=== PATIENT | male | born 1980 | race Caucasian/White ===

== ENCOUNTER 2016-08-02 10:04 | Inpatient (IN) ==
--- NOTE | 2016-08-02 14:39 | Pulmonology History & Physical ---
<Jason Villalta - Last Filed: 08/02/16 15:46> Date of Encounter: 08/02/16 Time of Encounter: 14:37 Assessment and Plan (1) Acetaminophen overdose Current visit: Yes Status: Acute 35-year-old male history of HIV presented to [facility] emergency room extremely somnolent. Patient was found to have opiates, benzodiazepine in urine toxicology and an acetaminophen level of 136. Patient reportedly took significant other's Xanax, and also reported taking Ambien, Benadryl this morning. Patient was started on acetadote. He was sedated and intubated by [facility] secondary to refusal ofacetadote and wanting to leave AMA. LFT within normal limits. Anion gap WNL. -Administering acetadote per protocol: on 2nd bag, third bag ordered. repeat acetaminophen level -sedated intubated: continue VC+, plan extubation tomorrow morning -GI and DVT prophylaxis -Continue restraints -patient overdosed previously on acetaminophen, Ambien, Tylenol in February, at which point he left AMA. Qualifiers: Encounter type: subsequent encounter Injury intent: undetermined intent Qualified Code(s): T39.1X4D - Poisoning by 4-Aminophenol derivatives, undetermined, subsequent encounter (2) Suicide Current visit: Yes Status: Suspected Possible suicide attempt hx of depression and bipolar, PTSD, panic disorder. Previous acetaminophen overdose in February. At that time patient left AMA. Currently admitted for acetaminophen overdose. We will need psychiatric evaluation after extubation. Qualifiers: Encounter type: subsequent encounter Qualified Code(s): X83.8XXD - Intentional self-harm by other specified means, subsequent encounter (3) DVT prophylaxis Current visit: Yes Status: Acute Heparin subcutaneous. (4) HIV disease Current visit: Yes Status: Chronic hx of HIV on Raltegravir and truvada outpatient will need to be continued after extubation. History of Present Illness Chief complaint: Overdose, suicide HPI: Mr. Dyer is a 35 year old male presented to [facility] by EMS for being extremely somnolent. Information obtained through EMR. Patient was thought to have ingested Xanax. At presentation patient was able to answer yes or no to questions but difficult to understand, had slurred speech. Patient stated he took ibuprofen, 10 mg of oxycodone, Ambien and 3 Benadryl this morning. His acetaminophen level was found to be 136. Poison control was contacted and patient was started o acetadote. However patient refuses treatment and wished to leave [facility], therefore Edward [facility]ilton decided to chemically restrained, and intubate patient for his own protection. He was transferred to [facility] thereafter. Past Med Surg Social Fam HX - Past Medical History Medical history: hepatitis, HIV/AIDS, seizures Psychiatric history: anxiety, depression, previous psychiatric hospitalization - Past Surgical History Surgical History: no surgical history - Social History Smoking Status: Current every day smoker Smokeless Tobacco Status: No Alcohol use: none Drug use: none Medications and Allergies Emtricitabine/Tenofovir [Truvada] 1 each PO DAILY 11/18/14 [History] Omeprazole [PriLOSEC] 40 mg PO DAILY #30 cap 05/17/15 [Rx] Raltegravir Potassium [Isentress] 400 mg PO BID 05/17/15 [History] Vit C/Ascorbate Ca/Ascorb Sod [Vitamin C 500 mg/15 ml Liquid] 500 mg PO QWEEK [History] Oxycodone HCl [Oxycodone HCl] 10 mg PO TID PRN 10/01/15 [History] SUMAtriptan [Imitrex] 50 mg PO AD PRN 10/02/15 [History] Zolpidem [Ambien] 10 mg PO HS PRN 10/02/15 [History] Allergies No Known Allergies Allergy (Verified 01/10/15 12:10) ROS unobtainable: due to endotracheal tube All Systems: A 10-system review of systems was performed and is negative for pertinent findings except as documented above in the HPI. Physical Examination Vital Signs: Vital Signs, Last 4 Hours Temp Pulse Resp BP Pulse Ox 08/02/16 13:42 97.7 F 87 19 146/107 100 08/02/16 13:20 22 140/100 100 General appearance: comatose Eyes: nonicteric ENT: oropharynx moist Neck: supple Effort: normal Inspection: normal Auscultation: bilateral: clear Percussion: bilateral: not dull Tactile fremitus: bilateral: normal Cardiovascular: regular rate and rhythm Gastrointestinal: normoactive bowel sounds, non-distended Integumentary: normal Extremities: no cyanosis, no edema, no clubbing Musculoskeletal: no deformities, ROM normal unable to assess due to mental status other (Comatose) Results - Laboratory Findings Abnormal lab findings: Abnormal lab results POC Glucose 170 (58-89) H 08/02/16 13:24 <Bill Batres - Last Filed: 08/02/16 16:28> Date of Encounter: 08/02/16 History of Present Illness HPI: Mr. Dyer is a 35 year old male All Systems: A 10-system review of systems was performed and is negative for pertinent findings except as documented above in the HPI. Physical Examination Vital Signs: Vital Signs, Last 4 Hours Temp Pulse Resp BP Pulse Ox 08/02/16 16:00 87 27 152/102 100 08/02/16 15:00 92 25 150/101 100 08/02/16 14:52 84 21 150/106 100 08/02/16 14:44 21 100 08/02/16 14:00 87 22 139/99 100 08/02/16 13:42 97.7 F 87 19 146/107 100 08/02/16 13:25 92 21 126/106 100 08/02/16 13:20 22 140/100 100 Results - Laboratory Findings ABG ABG pH 7.44 pH Units (7.32-7.45) 08/02/16 15:05 ABG pCO2 40 mmHg (35-45) 08/02/16 15:05 ABG pO2 156 mmHg (85-104) H 08/02/16 15:05 ABG O2 Saturation 99 % (95-98) H 08/02/16 15:05 Abnormal lab findings: Abnormal lab results ABG pO2 156 mmHg (85-104) H 08/02/16 15:05 ABG HCO3 27.2 mEQ/L (21-27) H 08/02/16 15:05 ABG Total CO2 28.4 mEq/L (20-26) H 08/02/16 15:05 ABG O2 Saturation 99 % (95-98) H 08/02/16 15:05 POC Glucose 170 (58-89) H 08/02/16 13:24 Acetaminophen 32.0 mcg/mL (10-30) H 08/02/16 15:38 - Attending Attestation I examined this patient and my medical decision-making was reviewed with the PREPARATION PLANT SUPERVISOR/PA/Advanced Practice Nurse/Resident Physician. I agree with the documented findings, disposition and treatment plan as described except to the extent set forth below. Patient seen and examined. Labs, radiology, chart personally reviewed. Agree with resident's history and physical, assessment, plan with following comments: FULL STACK PHP DEVELOPER: Patient sedated for the vent synchrony. Pulmonary: Acceptable oxygenation and ventilation and ABG was ordered which showed shows evidence of alkalosis with combined metabolic and respiratory could be due to increase of his respiratory rate and need sedation and also change the vent with lowering his minute ventilation. Cardiovascular: stable GI: Nutrition per dietary and GI prophylaxis per routine. Patient is on the treatment as per the protocol for acetaminophen overdose. Heme: DVT prophylaxis per routine ID: Patient with HIV and and he is on the treatment Renal; urine out put and renal funtion reviewed Endorcine: blood glucose is monitored Lines: all lines checked and no evidence of infections Skin: skin care to prevent pressure ulcers per nursing routine care Psych: Patient will need to be evaluated by psychiatrist after extubation I spent 35 min of Critical Care time with this patient. It involved decision making of high complexity to assess, manipulate, and support vital organ system failure and/or to prevent further life threatening deterioration of the patient' s condition. The time involved in the performance of separately reportable procedures was not counted toward critical care time.
[2016-08-02] MEDS ORDERED: Ondansetron 4 MG/2 ML VIAL IVP PRN (15:17)
[2016-08-02] MEDS ORDERED: Naloxone 0.4 MG/ML INJ IVP PRN (15:17)
[2016-08-02] MEDS ORDERED: Lacri-Lube 3.5 GM TUBE BOTH EYES PRN (15:18)
[2016-08-02] MEDS ORDERED: Acetylcysteine 10,000 MG in D5% in Water 1,000 ML IVC ONE (15:21)
[2016-08-02 15:22] LABS: ABG Base Excess 2.8 mEq/L (-2.0 to 3.0); ABG HCO3 27.2 mEQ/L (21-27); ABG Oxygen Saturation 99 % (95-98); ABG PCO2 40 mmHg (35-45); ABG PH 7.44 pH Units (7.32-7.45); ABG PO2 156 mmHg (85-104); ABG TCO2 28.4 mEq/L (20-26); Blood Gas FiO2 40 %
[2016-08-02] MEDS: 0.9 % Sodium Chloride 1,000 ML IVC SCH ×2 (16:55→22:17)
[2016-08-02] MEDS: Famotidine 20 MG/2 ML VIAL IVP SCH (16:55)
[2016-08-02] MEDS: *HR* Heparin 5,000 UNIT/ML VIAL SQ SCH (16:58)
[2016-08-02] MEDS: FentaNYL (PF) 1,000 MCG in 0.9 % Sodium Chloride 80 ML IVC SCH (17:29)
[2016-08-02] MEDS ORDERED: Chlorhexidine Rinse 15 ML MOUTHWASH MM SCH (21:00)
[2016-08-03] MEDS: 0.9 % Sodium Chloride 1,000 ML IVC SCH ×2 (03:22→11:59)
[2016-08-03] MEDS: FentaNYL (PF) 1,000 MCG in 0.9 % Sodium Chloride 80 ML IVC SCH ×2 (03:23→09:39)
[2016-08-03 04:40] LABS: ABG Base Excess 4.3 mEq/L (-2.0 to 3.0); ABG HCO3 30.3 mEQ/L (21-27); ABG Oxygen Saturation 98 % (95-98); ABG PCO2 50 mmHg (35-45); ABG PH 7.39 pH Units (7.32-7.45); ABG PO2 109 mmHg (85-104); ABG TCO2 31.8 mEq/L (20-26)
[2016-08-03 04:41] LABS: Blood Gas FiO2 40 %
[2016-08-03] MEDS: *HR* Heparin 5,000 UNIT/ML VIAL SQ SCH ×2 (05:21→17:27)
[2016-08-03] MEDS: Famotidine 20 MG/2 ML VIAL IVP SCH (05:21)
[2016-08-03] MEDS ORDERED: *HR* Midazolam HCl 5 MG/5 ML VIAL IVP PRN (05:49)
[2016-08-03] MEDS ORDERED: *HR* Midazolam HCl 5 MG/5 ML VIAL IVP ONE (05:53)
[2016-08-03 06:36] LABS: Basophils % 0.1 %; Eosinophils # 0.1 K/mcL (0.0-0.6); Eosinophils % 1.2 %; Hematocrit 40.3 % (37.5-50.1); Hemoglobin 13.4 g/dL (12.9-16.9); Immature Granulocytes % 0.3 % (0-4); Lymphocytes # 1.9 K/mcL (0.6-4.6); Lymphocytes % 24.4 %; Mean Corpuscular HGB Conc 33.3 g/dL (31.6-35.5); Mean Corpuscular Hemoglobin 33.6 pg (28.0-33.3); Mean Platelet Volume 9.9 fL (9.4-12.4); Monocytes # 0.6 K/mcL (0.0-1.3); Monocytes % 7.8 %; Neutrophils # 5.1 K/mcL (1.6-8.9); Platelet Count 116 K/mcL (140-400); Red Blood Count 3.99 M/mcL (4.19-5.50); Red Cell Distribution Width 13.8 % (11.5-14.5); Segmented Neutrophils % 66.2 %
[2016-08-03 06:48] LABS: Alanine Aminotransferase 29 Units/L (0-55); Albumin 3.2 g/dL (3.5-5.0); Alkaline Phosphatase 42 Units/L (38-126); Aspartate Amino Transferase 24 Units/L (5-34); BUN/Creatinine Ratio 8 (6-26); Bilirubin,Total 0.4 mg/dL (0.2-1.2); Blood Urea Nitrogen 6 mg/dL (8-26); Calcium 8.9 mg/dL (8.6-10.8); Carbon Dioxide 28 mEq/L (19-29); Chloride 108 mEq/L (98-109); Globulin 3.1 g/dL (2.4-3.5); Glucose 94 mg/dL (70-99); Osmolality,Calculated 287 (280-300); Potassium 3.6 mEq/L (3.5-4.5); Sodium 140 mEq/L (136-145); Total Protein 6.3 g/dL (6.0-8.3); eGFR For African Americans > 60 (> 60); eGFR For Non-African Americans > 60 (> 60)
[2016-08-03 06:50] LABS: Albumin 3.2 g/dL (3.5-5.0); Albumin/Globulin Ratio 1.1 (1.1-2.2); Bilirubin,Direct 0.2 mg/dL (0.0-0.5); Bilirubin,Indirect 0.2 mg/dL (0.0-1.2); Bilirubin,Total 0.4 mg/dL (0.2-1.2); Total Protein 6.2 g/dL (6.0-8.3)
--- NOTE | 2016-08-03 07:45 | Pulmonology Progress Note ---
<Anitha Dover - Last Filed: 08/03/16 14:26> Date of Encounter: 08/03/16 Time of Encounter: 07:45 Assessment and Plan (1) Acetaminophen overdose Current Visit: Yes Status: Acute Patient was intubated and completed mucomyst. The patient was on CPAP mode when he self extubated around 1300. The patient is awake stating he is going to leave AMA and that he "knows his rights." Patient interviewed about intentions of suicide with his acetaminophen OD and future plans. He denies any intent or plans at suicide, stating that he "loves life" and that he is HIV+ and if he wanted to kill himself he would just stop taking his medications. Patient did not list tylenol in meds ingested, but when questioned specifically about Tylenol ingestion states he was taking tylenol PM as he has trouble sleeping. Psych was called as patient is medically cleared for 1A. Will transfer patient to any bed and await psych eval. Patient will need to be restrained if he attempts to leave AMA as this is the second OD on acetaminophen that he has had in the last 6 months. SPICE BLENDER: Patient remains intubated and sedated during Mucomyst treatment. Patient arrived by EMS to take ER 08/02/2016 somnolent with Slurred speech. Patient took multiple drugs in a suspected attempted overdose. Acetaminophen level was elevated at 136, this morning it is 2. Patient is on a third bag of mucomyst per protocol and poison control. hx of depression and bipolar, PTSD, panic disorder. Previous acetaminophen overdose in February, at that time patient left AMA. Will need psychiatric evaluation after extubation. Pulmonary: He should intubated to protect airway well chemically restrained. Plan to extubate once Mucomyst treatment is completed Cardiovascular: RRR, normotensive, stable GI: Nutrition: NPO GI Prophylaxis Pepcid. Acetaminophen level 2 this morning, LFTs stable. Completing bag 3 of mucomyst per protocol. Renal: UOP 1400, Scr stable ID: Hx HIV on Raltegravir and truvada outpatient, will need to be continued after extubation. Heme/Onc: DVT Prophylaxis Hep SQ Endocrine: Stable Lines: all lines checked and no evidence of infections Skin: skin care to prevent pressure ulcers per nursing routine care. CODE STATUS: FULL CODE Qualifiers: Encounter type: subsequent encounter Injury intent: intentional self-harm Qualified Code(s): T39.1X2D - Poisoning by 4-Aminophenol derivatives, intentional self-harm, subsequent encounter (2) Suicide attempt by acetaminophen overdose Current Visit: Yes Status: Acute Qualifiers: Encounter type: subsequent encounter Qualified Code(s): T39.1X2D - Poisoning by 4-Aminophenol derivatives, intentional self-harm, subsequent encounter (3) HIV disease Current Visit: Yes Status: Chronic (4) DVT prophylaxis Current Visit: Yes Status: Acute Subjective Principal diagnosis: Acetaminophen toxicity Interval history: Seen and examined. He remains intubated and sedated. He became agitated and was attempting to pull out his ET tube and waking up, attempting to talk over the tube and pull at the restraints. He did manage at one point to disconnect the ET tube from the ventilator. Objective PUL Vital signs: Last Vital Signs Temp 98.2 F 08/03/16 07:00 Pulse 94 08/03/16 07:00 Resp 13 08/03/16 07:00 BP 102/65 08/03/16 07:00 Pulse Ox 96 08/03/16 06:05 General appearance: other Eyes: nonicteric (Intubated and sedated) ENT: oropharynx moist Neck: supple, no lymphadenopathy, no JVD Effort: normal Auscultation: bilateral: clear Cardiovascular: regular rate and rhythm Gastrointestinal: normoactive bowel sounds, soft, non-tender, non-distended Integumentary: normal Extremities: no cyanosis, no edema, pink and warm, pulses normal Musculoskeletal: no deformities pupils equal and round, unable to assess due to mental status (Sedated and intubated) Ventilator Settings Ventilator Settings: Ventilator Settings, Last 8 Hours Ventilator Mode A/C Ventilator Mode VC+ Ventilator Mode VC+ Ventilator Mode VC+ Ventilator Mode VC+ Ventilator Mode VC+ Ventilator Mode VC+ Ventilator Mode VC+ Ventilator Mode VC+ Ventilator Mode VC+ Ventilator Mode VC+ Ventilator Mode VC+ Ventilator Mode VC+ Ventilator Tidal Volume 500 Setting Ventilator Tidal Volume 500 Setting Ventilator Tidal Volume 500 Setting Ventilator Tidal Volume 500 Setting Ventilator Tidal Volume 500 Setting Ventilator Tidal Volume 500 Setting Ventilator Tidal Volume 500 Setting Ventilator Tidal Volume 500 Setting Ventilator Tidal Volume 500 Setting Ventilator Tidal Volume 500 Setting Ventilator Tidal Volume 500 Setting Ventilator Tidal Volume 500 Setting Ventilator Tidal Volume 500 Setting Ventilator Respiratory Rate 12 Setting Ventilator Respiratory Rate 12 Setting Ventilator Respiratory Rate 12 Setting Ventilator Respiratory Rate 12 Setting Ventilator Respiratory Rate 12 Setting Ventilator Respiratory Rate 12 Setting Ventilator Respiratory Rate 12 Setting Ventilator Respiratory Rate 12 Setting Ventilator Respiratory Rate 12 Setting Ventilator Respiratory Rate 12 Setting Ventilator Respiratory Rate 12 Setting Ventilator Respiratory Rate 12 Setting Ventilator Respiratory Rate 12 Setting Actual Respiratory Rate 13 Actual Respiratory Rate 12 Actual Respiratory Rate 12 Actual Respiratory Rate 16 Actual Respiratory Rate 12 Actual Respiratory Rate 12 Actual Respiratory Rate 16 Actual Respiratory Rate 14 Actual Respiratory Rate 16 Actual Respiratory Rate 16 Actual Respiratory Rate 16 Actual Respiratory Rate 18 Positive End Expiratory 5 Pressure Positive End Expiratory 5 Pressure Positive End Expiratory 5 Pressure Positive End Expiratory 5 Pressure Positive End Expiratory 5 Pressure Positive End Expiratory 5 Pressure Positive End Expiratory 5 Pressure Positive End Expiratory 5 Pressure Positive End Expiratory 5 Pressure Positive End Expiratory 5 Pressure Positive End Expiratory 5 Pressure Positive End Expiratory 5 Pressure Positive End Expiratory 5 Pressure Peak Inspiratory Airway 19 Pressure Peak Inspiratory Airway 19 Pressure Peak Inspiratory Airway 19 Pressure Peak Inspiratory Airway 19 Pressure Peak Inspiratory Airway 19 Pressure Peak Inspiratory Airway 18 Pressure Peak Inspiratory Airway 17 Pressure Peak Inspiratory Airway 18 Pressure Peak Inspiratory Airway 18 Pressure Results - Laboratory Findings CBC and BMP: 08/03/16 06:27 08/03/16 06:27 ABG ABG pH 7.39 pH Units (7.32-7.45) 08/03/16 04:28 ABG pCO2 50 mmHg (35-45) H 08/03/16 04:28 ABG pO2 109 mmHg (85-104) H 08/03/16 04:28 ABG O2 Saturation 98 % (95-98) 08/03/16 04:28 Abnormal lab findings: Abnormal lab results RBC 3.99 M/mcL (4.19-5.50) L 08/03/16 06:27 MCV 101.0 fL (83.0-100.0) H 08/03/16 06:27 MCH 33.6 pg (28.0-33.3) H 08/03/16 06:27 Plt Count 116 K/mcL (140-400) L 08/03/16 06:27 ABG pCO2 50 mmHg (35-45) H 08/03/16 04:28 ABG pO2 109 mmHg (85-104) H 08/03/16 04:28 ABG HCO3 30.3 mEQ/L (21-27) H 08/03/16 04:28 ABG Total CO2 31.8 mEq/L (20-26) H 08/03/16 04:28 ABG Base Excess 4.3 mEq/L (-2.0 to 3.0) H 08/03/16 04:28 BUN 6 mg/dL (8-26) L 08/03/16 06:27 POC Glucose 97 (58-89) H 08/02/16 23:28 Albumin 3.2 g/dL (3.5-5.0) L 08/03/16 06:27 Acetaminophen 2.0 mcg/mL (10-30) L 08/03/16 06:27 - Clinical Findings Intake & Output: Intake & Output 08/02/16 08/02/16 08/03/16 15:59 23:59 07:59 Intake Total 1237 / 1237 263 / 263 Output Total 1300 / 1300 100 / 100 800 / 800 Balance -1300 / -1300 1137 / 1137 -537 / -537 Weight 100 kg 96.524 kg Consult Discharge Plan - Plan Referrals: Sunil Thomson MD [Primary Care Provider] - <Bill Batres - Last Filed: 08/03/16 17:53> Date of Encounter: 08/03/16 Objective PUL Vital signs: Last Vital Signs Temp 98.7 F 08/03/16 12:33 Pulse 108 08/03/16 14:00 Resp 18 08/03/16 14:00 BP 116/82 08/03/16 14:00 Pulse Ox 98 08/03/16 12:47 Ventilator Settings Ventilator Settings: Ventilator Settings, Last 8 Hours Ventilator Mode A/C Ventilator Mode A/C Ventilator Mode A/C Ventilator Mode A/C Ventilator Tidal Volume 500 Setting Ventilator Tidal Volume 547 Setting Ventilator Tidal Volume 474 Setting Ventilator Tidal Volume 500 Setting Ventilator Respiratory Rate 12 Setting Ventilator Respiratory Rate 12 Setting Ventilator Respiratory Rate 12 Setting Ventilator Respiratory Rate 12 Setting Actual Respiratory Rate 12 Actual Respiratory Rate 13 Actual Respiratory Rate 13 Actual Respiratory Rate 18 Positive End Expiratory 5 Pressure Positive End Expiratory 5 Pressure Positive End Expiratory 5 Pressure Positive End Expiratory 5 Pressure Peak Inspiratory Airway 20 Pressure Peak Inspiratory Airway 17 Pressure Peak Inspiratory Airway 18 Pressure Peak Inspiratory Airway 15 Pressure Results - Laboratory Findings CBC and BMP: 08/03/16 06:27 08/03/16 06:27 ABG ABG pH 7.39 pH Units (7.32-7.45) 08/03/16 04:28 ABG pCO2 50 mmHg (35-45) H 08/03/16 04:28 ABG pO2 109 mmHg (85-104) H 08/03/16 04:28 ABG O2 Saturation 98 % (95-98) 08/03/16 04:28 Abnormal lab findings: Abnormal lab results RBC 3.99 M/mcL (4.19-5.50) L 08/03/16 06:27 MCV 101.0 fL (83.0-100.0) H 08/03/16 06:27 MCH 33.6 pg (28.0-33.3) H 08/03/16 06:27 Plt Count 116 K/mcL (140-400) L 08/03/16 06:27 ABG pCO2 50 mmHg (35-45) H 08/03/16 04:28 ABG pO2 109 mmHg (85-104) H 08/03/16 04:28 ABG HCO3 30.3 mEQ/L (21-27) H 08/03/16 04:28 ABG Total CO2 31.8 mEq/L (20-26) H 08/03/16 04:28 ABG Base Excess 4.3 mEq/L (-2.0 to 3.0) H 08/03/16 04:28 BUN 6 mg/dL (8-26) L 08/03/16 06:27 Albumin 3.2 g/dL (3.5-5.0) L 08/03/16 06:27 Acetaminophen 2.0 mcg/mL (10-30) L 08/03/16 06:27 - Clinical Findings Intake & Output: Intake & Output 08/03/16 08/03/16 08/03/16 07:59 15:59 23:59 Intake Total 263 / 263 2290 / 2290 0 / 0 Output Total 800 / 800 1700 / 1700 0 / 0 Balance -537 / -537 590 / 590 0 / 0 Weight 96.524 kg 96.52 kg - Attending Attestation I examined this patient and my medical decision-making was reviewed with the EDUCATIONAL SPECIALIST/PA/Advanced Practice Nurse/Resident Physician. I agree with the documented findings, disposition and treatment plan as described except to the extent set forth below. Patient seen and examined. Labs, radiology, chart personally reviewed. Agree with resident's history and physical, assessment, plan with following comments: SPICE BLENDER: Patient follows commands, Pulmonary: Acceptable oxygenation and ventilation. He self extubated Cardiovascular: stable I discussed with the psychiatrist and we both agreed since this is his second overdose after he signed AGAINST MEDICAL ADVICE to first time then he needs to stay for treatment. I Have explained to the patient in the presence of the nurse the situation and the recommendation to and he agreed to stay.
[2016-08-03] MEDS ORDERED: *HR* OxyCODONE Immed Rel 5 MG TABLET PO PRN ×2 (14:24→17:01)
--- NOTE | 2016-08-03 15:54 | Consult Note ---
Date of Encounter: 08/03/16 Time of Encounter: 15:00 Assessment & Recommendation (1) Mood disorder Current visit: No Status: Chronic Assessment & Recommendation: Patient had two serious overdoses in 6 months one in February and 1 in July, he required intubation in both episodes. I recommend admission to psychiatric unit for further evaluation of depression or mood disorder. Thank you for consultation (2) Drug overdose Current visit: Yes Status: Acute Qualifiers: Encounter type: subsequent encounter Injury intent: undetermined intent Qualified Code(s): T50.904D - Poisoning by unspecified drugs, medicaments and biological substances, undetermined, subsequent encounter History of Present Illness Patient: known to practice within the last 3 years Requesting Physician: Tawnya Barone MD Reason for consult: Acetaminophen overdose, history of suicide attempts History of present illness: Mr. Dyer is a 35 year old male admitted to intensive care unit for treatment of an overdose on acetaminophen and also other drugs including opiates, benzodiazepine. Patient had to be intubated and later extubated. Psychiatric consultation was requested to evaluate's his overdose with possible suicide attempt. Patient was seen in psychiatric consultation for similar presentation on 03/08/2016. He was discharged AMA at that time. On interview patient was sedated, his speech was slurred and he was irritable insists that he did not overdose and when I ask him about details of medication that he took he became belligerent and angry and at this point I concluded my evaluation and contacted the attending physician and I shared with him my recommendation of hospitalization in psychiatry to further evaluate this repeated life-threatening event. CC: Tawnya Barone MD Past Med Surg Social Fam HX - Past Medical History Medical history: hepatitis, HIV/AIDS, seizures - Past Surgical History Surgical History: no surgical history - Social History Smoking Status: Current every day smoker Smokeless Tobacco Status: No Alcohol use: none Drug use: none Medications & Allergies Emtricitabine/Tenofovir [Truvada] 1 each PO DAILY 11/18/14 [History] Raltegravir Potassium [Isentress] 400 mg PO BID 05/17/15 [History] Oxycodone HCl [Oxycodone HCl] 10 mg PO TID PRN 10/01/15 [History] Zolpidem [Ambien] 10 mg PO HS PRN 10/02/15 [History] Cholecalciferol (Vitamin D3) [Vitamin D3] 10,000 unit PO 2XW 08/02/16 [History] Ergocalciferol (VITAMIN D2) [Vitamin D2] 50,000 unit PO QWEEK 08/02/16 [History] Nicotine Patch [Nicoderm] 7 mg TD DAILY 08/02/16 [History] Omeprazole [PriLOSEC] 20 mg PO DAILY 08/02/16 [History] SUMAtriptan Succinate [Imitrex] 100 mg PO DAILY PRN 08/02/16 [History] clonazePAM [Klonopin] 1 mg PO BID 08/02/16 [History] Allergies No Known Allergies Allergy (Verified 01/10/15 12:10) Mental Status Exam Patient orientation: Yes Person, Yes Place Level of alertness: Sedated Patient appearance: Appropriate, Unkempt, Disheveled Behavior: agitated, hostile, restless, uncooperative, impulsive Psychomotor activity: Increased Eye contact: Fleeting Contact Mood description: Labile, Irritable Affect description: congruent with mood, labile, dysphoric Speech pattern: Normal rate, Normal rhythm, Normal tone, Disorganized, Limited, Slurred, Rambling Speech volume: Normal Thought process: Circumstantial, Thought Blocking, Evasive Thought content: No Suicidal ideation, No Homicidal ideation, No Overt delusions Perceptual disturbances: No Auditory hallucinations, No Visual hallucinations Attention span: Unable to Focus Memory description: Immediate Impaired, Recent Impaired, Remote Impaired Patient reliability: Not Reliable Historian Intelligence estimate: Average Judgment: Limited Insight: Partial Results - Vital Signs Vital signs: Temp Pulse Resp BP Pulse Ox 98.7 F 108 18 116/82 98 08/03/16 12:33 08/03/16 14:00 08/03/16 14:00 08/03/16 14:00 08/03/16 12:47 - Drug Levels and Toxicology Drug Levels and Toxicology: Drug Levels and Toxicity 08/02/16 08/03/16 15:38 06:27 Acetaminophen 32.0 H 2.0 L - Labs Labs: Laboratory Last Values WBC 7.7 K/mcL (4.3-11.1) 08/03/16 06:27 RBC 3.99 M/mcL (4.19-5.50) L 08/03/16 06:27 Hgb 13.4 g/dL (12.9-16.9) D 08/03/16 06:27 Hct 40.3 % (37.5-50.1) 08/03/16 06:27 MCV 101.0 fL (83.0-100.0) H 08/03/16 06:27 MCH 33.6 pg (28.0-33.3) H 08/03/16 06:27 MCHC 33.3 g/dL (31.6-35.5) 08/03/16 06:27 RDW 13.8 % (11.5-14.5) 08/03/16 06:27 Plt Count 116 K/mcL (140-400) L 08/03/16 06:27 MPV 9.9 fL (9.4-12.4) 08/03/16 06:27 Immature Gran % 0.3 % (0-4) 08/03/16 06:27 Seg Neutrophils % 66.2 % 08/03/16 06:27 Lymphocytes % 24.4 % 08/03/16 06:27 Monocytes % 7.8 % 08/03/16 06:27 Eosinophils % 1.2 % 08/03/16 06:27 Basophils % 0.1 % 08/03/16 06:27 Neutrophils # 5.1 K/mcL (1.6-8.9) 08/03/16 06:27 Lymphocytes # 1.9 K/mcL (0.6-4.6) 08/03/16 06:27 Monocytes # 0.6 K/mcL (0.0-1.3) 08/03/16 06:27 Eosinophils # 0.1 K/mcL (0.0-0.6) 08/03/16 06:27 Basophils # 0.0 K/mcL (0.0-0.2) 08/03/16 06:27 ABG pH 7.39 pH Units (7.32-7.45) 08/03/16 04:28 ABG pCO2 50 mmHg (35-45) H 08/03/16 04:28 ABG pO2 109 mmHg (85-104) H 08/03/16 04:28 ABG HCO3 30.3 mEQ/L (21-27) H 08/03/16 04:28 ABG Total CO2 31.8 mEq/L (20-26) H 08/03/16 04:28 ABG O2 Saturation 98 % (95-98) 08/03/16 04:28 ABG Base Excess 4.3 mEq/L (-2.0 to 3.0) H 08/03/16 04:28 Blood Gas Modality VC+ 08/03/16 04:28 Inspired O2 40 % 08/03/16 04:28 Sodium 140 mEq/L (136-145) 08/03/16 06:27 Potassium 3.6 mEq/L (3.5-4.5) 08/03/16 06:27 Chloride 108 mEq/L (98-109) 08/03/16 06:27 Carbon Dioxide 28 mEq/L (19-29) 08/03/16 06:27 BUN 6 mg/dL (8-26) L 08/03/16 06:27 Creatinine 0.72 mg/dL (0.72-1.25) 08/03/16 06:27 Est GFR ( Amer) > 60 (> 60) 08/03/16 06:27 Est GFR (Non-Af Amer) > 60 (> 60) 08/03/16 06:27 BUN/Creatinine Ratio 8 (6-26) 08/03/16 06:27 Glucose 94 mg/dL (70-99) 08/03/16 06:27 POC Glucose 81 (58-89) 08/03/16 11:59 Calculated Osmolality 287 (280-300) 08/03/16 06:27 Calcium 8.9 mg/dL (8.6-10.8) 08/03/16 06:27 Total Bilirubin 0.4 mg/dL (0.2-1.2) 08/03/16 06:27 Direct Bilirubin 0.2 mg/dL (0.0-0.5) 08/03/16 06:27 Indirect Bilirubin 0.2 mg/dL (0.0-1.2) 08/03/16 06:27 AST 25 Units/L (5-34) 08/03/16 06:27 ALT 31 Units/L (0-55) 08/03/16 06:27 Alkaline Phosphatase 44 Units/L (38-126) 08/03/16 06:27 Serum Total Protein 6.2 g/dL (6.0-8.3) 08/03/16 06:27 Albumin 3.2 g/dL (3.5-5.0) L 08/03/16 06:27 Globulin 3.0 g/dL (2.4-3.5) 08/03/16 06:27 Albumin/Globulin Ratio 1.1 (1.1-2.2) 08/03/16 06:27 Acetaminophen 2.0 mcg/mL (10-30) L 08/03/16 06:27 Consult Discharge Plan - Plan Referrals: Sunil Thomson MD [Primary Care Provider] -
[2016-08-03] MEDS ORDERED: Ondansetron 4 MG/2 ML VIAL IVP PRN (17:01)
[2016-08-03] MEDS ORDERED: Naloxone 0.4 MG/ML INJ IVP PRN (17:01)
[2016-08-03] MEDS: Nicotine 7 MG PATCH.TD24 TD SCH (17:27)
[2016-08-03] MEDS: SUMAtriptan succinate 50 MG TABLET PO PRN (18:21)
[2016-08-03] MEDS: *HR* OxyCODONE Immed Rel 5 MG TABLET PO PRN ×2 (18:56→23:20)
[2016-08-03] MEDS: RALTEGRAVIR POTASSIUM 400 MG TABLET PO SCH (23:25)
[2016-08-04] MEDS: *HR* OxyCODONE Immed Rel 5 MG TABLET PO PRN ×3 (04:34→12:46)
[2016-08-04] MEDS: *HR* Heparin 5,000 UNIT/ML VIAL SQ SCH (05:08)
[2016-08-04] MEDS: Nicotine 7 MG PATCH.TD24 TD SCH (08:36)
[2016-08-04] MEDS: RALTEGRAVIR POTASSIUM 400 MG TABLET PO SCH (08:37)
[2016-08-04] MEDS: SUMAtriptan succinate 50 MG TABLET PO PRN (08:37)
[2016-08-04 09:25] VITALS: BP 143/90
--- NOTE | 2016-08-04 09:30 | Discharge Summary ---
Date of Encounter: 08/04/16 Time of Encounter: 09:27 - Discharge Diagnosis (1) Acetaminophen overdose Priority: Primary Status: Acute Qualifiers: Encounter type: subsequent encounter Injury intent: undetermined intent Qualified Code(s): T39.1X4D - Poisoning by 4-Aminophenol derivatives, undetermined, subsequent encounter (2) Drug overdose Priority: Primary Status: Acute Qualifiers: Encounter type: subsequent encounter Injury intent: undetermined intent Qualified Code(s): T50.904D - Poisoning by unspecified drugs, medicaments and biological substances, undetermined, subsequent encounter (3) Acute respiratory failure Priority: Primary Status: Resolved Qualifiers: Respiratory failure complication: hypoxia Qualified Code(s): J96.01 - Acute respiratory failure with hypoxia (4) Bipolar disease, chronic Priority: Secondary Status: Chronic (5) HIV disease Priority: Secondary Status: Chronic (6) Anxiety disorder Priority: Secondary Status: Chronic Qualifiers: Anxiety disorder type: unspecified anxiety disorder Qualified Code(s): F41.9 - Anxiety disorder, unspecified (7) Depression Priority: Secondary Status: Chronic Qualifiers: Depression Type: unspecified Qualified Code(s): F32.9 - Major depressive disorder, single episode, unspecified (8) Mood disorder Priority: Secondary Status: Chronic - Discharge Medications Home Medications: Emtricitabine/Tenofovir [Truvada] 1 each PO DAILY 11/18/14 [History] Raltegravir Potassium [Isentress] 400 mg PO BID 05/17/15 [History] Oxycodone HCl 10 mg PO TID PRN 10/01/15 [History] Zolpidem [Ambien] 10 mg PO HS PRN 10/02/15 [History] Cholecalciferol (Vitamin D3) [Vitamin D3] 10,000 unit PO 2XW 08/02/16 [History] Ergocalciferol (VITAMIN D2) [Vitamin D2] 50,000 unit PO QWEEK 08/02/16 [History] Omeprazole [PriLOSEC] 20 mg PO DAILY 08/02/16 [History] SUMAtriptan Succinate [Imitrex] 100 mg PO DAILY PRN 08/02/16 [History] clonazePAM [Klonopin] 1 mg PO BID 08/02/16 [History] Allergies/Adverse Reactions: Allergies No Known Allergies Allergy (Verified 01/10/15 12:10) Date of admission: 08/02/16 16:15 Primary care physician: Sunil Thomson MD Consults: 08/03/16 10:35 Consult to Psychiatry [CONS] Stat Consulting Provider: Ramon Parmar Reason for Consult: Acetaminophen OD, hx suicide attempt Time Notified: 10:37 Call Completed: Yes Discharging clinician: Ellie Soni Anticipated date of discharge: 08/04/16 - Patient Status Disposition: Transfer Psychiatric Hosp Condition: Fair Functional capacity at discharge: independent ambulation Overall status at discharge: patient is progressing back to baseline - Discharge Instructions Instructions: Mood Disorders (DC) Follow Up With: Sunil Thomson MD [Primary Care Provider] - Additional Instructions: F/up with Psychiatry at [facility] - Diet and Activity Activity: resume usual activities as tolerated Diet: advance to your usual diet Hospital course: Mr. Dyer is a 35 year old male with history of HIV, bipolar disorder, mood disorder was initially admitted with drowsiness. He was noted to have acetaminophen toxicity, which is noted to be a second time in our emergency room. Patient has left AGAINST MEDICAL ADVICE the last time. He was thus intubated and transferred to ICU during this admission. Poison control was contacted and patient received N-Acetylcysteine for Acetaminophen toxicity per protocol. His mental status and labs and Tylenol level gradually improved and he was successfully extubated and transferred to medical floor. Patient was evaluated by psychiatry and recommend inpatient psychiatric hospitalization for counseling and medication management due to 2 attempts at overdoses although patient claims that these have been accidental. Patient is currently medically stable for transfer to psychiatric floor. - Time Spent with Patient Total time spent providing and/or coordinating discharge services: Greater than 30 minutes (45 min) - Constitutional Vitals: Temp Pulse Resp BP Pulse Ox 97.9 F 99 16 143/90 96 08/04/16 09:24 08/04/16 09:24 08/04/16 09:24 08/04/16 09:24 08/04/16 09:24 General appearance: Present: A&O X 3 (very talkative), answers questions appropriately - Respiratory Respiratory exam: Present: CTAB. Absent: accessory muscle use, rales, rhonchi, wheezes - Cardiovascular Cardiovascular exam: Present: RRR, +S1, +S2, tachycardia (while talking excitedly). Absent: diastolic murmur, gallop, rubs, systolic murmur
== END 2016-08-04 14:10 | DRG 812 ==
LOC: ICNU → 2ANU 08-03 16:21
PROVIDERS: ADMIT Internal Medicine Pulmonary Disease; ATTEND Internal Medicine

== ENCOUNTER 2016-08-04 14:06 | Observation (INO) ==
[2016-08-04] MEDS ORDERED: SUMAtriptan succinate 50 MG TABLET PO PRN (14:20)
[2016-08-04] MEDS ORDERED: traZODone 50 MG TABLET PO PRN (14:22)
[2016-08-04] MEDS ORDERED: Mag Hydrox/Al Hydrox/Simeth 30 ML UDC PO PRN (14:22)
[2016-08-04] MEDS ORDERED: Haloperidol Lactate 5 MG/ML VIAL IM PRN (14:22)
[2016-08-04] MEDS ORDERED: Acetaminophen 325 MG TABLET PO PRN (14:22)
[2016-08-04] MEDS ORDERED: *HR* LORazepam 2 MG/ML VIAL IM PRN (14:22)
[2016-08-04] MEDS ORDERED: hydrOXYzine pamoate 25 MG CAPSULE PO PRN (14:22)
[2016-08-04] MEDS ORDERED: MOM Conc 10 ML UD.LIQ PO PRN (14:22)
[2016-08-04] MEDS ORDERED: *HR* LORazepam 1 MG TABLET PO PRN (14:22)
[2016-08-04] MEDS ORDERED: *HR* OxyCODONE Immed Rel 5 MG TABLET PO SCH (16:00)
[2016-08-04] MEDS: *HR* OxyCODONE Immed Rel 5 MG TABLET PO PRN ×2 (16:37→20:43)
[2016-08-04] MEDS ORDERED: clonazePAM 1 MG TABLET PO PRN (19:01)
[2016-08-04] MEDS ORDERED: clonazePAM 1 MG TABLET PO SCH (21:00)
[2016-08-04] MEDS: RALTEGRAVIR POTASSIUM 400 MG TABLET PO SCH (21:56)
[2016-08-05] MEDS: *HR* OxyCODONE Immed Rel 5 MG TABLET PO PRN ×2 (02:15→08:54)
[2016-08-05] MEDS: RALTEGRAVIR POTASSIUM 400 MG TABLET PO SCH (08:45)
[2016-08-05] MEDS ORDERED: Nicotine 21 MG PATCH.TD24 TD SCH (09:00)
[2016-08-05] MEDS ORDERED: Cholecalciferol (D-3) 1,000 UNIT TABLET PO SCH (09:00)
[2016-08-05 09:20] VITALS: BP 114/90
--- NOTE | 2016-08-05 10:03 | Discharge Summary ---
Date of Encounter: 08/05/16 Time of Encounter: 09:00 History of Present Illness Chief complaint: Overdose, suicidal attempt Admitted From: Intrahospital Transfer (2 A) History of Present Illness: Mr. Dyer is a 35 year old male admitted to the hospital for treatment of acetaminophen overdose he was intubated and extubated, he was seen in a psychiatry consultation and then admitted to the psychiatric unit for observation. Patient had long history of depression and anxiety multiple episodes of overdose that resulted in respiratory failure and intubation most recent was in February 2016. Patient denied the dose attempts are intentional and last admission in general he signed himself AGAINST MEDICAL ADVICE. He is followed up in the [facility] as outpatient and also has a history of substance abuse and on probation for that. He is noncompliant with medication and appointments. He is dependent on opiate and benzodiazepine. Past Med Surg Social Fam HX - Past Medical History Medical history: hepatitis, HIV/AIDS, seizures - Past Psychiatric History Psychiatric history: Reports: anxiety, depression, prior suicide attempt, previous psychiatric hospitalization Past psychiatric history details: He was seen in February 2016 for similar episode of overdose and was discharged AMA from the medical floor - Past Surgical History Surgical History: no surgical history - Social History Smoking Status: Current every day smoker Smokeless Tobacco Status: No Alcohol use: none Drug use: none Medications - Discharge Medications Emtricitabine/Tenofovir [Truvada] 1 each PO DAILY 11/18/14 [History] Raltegravir Potassium [Isentress] 400 mg PO BID 05/17/15 [History] Oxycodone HCl 10 mg PO TID PRN 10/01/15 [History] Zolpidem [Ambien] 10 mg PO HS PRN 10/02/15 [History] Cholecalciferol (Vitamin D3) [Vitamin D3] 10,000 unit PO 2XW 08/02/16 [History] Ergocalciferol (VITAMIN D2) [Vitamin D2] 50,000 unit PO QWEEK 08/02/16 [History] Omeprazole [PriLOSEC] 20 mg PO DAILY 08/02/16 [History] SUMAtriptan Succinate [Imitrex] 100 mg PO DAILY PRN 08/02/16 [History] clonazePAM [Klonopin] 1 mg PO BID 08/02/16 [History] Allergies No Known Allergies Allergy (Verified 01/10/15 12:10) Review of Systems Psychiatric: Reports: depression, anxiety, suicidal ideation Mental Status Exam - Mental Status Exam Patient orientation: Yes Person, Yes Time, Yes Place Level of alertness: Alert Patient appearance: Appropriate, Unkempt, Disheveled Behavior: calm, cooperative Psychomotor activity: Normal Eye contact: Minimal Contact Mood description: Euthymic/stable, Anxious Affect description: congruent with mood, constricted Speech pattern: Normal rate, Normal rhythm, Normal tone Speech Volume: Normal Thought process: Linear, Goal Oriented Thought Content: No Suicidal ideation, No Homicidal ideation, No Overt delusions Perceptual Disturbances: No Auditory hallucinations, No Visual hallucinations Judgment: Limited Insight: Partial Results - Vital Signs Vital signs: Temp Pulse Resp BP 98.2 F 94 18 114/90 08/05/16 09:00 08/05/16 09:00 08/05/16 09:00 08/05/16 09:00 Diagnosis - Discharge Diagnosis (1) Mood disorder Status: Chronic Assessment and Plan - Patient/Caregiver Discharge Instructions Activity: resume usual activities as tolerated Diet: regular diet - Follow up Plan [facility] [place] - 08/05/16 3:00 pm (The above appointment is with Cecilia Tuttle for counseling.) Sunil Thomson MD [Partnered Physician] - 08/09/16 4:00 pm (The above appointment is with Dr. Thomson.) Functional capacity at discharge: independent ambulation Overall status at discharge: Stable Disposition: Home, Self-Care Provider Date of admission: 08/04/16 14:06 Primary care physician: PCP NO Discharging clinician: Robert Horn Hospital Course Hospital course: Mr. Dyer is a 35 year old male admitted for treatment of acetaminophen overdose and respiratory failure. For details admission please see history of present illness. On the units patient was restarted on his medication he was advised on the proper use of medication and safety concerns. He was medically stable, denies suicidal ideation or intention. He was cooperative and compliant with medication. His discharge plan included outpatient appointments for mental health and substance abuse, patient was encouraged to attend his appointments. - Time Spent with Patient Total time spent providing and/or coordinating discharge services: Greater than 30 minutes Procedures - Procedures Procedures: Medication Management, Crisis Stabilization, Supportive Therapy, Group Therapy, Psychoeducational Therapy Quality - Multiple Antipsychotics Patient discharged on 2 or more antipsychotic medications: No
== END 2016-08-05 12:10 | disposition home or self-care (01) ==
LOC: 1ANU 14:06 → INTOOBSV 14:06
PROVIDERS: ADMIT Psychiatry & Neurology Psychiatry; ATTEND Psychiatry & Neurology Psychiatry

== ENCOUNTER 2016-10-31 14:55 | Inpatient (IN) ==
[2016-10-31] MEDS ORDERED: Ondansetron 4 MG/2 ML VIAL IVP ONE ×3 (15:27→16:50)
[2016-10-31] MEDS ORDERED: 0.9 % Sodium Chloride 1,000 ML IVC ONE ×2 (15:27→15:32)
[2016-10-31] MEDS ORDERED: *HR* Morphine 2 MG/ML SYRINGE IVP ONE (15:27)
[2016-10-31] MEDS ORDERED: Piperacillin/Tazobactam 4.5 GM in D5% in Water (Mini-Bag+) 100 ML IVPB ONE (15:33)
[2016-10-31] MEDS ORDERED: Vancomycin 1,500 MG in D5% in Water 250 ML IVPB ONE (15:34)
[2016-10-31] MEDS ORDERED: Micafungin 100 MG in 0.9 % Sodium Chloride 100 ML IVPB SCH (15:45)
[2016-10-31 15:55] LABS: Basophils % 0.3 %; Eosinophils % 0.6 %; Hematocrit 41.8 % (37.5-50.1); Hemoglobin 13.9 g/dL (12.9-16.9); Immature Granulocytes % 0.3 % (0-4); Lymphocytes % 31.9 %; Mean Corpuscular HGB Conc 33.3 g/dL (31.6-35.5); Mean Corpuscular Hemoglobin 31.2 pg (28.0-33.3); Mean Corpuscular Volume 93.9 fL (83.0-100.0); Mean Platelet Volume 9.7 fL (9.4-12.4); Monocytes # 0.6 K/mcL (0.0-1.3); Monocytes % 8.9 %; Neutrophils # 3.7 K/mcL (1.6-8.9); Platelet Count 159 K/mcL (140-400); Red Blood Count 4.45 M/mcL (4.19-5.50); Red Cell Distribution Width 13.5 % (11.5-14.5)
[2016-10-31 16:02] LABS: INR 1.5; Prothrombin Time 15.9 Seconds (9.4-12.1)
[2016-10-31 16:04] LABS: Activated Partial Thrombo Time 33.2 Seconds (26.0-36.0)
[2016-10-31 16:12] LABS: Alanine Aminotransferase 17 Units/L (0-55); Albumin 3.9 g/dL (3.5-5.0); Albumin/Globulin Ratio 1.1 (1.1-2.2); Alkaline Phosphatase 53 Units/L (38-126); Aspartate Amino Transferase 18 Units/L (5-34); BUN/Creatinine Ratio 9 (6-26); Bilirubin,Total 0.4 mg/dL (0.2-1.2); Blood Urea Nitrogen 8 mg/dL (8-26); Calcium 9.5 mg/dL (8.6-10.8); Carbon Dioxide 28 mEq/L (19-29); Chloride 103 mEq/L (98-109); Globulin 3.6 g/dL (2.4-3.5); Glucose 85 mg/dL (70-99); Lipase 50 Units/L (8-78); Osmolality,Calculated 286 (280-300); Phosphorous 1.6 mg/dL (2.3-4.7); Potassium 4.1 mEq/L (3.5-4.5); Sodium 139 mEq/L (136-145); Total Protein 7.5 g/dL (6.0-8.3); eGFR For African Americans > 60 (> 60); eGFR For Non-African Americans > 60 (> 60)
[2016-10-31] MEDS ORDERED: Ipratropium/Albuterol Neb 3 ML IH ONE (16:13)
[2016-10-31] MEDS ORDERED: Ipratropium/Albuterol Neb 3 ML ONE (16:21)
[2016-10-31] MEDS ORDERED: *HR* HYDROmorphone (PF) 1 MG/ML SYRINGE IVP ONE ×2 (16:51→18:46)
[2016-10-31] MEDS ORDERED: Sodium Phosphate 30 MMOL in D5% in Water 100 ML IVPB ONE (16:58)
[2016-10-31 17:38] LABS: Bilirubin,Urine Negative (Negative); Blood,Urine Negative (Negative); Clarity,Urine Clear (Clear); Color,Urine Yellow (Yellow); Glucose,Urine (UA) Normal (Normal); Ketones,Urine Negative (Negative); Leukocyte Esterase,Urine Negative (Negative); Nitrite,Urine Negative (Negative); PH,Urine 7.5 pH Units (5.0-8.0); Protein,Urine Negative (Neg-Trace); Specific Gravity,Urine 1.016 (1.010-1.025); Urobilinogen,Urine Normal (Normal)
--- NOTE | 2016-10-31 18:22 | Emergency Department Note ---
Disposition Clinical Impression: Pneumonia Qualifiers: Pneumonia type: due to unspecified organism Laterality: right Lung location: lower lobe of lung Qualified Code(s): J18.1 - Lobar pneumonia, unspecified organism Sepsis Qualifiers: Sepsis type: sepsis due to unspecified organism Qualified Code(s): A41.9 - Sepsis, unspecified organism Dyspnea Qualifiers: Dyspnea type: shortness of breath Qualified Code(s): R06.02 - Shortness of breath Disposition: Admitted As Inpatient Condition: Fair Time of Disposition: 18:03 General Adult HPI - General Chief complaint: ED Abdominal Pain Stated complaint: vomiting, cough Time Seen by Provider: 10/31/16 15:22 Source: patient Nursing Notes Reviewed: Yes Vital Signs Reviewed: Yes - History of Present Illness HPI Narrative: 36-year-old male with past medical history of hepatitis C, HIV, presents to the emergency department after 5 day history of shortness of breath, cough, generalized abdominal pain, inability to tolerate oral intake. He was just in the emergency department last night and was diagnosed with pneumonia. He states that he is currently feeling worse and that is why he returned back to the emergency department. Pain Scale: 4 - Related Data Home Medications Medication Instructions Recorded Confirmed Emtricitabine/Tenofovir [Truvada] 1 each PO DAILY 11/18/14 08/04/16 Raltegravir Potassium [Isentress] 400 mg PO BID 05/17/15 08/04/16 Oxycodone HCl 10 mg PO TID PRN 10/01/15 08/04/16 Zolpidem [Ambien] 10 mg PO HS PRN 10/02/15 08/04/16 Cholecalciferol (Vitamin D3) 10,000 unit PO 2XW 08/02/16 08/04/16 [Vitamin D3] Ergocalciferol (VITAMIN D2) 50,000 unit PO QWEEK 08/02/16 08/04/16 [Vitamin D2] Omeprazole [PriLOSEC] 20 mg PO DAILY 08/02/16 08/04/16 SUMAtriptan Succinate [Imitrex] 100 mg PO DAILY PRN 08/02/16 08/04/16 clonazePAM [Klonopin] 1 mg PO BID 08/02/16 08/04/16 Previous Rx's Medication Instructions Recorded Ondansetron ODT [Zofran ODT] 4 mg SL Q6HR PRN #14 tab.rapdis 10/30/16 Allergies Allergy/AdvReac Type Severity Reaction Status Date / Time ketorolac [From Toradol] Allergy Hives Verified 10/31/16 15:13 All systems ED: reviewed and negative except as stated. Constitutional: Reports: fever, chills Cardiovascular: Reports: chest pain, dyspnea on exertion Respiratory: Reports: cough, dyspnea. Denies: wheezes, hemoptysis, stridor Gastrointestinal: Reports: abdominal pain, nausea, vomiting Genitourinary: Denies: urgency, dysuria, frequency, hematuria Musculoskeletal: Reports: back pain. Denies: neck pain Neurological: Reports: headache Past Medical History - Past Medical History Medical history: Reports: hepatitis, HIV/AIDS, seizures Surgical history: Reports: no surgical history Psychiatric history: Reports: anxiety, depression, previous psychiatric hospitalization - Social History Smoking Status: Current every day smoker Smokeless Tobacco Status: No Alcohol use: Reports: none Drug use: Reports: none Physical Exam - General General appearance: alert, in no apparent distress, other (36-year-old male with cracked lips, rigoring, moaning in pain) - Head Head exam: normocephalic - Eye Eye exam: Absent: scleral icterus, conjunctival injection, periorbital swelling - ENT ENT exam: normal oropharynx, mucous membranes dry - Neck Neck exam: Present: full ROM, trachea midline, other (Negative meningeal signs) . Absent: tenderness, meningismus - Chest Chest inspection: Present: normal inspection, symmetric chest wall rise - Respiratory Respiratory exam: Present: normal lung sounds bilaterally, respiratory distress - Cardiovascular Cardiovascular exam: Present: regular rate, normal rhythm, normal heart sounds - Abdominal Exam Abdominal exam: Present: soft, tenderness, guarding, rebound Abdominal tenderness: Present: diffuse, moderate - Rectal Exam Rectal exam: Present: normal inspection, normal rectal tone, prostate tenderness. Absent: bloody stool, fecal impaction, hemorrhoids - Male exam: Present: normal testicular lie, testicular tenderness. Absent: penile swelling, lesions, induration, urethral discharge - Extremities Exam Extremities exam: Absent: calf tenderness - Expanded Lower Extremity Exam Neurovascular/Tendon exam: Present: normal capillary refill - Back Exam Back exam: Present: full ROM - Neurological Exam Neurological exam: Present: alert, oriented X3 - Psychiatric Psychiatric exam: Present: anxious - Skin Skin exam: Present: warm, dry, intact Course Course Narrative: This is a 36-year-old male with past medical history of HIV, hepatitis C, syphilis. He presents to this emergency department , hypoxic, tachycardic, hypotensive. Due to his recent diagnosis of pneumonia, as well as worsening vital signs, I initiated IV antibiotics vancomycin, Zosyn, ciprofloxacin, 2 L of normal saline and 3 DuoNeb. I obtained a lactic acid, blood cultures, CBC, CMP, lipase, urinalysis, gonorrhea and chlamydia. Due to this gentleman's hypoxia, I obtained a CT angiogram of his chest. It is diffuse abdominal pain, obtained a CT scan of his abdomen. I administered 4 mg of IV morphine for pain. Chest X-Ray 10/31/16 15:26 IMPRESSION: No acute process. No evidence pneumonia. D/ / Isaac Wilson MD / Isaac Wilson MD Interpreting Provider: Isaac Wilson MD Abdomen CT 10/31/16 15:27 IMPRESSION: No no CT evidence pulmonary embolism. Dependent lower lobe airspace disease, greater on the right, likely atelectasis. Pneumonia cannot be excluded, particularly within the right lower lobe. No acute intra-abdominal abnormality. D/ / Padma Sofia Cha, MD / Padma Sofia Cha, MD Interpreting Provider: Padma Sofia Cha, MD Chest CTA 10/31/16 15:27 IMPRESSION: No no CT evidence pulmonary embolism. Dependent lower lobe airspace disease, greater on the right, likely atelectasis. Pneumonia cannot be excluded, particularly within the right lower lobe. No acute intra-abdominal abnormality. D/ / Padma Sofia Cha, MD / Padma Sofia Cha, MD Interpreting Provider: Padma Sofia Cha, MD Vital Signs Temperature 98.4 F 10/31/16 15:11 Pulse Rate 89 10/31/16 15:11 Respiratory Rate 16 10/31/16 15:11 Blood Pressure 97/72 10/31/16 15:11 O2 Sat by Pulse Oximetry 92 10/31/16 15:11 Temperature 99.0 F 10/31/16 17:42 Pulse Rate 94 10/31/16 17:42 Respiratory Rate 10 10/31/16 17:42 Blood Pressure 104/66 10/31/16 17:42 O2 Sat by Pulse Oximetry 94 10/31/16 17:42 Oxygen Delivery Oxygen Delivery Nasal Cannula - Reevaluation(s) Reevaluation #1: Patient is oxygen saturation has increased to 94% on [address] scan of his chest was unremarkable for a pulmonary embolism. He still has signs of atelectasis that could demonstrate a pneumonia in the right lower lobe. Patient has been in severe pain upon arrival. I have had to administer 2 more milligrams of Dilaudid. All of his labs have come back unremarkable despite this patient's distress. At this time, I discussed admission with this patient due to his suspected pneumonia, sepsis, hypoxia or respiratory failure. Patient agree with this plan. I discussed the case with our hospitalist and he agreed to accept the admission. Patient is currently hemodynamically stable at this point. He was somewhat fluid responsive as his blood pressure is now 104/ 66. Chest X-Ray 10/31/16 15:26 IMPRESSION: No acute process. No evidence pneumonia. D/ / Isaac Wilson MD / Isaac Wilson MD Interpreting Provider: Isaac Wilson MD Abdomen CT 10/31/16 15:27 IMPRESSION: No no CT evidence pulmonary embolism. Dependent lower lobe airspace disease, greater on the right, likely atelectasis. Pneumonia cannot be excluded, particularly within the right lower lobe. No acute intra-abdominal abnormality. D/ / Padma Sofia Cha, MD / Padma Sofia Cha, MD Interpreting Provider: Padma Sofia Cha, MD Chest CTA 10/31/16 15:27 IMPRESSION: No no CT evidence pulmonary embolism. Dependent lower lobe airspace disease, greater on the right, likely atelectasis. Pneumonia cannot be excluded, particularly within the right lower lobe. No acute intra-abdominal abnormality. D/ / Padma Sofia Cha, MD / Padma Sofia Cha, MD Interpreting Provider: Padma Sofia Cha, MD Vital Signs Temperature 98.4 F 10/31/16 15:11 Pulse Rate 89 10/31/16 15:11 Respiratory Rate 16 10/31/16 15:11 Blood Pressure 97/72 10/31/16 15:11 O2 Sat by Pulse Oximetry 92 10/31/16 15:11 Temperature 99.0 F 10/31/16 17:42 Pulse Rate 94 10/31/16 17:42 Respiratory Rate 10 10/31/16 17:42 Blood Pressure 104/66 10/31/16 17:42 O2 Sat by Pulse Oximetry 94 10/31/16 17:42 Oxygen Delivery Oxygen Delivery Nasal Cannula Time: 18:35 Vital Signs Temperature 98.4 F 10/31/16 15:11 Pulse Rate 89 10/31/16 15:11 Respiratory Rate 16 10/31/16 15:11 Blood Pressure 97/72 10/31/16 15:11 O2 Sat by Pulse Oximetry 92 10/31/16 15:11 Temperature 99.0 F 10/31/16 17:42 Pulse Rate 94 10/31/16 17:42 Respiratory Rate 10 10/31/16 17:42 Blood Pressure 104/66 10/31/16 17:42 O2 Sat by Pulse Oximetry 94 10/31/16 17:42 Oxygen Delivery Oxygen Delivery Nasal Cannula Medical Decision Making - Medical Records Medical records reviewed: Yes I reviewed the patient's medical records. - Lab Data Lab results reviewed: Yes I reviewed the patient's lab results. Result diagrams: 10/31/16 15:39 10/31/16 15:39 Lab Results 10/31/16 10/31/16 10/31/16 Range/Units 15:39 15:39 15:39 WBC 6.3 (4.3-11.1) K/mcL RBC 4.45 (4.19-5.50) M/mcL Hgb 13.9 D (12.9-16.9) g/dL Hct 41.8 (37.5-50.1) % MCV 93.9 (83.0-100.0) fL MCH 31.2 (28.0-33.3) pg MCHC 33.3 (31.6-35.5) g/dL RDW 13.5 (11.5-14.5) % Plt Count 159 (140-400) K/mcL MPV 9.7 (9.4-12.4) fL Immature Gran % 0.3 (0-4) % Seg Neutrophils % 58.0 % Lymphocytes % 31.9 % Monocytes % 8.9 % Eosinophils % 0.6 % Basophils % 0.3 % Neutrophils # 3.7 (1.6-8.9) K/mcL Lymphocytes # 2.0 (0.6-4.6) K/mcL Monocytes # 0.6 (0.0-1.3) K/mcL Eosinophils # 0.0 (0.0-0.6) K/mcL Basophils # 0.0 (0.0-0.2) K/mcL PT (9.4-12.1) Seconds INR APTT (26.0-36.0) Seconds Sodium 139 (136-145) mEq/L Potassium 4.1 (3.5-4.5) mEq/L Chloride 103 (98-109) mEq/L Carbon Dioxide 28 (19-29) mEq/L BUN 8 (8-26) mg/dL Creatinine 0.90 (0.72-1.25) mg/dL Est GFR ( Amer) > 60 (> 60) Est GFR (Non-Af Amer) > 60 (> 60) BUN/Creatinine Ratio 9 (6-26) Glucose 85 (70-99) mg/dL Calculated Osmolality 286 (280-300) Lactic Acid (0.5-2.2) mmol/L Calcium 9.5 (8.6-10.8) mg/dL Phosphorus 1.6 L (2.3-4.7) mg/dL Magnesium 2.0 (1.6-2.6) mg/dL Total Bilirubin 0.4 (0.2-1.2) mg/dL AST 18 (5-34) Units/L ALT 17 (0-55) Units/L Alkaline Phosphatase 53 (38-126) Units/L Ammonia (18-72) mcmol/L Troponin I 0.01 (0-0.03) ng/mL Serum Total Protein 7.5 (6.0-8.3) g/dL Albumin 3.9 (3.5-5.0) g/dL Globulin 3.6 H (2.4-3.5) g/dL Albumin/Globulin Ratio 1.1 (1.1-2.2) Lipase 50 (8-78) Units/L Urine Color (Yellow) Urine Clarity (Clear) Urine pH (5.0-8.0) pH Units Ur Specific [place] (1.010-1.025) Urine Protein (Neg-Trace) mg/dL Urine Glucose (UA) (Normal) mg/dL Urine Ketones (Negative) mg/dL Urine Blood (Negative) Urine Nitrite (Negative) Urine Bilirubin (Negative) Urine Urobilinogen (Normal) mg/dL Ur Leukocyte Esterase (Negative) Ur Culture Indicated? (NO) 10/31/16 10/31/16 10/31/16 Range/Units 15:39 15:39 17:27 WBC (4.3-11.1) K/mcL RBC (4.19-5.50) M/mcL Hgb (12.9-16.9) g/dL Hct (37.5-50.1) % MCV (83.0-100.0) fL MCH (28.0-33.3) pg MCHC (31.6-35.5) g/dL RDW (11.5-14.5) % Plt Count (140-400) K/mcL MPV (9.4-12.4) fL Immature Gran % (0-4) % Seg Neutrophils % % Lymphocytes % % Monocytes % % Eosinophils % % Basophils % % Neutrophils # (1.6-8.9) K/mcL Lymphocytes # (0.6-4.6) K/mcL Monocytes # (0.0-1.3) K/mcL Eosinophils # (0.0-0.6) K/mcL Basophils # (0.0-0.2) K/mcL PT 15.9 H (9.4-12.1) Seconds INR 1.5 APTT 33.2 (26.0-36.0) Seconds Sodium (136-145) mEq/L Potassium (3.5-4.5) mEq/L Chloride (98-109) mEq/L Carbon Dioxide (19-29) mEq/L BUN (8-26) mg/dL Creatinine (0.72-1.25) mg/dL Est GFR ( Amer) (> 60) Est GFR (Non-Af Amer) (> 60) BUN/Creatinine Ratio (6-26) Glucose (70-99) mg/dL Calculated Osmolality (280-300) Lactic Acid 1.7 (0.5-2.2) mmol/L Calcium (8.6-10.8) mg/dL Phosphorus (2.3-4.7) mg/dL Magnesium (1.6-2.6) mg/dL Total Bilirubin (0.2-1.2) mg/dL AST (5-34) Units/L ALT (0-55) Units/L Alkaline Phosphatase (38-126) Units/L Ammonia (18-72) mcmol/L Troponin I (0-0.03) ng/mL Serum Total Protein (6.0-8.3) g/dL Albumin (3.5-5.0) g/dL Globulin (2.4-3.5) g/dL Albumin/Globulin Ratio (1.1-2.2) Lipase (8-78) Units/L Urine Color Yellow (Yellow) Urine Clarity Clear (Clear) Urine pH 7.5 (5.0-8.0) pH Units Ur Specific [place] 1.016 (1.010-1.025) Urine Protein Negative (Neg-Trace) mg/dL Urine Glucose (UA) Normal (Normal) mg/dL Urine Ketones Negative (Negative) mg/dL Urine Blood Negative (Negative) Urine Nitrite Negative (Negative) Urine Bilirubin Negative (Negative) Urine Urobilinogen Normal (Normal) mg/dL Ur Leukocyte Esterase Negative (Negative) Ur Culture Indicated? NO (NO) 10/31/16 Range/Units 17:42 WBC (4.3-11.1) K/mcL RBC (4.19-5.50) M/mcL Hgb (12.9-16.9) g/dL Hct (37.5-50.1) % MCV (83.0-100.0) fL MCH (28.0-33.3) pg MCHC (31.6-35.5) g/dL RDW (11.5-14.5) % Plt Count (140-400) K/mcL MPV (9.4-12.4) fL Immature Gran % (0-4) % Seg Neutrophils % % Lymphocytes % % Monocytes % % Eosinophils % % Basophils % % Neutrophils # (1.6-8.9) K/mcL Lymphocytes # (0.6-4.6) K/mcL Monocytes # (0.0-1.3) K/mcL Eosinophils # (0.0-0.6) K/mcL Basophils # (0.0-0.2) K/mcL PT (9.4-12.1) Seconds INR APTT (26.0-36.0) Seconds Sodium (136-145) mEq/L Potassium (3.5-4.5) mEq/L Chloride (98-109) mEq/L Carbon Dioxide (19-29) mEq/L BUN (8-26) mg/dL Creatinine (0.72-1.25) mg/dL Est GFR ( Amer) (> 60) Est GFR (Non-Af Amer) (> 60) BUN/Creatinine Ratio (6-26) Glucose (70-99) mg/dL Calculated Osmolality (280-300) Lactic Acid (0.5-2.2) mmol/L Calcium (8.6-10.8) mg/dL Phosphorus (2.3-4.7) mg/dL Magnesium (1.6-2.6) mg/dL Total Bilirubin (0.2-1.2) mg/dL AST (5-34) Units/L ALT (0-55) Units/L Alkaline Phosphatase (38-126) Units/L Ammonia 25 (18-72) mcmol/L Troponin I (0-0.03) ng/mL Serum Total Protein (6.0-8.3) g/dL Albumin (3.5-5.0) g/dL Globulin (2.4-3.5) g/dL Albumin/Globulin Ratio (1.1-2.2) Lipase (8-78) Units/L Urine Color (Yellow) Urine Clarity (Clear) Urine pH (5.0-8.0) pH Units Ur Specific [place] (1.010-1.025) Urine Protein (Neg-Trace) mg/dL Urine Glucose (UA) (Normal) mg/dL Urine Ketones (Negative) mg/dL Urine Blood (Negative) Urine Nitrite (Negative) Urine Bilirubin (Negative) Urine Urobilinogen (Normal) mg/dL Ur Leukocyte Esterase (Negative) Ur Culture Indicated? (NO) - Radiology Data Radiology results reviewed: Yes I reviewed the patient's radiology results. - EKG Data EKG #1 EKG attestation: Yes I reviewed and interpreted this EKG. EKG results narrative: 10/31/2016 Ventricular rate 86 bpm, LA interval 171 ms, QRS duration 88 ms, QT 380 ms, QTC 423 ms, normal axis. Sinus rhythm with a ventricular rate of 86 bpm. There are no ST changes that are consistent with ischemia. This is unchanged from a previous EKG performed on 03/07/2016 Critical Care Time Critical Care Time: Yes Total Critical Care Time: 35 Attestation: Critical care time managing patient's sepsis and pneumonia 35 minutes. Attestation Statement - Attestation Attestation: Resident attestation 36-year-old male presents to the emergency department for the second time in 24 hours with the chief complaint of difficulty breathing shortness of breath nausea vomiting and diffuse abdominal pain. Symptoms started approximately 3 days ago. Was seen yesterday had a CT scan of the abdomen that was negative and a questionable pneumonia on chest x-ray. He was treated successfully in the emergency department and dispositioned home with antiemetics. However the patient continued to develop abdominal pain through the course of the evening and today and his shortness of breath continued to worsen prompting his re-return to the emergency department for additional evaluation and treatment. Patient also notes is been experiencing rigors. Vital signs on arrival demonstrated hypoxia with mild hypotension. ENT was unremarkable except for dry mucous membranes. Heart was regular rhythm. Lungs were clear to auscultation abdomen was diffusely tender without guarding or rigidity extremities were unremarkable neurologically the patient was intact. ED course with the patient's hypoxia and questionable pneumonia we opted for a CT scan of the chest to rule out both PE or pneumonia that could not be picked up on chest x-ray. This did reveal a pneumonia. The abdominal pain also prompted a repeat study with IV contrast, this did not show significant abnormalities. The patient's labs were largely normal, but he has not been taking his HIV medications we do not have a CD4 count. Patient responded well to pain medication IV hydration and IV antibiotics. Because was unclear if the patient had sepsis, pneumonia, or both. We are fairly aggressive about treating his disease. Additionally we were not sure about atypical types of pneumonia considering the patient's HIV status and unknown CD4 count. We discussed the case with the hospitalist agreed to accept the patient for admission. Hospitalist did request that we order a CD4 count. However after calling the lab was determined that we can get this from the ED was a send out labs that would need to be done the next morning. Hemodynamically the patient improved throughout his stay. He is oxygen saturation was considerably better on nasal cannula. He will be admitted the hospital service for further evaluation treatment. Agree with resident physician assessment and plan. Critical care time was 35 minutes.
[2016-10-31] MEDS ORDERED: Ondansetron ODT 4 MG TAB.RAPDIS SL PRN (21:10)
[2016-10-31] MEDS ORDERED: SUMAtriptan succinate 50 MG TABLET PO PRN (21:10)
[2016-10-31] MEDS ORDERED: Naloxone 0.4 MG/ML INJ IVP PRN (21:11)
--- NOTE | 2016-10-31 21:17 | Internal Med History&Physical ---
Date of Encounter: 10/31/16 Time of Encounter: 21:14 Assessment and Plan (1) Pneumonia Current visit: Yes Status: Acute possible PNA base on CT chest. Given high risk with HIV, will start empiric cefepime and azithromycin to cover atypical organisms Qualifiers: Pneumonia type: due to unspecified organism Laterality: right Lung location: lower lobe of lung Qualified Code(s): J18.1 - Lobar pneumonia, unspecified organism (2) Anorexia Current visit: Yes Status: Acute Non-specific abdominal pain with normal CT A/P. Unable to tolerate PO medication and antibiotics. IVF for now,trial of diet as tolerated, IV zofran, symptom control (3) HIV disease Current visit: No Status: Chronic restart HAART (4) Pain syndrome, chronic Current visit: Yes Status: Acute continue home opiates, PRN IV morphine for breathrough - pain along right side and back reported. Further management pending hospital course Internal Medicine - H&P: HPI Chief complaint: Anorexia, Right sided abdominal discomfort History of present illness: Mr. Dyer is a 36 year old male with a hx fo HIV on HAART who presents with 3- 4 days of worsening anorexia/N/V associated with non-specific right sided abdominal discomfort. Was found to have PNA on heard-imaging and discharged from the ED with PO antibiotics. He returns with persistent anorexia/N/V, unable to take his PO medicines and therefor failure of outpatient therapy. He reports not being able to take his HAART in the last 3-4 days due to persistent anorexia /N/V. Symptoms worse with food, better without food. On review, he reports a hx of chronic pain 2/2 HIV on oxys He also has a hx of pancreatitis. LFT wnl, CT A/P wnl EKG reviewed by self with rate 86, NSR CT/CT angio chest IMPRESSION: No no CT evidence pulmonary embolism. Dependent lower lobe airspace disease, greater on the right, likely atelectasis. Pneumonia cannot be excluded, particularly within the right lower lobe. No acute intra-abdominal abnormality. CT/CT abdomen w iv no oral IMPRESSION: No no CT evidence pulmonary embolism. Dependent lower lobe airspace disease, greater on the right, likely atelectasis. Pneumonia cannot be excluded, particularly within the right lower lobe. No acute intra-abdominal abnormality. XR/XR chest 2V IMPRESSION: No acute process. No evidence pneumonia. Past Med Surg Social Fam HX - Past Medical History Medical history: hepatitis, HIV/AIDS, seizures, other Psychiatric history: anxiety, depression, previous psychiatric hospitalization - Past Surgical History Surgical History: no surgical history - Social History Smoking Status: Current every day smoker Packs per day: 2 Smokeless Tobacco Status: No Alcohol use: none Drug use: none - Family History Mother Hx Family Cancer: Yes (skin, cervical) Internal Medicine - H&P: Meds Emtricitabine/Tenofovir [Truvada] 1 each PO DAILY 11/18/14 [History] Raltegravir Potassium [Isentress] 400 mg PO BID 05/17/15 [History] Oxycodone HCl 10 mg PO TID PRN 10/01/15 [History] Zolpidem [Ambien] 10 mg PO HS PRN 10/02/15 [History] Cholecalciferol (Vitamin D3) [Vitamin D3] 10,000 unit PO 2XW 08/02/16 [History] Ergocalciferol (VITAMIN D2) [Vitamin D2] 50,000 unit PO QWEEK 08/02/16 [History] Omeprazole [PriLOSEC] 20 mg PO DAILY 08/02/16 [History] SUMAtriptan Succinate [Imitrex] 100 mg PO DAILY PRN 08/02/16 [History] clonazePAM [Klonopin] 1 mg PO BID 08/02/16 [History] Ondansetron ODT [Zofran ODT] 4 mg SL Q6HR PRN #14 tab.rapdis 10/30/16 [Rx] 3 Allergy/AdvReac Type Severity Reaction Status Date / Time ketorolac [From Toradol] Allergy Hives Verified 10/31/16 15:13 All Systems PM: A 10-system review of systems was performed and is negative for pertinent findings except as documented above in the HPI. - Constitutional Vitals: Temp Pulse Resp BP Pulse Ox 97.8 F 74 16 121/76 97 10/31/16 19:51 10/31/16 19:51 10/31/16 19:51 10/31/16 19:51 10/31/16 19:51 Exam: General - AAO x 3 Psych - Appropriate affect/speech. No agitation Eyes - BRENDA. Eye lids intact. No scleral icterus Neuro - No gross peripheral or central neuro deficits Heart - Sinus. RRR. S1 and S2 present. No added HS/murmurs appreciated. No elevated JVD appreciated. Lung - Adequate air entry b/l, Bibasal crackles GI - Right sided abdominal discomfort on deep palpation but no guarding or rigidity. No hepatosplenomegaly/ascites. BS+ - No CVA/suprapubic tenderness or palpable bladder distension Skin - Intact. No rash/petechiae/ecchymosis. Warm extremities MSK - Joints with normal ROM. No joint swellings Internal Med - H&P Results - Labs CBC & Chem 7: 10/31/16 15:39 10/31/16 15:39
[2016-10-31] MEDS ORDERED: Ondansetron 4 MG/2 ML VIAL IVP PRN (21:19)
[2016-10-31] MEDS: 0.9 % Sodium Chloride 1,000 ML IVC SCH (21:37)
[2016-10-31] MEDS: Nicotine 14 MG PATCH.TD24 TD SCH (21:37)
[2016-10-31] MEDS: Azithromycin 500 MG in D5% in Water 250 ML IVPB SCH (21:38)
[2016-10-31] MEDS: *HR* Morphine 2 MG/ML SYRINGE IVP PRN (21:38)
[2016-10-31] MEDS: clonazePAM 1 MG TABLET PO SCH (22:57)
[2016-10-31] MEDS: *HR* OxyCODONE Immed Rel 5 MG TABLET PO PRN (22:59)
[2016-11-01] MEDS: *HR* Morphine 2 MG/ML SYRINGE IVP PRN ×6 (02:05→22:36)
[2016-11-01 04:09] LABS: Basophils % 0.4 %; Eosinophils # 0.1 K/mcL (0.0-0.6); Eosinophils % 1.4 %; Hematocrit 38.4 % (37.5-50.1); Immature Granulocytes % 0.2 % (0-4); Lymphocytes # 2.1 K/mcL (0.6-4.6); Mean Corpuscular Hemoglobin 30.6 pg (28.0-33.3); Mean Corpuscular Volume 95.5 fL (83.0-100.0); Mean Platelet Volume 9.6 fL (9.4-12.4); Monocytes # 0.5 K/mcL (0.0-1.3); Neutrophils # 2.3 K/mcL (1.6-8.9); Platelet Count 135 K/mcL (140-400); Red Blood Count 4.02 M/mcL (4.19-5.50); Red Cell Distribution Width 13.7 % (11.5-14.5)
[2016-11-01 04:18] LABS: Hemoglobin 12.3 g/dL (12.9-16.9)
[2016-11-01 04:22] LABS: Alanine Aminotransferase 12 Units/L (0-55); Albumin 3.2 g/dL (3.5-5.0); Alkaline Phosphatase 46 Units/L (38-126); Aspartate Amino Transferase 15 Units/L (5-34); BUN/Creatinine Ratio 10 (6-26); Bilirubin,Direct 0.2 mg/dL (0.0-0.5); Bilirubin,Indirect 0.1 mg/dL (0.0-1.2); Bilirubin,Total 0.3 mg/dL (0.2-1.2); Blood Urea Nitrogen 8 mg/dL (8-26); Calcium 8.5 mg/dL (8.6-10.8); Carbon Dioxide 32 mEq/L (19-29); Chloride 106 mEq/L (98-109); Globulin 3.2 g/dL (2.4-3.5); Glucose 108 mg/dL (70-99); Magnesium 2.1 mg/dL (1.6-2.6); Osmolality,Calculated 297 (280-300); Potassium 3.6 mEq/L (3.5-4.5); Sodium 144 mEq/L (136-145); Total Protein 6.4 g/dL (6.0-8.3); eGFR For African Americans > 60 (> 60); eGFR For Non-African Americans > 60 (> 60)
[2016-11-01] MEDS: *HR* OxyCODONE Immed Rel 5 MG TABLET PO PRN ×3 (04:24→21:06)
[2016-11-01] MEDS: *HR* Enoxaparin 40 MG/0.4 ML SYRINGE SQ SCH (06:21)
[2016-11-01] MEDS: Cefepime HCl 2,000 MG in D5% in Water (Mini-Bag+) 100 ML IVPB SCH ×2 (06:21→18:09)
[2016-11-01] MEDS: clonazePAM 1 MG TABLET PO SCH ×2 (08:43→21:06)
[2016-11-01] MEDS: RALTEGRAVIR POTASSIUM 400 MG TABLET PO SCH ×2 (08:43→21:06)
[2016-11-01] MEDS: Nicotine 14 MG PATCH.TD24 TD SCH (08:43)
[2016-11-01] MEDS ORDERED: clonazePAM 1 MG TABLET PO SCH (09:00)
[2016-11-01] MEDS ORDERED: CHOLECALCIFEROL PO SCH (09:00)
[2016-11-01] MEDS: Cholecalciferol (D-3) 1,000 UNIT TABLET PO SCH (09:37)
--- NOTE | 2016-11-01 10:02 | Internal Med Progress Note ---
Date of Encounter: 11/01/16 Time of Encounter: 10:00 - Assessment and plan (1) Pneumonia Current Visit: Yes Status: Acute Assessment and plan: Reviewed CTA of Chest -- showed RLL PNA Mostly bacterial PNA Cont Cefepime ( Pseudomonas coverage ) and Azithromycin for atypical coverage Cont close monitoring Duoneb and O2 no need of steroids Pt did mention his recent CD4 count was normal 3 months ago Qualifiers: Pneumonia type: due to unspecified organism Laterality: right Lung location: lower lobe of lung Qualified Code(s): J18.1 - Lobar pneumonia, unspecified organism (2) HIV disease Current Visit: No Status: Chronic Assessment and plan: resumed home meds (3) Oral candidiasis Current Visit: Yes Status: Acute Assessment and plan: placed him on Nystatin simin QID Orojel Q4hr PRN (4) Pain syndrome, chronic Current Visit: Yes Status: Acute Assessment and plan: resumed home pain meds (5) DVT prophylaxis Current Visit: No Status: Acute Assessment and plan: on Lovenox - Subjective Interval history: Mr. Dyer is a 36 year old male with a hx fo HIV on HAART who presents with 3- 4 days of worsening anorexia/N/V associated with non-specific right sided abdominal discomfort. Was found to have PNA on heard-imaging and discharged from the ED with PO antibiotics. He returns with persistent anorexia/N/V, unable to take his PO medicines and therefor failure of outpatient therapy. He reports not being able to take his HAART in the last 3-4 days due to persistent anorexia /N/V. Symptoms worse with food, better without food. Pt was admitted here for CAP..He is still c/o generalized body aches and Cough with brownish sputum. Denied any CP. No SOB.. Overall feels little better today - Constitutional Vitals: Temp Pulse Resp BP Pulse Ox 97.7 F 62 14 119/79 96 11/01/16 07:12 11/01/16 07:12 11/01/16 07:12 11/01/16 07:12 11/01/16 08:48 General appearance: Present: A&O X 3, pleasant, no acute distress - Head Head exam: Present: atraumatic, normal inspection - ENT ENT exam: Present: mucous membranes dry Additional comments: oral thrush ..mouth ulcers + - Respiratory Respiratory exam: Present: decreased breath sounds, wheezes (mild). Absent: rales, respiratory distress, rhonchi - Cardiovascular Cardiovascular exam: Present: RRR, +S1, +S2. Absent: diastolic murmur, gallop, rubs, systolic murmur - GI/Abdominal GI/Abdominal exam: Present: normal bowel sounds, soft, no peritoneal signs. Absent: distended, tenderness - Extremities Exam Extremities exam: Absent: calf tenderness, pedal edema, tenderness - Neurological Exam Neurological exam: Present: alert, oriented X3 - Psychiatric Psychiatric exam: Present: normal affect, normal mood Internal Medicine: Result - Labs CBC & Chem 7: 11/01/16 03:59 11/01/16 03:59 Labs: Short CBC 11/01/16 Range/Units 03:59 WBC 4.9 (4.3-11.1) K/mcL Hgb 12.3 L D (12.9-16.9) g/dL Hct 38.4 (37.5-50.1) % Plt Count 135 L (140-400) K/mcL Neutrophils # 2.3 (1.6-8.9) K/mcL BMP 11/01/16 03:59 Sodium 144 Potassium 3.6 Chloride 106 Carbon Dioxide 32 H BUN 8 Creatinine 0.84 Glucose 108 H Calcium 8.5 L Liver Function 11/01/16 Range/Units 03:59 Total Bilirubin 0.3 (0.2-1.2) mg/dL Direct Bilirubin 0.2 (0.0-0.5) mg/dL AST 15 (5-34) Units/L ALT 12 (0-55) Units/L Alkaline Phosphatase 46 (38-126) Units/L Albumin 3.2 L (3.5-5.0) g/dL - ABG Interpretation ABG results: PT/INR, D-dimer PT 15.9 Seconds (9.4-12.1) H 10/31/16 15:39 Consult Discharge Plan - Plan Referrals: Osmin Duran MD [Primary Care Provider] -
[2016-11-01] MEDS: Nystatin SUSP 5 ML UD.LIQ PO SCH ×4 (10:23→21:06)
[2016-11-01] MEDS: Benzocaine 20% 9 GM GEL..GRAM. TP PRN ×2 (11:03→18:10)
[2016-11-01] MEDS: 0.9 % Sodium Chloride 1,000 ML IVC SCH (12:23)
--- NOTE | 2016-11-01 17:47 | Electrocardiograph Report ---
[place] [id number] Test Date: 2016-10-31 Pat Name: Kolby Dyer Department: 104 Room: 3A Gender: M Charge Weigher: [facility] : 1980 Requested By: Mathew Temple Order Number: [id number] Reading MD: Enrique Nru MD Measurements Intervals [place] Rate: 86 P: 46 IA: 171 QRS: 26 QRSD: 88 T: 29 QT: 380 QTc: 423 Interpretive Statements SINUS RHYTHM Electronically Signed On 11-01-2016 17:46:10 EDT by Enrique Nur MD
[2016-11-01] MEDS: Azithromycin 500 MG in D5% in Water 250 ML IVPB SCH (21:07)
[2016-11-02] MEDS: 0.9 % Sodium Chloride 1,000 ML IVC SCH (02:05)
[2016-11-02] MEDS: *HR* Morphine 2 MG/ML SYRINGE IVP PRN ×3 (02:06→10:21)
[2016-11-02] MEDS: *HR* OxyCODONE Immed Rel 5 MG TABLET PO PRN ×2 (05:00→13:22)
[2016-11-02] MEDS: Cefepime HCl 2,000 MG in D5% in Water (Mini-Bag+) 100 ML IVPB SCH (05:01)
[2016-11-02] MEDS: *HR* Enoxaparin 40 MG/0.4 ML SYRINGE SQ SCH (05:01)
[2016-11-02 06:16] LABS: Basophils % 0.4 %; Eosinophils # 0.1 K/mcL (0.0-0.6); Eosinophils % 1.5 %; Hematocrit 39.6 % (37.5-50.1); Hemoglobin 12.7 g/dL (12.9-16.9); Immature Granulocytes % 0.4 % (0-4); Lymphocytes % 38.4 %; Mean Corpuscular HGB Conc 32.1 g/dL (31.6-35.5); Mean Corpuscular Hemoglobin 30.8 pg (28.0-33.3); Mean Corpuscular Volume 95.9 fL (83.0-100.0); Mean Platelet Volume 9.8 fL (9.4-12.4); Monocytes # 0.5 K/mcL (0.0-1.3); Monocytes % 9.8 %; Neutrophils # 2.6 K/mcL (1.6-8.9); Platelet Count 136 K/mcL (140-400); Red Blood Count 4.13 M/mcL (4.19-5.50); Red Cell Distribution Width 13.9 % (11.5-14.5); Segmented Neutrophils % 49.5 %
[2016-11-02 06:23] LABS: Alanine Aminotransferase 13 Units/L (0-55); Albumin 3.3 g/dL (3.5-5.0); Alkaline Phosphatase 51 Units/L (38-126); Aspartate Amino Transferase 14 Units/L (5-34); BUN/Creatinine Ratio 9 (6-26); Bilirubin,Direct 0.1 mg/dL (0.0-0.5); Bilirubin,Indirect 0.1 mg/dL (0.0-1.2); Bilirubin,Total 0.2 mg/dL (0.2-1.2); Blood Urea Nitrogen 8 mg/dL (8-26); Calcium 8.8 mg/dL (8.6-10.8); Carbon Dioxide 33 mEq/L (19-29); Chloride 104 mEq/L (98-109); Globulin 3.3 g/dL (2.4-3.5); Glucose 98 mg/dL (70-99); Magnesium 2.1 mg/dL (1.6-2.6); Osmolality,Calculated 296 (280-300); Potassium 3.9 mEq/L (3.5-4.5); Sodium 144 mEq/L (136-145); Total Protein 6.6 g/dL (6.0-8.3); eGFR For African Americans > 60 (> 60); eGFR For Non-African Americans > 60 (> 60)
[2016-11-02] MEDS: Cholecalciferol (D-3) 1,000 UNIT TABLET PO SCH (09:11)
[2016-11-02] MEDS: Nystatin SUSP 5 ML UD.LIQ PO SCH ×3 (09:11→16:20)
[2016-11-02] MEDS: clonazePAM 1 MG TABLET PO SCH (09:11)
[2016-11-02] MEDS: RALTEGRAVIR POTASSIUM 400 MG TABLET PO SCH (09:12)
[2016-11-02] MEDS: Benzocaine 20% 9 GM GEL..GRAM. TP PRN (09:12)
[2016-11-02] MEDS: Nicotine 14 MG PATCH.TD24 TD SCH (09:12)
[2016-11-02] MEDS ORDERED: *HR* Morphine 2 MG/ML SYRINGE IVP PRN (12:43)
[2016-11-02] MEDS ORDERED: *HR* LORazepam 2 MG/ML VIAL IVP ONE (15:18)
[2016-11-02] MEDS ORDERED: *HR* LORazepam 2 MG/ML VIAL ONE (15:19)
[2016-11-02 15:55] VITALS: BP 155/78
--- NOTE | 2016-11-02 16:44 | Internal Med Progress Note ---
Date of Encounter: 11/02/16 Time of Encounter: 15:15 - Assessment and plan (1) Pneumonia Current Visit: Yes Status: Acute Assessment and plan: CTA of Chest showed RLL PNA Mostly bacterial PNA Cont Cefepime ( Pseudomonas coverage ) and Azithromycin for atypical coverage Cont close monitoring Duoneb and O2 no need of steroids Pt did mention his recent CD4 count was normal 3 months ago Qualifiers: Pneumonia type: due to unspecified organism Laterality: right Lung location: lower lobe of lung Qualified Code(s): J18.1 - Lobar pneumonia, unspecified organism (2) HIV disease Current Visit: No Status: Chronic Assessment and plan: resumed home meds (3) Pain syndrome, chronic Current Visit: Yes Status: Acute Assessment and plan: resumed home pain meds (4) Oral candidiasis Current Visit: Yes Status: Acute Assessment and plan: Nystatin simin QID Orojel Q4hr PRN (5) DVT prophylaxis Current Visit: No Status: Acute Assessment and plan: on Lovenox - Subjective Interval history: Patient seen and examined at bedside. Reports of recently finding out that his brother was in an accident and during my evaluation, he was actively having a panic attack. Vitals wnl. one dose of 0.5mg ativan IV given which subsided his symptoms. - Constitutional Vitals: Temp Pulse Resp BP Pulse Ox 98.7 F 100 20 155/78 96 11/02/16 14:15 11/02/16 14:15 11/02/16 14:15 11/02/16 14:15 11/02/16 14:15 General appearance: Present: A&O X 3, pleasant, no acute distress - Head Head exam: Present: atraumatic, normocephalic - Eye Eye exam: Present: conjuntiva pink, sclera anicteric - Respiratory Respiratory exam: Present: decreased breath sounds. Absent: accessory muscle use, rales, rhonchi, wheezes - Cardiovascular Cardiovascular exam: Present: RRR, +S1, +S2. Absent: diastolic murmur, gallop, rubs, systolic murmur - GI/Abdominal GI/Abdominal exam: Present: normal bowel sounds, soft, no peritoneal signs. Absent: distended, tenderness - Extremities Exam Extremities exam: Present: warm, radial pulses palpable and symmetrical. Absent : calf tenderness - Neurological Exam Neurological exam: Present: alert, oriented X3 - Psychiatric Psychiatric exam: Present: anxious Internal Medicine: Result - Labs CBC & Chem 7: 11/02/16 05:54 11/02/16 05:54 Labs: Short CBC 11/02/16 Range/Units 05:54 WBC 5.2 (4.3-11.1) K/mcL Hgb 12.7 L (12.9-16.9) g/dL Hct 39.6 (37.5-50.1) % Plt Count 136 L (140-400) K/mcL Neutrophils # 2.6 (1.6-8.9) K/mcL BMP 11/02/16 05:54 Sodium 144 Potassium 3.9 Chloride 104 Carbon Dioxide 33 H BUN 8 Creatinine 0.87 Glucose 98 Calcium 8.8 Liver Function 11/02/16 Range/Units 05:54 Total Bilirubin 0.2 (0.2-1.2) mg/dL Direct Bilirubin 0.1 (0.0-0.5) mg/dL AST 14 (5-34) Units/L ALT 13 (0-55) Units/L Alkaline Phosphatase 51 (38-126) Units/L Albumin 3.3 L (3.5-5.0) g/dL - ABG Interpretation ABG results: PT/INR, D-dimer PT 15.9 Seconds (9.4-12.1) H 10/31/16 15:39 Consult Discharge Plan - Plan Referrals: Osmin Duran MD [Primary Care Provider] -
--- NOTE | 2016-11-16 03:49 | Discharge Summary ---
Date of Encounter: 11/02/16 Time of Encounter: 15:15 - Discharge Diagnosis (1) Pneumonia Priority: Primary Status: Acute Qualifiers: Pneumonia type: due to unspecified organism Laterality: right Lung location: lower lobe of lung Qualified Code(s): J18.1 - Lobar pneumonia, unspecified organism (2) HIV disease Priority: Secondary Status: Chronic (3) Pain syndrome, chronic Priority: Secondary Status: Acute (4) Oral candidiasis Priority: Secondary Status: Acute (5) DVT prophylaxis Priority: Secondary Status: Acute - Discharge Medications Home Medications: Emtricitabine/Tenofovir [Truvada] 1 each PO DAILY 11/18/14 [History] Raltegravir Potassium [Isentress] 400 mg PO BID 05/17/15 [History] Oxycodone HCl 10 mg PO TID PRN 10/01/15 [History] Zolpidem [Ambien] 10 mg PO HS PRN 10/02/15 [History] Cholecalciferol (Vitamin D3) [Vitamin D3] 10,000 unit PO 2XW 08/02/16 [History] Ergocalciferol (VITAMIN D2) [Vitamin D2] 50,000 unit PO QWEEK 08/02/16 [History] Omeprazole [PriLOSEC] 20 mg PO DAILY 08/02/16 [History] SUMAtriptan Succinate [Imitrex] 100 mg PO DAILY PRN 08/02/16 [History] clonazePAM [Klonopin] 1 mg PO BID 08/02/16 [History] Ondansetron ODT [Zofran ODT] 4 mg SL Q6HR PRN #14 tab.rapdis 10/30/16 [Rx] Quetiapine Fumarate [Seroquel Xr] 200 mg PO HS 11/01/16 [History] Allergies/Adverse Reactions: 3 Allergy/AdvReac Type Severity Reaction Status Date / Time ketorolac [From Toradol] Allergy Hives Verified 10/31/16 15:13 Date of admission: 10/31/16 21:11 Primary care physician: Osmin Duran MD - Patient Status Disposition: Left Against Medical Advice Condition: Fair - Discharge Instructions Follow Up With: Osmin Duran MD [Primary Care Provider] - Hospital course: Mr. Dyer is a 36 year old male - Time Spent with Patient Total time spent providing and/or coordinating discharge services: - Constitutional Vitals: Temp Pulse Resp BP Pulse Ox 98.7 F 100 20 155/78 96 11/02/16 14:15 11/02/16 14:15 11/02/16 14:15 11/02/16 14:15 11/02/16 14:15 General appearance: Present: A&O X 3, pleasant, no acute distress
== END 2016-11-02 17:15 | disposition left against medical advice (07) | DRG 894 ==
LOC: EMEROO 14:55 → 3ANU 14:55 → SUATTDRO 21:11
PROVIDERS: ADMIT Nurse Practitioner; ATTEND Internal Medicine

== ENCOUNTER 2016-11-25 15:11 | Observation (INO) ==
[2016-11-25] MEDS ORDERED: *HR* LORazepam 2 MG/ML VIAL IVP ONE ×2 (15:47→16:48)
[2016-11-25] MEDS ORDERED: Ondansetron 4 MG/2 ML VIAL IVP ONE (16:01)
[2016-11-25] MEDS ORDERED: 0.9 % Sodium Chloride 1,000 ML IVC ONE (16:01)
[2016-11-25 16:11] LABS: Basophils % 0.3 %; Eosinophils % 0.3 %; Hematocrit 41.9 % (37.5-50.1); Immature Granulocytes % 0.3 % (0-4); Lymphocytes # 1.9 K/mcL (0.6-4.6); Lymphocytes % 30.9 %; Mean Corpuscular HGB Conc 33.4 g/dL (31.6-35.5); Mean Corpuscular Hemoglobin 31.1 pg (28.0-33.3); Mean Corpuscular Volume 93.1 fL (83.0-100.0); Mean Platelet Volume 9.4 fL (9.4-12.4); Monocytes # 0.5 K/mcL (0.0-1.3); Monocytes % 8.7 %; Neutrophils # 3.6 K/mcL (1.6-8.9); Platelet Count 157 K/mcL (140-400); Red Cell Distribution Width 14.7 % (11.5-14.5); Segmented Neutrophils % 59.5 %
--- NOTE | 2016-11-25 16:26 | Emergency Department Note ---
Disposition Clinical Impression: Seizure disorder, Suicidal ideation Intractable nausea and vomiting Qualifiers: Vomiting type: unspecified Qualified Code(s): R11.2 - Nausea with vomiting, unspecified Disposition: Admitted As Inpatient Condition: Good Time of Disposition: 20:33 Seizure HPI - General Chief Complaint: ED Seizure Stated Complaint: Seizures Time Seen by Provider: 11/25/16 15:31 Source: patient Mode of arrival: ambulatory Limitations: no limitations Nursing Notes Reviewed: Yes Vital Signs Reviewed: Yes - History of Present Illness HPI Narrative: 36-year-old male with history of HIV "full blown AIDS", who presents stating that he had multiple seizures over the last few days. Patient states that he sees part coming here, he had a witnessed event witnessed by his ex-boyfriend, but he did not the patient biting his tongue or having any urinary incontinence , he states that he went out of it was shaking for several seconds to minutes. Patient reports that is also had intermittent diarrhea, he was recently at the hospital yesterday first at [facility], and then seen here at the hospital, for the similar symptoms, he states he has had several episodes of emesis. He is unable to keep anything down. Pt Subjective Complaint: seizure Onset (ago): hour(s) Description of Episode: loss of consciousness Witnessed: yes - by bystander Associated trauma secondary to event: No Seizure History: known seizure disorder Place: home - Related Data Home Medications Medication Instructions Recorded Confirmed Emtricitabine/Tenofovir [Truvada] 1 each PO DAILY 11/18/14 11/25/16 Raltegravir Potassium [Isentress] 400 mg PO BID 05/17/15 11/25/16 Zolpidem [Ambien] 10 mg PO HS 10/02/15 11/25/16 Previous Rx's Medication Instructions Recorded LORazepam [Ativan] 1 mg PO BID #4 tablet 11/24/16 Dicyclomine [Bentyl] 10 mg PO QID PRN 5 Days capsule 11/25/16 LevETIRAcetam [Keppra] 500 mg PO BID 7 Days tablet 11/25/16 Ondansetron ODT [Zofran ODT] 4 mg SL Q6HR PRN #15 tab.rapdis 11/25/16 Allergies Allergy/AdvReac Type Severity Reaction Status Date / Time ketorolac [From Toradol] Allergy Hives Verified 11/25/16 15:19 All systems ED: reviewed and negative except as stated. Review of Systems: As Per HPI Constitutional: Reports: as per HPI, fever, weakness Eyes: Denies: eye pain ENT ED: Denies: ear pain Cardiovascular: Reports: as per HPI. Denies: chest pain Respiratory: Denies: cough, dyspnea Gastrointestinal: Reports: as per HPI, abdominal pain, nausea, vomiting, diarrhea Genitourinary: Denies: urgency Musculoskeletal: Denies: back pain Integumentary: Denies: rash Neurological: Reports: as per HPI, headache. Denies: weakness Psychiatric: Denies: anxiety Endocrine: Denies: fatigue Past Medical History - Past Medical History Attestation: Yes The following information was validated with the patient. Source: patient Medical history: Reports: hepatitis, HIV/AIDS, seizures, other Surgical history: Reports: no surgical history Psychiatric history: Reports: anxiety, depression, previous psychiatric hospitalization - Social History Smoking Status: Current every day smoker Smokeless Tobacco Status: Yes Alcohol use: Reports: none Drug use: Reports: none Physical Exam Constitutional: Patient writhing around, mildly tachycardic otherwise vital signs stable Eyes: PERRLA, sclera anicteric ENT & Mouth: MM dry Neck: normal inspection, neck is supple Resp: CTA bilaterally, no resp distress CV: tachycardic GI: normal inspection, soft mild tenderness to palp diffuse, somewhat distractable, no guarding or rigidity Neuro: A&O3, CNII-XII grossly intact, MORALES Skin: on limited exam, skin intact with no rashes or lesions - General Limitations: no limitations General appearance: alert, anxious Course Course Narrative: 36-year-old female complaining of history of seizures, patient states that he had several seizures today, given his history and immuno compromised status with CT head CT abdomen and pelvis basic lab work with IV fluids, check a Keppra level that this would not come back to the emergency department treat with fluids and benzodiazepines at this time - Reevaluation(s) Reevaluation #1: Rapid bedside, the patient was rolled over, shaking, but he blinked his eyes when motion was made in front of his face, he is able be rolled around no evidence of postictal phase, the patient just take out his IV, was requesting narcotic pain medication. We discussed that we will give the patient appropriate analgesic medication however after throwing up his Tylenol he is only requesting his oxycodone at this time we will give additional Ativan, added a second IV, Dr. Castro performed a bedside rectal exam please see his documentation, briefly no evidence of hemorrhoids stool guaiac positive, no gross blood Reevaluation #2: Patient we are discussing discharge with the patient, given that most was lab work was okay, he expressed concern because he is not able to tolerate his HIV medications, patient and expressed to the technician terminal and repeater that he would go home and overdose on acetaminophen and kill himself, I confronted the patient at this concern, as he has had a previous attempt that was the same, and he stated that yes he was actively suicidal, is mostly upset that he felt like his pain was addressed. I subsequently pinks up the patient, the patient then tried to leave AGAINST MEDICAL ADVICE a smoke a cigarette, the patient stated that he was not getting his pain adequately addressed, we stated that he was on a psychiatric hold this time plan will be for admission treated for dehydration nausea vomiting and eventual psychiatric workup Time: 19:14 Reevaluation #3: Admitted to Dr Mondragon Time: 19:30 Vital Signs Temperature 98.4 F 11/25/16 15:20 Pulse Rate 115 11/25/16 15:20 Respiratory Rate 18 11/25/16 15:20 Blood Pressure 120/82 11/25/16 15:20 O2 Sat by Pulse Oximetry 99 11/25/16 15:20 Temperature 98.1 F 11/26/16 20:48 Pulse Rate 101 11/26/16 20:48 Respiratory Rate 18 11/26/16 20:48 Blood Pressure 145/100 11/26/16 20:48 O2 Sat by Pulse Oximetry 94 11/26/16 20:48 Oxygen Delivery Oxygen Delivery Room Air Seizure - MDM Narrative Medical decision making narrative: 36-year-old male with HIV, recurrent seizures, admitted for dehydration unable to take meds, n/v and psychiatric eval, pink slipped in ED due to Suicidal threats. Admitted by Dr Mondragon - Differential Diagnosis Likely: generalized seizure, seizure mimics syncope - Medical Records Medical records reviewed: Yes I reviewed the patient's medical records. - Lab Data Lab results reviewed: Yes I reviewed the patient's lab results. Result diagrams: 11/26/16 20:25 11/26/16 20:25 Lab Results 11/25/16 11/25/16 11/25/16 Range/Units 15:24 15:56 15:56 WBC 6.1 (4.3-11.1) K/mcL RBC 4.50 (4.19-5.50) M/mcL Hgb 14.0 D (12.9-16.9) g/dL Hct 41.9 (37.5-50.1) % MCV 93.1 (83.0-100.0) fL MCH 31.1 (28.0-33.3) pg MCHC 33.4 (31.6-35.5) g/dL RDW 14.7 H (11.5-14.5) % Plt Count 157 (140-400) K/mcL MPV 9.4 (9.4-12.4) fL Immature Gran % 0.3 (0-4) % Seg Neutrophils % 59.5 % Lymphocytes % 30.9 % Monocytes % 8.7 % Eosinophils % 0.3 % Basophils % 0.3 % Neutrophils # 3.6 (1.6-8.9) K/mcL Lymphocytes # 1.9 (0.6-4.6) K/mcL Monocytes # 0.5 (0.0-1.3) K/mcL Eosinophils # 0.0 (0.0-0.6) K/mcL Basophils # 0.0 (0.0-0.2) K/mcL Sodium (136-145) mEq/L Potassium (3.5-4.5) mEq/L Chloride (98-109) mEq/L Carbon Dioxide (19-29) mEq/L BUN (8-26) mg/dL Creatinine (0.72-1.25) mg/dL Est GFR ( Amer) (> 60) Est GFR (Non-Af Amer) (> 60) BUN/Creatinine Ratio (6-26) Glucose (70-99) mg/dL POC Glucose 108 H (58-89) Calculated Osmolality (280-300) Lactic Acid 2.0 (0.5-2.2) mmol/L Calcium (8.6-10.8) mg/dL Total Bilirubin (0.2-1.2) mg/dL Direct Bilirubin (0.0-0.5) mg/dL Indirect Bilirubin (0.0-1.2) mg/dL AST (5-34) Units/L ALT (0-55) Units/L Alkaline Phosphatase (38-126) Units/L Serum Total Protein (6.0-8.3) g/dL Albumin (3.5-5.0) g/dL Globulin (2.4-3.5) g/dL Albumin/Globulin Ratio (1.1-2.2) Lipase (8-78) Units/L Urine Color (Yellow) Urine Clarity (Clear) Urine pH (5.0-8.0) pH Units Ur Specific Haslett (1.010-1.025) Urine Protein (Neg-Trace) mg/dL Urine Glucose (UA) (Normal) mg/dL Urine Ketones (Negative) mg/dL Urine Blood (Negative) Urine Nitrite (Negative) Urine Bilirubin (Negative) Urine Urobilinogen (Normal) mg/dL Ur Leukocyte Esterase (Negative) Urine Microscopic RBC (0-3) per hpf Urine Microscopic WBC (0-3) per hpf Ur Squamous Epith Cells (None-Few) per lpf Urine Bacteria (None-Few) per hpf Hyaline Casts (None-Few) per lpf Ur Culture Indicated? (NO) Stool Occult Blood (Negative) Salicylates (15-30) mg/dL Urine Opiates Screen (Bentgs=619) ng/mL Acetaminophen (10-30) mcg/mL Ur Barbiturates Screen (Vyurvh=845) ng/mL Ur Phencyclidine Scrn (Cutoff=25) ng/mL Ur Amphetamines Screen (Ivaupf=9693) ng/mL U Benzodiazepines Scrn (Allbww=729) ng/mL Urine Cocaine Screen (Cutoff= 300) ng/mL U Marijuana (THC) Screen (Cutoff = 50) ng/mL Specimen Rejected 11/25/16 11/25/16 11/25/16 Range/Units 15:56 16:31 17:35 WBC (4.3-11.1) K/mcL RBC (4.19-5.50) M/mcL Hgb (12.9-16.9) g/dL Hct (37.5-50.1) % MCV (83.0-100.0) fL MCH (28.0-33.3) pg MCHC (31.6-35.5) g/dL RDW (11.5-14.5) % Plt Count (140-400) K/mcL MPV (9.4-12.4) fL Immature Gran % (0-4) % Seg Neutrophils % % Lymphocytes % % Monocytes % % Eosinophils % % Basophils % % Neutrophils # (1.6-8.9) K/mcL Lymphocytes # (0.6-4.6) K/mcL Monocytes # (0.0-1.3) K/mcL Eosinophils # (0.0-0.6) K/mcL Basophils # (0.0-0.2) K/mcL Sodium 142 (136-145) mEq/L Potassium 3.9 (3.5-4.5) mEq/L Chloride 106 (98-109) mEq/L Carbon Dioxide 26 (19-29) mEq/L BUN 11 (8-26) mg/dL Creatinine 0.83 (0.72-1.25) mg/dL Est GFR ( Amer) > 60 (> 60) Est GFR (Non-Af Amer) > 60 (> 60) BUN/Creatinine Ratio 13 (6-26) Glucose 100 H (70-99) mg/dL POC Glucose (58-89) Calculated Osmolality 293 (280-300) Lactic Acid (0.5-2.2) mmol/L Calcium 9.1 (8.6-10.8) mg/dL Total Bilirubin 0.7 (0.2-1.2) mg/dL Direct Bilirubin 0.3 (0.0-0.5) mg/dL Indirect Bilirubin 0.4 (0.0-1.2) mg/dL AST 36 H (5-34) Units/L ALT 39 (0-55) Units/L Alkaline Phosphatase 61 (38-126) Units/L Serum Total Protein 7.2 (6.0-8.3) g/dL Albumin 4.2 (3.5-5.0) g/dL Globulin 3.0 (2.4-3.5) g/dL Albumin/Globulin Ratio 1.4 (1.1-2.2) Lipase 50 (8-78) Units/L Urine Color (Yellow) Urine Clarity (Clear) Urine pH (5.0-8.0) pH Units Ur Specific Haslett (1.010-1.025) Urine Protein (Neg-Trace) mg/dL Urine Glucose (UA) (Normal) mg/dL Urine Ketones (Negative) mg/dL Urine Blood (Negative) Urine Nitrite (Negative) Urine Bilirubin (Negative) Urine Urobilinogen (Normal) mg/dL Ur Leukocyte Esterase (Negative) Urine Microscopic RBC (0-3) per hpf Urine Microscopic WBC (0-3) per hpf Ur Squamous Epith Cells (None-Few) per lpf Urine Bacteria (None-Few) per hpf Hyaline Casts (None-Few) per lpf Ur Culture Indicated? (NO) Stool Occult Blood Negative (Negative) Salicylates < 5.0 L (15-30) mg/dL Urine Opiates Screen (Loiruw=368) ng/mL Acetaminophen 10.0 (10-30) mcg/mL Ur Barbiturates Screen (Nkslcw=332) ng/mL Ur Phencyclidine Scrn (Cutoff=25) ng/mL Ur Amphetamines Screen (Cpvgwm=1653) ng/mL U Benzodiazepines Scrn (Yetvua=107) ng/mL Urine Cocaine Screen (Cutoff= 300) ng/mL U Marijuana (THC) Screen (Cutoff = 50) ng/mL Specimen Rejected Hemolyzed 11/25/16 11/25/16 Range/Units 18:00 18:00 WBC (4.3-11.1) K/mcL RBC (4.19-5.50) M/mcL Hgb (12.9-16.9) g/dL Hct (37.5-50.1) % MCV (83.0-100.0) fL MCH (28.0-33.3) pg MCHC (31.6-35.5) g/dL RDW (11.5-14.5) % Plt Count (140-400) K/mcL MPV (9.4-12.4) fL Immature Gran % (0-4) % Seg Neutrophils % % Lymphocytes % % Monocytes % % Eosinophils % % Basophils % % Neutrophils # (1.6-8.9) K/mcL Lymphocytes # (0.6-4.6) K/mcL Monocytes # (0.0-1.3) K/mcL Eosinophils # (0.0-0.6) K/mcL Basophils # (0.0-0.2) K/mcL Sodium (136-145) mEq/L Potassium (3.5-4.5) mEq/L Chloride (98-109) mEq/L Carbon Dioxide (19-29) mEq/L BUN (8-26) mg/dL Creatinine (0.72-1.25) mg/dL Est GFR ( Amer) (> 60) Est GFR (Non-Af Amer) (> 60) BUN/Creatinine Ratio (6-26) Glucose (70-99) mg/dL POC Glucose (58-89) Calculated Osmolality (280-300) Lactic Acid (0.5-2.2) mmol/L Calcium (8.6-10.8) mg/dL Total Bilirubin (0.2-1.2) mg/dL Direct Bilirubin (0.0-0.5) mg/dL Indirect Bilirubin (0.0-1.2) mg/dL AST (5-34) Units/L ALT (0-55) Units/L Alkaline Phosphatase (38-126) Units/L Serum Total Protein (6.0-8.3) g/dL Albumin (3.5-5.0) g/dL Globulin (2.4-3.5) g/dL Albumin/Globulin Ratio (1.1-2.2) Lipase (8-78) Units/L Urine Color Yellow (Yellow) Urine Clarity Clear (Clear) Urine pH 7.5 (5.0-8.0) pH Units Ur Specific Haslett > 1.030 H (1.010-1.025) Urine Protein 30 H (Neg-Trace) mg/dL Urine Glucose (UA) Normal (Normal) mg/dL Urine Ketones Negative (Negative) mg/dL Urine Blood Negative (Negative) Urine Nitrite Negative (Negative) Urine Bilirubin Negative (Negative) Urine Urobilinogen Normal (Normal) mg/dL Ur Leukocyte Esterase Negative (Negative) Urine Microscopic RBC 3-5 H (0-3) per hpf Urine Microscopic WBC 0-3 (0-3) per hpf Ur Squamous Epith Cells Few (None-Few) per lpf Urine Bacteria None Seen (None-Few) per hpf Hyaline Casts None Seen (None-Few) per lpf Ur Culture Indicated? NO (NO) Stool Occult Blood (Negative) Salicylates (15-30) mg/dL Urine Opiates Screen Positive H (Iweyux=579) ng/mL Acetaminophen (10-30) mcg/mL Ur Barbiturates Screen Negative (Vpuzgr=954) ng/mL Ur Phencyclidine Scrn Negative (Cutoff=25) ng/mL Ur Amphetamines Screen Negative (Uxgoty=5147) ng/mL U Benzodiazepines Scrn Negative (Brfqez=799) ng/mL Urine Cocaine Screen Negative (Cutoff= 300) ng/mL U Marijuana (THC) Screen Positive H (Cutoff = 50) ng/mL Specimen Rejected - Radiology Data Radiology results reviewed: Yes I reviewed the patient's radiology results. Abdomen/Pelvis CT 11/25/16 15:47 IMPRESSION: 1. Question small amount of gas within urinary bladder. Correlate with any history of recent instrumentation. Correlation with urinalysis is also recommended. 2. Question mild mural thickening of the urinary bladder. 3. Gallbladder wall distention. Correlate with any clinical evidence right upper quadrant pain. D/ / Scott Zheng MD / Scott Zheng MD Interpreting Provider: Scott Zheng MD Head CT 11/25/16 16:46 IMPRESSION: No acute intracranial abnormality. D/ / Luis Barros MD / Luis Barros MD Interpreting Provider: Luis Barros MD Attestation Statement - Attestation Attestation: I, Agustin Castro, examined this patient and my medical decision-making was reviewed with the MOTOR [employer]SEM[employer] SUPERVISOR/PA/Advanced Practice Nurse/Resident Physician. I agree with the documented findings, disposition and treatment plan as described except to the extent set forth below. 36-year-old male presents to the emergency Department with concerns of abdominal pain, bilateral groin pain and pain to his "anus" as well as uncontrolled seizures. Patient states that he is not been taking his Keppra and he noticed multiple seizures over the past few days. Patient reports the pain to his bilateral groin, suprapubic area, and abdomen is sharp, cramping, pressure. He states he had an episode of liquid stool incontinence yesterday however he denies melena or hematochezia. Patient was very dramatic in his initial presentation. Within 30 minutes of being in the emergency department he had an episode where he was laying on his side clenching his hands and legs and squeezing his eyes tight. Patient did not loose his pulse and he did not become hypoxic. He did not have a postictal period he was not incontinent. He did not bite his tongue. Ativan was ordered not only for unlikely but possible seizure but also for the patient's anxiety. When the resident returned to the room the patient had his finger in his mouth actively trying to make himself vomit. Rectal exam was performed which did not show evidence of anal fissure or mass or fecal impaction. CT of the abdomen negative for acute surgical pathology. Laboratory evaluation largely within normal limits. Vital signs were stable and patient tolerated by mouth intake in the emergency department. With his negative workup he was going to be discharged from the emergency Department at which point he became very agitated, tried to leave with his IV, and then stated he was suicidal and then told the invas tech that he had taken 20 of his Ambien which were in the room with him. His belongings were taken from him by security and he was pink slipped.
[2016-11-25 16:56] LABS: BUN/Creatinine Ratio 13 (6-26); Blood Urea Nitrogen 11 mg/dL (8-26); Calcium 9.1 mg/dL (8.6-10.8); Carbon Dioxide 26 mEq/L (19-29); Chloride 106 mEq/L (98-109); Glucose 100 mg/dL (70-99); Osmolality,Calculated 293 (280-300); Potassium 3.9 mEq/L (3.5-4.5); Sodium 142 mEq/L (136-145); eGFR For African Americans > 60 (> 60); eGFR For Non-African Americans > 60 (> 60)
[2016-11-25] MEDS ORDERED: Dicyclomine 20 MG/2 ML AMPUL IM ONE (17:13)
[2016-11-25] MEDS ORDERED: *HR* OxyCODONE/APAP 5/325 TABLET PO ONE (17:23)
[2016-11-25 18:10] LABS: Bilirubin,Urine Negative (Negative); Blood,Urine Negative (Negative); Clarity,Urine Clear (Clear); Color,Urine Yellow (Yellow); Glucose,Urine (UA) Normal (Normal); Ketones,Urine Negative (Negative); Leukocyte Esterase,Urine Negative (Negative); Nitrite,Urine Negative (Negative); PH,Urine 7.5 pH Units (5.0-8.0); Protein,Urine 30 mg/dL (Neg-Trace); Specific Gravity,Urine > 1.030 (1.010-1.025); Urobilinogen,Urine Normal (Normal)
[2016-11-25 18:13] LABS: Alanine Aminotransferase 39 Units/L (0-55); Albumin 4.2 g/dL (3.5-5.0); Albumin/Globulin Ratio 1.4 (1.1-2.2); Alkaline Phosphatase 61 Units/L (38-126); Aspartate Amino Transferase 36 Units/L (5-34); Bilirubin,Direct 0.3 mg/dL (0.0-0.5); Bilirubin,Indirect 0.4 mg/dL (0.0-1.2); Bilirubin,Total 0.7 mg/dL (0.2-1.2); Lipase 50 Units/L (8-78); Total Protein 7.2 g/dL (6.0-8.3)
[2016-11-25 18:16] LABS: Amphetamine Screen,Urine Negative ng/mL (Cutoff=1000); Bacteria,Urine None Seen per hpf (None-Few); Barbiturate Screen,Urine Negative ng/mL (Cutoff=200); Benzodiazepines Screen,Urine Negative ng/mL (Cutoff=200); Cannabinoid Screen,Urine Positive ng/mL (Cutoff = 50); Cocaine Screen,Urine Negative ng/mL (Cutoff= 300); Hyaline Casts,Urine None Seen per lpf (None-Few); Opiate Screen,Urine Positive ng/mL (Cutoff=300); Phencyclidine Screen,Urine Negative ng/mL (Cutoff=25); Squamous Epithelial Cell,Urine Few per lpf (None-Few); WBC,Urine 0-3 per hpf (0-3)
[2016-11-25 19:28] LABS: Salicylate < 5.0 mg/dL (15-30)
--- NOTE | 2016-11-25 19:53 | Internal Med History&Physical ---
<Akhil Calderón - Last Filed: 11/25/16 22:14> Date of Encounter: 11/25/16 Time of Encounter: 19:52 Assessment and Plan (1) Seizure disorder Current visit: Yes Status: Acute Patient's boyfriend witnessed seizure activity with entire body shaking that lasts for several seconds to minutes. He appeared to have a psudoseizure in the ED with no post-ictal phase Patient reports not taking his seizure meds in 5 days due to N/V CT brain negative Continue seizure precautions EEG ordered Keppra BID ordered, Keppra level pending Ativan prn seizure activity (2) Suicidal ideation Current visit: Yes Status: Acute H/o previous suicidal attempts from overdose He has been to the ED three times since yesterday and reports "I will go home and overdose on Tylenol if I do not get IV narcotic pain medication." Patient later attempted to leave AMA from the ED to go outside to smoke but was pink slipped due to SI. Sitter ordered Psych consulted (3) GI bleed Current visit: Yes Status: Acute His stool was guaiac positive in the ED, no evidence of hemorrhoids Patient denies rectal trauma HGB 14.0, coags pending, vital signs stable Clear liquid diet Protonix IV BID for GI prophylaxis C. diff toxin results pending Continue to monitor Qualifiers: GI bleed type/associated pathology: unspecified gastrointestinal hemorrhage type Qualified Code(s): K92.2 - Gastrointestinal hemorrhage, unspecified (4) Pain syndrome, chronic Current visit: No Status: Chronic CT abd/plv revealed small amount of gas within urinary bladder, mild mural thickening of the urinary bladder, and gallbladder wall distention. (patient reports having straight cath performed in the ED) He reports onging abd pain, N/V/D Abd ultrasound pending Acute Hepatitis panel pending Continue pain and nausea control (5) Hepatitis B Current visit: Yes Status: Chronic He reports onging abd pain, N/V/D, rebound tenderness, guarding, elevated AST Abd ultrasound pending Acute Hepatitis panel pending Qualifiers: Viral hepatitis chronicity: unspecified Hepatic coma status: without hepatic coma Hepatitis delta agent presence: without delta-agent Qualified Code(s): B19.10 - Unspecified viral hepatitis B without hepatic coma (6) Bipolar disease, chronic Current visit: No Status: Chronic Continue home meds (7) HIV disease Current visit: No Status: Chronic 06/08/16 outpatient labs reveal CD4 count 687 and Viral load not detected Patient non-compliant with HAART regimen and reports "cortez has kept me from taking my medicine" Will repeat CD4 count and viral load ([facility] recommends CD4 levels be monitored every three to six months in all HIV-infected patients) Resume HAART therapy (8) Tobacco dependence Current visit: Yes Status: Acute Tobacco cessation discussed Nicotine patch ordered (9) DVT prophylaxis Current visit: No Status: Acute Heparin subq TID Internal Medicine - H&P: HPI Chief complaint: Seizures Admitted From: Home Plans for Post Hospital Care: Home History of present illness: Mr. Dyer is a 36 year old male with a PMH of hepatitis B, HIV/AIDS, seizures, syphilis, chronic pain syndrome, and previous suicidal attempts from overdose who presented from home with his boyfriend c/o having multiple witnessed seizures over the last few days. Seizure activity with entire body shaking lasts for several seconds to minutes. He also reports HIV associated fever, chills, night sweats, abd pain, N/V/D, anorexia, and 4lbs weight loss in the past 6 months. Patient states he is unable to keep down his seizure medications , HIV medications, or pain medications at home in 5 days. He describes right- sided lower abdominal pain with radiation into his groin, as well as low back pain. He drank wine last night and was actually brought to ED early yesterday morning intoxicated. He has been to the ED three times since yesterday for similar symptoms and reports "I will go home and overdose on Tylenol if I do not get IV narcotic pain medication." Patient later attempted to leave AMA from the ED to go outside to smoke but was oink slipped due to SI. Patient denies CP , SOB, biting his tongue, urine/ fecal incontinence, difficulty walking, alcohol withdrawal seizures, or trauma to head, neck, or extremities. In the ED, patient had a witnessed episode of rolling over, shaking, and blinking his eyes but when motion was made in front of his face, he was able be rolled around with no evidence of postictal phase. His stool was guaiac positive , CT abd/plv revealed small amount of gas within urinary bladder, mild mural thickening of the urinary bladder, and gallbladder wall distention. CT brain was negative. UDS was positive for THC and opiates. Past Med Surg Social Fam HX - Past Medical History Medical history: hepatitis, HIV/AIDS, seizures, other Psychiatric history: anxiety, depression, prior suicide attempt, previous psychiatric hospitalization - Past Surgical History Surgical History: no surgical history - Social History Smoking Status: Current every day smoker Smokeless Tobacco Status: Yes Alcohol use: rarely (wine) Drug use: marijuana Current living situation: Home - Family History Mother Hx Family Cancer: Yes (breast, skin, cervical) Father Hx Family Psychosocial Disorders: Yes (Schizophrenia) Internal Medicine - H&P: Meds Emtricitabine/Tenofovir [Truvada] 1 each PO DAILY 11/18/14 [History] Raltegravir Potassium [Isentress] 400 mg PO BID 05/17/15 [History] Zolpidem [Ambien] 10 mg PO HS 10/02/15 [History] LORazepam [Ativan] 1 mg PO BID #4 tablet 11/24/16 [Rx] Dicyclomine [Bentyl] 10 mg PO QID PRN 5 Days capsule 11/25/16 [Rx] LevETIRAcetam [Keppra] 500 mg PO BID 7 Days tablet 11/25/16 [Rx] Ondansetron ODT [Zofran ODT] 4 mg SL Q6HR PRN #15 tab.rapdis 11/25/16 [Rx] 3 Allergy/AdvReac Type Severity Reaction Status Date / Time ketorolac [From Toradol] Allergy Hives Verified 11/25/16 15:19 All Systems PM: A 10-system review of systems was performed and is negative for pertinent findings except as documented above in the HPI. - Constitutional Constitutional: chills, fever(s), weight loss - EENT Eyes: no change in vision Nose, mouth and throat: no nasal congestion, no sore throat - Cardiovascular Cardiovascular ROS IM: no chest pain, no palpitations - Respiratory Respiratory: no cough, no dyspnea, no chest congestion - Gastrointestinal Gastrointestinal: abdominal pain, diarrhea, nausea, vomiting, no constipation - Genitourinary Genitourinary ROS male: no dysuria, no urinary frequency, no urinary urgency - Musculoskeletal Musculoskeletal ROS IM: back pain, no limited range of motion, no muscle weakness, no numbness, no tingling - Integumentary Integumentary IM: no erythema, no rash - Neurological Neurological ROS: convulsions, no dizziness, no headache(s), no memory loss, no numbness, no tremor(s), no weakness - Psychiatric Psychiatric: anxiety, depression, panic attacks, suicidal ideation - Endocrine Endocrine IM: no polydipsia, no polyphagia, no polyuria - Constitutional Vitals: Temp Pulse Resp BP Pulse Ox 98.4 F 115 18 120/82 99 11/25/16 15:20 11/25/16 15:20 11/25/16 15:20 11/25/16 15:20 11/25/16 15:20 General appearance: Present: cooperative, mild distress, A&O X 3, answers questions appropriately - Head Head exam: Present: atraumatic, normal inspection, normocephalic - Eye Eye exam: Present: EOMI, PERRL Additional comments: wears glasses - ENT ENT exam: Present: mucous membranes moist, normal oropharynx - Expanded ENT Exam Mouth exam: Present: tongue normal. Absent: laceration - Neck Neck exam general surgery: Present: normal inspection, supple. Absent: tenderness - Respiratory Respiratory exam: Absent: CTAB, respiratory distress, wheezes - Cardiovascular Cardiovascular exam: Present: RRR, +S1, +S2 - GI/Abdominal GI/Abdominal exam: Present: guarding (voluntary), normal bowel sounds, rebound, soft, tenderness (diffuse) - Extremities Exam Extremities exam: Present: full ROM, normal capillary refill, warm, radial pulses palpable and symmetrical. Absent: pedal edema Additional comments: no trauma - Back Exam Back exam: Present: normal inspection. Absent: paraspinal tenderness, tenderness, vertebral tenderness - Neurological Exam Neurological exam: Present: alert, oriented X3, no focal deficits, strengths equal and symetr throughout. Absent: altered, motor sensory deficit, facial droop, speech deficit - Psychiatric Psychiatric exam: Present: anxious, normal affect, suicidal ideation - Skin Skin exam: Present: dry, normal color, warm Internal Med - H&P Results - Labs CBC & Chem 7: 11/25/16 15:56 11/25/16 16:31 - Impressions ITS Impressions Abdomen/Pelvis CT 11/25/16 15:47 IMPRESSION: 1. Question small amount of gas within urinary bladder. Correlate with any history of recent instrumentation. Correlation with urinalysis is also recommended. 2. Question mild mural thickening of the urinary bladder. 3. Gallbladder wall distention. Correlate with any clinical evidence right upper quadrant pain. D/ / Scott Zheng MD / Scott Zheng MD Interpreting Provider: Scott Zheng MD Head CT 11/25/16 16:46 IMPRESSION: No acute intracranial abnormality. D/ / Luis Barros MD / Luis Barros MD Interpreting Provider: Luis Barros MD <Axel Mondragon - Last Filed: 11/26/16 03:44> Date of Encounter: 11/26/16 Internal Medicine - H&P: HPI History of present illness: Mr. Dyer is a 36 year old male All Systems PM: A 10-system review of systems was performed and is negative for pertinent findings except as documented above in the HPI. - Constitutional Vitals: Temp Pulse Resp BP Pulse Ox 98.0 F 113 16 140/87 95 11/26/16 03:26 11/26/16 03:26 11/26/16 03:26 11/26/16 03:26 11/26/16 03:26 Internal Med - H&P Results - Labs CBC & Chem 7: 11/26/16 01:41 11/26/16 01:41 Labs: Short CBC 11/26/16 Range/Units 01:41 WBC 6.1 (4.3-11.1) K/mcL Hgb 13.0 (12.9-16.9) g/dL Hct 41.0 (37.5-50.1) % Plt Count 158 (140-400) K/mcL BMP 11/26/16 01:41 Sodium 141 Potassium 3.9 Chloride 107 Carbon Dioxide 26 BUN 10 Creatinine 0.83 Glucose 116 H Calcium 9.1 - Attending Attestation I have personally performed a face to face evaluation on this patient and I discussed the assessment and plan with the resident. I have reviewed and agree with the documented care plan. History and Exam by me shows: Mr. Dyer is a 36 year old male with a PMH of hepatitis B, HIV/AIDS, seizures, syphilis, chronic pain syndrome, and previous suicidal attempts from overdose who presented from home with his boyfriend c/o having multiple witnessed seizures over the last few days. Seizure activity with entire body shaking lasts for several seconds to minutes. He also reports HIV associated fever, chills, night sweats, abd pain, N/V/D, anorexia, and 4lbs weight loss in the past 6 months. Patient states he is unable to keep down his seizure medications , HIV medications, or pain medications at home in 5 days. He describes right- sided lower abdominal pain with radiation into his groin, as well as low back pain. He drank wine last night and was actually brought to ED early yesterday morning intoxicated. He has been to the ED three times since yesterday for similar symptoms and reports "I will go home and overdose on Tylenol if I do not get IV narcotic pain medication." Patient later attempted to leave AMA from the ED to go outside to smoke but was oink slipped due to SI. Patient denies CP , SOB, biting his tongue, urine/ fecal incontinence, difficulty walking, alcohol withdrawal seizures, or trauma to head, neck, or extremities. In the ED, patient had a witnessed episode of rolling over, shaking, and blinking his eyes but when motion was made in front of his face, he was able be rolled around with no evidence of post ictal phase.CT abd/plv revealed small amount of gas within urinary bladder, mild mural thickening of the urinary bladder, and gallbladder wall distention. CT brain was negative. UDS was positive for THC and opiates.Pt is alert, awake and O x 3 now, denied any active suicidal ideation now.. however he stated he is feeling so depressed and willing to go to psych unit if needed Gen: A, A, O x3 Chest: CTA Heart: S1S2+ RRR No murmurs Abd: moderate discomfort all over the abdomen.. very non specific examination..soft, no guarding a/p 1. Acute abdominal pain CT showed mild GB wall thickening will get U/S of RUQ cont supportive care 2. Suicidal ideation Had pink slipped by ER attending Psych consulted 3. Chronic epilepsy vs pseudo seizure disorder cont home med Keppra will check EEG in AM
[2016-11-25] MEDS: Nicotine 14 MG PATCH.TD24 TD SCH (20:06)
[2016-11-25] MEDS ORDERED: Naloxone 0.4 MG/ML INJ IVP PRN (20:20)
[2016-11-25] MEDS ORDERED: Ondansetron 4 MG/2 ML VIAL IVP PRN (20:20)
[2016-11-25] MEDS ORDERED: *HR* LORazepam 2 MG/ML VIAL IVP PRN ×3 (20:25)
[2016-11-25] MEDS: Folic Acid 1 MG TABLET PO SCH (22:33)
[2016-11-25] MEDS: *HR* Heparin 5,000 UNIT/ML VIAL SQ SCH (22:33)
[2016-11-25] MEDS: *HR* HYDROmorphone (PF) 1 MG/ML SYRINGE IVP PRN (22:33)
[2016-11-25] MEDS: Vitamin B Complex/Vit C/Vit E 1 EACH TABLET PO SCH (22:33)
[2016-11-25] MEDS: 0.9 % Sodium Chloride 1,000 ML IVC SCH (22:34)
[2016-11-25] MEDS: levETIRAcetam 250 MG TABLET PO SCH (22:34)
[2016-11-25] MEDS: Thiamine (B-1) 100 MG TABLET PO SCH (22:34)
[2016-11-25] MEDS: RALTEGRAVIR POTASSIUM 400 MG TABLET PO SCH (22:34)
[2016-11-25] MEDS: Nicotine 21 MG PATCH.TD24 TD SCH (23:27)
[2016-11-25] MEDS: Pantoprazole 40 MG VIAL IVP SCH (23:28)
[2016-11-26] MEDS: *HR* OxyCODONE Immed Rel 5 MG TABLET PO PRN ×3 (01:52→17:53)
[2016-11-26 02:16] LABS: Mean Corpuscular HGB Conc 31.7 g/dL (31.6-35.5); Mean Corpuscular Hemoglobin 30.7 pg (28.0-33.3); Mean Corpuscular Volume 96.9 fL (83.0-100.0); Mean Platelet Volume 9.7 fL (9.4-12.4); Platelet Count 158 K/mcL (140-400); Red Blood Count 4.23 M/mcL (4.19-5.50); Red Cell Distribution Width 14.7 % (11.5-14.5)
[2016-11-26 02:28] LABS: BUN/Creatinine Ratio 12 (6-26); Blood Urea Nitrogen 10 mg/dL (8-26); Calcium 9.1 mg/dL (8.6-10.8); Carbon Dioxide 26 mEq/L (19-29); Chloride 107 mEq/L (98-109); Glucose 116 mg/dL (70-99); Magnesium 2.4 mg/dL (1.6-2.6); Osmolality,Calculated 292 (280-300); Phosphorous 4.1 mg/dL (2.3-4.7); Potassium 3.9 mEq/L (3.5-4.5); Sodium 141 mEq/L (136-145); eGFR For African Americans > 60 (> 60); eGFR For Non-African Americans > 60 (> 60)
[2016-11-26 02:29] LABS: Ethanol < 10 mg/dL (0-10)
[2016-11-26] MEDS ORDERED: *HR* LORazepam 2 MG/ML VIAL IVP ONE ×2 (02:38→19:42)
[2016-11-26 02:50] LABS: Thyroid Stimulating Hormone 1.221 mcIU/mL (0.350-4.840)
[2016-11-26] MEDS: *HR* HYDROmorphone (PF) 1 MG/ML SYRINGE IVP PRN ×2 (04:09→07:15)
[2016-11-26] MEDS: Pantoprazole 40 MG VIAL IVP SCH ×2 (05:20→17:53)
[2016-11-26] MEDS: *HR* Heparin 5,000 UNIT/ML VIAL SQ SCH ×3 (05:20→22:35)
[2016-11-26] MEDS: 0.9 % Sodium Chloride 1,000 ML IVC SCH (05:28)
[2016-11-26] MEDS ORDERED: Famotidine 20 MG/2 ML VIAL IVP SCH (06:00)
[2016-11-26] MEDS: Folic Acid 1 MG TABLET PO SCH (09:57)
[2016-11-26] MEDS: levETIRAcetam 250 MG TABLET PO SCH ×2 (09:57→22:36)
[2016-11-26] MEDS: clonazePAM 1 MG TABLET PO SCH ×2 (09:57→22:36)
[2016-11-26] MEDS: Vitamin B Complex/Vit C/Vit E 1 EACH TABLET PO SCH (09:57)
[2016-11-26] MEDS: Nicotine 21 MG PATCH.TD24 TD SCH (09:57)
[2016-11-26] MEDS: Thiamine (B-1) 100 MG TABLET PO SCH (09:57)
[2016-11-26] MEDS: Nicotine 14 MG PATCH.TD24 TD SCH (09:58)
--- NOTE | 2016-11-26 10:09 | Neurology - Consult Note ---
Date of Encounter: 11/26/16 Time of Encounter: 09:15 Assessment and Plan (1) Seizure disorder Current Visit: Yes Status: Chronic Patient presents to [facility] with reported seizure activity. Previously diagnosed with seizure disorder and normally on 500 mg Keppra BID. He reports having been sick recently with nausea and vomiting. He reports that he was not the best at taking his anti-epileptic drugs previously, but in the past week has not been able to take them at all. He had a "seizure" event in the ER that was witnessed , but did not appear to be epileptic in nature. Will wait for results of EEG Obtain Keppra level Resume 500 mg Keppra BID, as nausea is currently controlled History of Present Illness Chief complaint: Worsening seizures HPI: Mr. Dyer is a 36 year old male with past medical history of a seizure disorder (currently on Keppra), HIV (currently on HAART), and hepatitis who is admitted to [facility] yesterday evening because of reported seizure activity and suicidal ideation. He had presented to [facility] several times yesterday because of concerns of nausea, vomiting, seizure activity. On his original presentation to the ER he reportedly drank a significant quantity of wine and had an alcohol level of 273. On subsequent returns to the ER yesterday his alcohol level dropped to 58 and then to less than 10. He reports that over the last several days had increased seizure activity that is unusual for him. He states his seizures was originally diagnosed by a Dr. Thomson after having witnessed seizure activity with weight thought were just fainting spells. He states that prior to seizures he feels them coming with a sensation in his abdomen and a feeling of cold. He also reports having alterations in his vision , describing blurriness and "watery" prior to seizure. The seizures have previously been described as tonic-clonic in nature, patient denies having tongue biting but does report only having 4 bottom teeth. He states he normally has a postictal state of several minutes following one of these events. He has not having a small amount of urinary incontinence in the past, but was concerned with this seizure yesterday because he had bowel incontinence for the first time. He reports that he had not been taking his Keppra as he is supposed to for some time, but in the past week he has not been able to keep down any medications whatsoever. This corresponds to time in which she has had worsening seizures. She did have a witnessed "seizure" in the emergency department and the description of the event does not correlate with true seizure and there is no postictal period observed. He was requesting narcotics and then threatened to kill himself via Tylenol overdose if he went home. He was pink slipped at that time. Past Med Surg Social Fam HX - Past Medical History Medical history: hepatitis, HIV/AIDS, seizures, other Psychiatric history: anxiety, depression, prior suicide attempt, previous psychiatric hospitalization - Past Surgical History Surgical History: no surgical history - Social History Smoking Status: Current every day smoker Smokeless Tobacco Status: Yes Alcohol use: rarely Drug use: marijuana - Family History Mother Name: Thelma weaver Family Member Ethnicity: Non- Living Status: Still Living Hx Family Cancer: Yes (Skin, breat, Bone) Hx Family Endocrine Disorder: Yes (diabetes) Father Name: Wong Dyer Family Member Ethnicity: Non- Living Status: Still Living Hx Family Cancer: Yes (Breast, Lung, skin) Hx Family Psychosocial Disorders: Yes (Schizophrenia) Hx Family Medical Disorders: Yes (HIV) Medications and Allergies Emtricitabine/Tenofovir [Truvada] 1 each PO DAILY 11/18/14 [History] Raltegravir Potassium [Isentress] 400 mg PO BID 05/17/15 [History] Zolpidem [Ambien] 10 mg PO HS 10/02/15 [History] LORazepam [Ativan] 1 mg PO BID #4 tablet 11/24/16 [Rx] Dicyclomine [Bentyl] 10 mg PO QID PRN 5 Days capsule 11/25/16 [Rx] LevETIRAcetam [Keppra] 500 mg PO BID 7 Days tablet 11/25/16 [Rx] Ondansetron ODT [Zofran ODT] 4 mg SL Q6HR PRN #15 tab.rapdis 11/25/16 [Rx] 3 Allergy/AdvReac Type Severity Reaction Status Date / Time ketorolac [From Toradol] Allergy Hives Verified 11/25/16 15:19 All Systems: Gen: Reports fever and chills, reports weakness, denies fatigue CV: Reports chest pain with nausea, denies palpitations Resp: Denies shortness of breath, denies coughing GI: Reports nausea and vomiting, reports abdominal pain, denies constipation, reports diarrhea, denies hematochezia, denies melena Neuro: Denies headache currently, denies confusion, denies focal weakness, denies numbness, denies tingling, denies vision changes, reports increasing seizure activity per history of present illness : Denies flank pain, denies dysuria, denies hematuria Physical Examination - Vital Signs Vital Signs: Initial Vital Signs Temp Pulse Resp BP Pulse Ox 98.4 F 115 18 120/82 99 11/25/16 15:20 11/25/16 15:20 11/25/16 15:20 11/25/16 15:20 11/25/16 15:20 - Exam Exam: General: Cooperative, pleasant, no acute distress, alert and oriented 3, answers questions appropriately HEENT: Normocephalic, atraumatic, neck supple, trachea midline, Conjunctiva pink , sclera anicteric, EOMI, PERRL, dentition poor, oral mucosa moist, no orophargeal erythema or exudates Respiratory: No accessory muscle usage, clear to auscultation bilaterally, no wheezes/rhonchi/rales appreciated Cardiovascular: Tachycardia, S1 and S2 present, no murmurs/rubs/gallops/clicks appreciated Extremities: No calf tenderness, noncyanotic, no pedal edema appreciated, warm, lower extremity pulses palpable and symmetrical Neurological: Alert and oriented 3, no facial droop, no focal deficits, cranial nerves II through XII grossly intact bilaterally, strength 5/5 in upper and lower tremors bilaterally, sensation to gross touch intact bilaterally, DTRs 1/4 in upper and lower extremities bilaterally, rapid alternating movements smooth and good yolanda, finger to nose without tremors and accurate Skin: Dry, intact, normal color Results - Laboratory Findings CBC and BMP: 11/26/16 01:41 11/26/16 01:41 Abnormal lab findings: Abnormal lab results RDW 14.7 % (11.5-14.5) H 11/26/16 01:41 Glucose 116 mg/dL (70-99) H 11/26/16 01:41 POC Glucose 108 (58-89) H 11/25/16 15:24 AST 36 Units/L (5-34) H 11/25/16 16:31 Ur Specific Albin > 1.030 (1.010-1.025) H 11/25/16 18:00 Urine Protein 30 mg/dL (Neg-Trace) H 11/25/16 18:00 Urine Microscopic RBC 3-5 per hpf (0-3) H 11/25/16 18:00 Salicylates < 5.0 mg/dL (15-30) L 11/25/16 16:31 Urine Opiates Screen Positive ng/mL (Joftej=462) H 11/25/16 18:00 U Marijuana (THC) Screen Positive ng/mL (Cutoff = 50) H 11/25/16 18:00 Consult Discharge Plan - Plan Referrals: Osmin Duran MD [Primary Care Provider] -
[2016-11-26] MEDS: RALTEGRAVIR POTASSIUM 400 MG TABLET PO SCH ×2 (10:38→22:36)
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
--- NOTE | 2016-11-26 14:38 | EEG/EMG/Oth Biometrics Report ---
EEG Procedure Report Date of procedure: 11/26/16 EEG Procedure: Routine EEG Procedure Note: This EEG was acquired with standard international 1020 system with EKG recording. The background EEG activity was characterized by the presence of posterior dominant alpha rhythm with the best frequency up to 11 Hz. The background activity was reactive to eye openings. Sleep stages were not identified during this tracing. Drowsiness was characterized by drop off of posterior dominant Alpha rhythm. There are no electrographic seizures identified during this tracing. There are no epileptiform discharges and focal slowing noted during this recording. Photic stimulation produced and produced no abnormalities. Hyperventilation procedure not performed EKG tracing showed no significant cardiac dysrhythmia. Impression: This is essentially a normal awake and drowsy EEG. Extensive beta can be the results of medication effects including those from benzo and phenobarbital. Clinical Correlation: Normal EEGs, however, do not exclude epilepsy. Clinical correlation is advised.
--- NOTE | 2016-11-26 16:11 | Discharge Summary ---
Date of Encounter: 11/26/16 Time of Encounter: 16:03 - Discharge Diagnosis (1) Abdominal pain Priority: Primary Status: Acute Comments: Kolby Dyer is a 36 y/o male with past medical history HIV, hepatitis B and C and seizure disorder who presented to [facility] on 11/26/2016 with complaints of multiple witnessed seizures. There was concern for suicidal ideation, therefore he was placed observation status for further workup and treatment 1. Abdominal pain: reports intermittent ABD pain for several weeks prior to presentation. Right upper quadrant ultrasound with mild gallbladder wall thickening. With continued abdominal pain, heck HIDA scan. Consult general surgery if needed. Continue when necessary OxyIR for now. Advance diet as tolerated. C. difficile pending with reports of loose stool 2. Seizure disorder: Per history. Unable to keep seizure medication down for 2- 3 days prior to presentation due to abdominal pain and emesis. No seizure activity while inpatient. Keppra level pending (spoke with lab and this is a send out lab; level will not be resulted for 2-3 days). EEG without electrographic evidence of seizures. Evaluated by neurology who recommended continuing home Keppra. Continue seizure precautions. 3. HIV: Per history. Follows with infectious disease in [place]. HIV viral load pending (again this lab is a send out lab and 1 Oppy resulted for 2-3 days) . Continue HAART 4. Hepatitis B and C: per hx. LFTs stable. 5. DVT prophylaxis: heparin 6. Alcohol intoxication: Acutely intoxicated on initial presentation. Blood alcohol level 273. Monitor with CIWA 7. Chronic pain with anxiety: [facility] review 11/26/16 and patient does have active Rx for clonazepam. We will continue home dose. Patient does not have current Rx for pain medication. Avoiding IV pain medicine as patient is tolerating PO diet. Patient aware he would not be getting Rx for pain medicine at discharge Qualifiers: Abdominal location: generalized Qualified Code(s): R10.84 - Generalized abdominal pain (2) HIV (human immunodeficiency virus infection) Priority: Primary Status: Acute (3) Seizure disorder Priority: Primary Status: Chronic (4) Suicidal ideation Priority: Primary Status: Resolved (5) Hepatitis B Priority: Primary Status: Chronic Qualifiers: Viral hepatitis chronicity: unspecified Hepatic coma status: without hepatic coma Hepatitis delta agent presence: without delta-agent Qualified Code(s): B19.10 - Unspecified viral hepatitis B without hepatic coma - Discharge Medications Home Medications: Emtricitabine/Tenofovir [Truvada] 1 each PO DAILY 11/18/14 [History] Raltegravir Potassium [Isentress] 400 mg PO BID 05/17/15 [History] Zolpidem [Ambien] 10 mg PO HS 10/02/15 [History] LORazepam [Ativan] 1 mg PO BID #4 tablet 11/24/16 [Rx] Dicyclomine [Bentyl] 10 mg PO QID PRN 5 Days capsule 11/25/16 [Rx] LevETIRAcetam [Keppra] 500 mg PO BID 7 Days tablet 11/25/16 [Rx] Ondansetron ODT [Zofran ODT] 4 mg SL Q6HR PRN #15 tab.rapdis 11/25/16 [Rx] Allergies/Adverse Reactions: 3 Allergy/AdvReac Type Severity Reaction Status Date / Time ketorolac [From Toradol] Allergy Hives Verified 11/25/16 15:19 Procedures/tests Complete & Pending: Procedures Performed prior 72 hours Category Date Time Status GB ultrasound [US gall bladder] [US] Routine Exams 11/26/16 08:00 Completed Date of admission: 11/25/16 19:40 Primary care physician: Osmin Duran MD Consults: 11/25/16 20:23 Consult to Psychiatry [CONS] Routine Consulting Provider: Psychiatry [facility]ata Reason for Consult: Suicidal ideation Call Completed: No 11/25/16 20:25 Consult to Airworthiness Safety Inspector [CONS] Routine Reason for SW Consult: Alcohol Cessation Assisitance 11/26/16 09:17 Consult to Neurology [CONS] Routine Consulting Provider: [facility] Reason for Consult: ? seizure Call Completed: Yes 11/26/16 09:50 Consult to Interpret Exam [CONS] Routine Consulting Provider: Massimo Marte Consult to Interpret Exam: Interpret EEG Discharging clinician: Ana Hicks Anticipated date of discharge: 11/26/16 - Patient Status Disposition: Home, Self-Care Condition: Good Functional capacity at discharge: independent ambulation Overall status at discharge: patient is back to baseline - Discharge Instructions Follow Up With: Radha Delacruz MD [Partnered Physician] - 12/13/16 7:30 am Osmin Duran MD [Primary Care Provider] - - Diet and Activity Activity: resume usual activities as tolerated Diet: advance to your usual diet Interval History: Examined at bedside, patient is new to me. Information obtained from chart review and patient report. Had long discussion with patient regarding pain medicine and anxiety medicine. Reviewed [facility] and patient does have current prescription for clonazepam. He does not have Rx for pain medication. Patient repeatedly asking for pain medicine and anxiety medicine. Advised patient I would continue his home Klonopin dose and with allow for when necessary OxyIR with acute ABG pain. Patient has a multiple complaints including loose, watery stool with foul odor. Abdominal pain, anxiety, natalia is going have a seizure. No chest pain or shortness of breath Hospital course: Mr. Deyr is a 36 year old male - Time Spent with Patient Total time spent providing and/or coordinating discharge services: - Constitutional Vitals: Temp Pulse Resp BP Pulse Ox 98.8 F 94 18 123/82 96 11/26/16 15:16 11/26/16 15:16 11/26/16 15:16 11/26/16 15:16 11/26/16 15:16 General appearance: Present: cooperative, mild distress, A&O X 3, answers questions appropriately - Head Head exam: Present: atraumatic, normocephalic - Eye Eye exam: Present: PERRL, conjuntiva pink, sclera anicteric Pupils: Present: PERRL - Neck Neck exam general surgery: Present: supple, trachea midline. Absent: lymphadenopathy - Respiratory Respiratory exam: Present: CTAB. Absent: accessory muscle use, rales, rhonchi, wheezes - Cardiovascular Cardiovascular exam: Present: RRR, +S1, +S2. Absent: diastolic murmur, gallop, rubs, systolic murmur - GI/Abdominal GI/Abdominal exam: Present: normal bowel sounds, soft, no peritoneal signs. Absent: distended, tenderness - Extremities Exam Extremities exam: Present: warm, radial pulses palpable and symmetrical. Absent : calf tenderness, cyanotic, pedal edema - Neurological Exam Neurological exam: Present: CN II-XII intact, oriented X3, no focal deficits. Absent: pronater drift, facial droop, speech deficit - Skin Skin exam: Present: dry, intact
[2016-11-26 17:17] LABS: Hepatitis A Antibody IgM Nonreactive (Nonreactive); Hepatitis B Core IgM Nonreactive (Nonreactive)
[2016-11-26 19:29] LABS: Hepatitis C Virus Antibody Nonreactive (Nonreactive)
[2016-11-26] MEDS ORDERED: *HR* Morphine 2 MG/ML SYRINGE IVP ONE (20:02)
[2016-11-26 20:35] LABS: Hepatitis B Surface Antigen Reactive (Nonreactive)
[2016-11-26 20:39] LABS: Basophils % 0.5 %; Eosinophils # 0.1 K/mcL (0.0-0.6); Eosinophils % 0.9 %; Hematocrit 40.3 % (37.5-50.1); Hemoglobin 13.3 g/dL (12.9-16.9); Immature Granulocytes % 0.4 % (0-4); Lymphocytes # 2.5 K/mcL (0.6-4.6); Lymphocytes % 44.7 %; Mean Corpuscular Hemoglobin 31.1 pg (28.0-33.3); Mean Corpuscular Volume 94.2 fL (83.0-100.0); Mean Platelet Volume 9.3 fL (9.4-12.4); Monocytes # 0.5 K/mcL (0.0-1.3); Monocytes % 8.1 %; Neutrophils # 2.6 K/mcL (1.6-8.9); Platelet Count 138 K/mcL (140-400); Red Blood Count 4.28 M/mcL (4.19-5.50); Red Cell Distribution Width 14.5 % (11.5-14.5); Segmented Neutrophils % 45.4 %
[2016-11-26 20:51] LABS: Amylase 60 Units/L (25-125); Lipase 98 Units/L (8-78)
[2016-11-26 20:53] LABS: Alanine Aminotransferase 38 Units/L (0-55); Albumin 4.2 g/dL (3.5-5.0); Albumin/Globulin Ratio 1.3 (1.1-2.2); Alkaline Phosphatase 62 Units/L (38-126); Aspartate Amino Transferase 40 Units/L (5-34); BUN/Creatinine Ratio 12 (6-26); Bilirubin,Direct 0.2 mg/dL (0.0-0.5); Bilirubin,Indirect 0.4 mg/dL (0.0-1.2); Bilirubin,Total 0.6 mg/dL (0.2-1.2); Blood Urea Nitrogen 10 mg/dL (8-26); Calcium 9.6 mg/dL (8.6-10.8); Carbon Dioxide 22 mEq/L (19-29); Chloride 106 mEq/L (98-109); Globulin 3.3 g/dL (2.4-3.5); Glucose 99 mg/dL (70-99); Osmolality,Calculated 291 (280-300); Potassium 4.1 mEq/L (3.5-4.5); Sodium 141 mEq/L (136-145); Total Protein 7.5 g/dL (6.0-8.3); eGFR For African Americans > 60 (> 60); eGFR For Non-African Americans > 60 (> 60)
[2016-11-27 04:49] LABS: Hematocrit 38.1 % (37.5-50.1); Hemoglobin 12.7 g/dL (12.9-16.9); Mean Corpuscular HGB Conc 33.3 g/dL (31.6-35.5); Mean Corpuscular Hemoglobin 31.8 pg (28.0-33.3); Mean Corpuscular Volume 95.3 fL (83.0-100.0); Mean Platelet Volume 9.7 fL (9.4-12.4); Platelet Count 117 K/mcL (140-400); Red Cell Distribution Width 14.4 % (11.5-14.5)
[2016-11-27 05:00] LABS: Alanine Aminotransferase 32 Units/L (0-55); Albumin 3.8 g/dL (3.5-5.0); Albumin/Globulin Ratio 1.3 (1.1-2.2); Alkaline Phosphatase 58 Units/L (38-126); Aspartate Amino Transferase 30 Units/L (5-34); BUN/Creatinine Ratio 12 (6-26); Bilirubin,Total 0.4 mg/dL (0.2-1.2); Blood Urea Nitrogen 11 mg/dL (8-26); Carbon Dioxide 28 mEq/L (19-29); Chloride 107 mEq/L (98-109); Globulin 2.9 g/dL (2.4-3.5); Glucose 113 mg/dL (70-99); Lipase 111 Units/L (8-78); Osmolality,Calculated 294 (280-300); Potassium 3.9 mEq/L (3.5-4.5); Sodium 142 mEq/L (136-145); Total Protein 6.7 g/dL (6.0-8.3); eGFR For African Americans > 60 (> 60); eGFR For Non-African Americans > 60 (> 60)
[2016-11-27] MEDS: *HR* Heparin 5,000 UNIT/ML VIAL SQ SCH ×3 (06:20→22:49)
[2016-11-27] MEDS: Pantoprazole 40 MG VIAL IVP SCH ×2 (06:20→18:34)
[2016-11-27] MEDS: *HR* OxyCODONE Immed Rel 5 MG TABLET PO PRN ×4 (10:44→23:45)
[2016-11-27] MEDS ORDERED: 0.9 % Sodium Chloride 1,000 ML ONE (12:05)
[2016-11-27] MEDS: 0.9 % Sodium Chloride 1,000 ML IVC SCH ×3 (12:06→22:52)
[2016-11-27] MEDS: Thiamine (B-1) 100 MG TABLET PO SCH (12:07)
[2016-11-27] MEDS: clonazePAM 1 MG TABLET PO SCH ×2 (12:07→19:38)
[2016-11-27] MEDS: Folic Acid 1 MG TABLET PO SCH (12:07)
[2016-11-27] MEDS: levETIRAcetam 250 MG TABLET PO SCH ×2 (12:07→19:37)
[2016-11-27] MEDS: Nicotine 14 MG PATCH.TD24 TD SCH (12:07)
[2016-11-27] MEDS: RALTEGRAVIR POTASSIUM 400 MG TABLET PO SCH ×2 (12:08→19:38)
[2016-11-27] MEDS: Vitamin B Complex/Vit C/Vit E 1 EACH TABLET PO SCH (12:08)
[2016-11-27] MEDS: Nicotine 21 MG PATCH.TD24 TD SCH (12:08)
--- NOTE | 2016-11-27 13:02 | General Surgery Consult Note ---
Date of Encounter: 11/27/16 Time of Encounter: 12:57 Assessment and Plan (1) Abdominal pain Current Visit: Yes Status: Acute 33M with abdominal pain of unknown origin; It is difficult to ascertain true etiology of patient's pain. Although his exam is out of proportion to his symptoms, he is not peritoneal, rigid, distended nor any other physical exam findings to suggest an acute abdomen; Do not think his symptoms are related to his gallbladder as his exam is not consistent cholecystitis, nor are his labs or vitals. - okay to start CLD - serial abdominal exams - pain control per primary team - activity as tolerated - GI consult for hepatitis - no acute surgery needed at present Qualifiers: Abdominal location: generalized Qualified Code(s): R10.84 - Generalized abdominal pain History of Present Illness Consult date: 11/27/16 Reason for consult: abdominal pain History of present illness: 36M with PMH significant for HIV, Hep B, seizures who presents with worsening abdominal pain over the past 3 days. No associated nausea or vomiting. Patient still maintains an appetite. No reports of fevers, but the patient does give a history of subjective chills, shortness of breath. The patient is unable to identify and alleviating or exacerbating factors. Due to the nature of the pain, the patient believes it caused him to have a seizure. A CT scan as well as an US were ordered. I reviewed and interpreted the images and reports. The images demonstrate a thickened gallbladder wall, but no evidence of acute cholecystitis. Due to the nature of the patient's exam, surgery was consulted for further management. Past Med Surg Social Fam HX - Past Medical History Medical history: hepatitis, HIV/AIDS, seizures, other Psychiatric history: anxiety, depression, previous psychiatric hospitalization - Past Surgical History Surgical History: no surgical history - Social History Smoking Status: Current every day smoker Smokeless Tobacco Status: Yes Alcohol use: none Drug use: none - Family History Mother Name: Thelma weaver Family Member Ethnicity: Non- Living Status: Still Living Hx Family Cancer: Yes (Skin, breat, Bone) Hx Family Endocrine Disorder: Yes (diabetes) Father Name: Wong Dyer Family Member Ethnicity: Non- Living Status: Still Living Hx Family Cancer: Yes (Breast, Lung, skin) Hx Family Psychosocial Disorders: Yes (Schizophrenia) Hx Family Medical Disorders: Yes (HIV) Medications and Allergies Emtricitabine/Tenofovir [Truvada] 1 each PO DAILY 11/18/14 [History] Raltegravir Potassium [Isentress] 400 mg PO BID 05/17/15 [History] Zolpidem [Ambien] 10 mg PO HS 10/02/15 [History] LORazepam [Ativan] 1 mg PO BID #4 tablet 11/24/16 [Rx] Dicyclomine [Bentyl] 10 mg PO QID PRN 5 Days capsule 11/25/16 [Rx] LevETIRAcetam [Keppra] 500 mg PO BID 7 Days tablet 11/25/16 [Rx] Ondansetron ODT [Zofran ODT] 4 mg SL Q6HR PRN #15 tab.rapdis 11/25/16 [Rx] 3 Allergy/AdvReac Type Severity Reaction Status Date / Time ketorolac [From Toradol] Allergy Hives Verified 11/25/16 15:19 Review of Systems All systems PM: A 10-system review of systems was performed and is negative for pertinent findings except as documented above in the HPI. General Surgery Exam Initial Vital Signs Temp Pulse Resp BP Pulse Ox 98.4 F 115 18 120/82 99 11/25/16 15:20 11/25/16 15:20 11/25/16 15:20 11/25/16 15:20 11/25/16 15:20 - General physical appearance well developed, well nourished, no distress - Eyes other (no scleral icterus) - ENT normocephalic - Respiratory normal expansion, normal respiratory effort, clear to auscultation - Cardiovascular Cardiovascular exam: Present: RRR - Abdomen Abdomen general surgery: Present: soft, tender (non peritoneal; tenderness out of proportion to exam) Abdominal Tenderness: Present: RUQ, LUQ, RLQ, LLQ Hernia: Present: none - Integumentary Integumentary general surgery: Present: warm and dry - Neurologic Present: CN 2-12 grossly intact - Musculoskeletal Present: other (FROM in UE/LE bilaterally) - Psychiatric Psychiatric general surgery: Present: A&Ox3 Exam Initial Vital Signs Temp Pulse Resp BP Pulse Ox 98.4 F 115 18 120/82 99 11/25/16 15:20 11/25/16 15:20 11/25/16 15:20 11/25/16 15:20 11/25/16 15:20 Results - Labs 11/27/16 04:28 11/27/16 04:28 Abnormal lab results WBC 4.0 K/mcL (4.3-11.1) L 11/27/16 04:28 RBC 4.00 M/mcL (4.19-5.50) L 11/27/16 04:28 Hgb 12.7 g/dL (12.9-16.9) L 11/27/16 04:28 Plt Count 117 K/mcL (140-400) L 11/27/16 04:28 Glucose 113 mg/dL (70-99) H 11/27/16 04:28 POC Glucose 108 (58-89) H 11/25/16 15:24 Lipase 111 Units/L (8-78) H 11/27/16 04:28 Ur Specific [place] > 1.030 (1.010-1.025) H 11/25/16 18:00 Urine Protein 30 mg/dL (Neg-Trace) H 11/25/16 18:00 Urine Microscopic RBC 3-5 per hpf (0-3) H 11/25/16 18:00 Salicylates < 5.0 mg/dL (15-30) L 11/25/16 16:31 Urine Opiates Screen Positive ng/mL (Svwxok=306) H 11/25/16 18:00 U Marijuana (THC) Screen Positive ng/mL (Cutoff = 50) H 11/25/16 18:00 Hep Bs Antigen Reactive (Nonreactive) H 11/26/16 14:34 Diabetes panel 11/26/16 11/27/16 Range/Units 20:25 04:28 Sodium 141 142 (136-145) mEq/L Potassium 4.1 3.9 (3.5-4.5) mEq/L Chloride 106 107 (98-109) mEq/L Carbon Dioxide 22 28 (19-29) mEq/L BUN 10 11 (8-26) mg/dL Creatinine 0.85 0.92 (0.72-1.25) mg/dL Glucose 99 113 H (70-99) mg/dL Calcium 9.6 9.0 (8.6-10.8) mg/dL AST 40 H 30 (5-34) Units/L ALT 38 32 (0-55) Units/L Alkaline Phosphatase 62 58 (38-126) Units/L Albumin 4.2 3.8 (3.5-5.0) g/dL Calcium panel 11/26/16 11/27/16 Range/Units 20:25 04:28 Calcium 9.6 9.0 (8.6-10.8) mg/dL Albumin 4.2 3.8 (3.5-5.0) g/dL Pituitary panel 11/26/16 11/27/16 Range/Units 20:25 04:28 Sodium 141 142 (136-145) mEq/L Potassium 4.1 3.9 (3.5-4.5) mEq/L Chloride 106 107 (98-109) mEq/L Carbon Dioxide 22 28 (19-29) mEq/L BUN 10 11 (8-26) mg/dL Creatinine 0.85 0.92 (0.72-1.25) mg/dL Glucose 99 113 H (70-99) mg/dL Calcium 9.6 9.0 (8.6-10.8) mg/dL Adrenal panel 11/26/16 11/27/16 Range/Units 20:25 04:28 Sodium 141 142 (136-145) mEq/L Potassium 4.1 3.9 (3.5-4.5) mEq/L Chloride 106 107 (98-109) mEq/L Carbon Dioxide 22 28 (19-29) mEq/L BUN 10 11 (8-26) mg/dL Creatinine 0.85 0.92 (0.72-1.25) mg/dL Glucose 99 113 H (70-99) mg/dL Calcium 9.6 9.0 (8.6-10.8) mg/dL Total Bilirubin 0.6 0.4 (0.2-1.2) mg/dL AST 40 H 30 (5-34) Units/L ALT 38 32 (0-55) Units/L Alkaline Phosphatase 62 58 (38-126) Units/L Albumin 4.2 3.8 (3.5-5.0) g/dL All other labs normal. - Imaging CT scan - abdomen: report reviewed, image reviewed CT scan - pelvis: report reviewed, image reviewed (no osbtruction, mild thickening of gallbladder wall; no bowel wall ischemia, no abscess) Consult Discharge Plan - Plan Referrals: Radha Delacruz MD [Partnered Physician] - 12/13/16 7:30 am Osmin Duran MD [Primary Care Provider] - (Call your primary care providers office at [phone] request an appointment for one to two weeks. )
--- NOTE | 2016-11-27 16:28 | Internal Med Progress Note ---
Date of Encounter: 11/27/16 Time of Encounter: 16:28 - Assessment and plan (1) Abdominal pain Current Visit: Yes Status: Acute Assessment and plan: Kolby Dyer is a 36 y/o male with past medical history HIV, hepatitis B and C and seizure disorder who presented to [facility] on 11/26/2016 with complaints of multiple witnessed seizures. There was concern for suicidal ideation, therefore he was placed observation status for further workup and treatment 1. Abdominal pain: reports intermittent ABD pain for several weeks prior to presentation. Lipase 111. LFTs normal. Right upper quadrant ultrasound with mild gallbladder wall thickening. HIDA scan without of evidence of acute cholecystitis. Still with severe abdominal pain. Evaluated by General Surgery who does not think symptoms are related to gallbladder and no acute surgery needed at this time. He does have a history of pancreatitis. Clear liquid diet , serial abdominal exams. Consult GI for hepatitis 2. Seizure disorder: Per history. Unable to keep seizure medication down for 2- 3 days prior to presentation due to abdominal pain and emesis. No seizure activity while inpatient. Keppra level pending (spoke with lab and this is a send out lab; level will not be resulted for 2-3 days). EEG without electrographic evidence of seizures. Evaluated by neurology who recommended continuing home Keppra. Continue seizure precautions. 3. HIV: Per history. Follows with infectious disease in [place]. HIV viral load pending (again this lab is a send out lab and will not be resulted for 2-3 days). Continue HAART 4. Hepatitis B and C: per hx. LFTs stable. Consult GI per general surgery recommendations. 5. DVT prophylaxis: heparin 6. Alcohol intoxication: Acutely intoxicated on initial presentation. Blood alcohol level 273 and trended down. Monitor with CIWA 7. Chronic pain with anxiety: OARRS review 11/26/16 and patient does have active Rx for clonazepam. We will continue home dose. Patient does not have current Rx for pain medication. Avoiding IV pain medicine as patient is tolerating PO diet. Patient aware he would not be getting Rx for pain medicine at discharge Qualifiers: Abdominal location: generalized Qualified Code(s): R10.84 - Generalized abdominal pain (2) HIV (human immunodeficiency virus infection) Current Visit: Yes Status: Acute (3) Seizure disorder Current Visit: Yes Status: Chronic (4) Suicidal ideation Current Visit: Yes Status: Resolved (5) Hepatitis B Current Visit: Yes Status: Chronic Qualifiers: Viral hepatitis chronicity: unspecified Hepatic coma status: without hepatic coma Hepatitis delta agent presence: without delta-agent Qualified Code(s): B19.10 - Unspecified viral hepatitis B without hepatic coma - Subjective Interval history: Seen and examined at bedside; he still complaining of severe, 10 out of 10 abdominal pain. Says he was unable to lay flat that his abdominal pain was so bad. He thinks that his gallbladder and "once it taken out". Says he is not having loose stool anymore. No chest pain, no SOB. - Constitutional Vitals: Temp Pulse Resp BP Pulse Ox 98.1 F 80 20 113/83 97 11/27/16 15:58 11/27/16 15:58 11/27/16 15:58 11/27/16 15:58 11/27/16 15:58 General appearance: Present: cooperative, mild distress, A&O X 3, answers questions appropriately - Head Head exam: Present: atraumatic, normocephalic - Eye Eye exam: Present: PERRL, conjuntiva pink, sclera anicteric Pupils: Present: PERRL - Neck Neck exam general surgery: Present: supple, trachea midline. Absent: lymphadenopathy - Respiratory Respiratory exam: Present: CTAB. Absent: accessory muscle use, rales, rhonchi, wheezes - Cardiovascular Cardiovascular exam: Present: RRR, +S1, +S2. Absent: diastolic murmur, gallop, rubs, systolic murmur - GI/Abdominal GI/Abdominal exam: Present: normal bowel sounds, soft, no peritoneal signs. Absent: distended, tenderness - Extremities Exam Extremities exam: Present: warm, radial pulses palpable and symmetrical. Absent : calf tenderness, cyanotic, pedal edema - Neurological Exam Neurological exam: Present: CN II-XII intact, oriented X3, no focal deficits. Absent: pronater drift, facial droop, speech deficit - Skin Skin exam: Present: dry, intact Internal Medicine: Result - Labs CBC & Chem 7: 11/27/16 04:28 11/27/16 04:28 Labs: Short CBC 11/26/16 11/27/16 Range/Units 20:25 04:28 WBC 5.7 4.0 L (4.3-11.1) K/mcL Hgb 13.3 12.7 L (12.9-16.9) g/dL Hct 40.3 38.1 (37.5-50.1) % Plt Count 138 L 117 L (140-400) K/mcL Neutrophils # 2.6 (1.6-8.9) K/mcL BMP 11/26/16 11/27/16 20:25 04:28 Sodium 141 142 Potassium 4.1 3.9 Chloride 106 107 Carbon Dioxide 22 28 BUN 10 11 Creatinine 0.85 0.92 Glucose 99 113 H Calcium 9.6 9.0 Liver Function 11/26/16 11/27/16 Range/Units 20:25 04:28 Total Bilirubin 0.6 0.4 (0.2-1.2) mg/dL Direct Bilirubin 0.2 (0.0-0.5) mg/dL AST 40 H 30 (5-34) Units/L ALT 38 32 (0-55) Units/L Alkaline Phosphatase 62 58 (38-126) Units/L Albumin 4.2 3.8 (3.5-5.0) g/dL - Impressions Impressions Bile Acid Absorption NM 11/26/16 16:32 IMPRESSION: No convincing scintigraphic evidence of acute cholecystitis within the limitations of the exam. D/ / 11/27/2016 09:38:25 Praful Fontaine MD / markus Interpreting Provider: Praful Fontaine MD Chest/Abdomen X-ray 11/26/16 19:57 IMPRESSION: No acute process in the chest. No bowel obstruction or free air. D/ / Feliz Larsen MD / Feliz Larsen MD Interpreting Provider: Feliz Larsen MD Consult Discharge Plan - Plan Referrals: Radha Delacruz MD [Partnered Physician] - 12/13/16 7:30 am Osmin Duran MD [Primary Care Provider] - (Call your primary care providers office at [phone] request an appointment for one to two weeks. )
--- NOTE | 2016-11-27 21:29 | Event Note ---
Date of Encounter: 11/27/16 Time of Encounter: 21:00 Pt chart reviewed. Has positive hep B surface antigen but hep B core antibody is negative so do not have acute hep B and LFTS are normal so even if has ch Hep B do not qualify for treatment. Had abn Hep surface antigen in 2012 also. Rec: Hep B DNA, hep b total ab and hep B e antigen. F/U GI as out pt
[2016-11-28] MEDS: *HR* OxyCODONE Immed Rel 5 MG TABLET PO PRN ×5 (04:22→21:18)
[2016-11-28] MEDS: *HR* Heparin 5,000 UNIT/ML VIAL SQ SCH (05:33)
[2016-11-28] MEDS: Pantoprazole 40 MG VIAL IVP SCH ×2 (05:35→17:09)
[2016-11-28 05:52] LABS: Hematocrit 40.5 % (37.5-50.1); Hemoglobin 13.4 g/dL (12.9-16.9); Mean Corpuscular HGB Conc 33.1 g/dL (31.6-35.5); Mean Corpuscular Hemoglobin 31.5 pg (28.0-33.3); Mean Corpuscular Volume 95.1 fL (83.0-100.0); Mean Platelet Volume 10.1 fL (9.4-12.4); Platelet Count 111 K/mcL (140-400); Red Blood Count 4.26 M/mcL (4.19-5.50); Red Cell Distribution Width 14.4 % (11.5-14.5)
[2016-11-28 06:26] LABS: Alanine Aminotransferase 30 Units/L (0-55); Albumin 3.9 g/dL (3.5-5.0); Albumin/Globulin Ratio 1.3 (1.1-2.2); Alkaline Phosphatase 52 Units/L (38-126); Aspartate Amino Transferase 26 Units/L (5-34); BUN/Creatinine Ratio 9 (6-26); Bilirubin,Total 0.6 mg/dL (0.2-1.2); Blood Urea Nitrogen 7 mg/dL (8-26); Calcium 9.2 mg/dL (8.6-10.8); Carbon Dioxide 28 mEq/L (19-29); Chloride 107 mEq/L (98-109); Glucose 86 mg/dL (70-99); Osmolality,Calculated 289 (280-300); Sodium 141 mEq/L (136-145); Total Protein 6.9 g/dL (6.0-8.3); eGFR For African Americans > 60 (> 60); eGFR For Non-African Americans > 60 (> 60)
[2016-11-28] MEDS: clonazePAM 1 MG TABLET PO SCH ×2 (08:36→20:09)
[2016-11-28] MEDS: levETIRAcetam 250 MG TABLET PO SCH ×2 (08:36→20:08)
[2016-11-28] MEDS: Vitamin B Complex/Vit C/Vit E 1 EACH TABLET PO SCH (08:36)
[2016-11-28] MEDS: Folic Acid 1 MG TABLET PO SCH (08:37)
[2016-11-28] MEDS: Nicotine 14 MG PATCH.TD24 TD SCH (08:37)
[2016-11-28] MEDS: RALTEGRAVIR POTASSIUM 400 MG TABLET PO SCH ×2 (08:37→20:09)
[2016-11-28] MEDS: Thiamine (B-1) 100 MG TABLET PO SCH (08:37)
[2016-11-28 08:38] LABS: Lipase 54 Units/L (8-78)
[2016-11-28] MEDS: Nicotine 21 MG PATCH.TD24 TD SCH (08:38)
--- NOTE | 2016-11-28 12:23 | General Surgery Progress Note ---
Date of Encounter: 11/28/16 Time of Encounter: 12:20 - Assessment and Plan (1) Abdominal pain Current Visit: Yes Status: Acute 33M with abdominal pain of unknown origin; It is difficult to ascertain true etiology of patient's pain. Although his exam is out of proportion to his symptoms, he is not peritoneal, rigid, distended nor any other physical exam findings to suggest an acute abdomen; Do not think his symptoms are related to his gallbladder as his exam is not consistent cholecystitis (no muphyr's sign), nor are his labs or vitals. - okay to advance diet as tolerated - serial abdominal exams - pain control per primary team - activity as tolerated - f/u with GI as outpatient - no acute surgery needed at present - recommend repeat CT scan Qualifiers: Abdominal location: generalized Qualified Code(s): R10.84 - Generalized abdominal pain Subjective Patient reports: still having pain (reports continued abdominal pain with pain in R shoulder; tolerating diet; reports nausea) Objective Vital Signs - Last 8 Hours Temp Pulse Resp BP Pulse Ox 11/28/16 11:08 98.1 F 92 16 125/65 95 11/28/16 07:19 97.8 F 73 18 122/81 97 Intake and Output 11/27/16 11/28/16 11/28/16 23:59 07:59 15:59 Intake Total 1000 / 1000 Output Total 1350 / 1350 Balance 1000 / 1000 -1350 / -1350 Intake: IV Fluids 1000 / 1000 0.9 % Sodium Chloride 1,000 ML 1000 / 1000 @ 75 mls/hr IVC .[id number] NASH Rx #:[id number] Output: Urine 1350 / 1350 Other: Weight 105.188 kg Patient Weight 11/28/16 23:59 Weight 105.188 kg - General physical appearance well developed, well nourished, no distress - Eyes other (no scleral icterus) - Respiratory normal expansion, normal respiratory effort, clear to auscultation - Cardiovascular Cardiovascular exam: Present: RRR - Abdomen Abdomen: Present: soft, tender (non peritoneal; non distended; ) Hernia: none - Neurologic CN 2-12 grossly intact - Psychiatric oriented to time, oriented to person, oriented to place - Labs 11/28/16 05:03 11/28/16 05:03 Diabetes panel 11/28/16 Range/Units 05:03 Sodium 141 (136-145) mEq/L Potassium 4.0 (3.5-4.5) mEq/L Chloride 107 (98-109) mEq/L Carbon Dioxide 28 (19-29) mEq/L BUN 7 L (8-26) mg/dL Creatinine 0.79 (0.72-1.25) mg/dL Glucose 86 (70-99) mg/dL Calcium 9.2 (8.6-10.8) mg/dL AST 26 (5-34) Units/L ALT 30 (0-55) Units/L Alkaline Phosphatase 52 (38-126) Units/L Albumin 3.9 (3.5-5.0) g/dL Calcium panel 11/28/16 Range/Units 05:03 Calcium 9.2 (8.6-10.8) mg/dL Albumin 3.9 (3.5-5.0) g/dL Pituitary panel 11/28/16 Range/Units 05:03 Sodium 141 (136-145) mEq/L Potassium 4.0 (3.5-4.5) mEq/L Chloride 107 (98-109) mEq/L Carbon Dioxide 28 (19-29) mEq/L BUN 7 L (8-26) mg/dL Creatinine 0.79 (0.72-1.25) mg/dL Glucose 86 (70-99) mg/dL Calcium 9.2 (8.6-10.8) mg/dL Adrenal panel 11/28/16 Range/Units 05:03 Sodium 141 (136-145) mEq/L Potassium 4.0 (3.5-4.5) mEq/L Chloride 107 (98-109) mEq/L Carbon Dioxide 28 (19-29) mEq/L BUN 7 L (8-26) mg/dL Creatinine 0.79 (0.72-1.25) mg/dL Glucose 86 (70-99) mg/dL Calcium 9.2 (8.6-10.8) mg/dL Total Bilirubin 0.6 (0.2-1.2) mg/dL AST 26 (5-34) Units/L ALT 30 (0-55) Units/L Alkaline Phosphatase 52 (38-126) Units/L Albumin 3.9 (3.5-5.0) g/dL - Imaging Abdominal x-ray: report reviewed, image reviewed (no evidence of radio-opaque object seen on last CT scan) Consult Discharge Plan - Plan Referrals: Radha Delacruz MD [Partnered Physician] - 12/13/16 7:30 am Osmin Duran MD [Primary Care Provider] - (Call your primary care providers office at [phone] request an appointment for one to two weeks. )
[2016-11-28] MEDS ORDERED: SODIUM CHLORIDE/NAHCO3/KCL/PEG 4,000 ML SOLN.RECON PO ONE (12:50)
--- NOTE | 2016-11-28 12:53 | Event Note ---
Date of Encounter: 11/28/16 Time of Encounter: 12:45 Patient seen, complaining of right-sided lower abdominal pain for a while but per patient got worse in the last 3 days so came to the hospital. Complaining of having diarrhea for a while frequency up to 7-8 times per day. Rec: EGD and colonoscopy because of ongoing pain to make sure patient do not have any gastric/colonic pathology along with examination of the TI to rule out IBD
[2016-11-28 13:16] LABS: Adenovirus F 40/41 PCR Not detected (Not detect); Astrovirus PCR Not detected (Not detect); C.difficile Toxin A/B by PCR Not detected (Not detect); Campylobacter by PCR Not detected (Not detect); Cryptosporidium by PCR Not detected (Not detect); Cyclospora cayetanensis PCR Not detected (Not detect); E. coli O157 by PCR Not detected (Not detect); Entamoeba histolytica PCR Not detected (Not detect); Enteroaggregative E.coli(EAEC) Not detected (Not detect); Enteropathogenic E.coli(EPEC) Not detected (Not detect); Enterotoxigenic E.coli (ETEC) Not detected (Not detect); Giardia lamblia PCR Not detected (Not detect); Norovirus GI/GII PCR Not detected (Not detect); Plesiomonas shigelloides PCR Not detected (Not detect); Rotavirus A PCR Not detected (Not detect); Salmonella PCR Not detected (Not detect); Sapovirus PCR Not detected (Not detect); Shig/EnteroinvasiveE coli EIEC Not detected (Not detect); Shigalike tox-prod E coli STEC Not detected (Not detect); Vibrio PCR Not detected (Not detect); Vibrio cholerae PCR Not detected (Not detect); Yersinia enterocolitica PCR Not detected (Not detect)
--- NOTE | 2016-11-28 13:40 | Internal Med Progress Note ---
Date of Encounter: 11/28/16 Time of Encounter: 13:40 - Assessment and plan (1) Abdominal pain Current Visit: Yes Status: Acute Assessment and plan: Kolby Dyer is a 36 y/o male with past medical history HIV, hepatitis B and C and seizure disorder who presented to [facility] on 11/26/2016 with complaints of multiple witnessed seizures. There was concern for suicidal ideation, therefore he was placed observation status for further workup and treatment 1. Abdominal pain: reports intermittent ABD pain for several weeks prior to presentation. Lipase peaked at 111 (and normalized). LFTs normal. Right upper quadrant ultrasound with mild gallbladder wall thickening. HIDA scan without of evidence of acute cholecystitis. Stool studies, C. difficile negative. Repeat abdominal CT nonacute. Evaluated by General Surgery who did not feel symptoms elated to gallbladder and no indication for surgery at this time. Evaluated by GI who recommended EGD/colonoscopy due to persistent abdominal pain and to assess for telemetry bowel disease. Clear liquids, nothing by mouth the night. Pain control with by mouth OxyIR 2. Seizure disorder: Per history. Unable to keep seizure medication down for 2- 3 days prior to presentation due to abdominal pain and emesis. No seizure activity while inpatient. Keppra level pending disease this is a send out lab) . EEG without electrographic evidence of seizures. Evaluated by neurology who recommended continuing home Keppra. Continue seizure precautions. 3. HIV: Per history. Follows with infectious disease in [place]. HIV viral load pending (again this lab is a send out lab and will not be resulted for 2-3 days). Continue HAART 4. Hepatitis B and C: per hx. LFTs stable. Evaluated by GI in no acute inpatient needed this time. Can follow up outpatient. 5. DVT prophylaxis: heparin 6. Alcohol intoxication: Acutely intoxicated on initial presentation. Blood alcohol level 273 and trended down. Monitor with CIWA 7. Chronic pain with anxiety: OARRS review 11/26/16 and patient does have active Rx for clonazepam. Continue home dose. Patient does not have current Rx for pain medication. Avoiding IV pain medicine as patient is tolerating PO diet. Patient aware he would not be getting Rx for pain medicine at discharge Qualifiers: Abdominal location: generalized Qualified Code(s): R10.84 - Generalized abdominal pain (2) HIV (human immunodeficiency virus infection) Current Visit: Yes Status: Acute (3) Seizure disorder Current Visit: Yes Status: Chronic (4) Suicidal ideation Current Visit: Yes Status: Resolved (5) Hepatitis B Current Visit: Yes Status: Chronic Qualifiers: Viral hepatitis chronicity: unspecified Hepatic coma status: without hepatic coma Hepatitis delta agent presence: without delta-agent Qualified Code(s): B19.10 - Unspecified viral hepatitis B without hepatic coma - Subjective Interval history: Seen and examined at bedside. He is still complaining of severe, diffuse abdominal pain. Nothing makes better or worse. He is also reporting loose stool. No chest pain, no shortness of breath. He wants to try to advance diet. - Constitutional Vitals: Temp Pulse Resp BP Pulse Ox 98.1 F 92 16 125/65 95 11/28/16 11:08 11/28/16 11:08 11/28/16 11:08 11/28/16 11:08 11/28/16 11:08 General appearance: Present: cooperative, A&O X 3, answers questions appropriately - Head Head exam: Present: atraumatic, normocephalic - Eye Eye exam: Present: PERRL, conjuntiva pink, sclera anicteric Pupils: Present: PERRL - Neck Neck exam general surgery: Present: supple, trachea midline. Absent: lymphadenopathy - Respiratory Respiratory exam: Present: CTAB. Absent: accessory muscle use, rales, rhonchi, wheezes - Cardiovascular Cardiovascular exam: Present: RRR, +S1, +S2. Absent: diastolic murmur, gallop, rubs, systolic murmur - GI/Abdominal GI/Abdominal exam: Present: normal bowel sounds, soft, no peritoneal signs. Absent: distended, tenderness - Extremities Exam Extremities exam: Present: warm, radial pulses palpable and symmetrical. Absent : calf tenderness, cyanotic, pedal edema - Neurological Exam Neurological exam: Present: CN II-XII intact, oriented X3, no focal deficits. Absent: pronater drift, facial droop, speech deficit - Skin Skin exam: Present: dry, intact Internal Medicine: Result - Labs CBC & Chem 7: 11/28/16 05:03 11/28/16 05:03 Labs: Short CBC 11/28/16 Range/Units 05:03 WBC 4.1 L (4.3-11.1) K/mcL Hgb 13.4 (12.9-16.9) g/dL Hct 40.5 (37.5-50.1) % Plt Count 111 L (140-400) K/mcL BMP 11/28/16 05:03 Sodium 141 Potassium 4.0 Chloride 107 Carbon Dioxide 28 BUN 7 L Creatinine 0.79 Glucose 86 Calcium 9.2 Liver Function 11/28/16 Range/Units 05:03 Total Bilirubin 0.6 (0.2-1.2) mg/dL AST 26 (5-34) Units/L ALT 30 (0-55) Units/L Alkaline Phosphatase 52 (38-126) Units/L Albumin 3.9 (3.5-5.0) g/dL - Impressions Impressions KUB X-Ray 11/28/16 08:00 IMPRESSION: No radiopaque foreign body seen. If there is still clinical concern, a CT could better evaluate. Findings were discussed with Dr. Thomas at 8:40 a.m. on 11/28/2016. D/ / Felix Miguel MD / Felix Miguel MD Interpreting Provider: Felix Miguel MD Abdomen/Pelvis CT 11/28/16 12:00 IMPRESSION: No acute intra-abdominal abnormality D/ / Brendan Yin MD / Brendan Yin MD Interpreting Provider: Brendan Yin MD Consult Discharge Plan - Plan Referrals: Radha Dleacruz MD [Partnered Physician] - 12/13/16 7:30 am Osmin Duran MD [Primary Care Provider] - (Call your primary care providers office at [phone] request an appointment for one to two weeks. )
--- NOTE | 2016-11-28 17:28 | Event Note ---
<Winifred Mayorga - Last Filed: 11/28/16 17:26> Date of Encounter: 11/28/16 Time of Encounter: 05:[address] of abdomen and pelvis came back normal, therefore no need for surgical intervention at this time. We will sign off, but please call with questions or concerns. Thank you for the consult. <Herbert Weiss - Last Filed: 11/28/16 18:58> Date of Encounter: 11/28/16 please see MD addendum on progress note
[2016-11-28 18:34] LABS: CD3 Percent 73 % (62-87); CD8 Percent 33 % (15-46)
[2016-11-28] MEDS: 0.9 % Sodium Chloride 1,000 ML IVC SCH (20:09)
[2016-11-29] MEDS: *HR* OxyCODONE Immed Rel 5 MG TABLET PO PRN ×3 (01:17→14:05)
[2016-11-29 05:10] LABS: Hematocrit 40.9 % (37.5-50.1); Hemoglobin 13.5 g/dL (12.9-16.9); Mean Corpuscular Hemoglobin 30.8 pg (28.0-33.3); Mean Corpuscular Volume 93.4 fL (83.0-100.0); Mean Platelet Volume 9.7 fL (9.4-12.4); Platelet Count 123 K/mcL (140-400); Red Blood Count 4.38 M/mcL (4.19-5.50); Red Cell Distribution Width 14.3 % (11.5-14.5)
[2016-11-29 05:28] LABS: Alanine Aminotransferase 41 Units/L (0-55); Albumin 3.9 g/dL (3.5-5.0); Albumin/Globulin Ratio 1.3 (1.1-2.2); Alkaline Phosphatase 53 Units/L (38-126); Aspartate Amino Transferase 35 Units/L (5-34); BUN/Creatinine Ratio 7 (6-26); Bilirubin,Total 0.5 mg/dL (0.2-1.2); Blood Urea Nitrogen 6 mg/dL (8-26); Calcium 9.5 mg/dL (8.6-10.8); Carbon Dioxide 31 mEq/L (19-29); Chloride 104 mEq/L (98-109); Globulin 3.1 g/dL (2.4-3.5); Glucose 95 mg/dL (70-99); Osmolality,Calculated 291 (280-300); Potassium 3.5 mEq/L (3.5-4.5); Sodium 142 mEq/L (136-145); eGFR For African Americans > 60 (> 60); eGFR For Non-African Americans > 60 (> 60)
[2016-11-29] MEDS: Pantoprazole 40 MG VIAL IVP SCH (05:59)
[2016-11-29] MEDS: RALTEGRAVIR POTASSIUM 400 MG TABLET PO SCH ×2 (06:48→07:59)
[2016-11-29] MEDS: clonazePAM 1 MG TABLET PO SCH (07:58)
[2016-11-29] MEDS: levETIRAcetam 250 MG TABLET PO SCH (07:58)
[2016-11-29] MEDS: Nicotine 14 MG PATCH.TD24 TD SCH (07:58)
[2016-11-29] MEDS: Folic Acid 1 MG TABLET PO SCH (07:58)
[2016-11-29] MEDS: Thiamine (B-1) 100 MG TABLET PO SCH (07:58)
[2016-11-29] MEDS: Vitamin B Complex/Vit C/Vit E 1 EACH TABLET PO SCH (07:58)
[2016-11-29] MEDS: Nicotine 21 MG PATCH.TD24 TD SCH (08:00)
[2016-11-29] MEDS: 0.9 % Sodium Chloride 1,000 ML IVC SCH (10:22)
--- NOTE | 2016-11-29 11:56 | Gastroenterology Consult Note ---
<Reny Bynum - Last Filed: 11/29/16 11:53> Date of Encounter: 11/29/16 Time of Encounter: 10:00 - Assessment and plan (1) Abdominal pain Current Visit: Yes Status: Acute Assessment and plan: This is a 36 year old male with multiple comorbid conditions including HIV and Hep b. He has persistant abdominal pain. He denies any current bleeding. Will proceed with EGD and colonoscopy to rule out IBD, PUD as possible sources of abdominal pain. (2) Hepatitis B Current Visit: Yes Status: Chronic Assessment and plan: Chronic infection since 2011. LFTs normal. Qualifiers: Viral hepatitis chronicity: unspecified Hepatic coma status: without hepatic coma Hepatitis delta agent presence: without delta-agent Qualified Code(s): B19.10 - Unspecified viral hepatitis B without hepatic coma (3) HIV (human immunodeficiency virus infection) Current Visit: Yes Status: Acute Assessment and plan: Followed by infectious disease in [place]. - Time Spent With Patient Total time spent is greater than 50% in coordination of care (as documented) at patient's floor/unit and/or counseling patient: GI History of Present Illness - Data of Consult Patient: new to practice Requesting Physician: Ana Hicks CNP - Consult Narrative Reason for consult: abdominal pain History of present illness: Mr. Dyer is a 36 year old male with a PMH of hepatitis B, HIV/AIDS (DX 2008), seizures, syphilis, chronic pain syndrome, and previous suicidal attempts from overdose who presented from home with c/o having multiple seizures over the last few days, witnessed by his boyfriend. He also reports HIV associated fever , chills, night sweats, abd pain, N/V/D, anorexia, and 4lbs weight loss in the past 6 months. Patient reports being unable to keep down his seizure medications , HIV medications, or pain medications at home in 5 days. He is complaining of right-sided lower abdominal pain with radiation into his groin, as well as low back pain. He denies any current nausea or vomiting. He denies had bloody stools but states they are liquid and orange in color this morning. He denies bleeding at this time. KUB showed no acute process and CT also showed no acute process. He was evaluated by surgery and not recommended surgical intervention at this time. He states he has not drank alcohol for 7 years but H&P reports he was intoxicated in ER with ETOH level 230. He states he has not used IV drugs in the past year. WBC 3.7, PLT 123, T Bili 0.5, AST 35, ALT 41, Albumin 3.9, Lipase 111 max down to 54, stool for occult blood was negative. Colonoscopy: 2012 normal, internal hemorrhoids EGD: 2012 gastritis NSAIDS: denies Anticoagulants: denies Past Med Surg Social Fam HX - Past Medical History Medical history: hepatitis, HIV/AIDS, seizures, other Psychiatric history: anxiety, depression, previous psychiatric hospitalization - Past Surgical History Surgical History: no surgical history - Social History Smoking Status: Current every day smoker Smokeless Tobacco Status: Yes Alcohol use: none Drug use: none - Family History Mother Name: Thelma weaver Family Member Ethnicity: Non- Living Status: Still Living Hx Family Cancer: Yes (Skin, breat, Bone) Hx Family Endocrine Disorder: Yes (diabetes) Father Name: Wong Dyer Family Member Ethnicity: Non- Living Status: Still Living Hx Family Cancer: Yes (Breast, Lung, skin) Hx Family Psychosocial Disorders: Yes (Schizophrenia) Hx Family Medical Disorders: Yes (HIV) Review of Systems: GI: as per [place] GENERAL: fever, and some chills EYES: denies yellow discoloration ENT: denies pain with swallowing or difficulty swallowing CARDIO: denies chest pain, palpitations RESP: No Shortness of breath with exertion : denies change in color of urine NEURO: weakness, increased seizure activity HEME: Denies any bruising MS: chronic joint pain and back pain. DERM: denies rash or itching PSYCH: history of anxiety, depression, and suicide attempts in the past - Constitutional Vitals: Temp Pulse Resp BP Pulse Ox 97.6 F 100 16 108/75 96 11/29/16 10:57 11/29/16 10:57 11/29/16 10:57 11/29/16 10:57 11/29/16 10:57 Exam: CONSTITUTIONAL:~drowsy, disheveled, no acute distress.~HEAD:~normocephalic.~EYES :~no jaundice.~NECK:~no obvious swelling.~HEART:~regular rate and rhythm, no murmurs.~LUNGS:~fair air exchange bilaterally, ~ABDOMEN:~non distended, soft, diffuse tenderness x 4 quadrants, no masses pulpable, no organomegaly.~RECTAL EXAM:~Deferred.~EXTREMITIES:~no clubbing, cyanosis or edema.~SKIN:~pallor is noted, no stigmata of chronic liver disease.~NEUROLOGIC:~no obvious focal defect.~~~~ Results - Labs CBC & Chem 7: 11/29/16 04:27 11/29/16 04:27 Labs: Last Result Calcium 9.5 mg/dL (8.6-10.8) 11/29/16 04:27 Stool Occult Blood Negative (Negative) 11/25/16 17:35 Salicylates < 5.0 mg/dL (15-30) L 11/25/16 16:31 Urine Opiates Screen Positive ng/mL (Xxxawn=626) H 11/25/16 18:00 Entire Visit Hgb 13.5 g/dL (12.9-16.9) 11/29/16 04:27 Hct 40.9 % (37.5-50.1) 11/29/16 04:27 Total Bilirubin 0.5 mg/dL (0.2-1.2) 11/29/16 04:27 AST 35 Units/L (5-34) H 11/29/16 04:27 ALT 41 Units/L (0-55) 11/29/16 04:27 Amylase 60 Units/L (25-125) 11/26/16 20:25 Lipase 54 Units/L (8-78) 11/28/16 05:03 Acetaminophen 10.0 mcg/mL (10-30) 11/25/16 16:31 - Impressions Impressions Abdomen/Pelvis CT 11/28/16 12:00 IMPRESSION: No acute intra-abdominal abnormality D/ / Brendan Yin MD / Brendan Yin MD Interpreting Provider: Brendan Yin MD X-Ray 11/29/16 08:00 IMPRESSION: No acute findings. D/ / Sarah Brown MD / Sarah Brown MD Interpreting Provider: Sarah Brown MD Consult Discharge Plan - Plan Additional Instructions: Please make appointment with primary care doctor within 1 week of discharge. Referrals: Radha Delacruz MD [Partnered Physician] - 12/13/16 7:30 am Osmin Duran MD [Primary Care Provider] - (Call your primary care providers office at [phone] request an appointment for one to two weeks. ) Precious Mallory MD [Partnered Physician] - Prescriptions: OxyCODONE Immed Rel [Roxicodone 5 MG] 5 mg PO Q6HR PRN #21 tablet PRN Reason: pain Quetiapine Fumarate [Seroquel] 50 mg PO HS #30 tablet <Precious Mallory - Last Filed: 11/29/16 14:59> Date of Encounter: 11/29/16 Time of Encounter: 12:50 - Time Spent With Patient Total time spent is greater than 50% in coordination of care (as documented) at patient's floor/unit and/or counseling patient: GI History of Present Illness - Data of Consult Requesting Physician: Ana Hicks CNP - Consult Narrative History of present illness: Mr. Dyer is a 36 year old male - Constitutional Vitals: Temp Pulse Resp BP Pulse Ox 97.7 F 104 16 120/85 98 11/29/16 14:00 11/29/16 14:00 11/29/16 14:00 11/29/16 14:00 11/29/16 14:00 Results - Labs CBC & Chem 7: 11/29/16 04:27 11/29/16 04:27 Labs: Last Result Calcium 9.5 mg/dL (8.6-10.8) 11/29/16 04:27 Stool Occult Blood Negative (Negative) 11/25/16 17:35 Salicylates < 5.0 mg/dL (15-30) L 11/25/16 16:31 Urine Opiates Screen Positive ng/mL (Euyytt=803) H 11/25/16 18:00 Entire Visit Hgb 13.5 g/dL (12.9-16.9) 11/29/16 04:27 Hct 40.9 % (37.5-50.1) 11/29/16 04:27 Total Bilirubin 0.5 mg/dL (0.2-1.2) 11/29/16 04:27 AST 35 Units/L (5-34) H 11/29/16 04:27 ALT 41 Units/L (0-55) 11/29/16 04:27 Amylase 60 Units/L (25-125) 11/26/16 20:25 Lipase 54 Units/L (8-78) 11/28/16 05:03 Acetaminophen 10.0 mcg/mL (10-30) 11/25/16 16:31 - Impressions Impressions KUB X-Ray 11/29/16 08:00 IMPRESSION: No acute findings. D/ / Sarah Brown MD / Sarah Brown MD Interpreting Provider: Sarah Brown MD - Attending Attestation I examined this patient and my medical decision-making was reviewed with the Resident Physician. I agree with the documented findings, disposition and treatment plan as described except to the extent set forth below.
--- NOTE | 2016-11-29 12:58 | Anesthesia Evaluation PreOp ---
Date of Encounter: 11/29/16 Time of Encounter: 12:56 - Past History Planned Operation: EGD/colonoscopy Cardiac History: Denies any Significant Hx Pulmonary History: Smoker RECORDING STUDIO INTERN History: Seizures (his last seizure was a few days ago), Other (hx suicidal attempts) Other Medical History: Hepatic (chronic hep B, cleared hep C in the past; INR last month 1.5; abdominal pain), Other (HIV/AIDS) Anesthesia History: No Prior Anesthetic Complications (never underwent anesthesia previously) Alcohol Use: none Drug use: none Medications and Allergies Emtricitabine/Tenofovir [Truvada] 1 each PO DAILY 11/18/14 [History] Raltegravir Potassium [Isentress] 400 mg PO BID 05/17/15 [History] Zolpidem [Ambien] 10 mg PO HS 10/02/15 [History] LORazepam [Ativan] 1 mg PO BID #4 tablet 11/24/16 [Rx] Dicyclomine [Bentyl] 10 mg PO QID PRN 5 Days capsule 11/25/16 [Rx] LevETIRAcetam [Keppra] 500 mg PO BID 7 Days tablet 11/25/16 [Rx] Ondansetron ODT [Zofran ODT] 4 mg SL Q6HR PRN #15 tab.rapdis 11/25/16 [Rx] 3 Allergy/AdvReac Type Severity Reaction Status Date / Time ketorolac [From Toradol] Allergy Hives Verified 11/25/16 15:19 - Meds/Allergy Pre-op Review Medications Reviewed: Yes Allergies Reviewed: Yes Beta Blockers on Current Med List: No Anesthesia Results - Labs 11/29/16 04:27 11/29/16 04:27 Laboratory Tests 03/07/16 10/31/16 11/25/16 11:29 15:39 15:24 WBC Hgb Hct Plt Count PT 15.9 H INR 1.5 APTT 33.2 Sodium Potassium Chloride Carbon Dioxide BUN Creatinine Est GFR ( Amer) Est GFR (Non-Af Amer) BUN/Creatinine Ratio Glucose POC Glucose 108 H Serum Osmolality 292 Calculated Osmolality 11/29/16 11/29/16 04:27 04:27 WBC 3.7 L Hgb 13.5 Hct 40.9 Plt Count 123 L PT INR APTT Sodium 142 Potassium 3.5 Chloride 104 Carbon Dioxide 31 H BUN 6 L Creatinine 0.86 Est GFR ( Amer) > 60 Est GFR (Non-Af Amer) > 60 BUN/Creatinine Ratio 7 Glucose 95 POC Glucose Serum Osmolality Calculated Osmolality 291 - Imaging EKG: report reviewed, image reviewed (SR) Anesthesia Exam Last Vital Signs Temp 97.6 F 11/29/16 12:50 Pulse 94 11/29/16 12:50 Resp 16 11/29/16 12:50 BP 116/88 11/29/16 12:50 Pulse Ox 90 11/29/16 12:50 Weight: 100 kg NPO (# of Hours): > 8 hrs - HEENT Pupil (Motor): Pupils equal, EOMI Mallampati: I Teeth: Missing, Poor dentition Oral Opening: Greater than 3 - RECORDING STUDIO INTERN LOC: Oriented - Cardiac Rhythm: Regular Murmur: None - Pulmonary Breath Sounds: bilateral Clear Respiratory Effort: Symmetrical Anesthesia Assess/Plan ASA Score: 3 Modified Fanta Scale for Level of Consciousness: Cooperative, oriented, and tranquil Anesthetic Plan: MAC Monitoring Plan: Standard Monitors Recovery Plan: PACU
[2016-11-29 14:00] VITALS: BP 120/85
--- NOTE | 2016-11-29 14:27 | Discharge Summary ---
Date of Encounter: 11/29/16 Time of Encounter: 14:27 - Discharge Diagnosis (1) Abdominal pain Priority: Primary Status: Acute Comments: Kolby Dyer is a 36 y/o male with past medical history HIV, hepatitis B and C and seizure disorder who presented to [facility] on 11/26/2016 with complaints of multiple witnessed seizures. There was concern for suicidal ideation, therefore he was placed observation status for further workup and treatment. 1. Abdominal pain: reports intermittent ABD pain for several weeks prior to presentation. Lipase peaked at 111 (and normalized). LFTs normal. Right upper quadrant ultrasound with mild gallbladder wall thickening. HIDA scan without of evidence of acute cholecystitis. Stool studies, C. difficile negative. Repeat abdominal CT nonacute. Evaluated by General Surgery who did not feel symptoms related to gallbladder and no indication for surgery at this time. 11/29/2016 EGD and colonoscopy normal, biopsies pending. Abdominal pain improved with pain medicine and bowel rest. He was tolerating regular diet at time of discharge. Recommend outpatient follow-up with PCP and GI. 2. Seizure disorder: Per history. Unable to keep seizure medication down for 2- 3 days prior to presentation due to abdominal pain and emesis. No seizure activity while inpatient. Keppra level pending disease this is a send out lab) . EEG without electrographic evidence of seizures. Evaluated by neurology who recommended continuing home Keppra. Recommend establishing care with neurology 3. HIV: Per history. Follows with infectious disease in [place]. Continue HAART. Can follow up as previously planned. 4. Hepatitis B and C: per hx. LFTs stable. Evaluated by GI in no acute inpatient needed this time. Can follow up outpatient. 5. Alcohol intoxication: Acutely intoxicated on initial presentation. Blood alcohol level 273 and trended down. He did not trigger CIWA. Cessation advised 6. Chronic pain with anxiety: [facility] review 11/26/16 and patient does have active Rx for clonazepam but does not have current Rx for pain medication. Discontinued IV pain medicine as patient is tolerating PO diet. We will provide 1 week Rx of pain medicine at discharge. Advised to follow-up with PCP. 7. Posttraumatic stress disorder: Evaluated by psychiatry who recommended Seroquel 50 mg daily at bedtime. Will need to follow up outpatient with psychiatry. Qualifiers: Abdominal location: generalized Qualified Code(s): R10.84 - Generalized abdominal pain (2) HIV (human immunodeficiency virus infection) Priority: Primary Status: Acute (3) Seizure disorder Priority: Primary Status: Chronic (4) Suicidal ideation Priority: Primary Status: Resolved (5) Hepatitis B Priority: Primary Status: Chronic Qualifiers: Viral hepatitis chronicity: unspecified Hepatic coma status: without hepatic coma Hepatitis delta agent presence: without delta-agent Qualified Code(s): B19.10 - Unspecified viral hepatitis B without hepatic coma - Discharge Medications Prescriptions: OxyCODONE Immed Rel [Roxicodone 5 MG] 5 mg PO Q6HR PRN #21 tablet PRN Reason: pain Quetiapine Fumarate [Seroquel] 50 mg PO HS #30 tablet Home Medications: Emtricitabine/Tenofovir [Truvada] 1 each PO DAILY 11/18/14 [History] Raltegravir Potassium [Isentress] 400 mg PO BID 05/17/15 [History] Zolpidem [Ambien] 10 mg PO HS 10/02/15 [History] Dicyclomine [Bentyl] 10 mg PO QID PRN 5 Days capsule 11/25/16 [Rx] Ondansetron ODT [Zofran ODT] 4 mg SL Q6HR PRN #15 tab.rapdis 11/25/16 [Rx] LevETIRAcetam [Keppra] 500 mg PO BID #60 tablet 11/29/16 [Rx] OxyCODONE Immed Rel [Roxicodone 5 MG] 5 mg PO Q6HR PRN #21 tablet 11/29/16 [Rx] Quetiapine Fumarate [Seroquel] 50 mg PO HS #30 tablet 11/29/16 [Rx] Allergies/Adverse Reactions: 3 Allergy/AdvReac Type Severity Reaction Status Date / Time ketorolac [From Toradol] Allergy Hives Verified 11/25/16 15:19 Procedures/tests Complete & Pending: Procedures Performed prior 72 hours Category Date Time Status abdominal/pelvis CT with contrast [CT abd pelvis w iv Cat Scan 11/28/16 12:00 Completed and oral] [CT] Routine NM hepatobiliary [NM] Routine Exams 11/26/16 16:32 Completed Date of admission: 11/25/16 19:40 Primary care physician: Osmin Duran MD Consults: 11/25/16 20:23 Consult to Psychiatry [CONS] Routine Consulting Provider: Psychiatry [facility] Reason for Consult: Suicidal ideation Call Completed: No 11/25/16 20:25 Consult to Health Policy Nurse [CONS] Routine Reason for SW Consult: Alcohol Cessation Assisitance 11/26/16 09:17 Consult to Neurology [CONS] Routine Consulting Provider: [facility] Reason for Consult: ? seizure Call Completed: Yes 11/26/16 09:50 Consult to Interpret Exam [CONS] Routine Consulting Provider: Massimo Marte Consult to Interpret Exam: Interpret EEG 11/27/16 16:25 Consult to Gastroenterology [CONS] Routine Consulting Provider: Gastroenterology [facility] Reason for Consult: Hepatitis Call Completed: Yes Consult to Surgery [CONS] Routine Consulting Provider: [facility] Reason for Consult: Abdominal pain, RUQ ultrasound with gallbladder thickening Call Completed: Yes Discharging clinician: Ana Hicks Anticipated date of discharge: 11/29/16 - Patient Status Disposition: Home, Self-Care Functional capacity at discharge: independent ambulation Overall status at discharge: patient is back to baseline - Discharge Instructions Follow Up With: Radha Delacruz MD [Partnered Physician] - 12/13/16 7:30 am Osmin Duran MD [Primary Care Provider] - (Call your primary care providers office at [phone] request an appointment for one to two weeks. ) Precious Mallory MD [Partnered Physician] - Additional Instructions: Please make appointment with primary care doctor within 1 week of discharge. - Diet and Activity Activity: resume usual activities as tolerated Diet: advance to your usual diet Interval History: Seen and examined at bedside. Patient reports a little abdominal pain and overall says he feels better. He is tolerating a regular diet. He is requesting pain medicine at discharge advised him he would be prescribed provided with 1 week Rx but we need to follow-up with his PCP. Hospital course: See assessment and plan for hospital course - Time Spent with Patient Total time spent providing and/or coordinating discharge services: - Constitutional Vitals: Temp Pulse Resp BP Pulse Ox 97.7 F 104 16 120/85 98 11/29/16 14:00 11/29/16 14:00 11/29/16 14:00 11/29/16 14:00 11/29/16 14:00 General appearance: Present: cooperative, A&O X 3, answers questions appropriately - Head Head exam: Present: atraumatic, normocephalic - Eye Eye exam: Present: PERRL, conjuntiva pink, sclera anicteric Pupils: Present: PERRL - Neck Neck exam general surgery: Present: supple, trachea midline. Absent: lymphadenopathy - Respiratory Respiratory exam: Present: CTAB. Absent: accessory muscle use, rales, rhonchi, wheezes - Cardiovascular Cardiovascular exam: Present: RRR, +S1, +S2. Absent: diastolic murmur, gallop, rubs, systolic murmur - GI/Abdominal GI/Abdominal exam: Present: normal bowel sounds, soft, no peritoneal signs. Absent: distended, tenderness - Extremities Exam Extremities exam: Present: warm, radial pulses palpable and symmetrical. Absent : calf tenderness, cyanotic, pedal edema - Neurological Exam Neurological exam: Present: CN II-XII intact, oriented X3, no focal deficits. Absent: pronater drift, facial droop, speech deficit - Skin Skin exam: Present: dry, intact
[2016-11-29] MEDS ORDERED: *HR* Propofol 500 MG/50 ML BOTTLE IVC ONE (15:51)
[2016-12-01 14:05] LABS: Hepatitis B Core Ab Total POSITIVE (Negative)
[2016-12-02 13:03] LABS: HBV Quant by PCR NOT QUANTIFIED IU/mL
[2016-12-02 15:33] LABS: Hepatitis Be Antibody NEGATIVE (Negative); Hepatitis Be Antigen NEGATIVE (Negative)
[2016-12-03 09:36] LABS: HBV Quant Interpretation DETECTED (Not Detected); HBV Quant Log by PCR NOT QUANTIFIED log IU
== END 2016-11-29 15:52 | disposition home or self-care (01) ==
LOC: 3BNU 15:11 → EMEROO 15:11 → 3BNU 20:29
PROVIDERS: ADMIT Family Medicine; ATTEND Registered Nurse
PROC: ENDOCBX (2016-11-29 13:30)
PROC: ENDOEBX (2016-11-29 13:30)

== ENCOUNTER 2016-12-07 16:05 | Inpatient (IN) ==
[2016-12-07 16:27] LABS: Basophils % 0.2 %; Eosinophils % 0.4 %; Hematocrit 44.3 % (37.5-50.1); Hemoglobin 14.7 g/dL (12.9-16.9); Immature Granulocytes % 0.2 % (0-4); Immature Platelets 3.7 % (1.1-6.1); Lymphocytes # 1.1 K/mcL (0.6-4.6); Lymphocytes % 22.2 %; Mean Corpuscular HGB Conc 33.2 g/dL (31.6-35.5); Mean Corpuscular Hemoglobin 31.8 pg (28.0-33.3); Mean Corpuscular Volume 95.9 fL (83.0-100.0); Mean Platelet Volume 10.1 fL (9.4-12.4); Monocytes # 0.6 K/mcL (0.0-1.3); Monocytes % 10.9 %; Neutrophils # 3.3 K/mcL (1.6-8.9); Platelet Count 138 K/mcL (140-400); Red Blood Count 4.62 M/mcL (4.19-5.50); Red Cell Distribution Width 14.6 % (11.5-14.5); Segmented Neutrophils % 66.1 %
[2016-12-07 16:42] LABS: BUN/Creatinine Ratio 16 (6-26); Blood Urea Nitrogen 16 mg/dL (8-26); Calcium 9.7 mg/dL (8.6-10.8); Carbon Dioxide 24 mEq/L (19-29); Chloride 109 mEq/L (98-109); Glucose 106 mg/dL (70-99); Osmolality,Calculated 296 (280-300); Potassium 4.1 mEq/L (3.5-4.5); Sodium 142 mEq/L (136-145); eGFR For African Americans > 60 (> 60); eGFR For Non-African Americans > 60 (> 60)
[2016-12-07 16:45] LABS: Ethanol < 10 mg/dL (0-10); Salicylate < 5.0 mg/dL (15-30)
[2016-12-07] MEDS ORDERED: Ondansetron ODT 4 MG TAB.RAPDIS SL ONE (19:13)
--- NOTE | 2016-12-07 19:13 | Emergency Department Note ---
Disposition Clinical Impression: Suicidal ideation Disposition: Still a Patient Condition: Good Time of Disposition: 22:59 General Adult HPI - General Chief complaint: ED Psychiatric Symptoms Stated complaint: SI Time Seen by Provider: 12/07/16 16:11 Source: patient Limitations: no limitations Nursing Notes Reviewed: Yes Vital Signs Reviewed: Yes - History of Present Illness HPI Narrative: Patient complaining of suicidal ideation. Does have a history of this. States that he will take a bunch of pills or cut his wrists. States that he has tried suicide before by ingestion and cutting. Complaining of abdominal pain that is chronic in nature and has been worked up several times at several facilities. He also has chronic pain all over his body. This is what is causing him to feel like he needs to kill himself. Pain Scale: 10 - Related Data Home Medications Medication Instructions Recorded Confirmed Emtricitabine/Tenofovir [Truvada] 1 each PO DAILY 11/18/14 12/08/16 Raltegravir Potassium [Isentress] 400 mg PO BID 05/17/15 12/08/16 Previous Rx's Medication Instructions Recorded LevETIRAcetam [Keppra] 500 mg PO BID #60 tablet 11/29/16 Escitalopram [Lexapro] 10 mg PO DAILY #30 tablet 12/09/16 Quetiapine Fumarate [Seroquel] 200 mg PO HS #120 tablet 12/09/16 Vitamin B Complex/Vit C/Vit E 1 each PO DAILY tablet 12/09/16 [Stresstab] Allergies Allergy/AdvReac Type Severity Reaction Status Date / Time dicyclomine [From Bentyl] Allergy Hives Verified 12/07/16 19:33 ketorolac [From Toradol] Allergy Hives Verified 12/07/16 16:08 All systems ED: reviewed and negative except as stated. Constitutional: Denies: fever, chills Cardiovascular: Denies: chest pain, syncope Respiratory: Denies: cough, dyspnea Gastrointestinal: Reports: abdominal pain (Chronic), nausea, vomiting. Denies: diarrhea Genitourinary: Denies: urgency, dysuria, frequency Musculoskeletal: Reports: back pain (Chronic) Psychiatric: Reports: suicidal thoughts. Denies: homicidal thoughts, auditory hallucinations, visual hallucinations Past Medical History - Past Medical History Attestation: Yes The following information was validated with the patient. Source: patient Medical history: Reports: hepatitis, HIV/AIDS, seizures, other Surgical history: Reports: no surgical history Psychiatric history: Reports: anxiety, depression, prior suicide attempt, previous psychiatric hospitalization - Social History Smoking Status: Current every day smoker Smokeless Tobacco Status: Yes Alcohol use: Reports: none Drug use: Reports: none Physical Exam - General Limitations: no limitations General appearance: alert, in no apparent distress - Head Head exam: atraumatic, normocephalic, normal inspection - Eye Eye exam: Present: normal appearance, PERRL, EOMI. Absent: scleral icterus - ENT ENT exam: normal exam, normal oropharynx, mucous membranes moist - Neck Neck exam: Present: normal inspection, full ROM, trachea midline - Chest Chest inspection: Present: normal inspection, symmetric chest wall rise. Absent : tenderness - Respiratory Respiratory exam: Present: normal lung sounds bilaterally. Absent: respiratory distress, accessory muscle use - Cardiovascular Cardiovascular exam: Present: regular rate, normal rhythm, normal heart sounds - Abdominal Exam Abdominal exam: Present: soft, tenderness (Right upper right lower quadrant). Absent: distention, rebound, rigidity, organomegaly - Extremities Exam Extremities exam: Present: normal inspection, full ROM, normal capillary refill. Absent: tenderness, pedal edema - Neurological Exam Neurological exam: Present: alert, oriented X3 - Psychiatric Psychiatric exam: Present: suicidal ideation. Absent: homicidal ideation - Skin Skin exam: Present: warm, dry, intact, normal color. Absent: rash, cyanosis, diaphoresis Course Course Narrative: Male patient presenting to the emergency department and planing of suicidal ideation. He states that he will take a lot of pills or cut his wrists. He states that he wants to do this because his abdomen hurts. He has recently been evaluated here at the beginning of November and had a colonoscopy as well as a sound of his right upper quadrant. These were all negative. He did have some specimen sent that are pending from the colonoscopy. His workup was negative her surgery for gallbladder issues. He does report some right upper quadrant pain. He is sitting in the corner reading his book whenever I initially evaluated him. He does not appear to be in any distress. He denies any hallucinations. He denies any homicidal ideation. Patient states that he has had suicide attempts in the past consistent with taking too much medication as well as cutting his wrists. He has been seen at this facility several times for suicidal ideation. We will pink slipped patient and have him evaluated by 1A. He does complain of nausea however has had no episodes of vomiting while here. He is refusing to give us a urine sample. - Reevaluation(s) Reevaluation #1: Patient is tolerating oral liquids well this time. He was given Zofran. He has had no episodes of vomiting since he has been here. He is requesting to take his HIV medication. I feel this is reasonable. We will allow him to have it. He is resting comfortably in bed and does not appear to be in any distress currently. Patient was able to give us a urine sample. We will have one a come speak with him. Time: 21:56 Vital Signs Temperature 98.2 F 12/07/16 16:06 Pulse Rate 124 12/07/16 16:06 Respiratory Rate 16 12/07/16 16:06 Blood Pressure 129/82 12/07/16 16:06 O2 Sat by Pulse Oximetry 99 12/07/16 16:06 Temperature 97.8 F 12/09/16 09:00 Pulse Rate 98 12/09/16 09:00 Respiratory Rate 18 12/09/16 09:00 Blood Pressure 115/81 12/09/16 09:00 O2 Sat by Pulse Oximetry 99 12/08/16 04:07 Oxygen Delivery Oxygen Delivery Room Air Medical Decision Making - Medical Records Medical records reviewed: Yes I reviewed the patient's medical records. - Lab Data Lab results reviewed: Yes I reviewed the patient's lab results. Result diagrams: 12/07/16 16:20 12/07/16 16:20 Lab Results 12/07/16 12/07/16 12/07/16 Range/Units 16:20 16:20 20:49 WBC 5.0 (4.3-11.1) K/mcL RBC 4.62 (4.19-5.50) M/mcL Hgb 14.7 (12.9-16.9) g/dL Hct 44.3 (37.5-50.1) % MCV 95.9 (83.0-100.0) fL MCH 31.8 (28.0-33.3) pg MCHC 33.2 (31.6-35.5) g/dL RDW 14.6 H (11.5-14.5) % Plt Count 138 L (140-400) K/mcL MPV 10.1 (9.4-12.4) fL Immature Gran % 0.2 (0-4) % Seg Neutrophils % 66.1 % Lymphocytes % 22.2 % Monocytes % 10.9 % Eosinophils % 0.4 % Basophils % 0.2 % Neutrophils # 3.3 (1.6-8.9) K/mcL Lymphocytes # 1.1 (0.6-4.6) K/mcL Monocytes # 0.6 (0.0-1.3) K/mcL Eosinophils # 0.0 (0.0-0.6) K/mcL Basophils # 0.0 (0.0-0.2) K/mcL Immature Plt Fraction 3.7 (1.1-6.1) % Sodium 142 (136-145) mEq/L Potassium 4.1 (3.5-4.5) mEq/L Chloride 109 (98-109) mEq/L Carbon Dioxide 24 (19-29) mEq/L BUN 16 (8-26) mg/dL Creatinine 1.00 (0.72-1.25) mg/dL Est GFR ( Amer) > 60 (> 60) Est GFR (Non-Af Amer) > 60 (> 60) BUN/Creatinine Ratio 16 (6-26) Glucose 106 H (70-99) mg/dL Calculated Osmolality 296 (280-300) Calcium 9.7 (8.6-10.8) mg/dL Urine Color Yellow (Yellow) Urine Clarity Clear (Clear) Urine pH 6.5 (5.0-8.0) pH Units Ur Specific [place] > 1.030 H (1.010-1.025) Urine Protein Trace (Neg-Trace) mg/dL Urine Glucose (UA) Normal (Normal) mg/dL Urine Ketones Negative (Negative) mg/dL Urine Blood Negative (Negative) Urine Nitrite Negative (Negative) Urine Bilirubin Negative (Negative) Urine Urobilinogen Normal (Normal) mg/dL Ur Leukocyte Esterase Negative (Negative) Ur Culture Indicated? NO (NO) Salicylates < 5.0 L (15-30) mg/dL Urine Opiates Screen (Qkkmov=294) ng/mL Acetaminophen 30.0 (10-30) mcg/mL Ur Barbiturates Screen (Bnztxw=004) ng/mL Ur Phencyclidine Scrn (Cutoff=25) ng/mL Ur Amphetamines Screen (Mjccwg=5145) ng/mL U Benzodiazepines Scrn (Uzwoiw=137) ng/mL Urine Cocaine Screen (Cutoff= 300) ng/mL U Marijuana (THC) Screen (Cutoff = 50) ng/mL Ethyl Alcohol < 10 (0-10) mg/dL 12/07/16 Range/Units 20:49 WBC (4.3-11.1) K/mcL RBC (4.19-5.50) M/mcL Hgb (12.9-16.9) g/dL Hct (37.5-50.1) % MCV (83.0-100.0) fL MCH (28.0-33.3) pg MCHC (31.6-35.5) g/dL RDW (11.5-14.5) % Plt Count (140-400) K/mcL MPV (9.4-12.4) fL Immature Gran % (0-4) % Seg Neutrophils % % Lymphocytes % % Monocytes % % Eosinophils % % Basophils % % Neutrophils # (1.6-8.9) K/mcL Lymphocytes # (0.6-4.6) K/mcL Monocytes # (0.0-1.3) K/mcL Eosinophils # (0.0-0.6) K/mcL Basophils # (0.0-0.2) K/mcL Immature Plt Fraction (1.1-6.1) % Sodium (136-145) mEq/L Potassium (3.5-4.5) mEq/L Chloride (98-109) mEq/L Carbon Dioxide (19-29) mEq/L BUN (8-26) mg/dL Creatinine (0.72-1.25) mg/dL Est GFR ( Amer) (> 60) Est GFR (Non-Af Amer) (> 60) BUN/Creatinine Ratio (6-26) Glucose (70-99) mg/dL Calculated Osmolality (280-300) Calcium (8.6-10.8) mg/dL Urine Color (Yellow) Urine Clarity (Clear) Urine pH (5.0-8.0) pH Units Ur Specific [place] (1.010-1.025) Urine Protein (Neg-Trace) mg/dL Urine Glucose (UA) (Normal) mg/dL Urine Ketones (Negative) mg/dL Urine Blood (Negative) Urine Nitrite (Negative) Urine Bilirubin (Negative) Urine Urobilinogen (Normal) mg/dL Ur Leukocyte Esterase (Negative) Ur Culture Indicated? (NO) Salicylates (15-30) mg/dL Urine Opiates Screen Negative (Qrtfyp=476) ng/mL Acetaminophen (10-30) mcg/mL Ur Barbiturates Screen Negative (Lehmhm=508) ng/mL Ur Phencyclidine Scrn Negative (Cutoff=25) ng/mL Ur Amphetamines Screen Negative (Ptgehu=1478) ng/mL U Benzodiazepines Scrn Positive H (Dgwosh=788) ng/mL Urine Cocaine Screen Negative (Cutoff= 300) ng/mL U Marijuana (THC) Screen Negative (Cutoff = 50) ng/mL Ethyl Alcohol (0-10) mg/dL Attestation Statement - Attestation Attestation: I examined this patient and my medical decision-making was reviewed with the Resident Physician. I agree with the documented findings, disposition and treatment plan as described.
[2016-12-07] MEDS ORDERED: Dicyclomine 20 MG/2 ML AMPUL IM ONE (19:21)
[2016-12-07] MEDS ORDERED: Sucralfate 1 GM TABLET PO STA (20:02)
[2016-12-07 21:02] LABS: Bilirubin,Urine Negative (Negative); Blood,Urine Negative (Negative); Clarity,Urine Clear (Clear); Color,Urine Yellow (Yellow); Glucose,Urine (UA) Normal (Normal); Ketones,Urine Negative (Negative); Leukocyte Esterase,Urine Negative (Negative); Nitrite,Urine Negative (Negative); PH,Urine 6.5 pH Units (5.0-8.0); Protein,Urine Trace mg/dL (Neg-Trace); Specific Gravity,Urine > 1.030 (1.010-1.025); Urobilinogen,Urine Normal (Normal)
[2016-12-07 21:03] LABS: Amphetamine Screen,Urine Negative ng/mL (Cutoff=1000); Barbiturate Screen,Urine Negative ng/mL (Cutoff=200); Benzodiazepines Screen,Urine Positive ng/mL (Cutoff=200); Cannabinoid Screen,Urine Negative ng/mL (Cutoff = 50); Cocaine Screen,Urine Negative ng/mL (Cutoff= 300); Opiate Screen,Urine Negative ng/mL (Cutoff=300); Phencyclidine Screen,Urine Negative ng/mL (Cutoff=25)
[2016-12-08] MEDS ORDERED: *HR* OxyCODONE Immed Rel 5 MG TABLET PO ONE ×3 (00:14→06:37)
[2016-12-08] MEDS ORDERED: clonazePAM 0.5 MG TABLET PO STA (00:23)
[2016-12-08] MEDS ORDERED: levETIRAcetam 250 MG TABLET PO STA (02:46)
--- NOTE | 2016-12-08 06:22 | Emergency Department Note ---
Disposition Clinical Impression: Suicidal ideation Disposition: Still a Patient Condition: Good Time of Disposition: 06:22 Psych HPI - General Chief Complaint: ED Psychiatric Symptoms Stated Complaint: SI Time Seen by Provider: 12/07/16 16:11 Source: patient - Related Data Home Medications Medication Instructions Recorded Confirmed Emtricitabine/Tenofovir [Truvada] 1 each PO DAILY 11/18/14 12/08/16 Raltegravir Potassium [Isentress] 400 mg PO BID 05/17/15 12/08/16 Zolpidem [Ambien] 10 mg PO HS 10/02/15 12/08/16 Previous Rx's Medication Instructions Recorded LevETIRAcetam [Keppra] 500 mg PO BID #60 tablet 11/29/16 Quetiapine Fumarate [Seroquel] 50 mg PO HS #30 tablet 11/29/16 Allergies Allergy/AdvReac Type Severity Reaction Status Date / Time dicyclomine [From Bentyl] Allergy Hives Verified 12/07/16 19:33 ketorolac [From Toradol] Allergy Hives Verified 12/07/16 16:08 Constitutional: Denies: fever, chills Cardiovascular: Denies: chest pain, syncope Respiratory: Denies: cough, dyspnea Gastrointestinal: Reports: abdominal pain (Chronic), nausea, vomiting. Denies: diarrhea Genitourinary: Denies: urgency, dysuria, frequency Musculoskeletal: Reports: back pain (Chronic) Psychiatric: Reports: suicidal thoughts. Denies: homicidal thoughts, auditory hallucinations, visual hallucinations Past Medical History - Past Medical History Medical history: Reports: hepatitis, HIV/AIDS, seizures, other Surgical history: Reports: no surgical history Psychiatric history: Reports: anxiety, depression, prior suicide attempt, previous psychiatric hospitalization - Social History Smoking Status: Current every day smoker Smokeless Tobacco Status: Yes Alcohol use: Reports: none Drug use: Reports: none Physical Exam - General Limitations: no limitations General appearance: alert, in no apparent distress Course - Reevaluation(s) Reevaluation #1: Patient was received in signout from the daytime team pending psychiatric evaluation. Psychiatry came down and states that they would like to admit the patient, however, they have no more male beds. We will attempt to place him. States that the on-call psychiatrist was okay giving him his normal psychiatric medicines, but could not recommend treating his chronic pain in which she takes Roxicodone 10 mg and also did not recommend giving him his Ambien. Patient is HIV positive and has been treated for this. On examination patient is in no acute distress. I was called to the bedside to evaluate right lower quadrant pain. Patient is pointing to the skin over his right lower quadrant stating that it "feels funny". He states that he ate 4 bags of crackers and then started having some discomfort around his right lower quadrant. There is no abdominal tenderness or guarding. Patient is pointing to stretch piña on the stomach. Heart and lungs are clear to auscultation. Patient is in no acute distress. There is no cyanosis or diaphoresis. Patient still awaiting placement. Time: 06:20 Vital Signs Temperature 98.2 F 12/07/16 16:06 Pulse Rate 124 12/07/16 16:06 Respiratory Rate 16 12/07/16 16:06 Blood Pressure 129/82 12/07/16 16:06 O2 Sat by Pulse Oximetry 99 12/07/16 16:06 Temperature 98.2 F 12/07/16 16:06 Pulse Rate 88 12/08/16 04:07 Respiratory Rate 16 12/08/16 04:07 Blood Pressure 124/80 12/08/16 04:07 O2 Sat by Pulse Oximetry 99 12/08/16 04:07 Oxygen Delivery Oxygen Delivery Room Air Psych - Lab Data Result diagrams: 12/07/16 16:20 12/07/16 16:20 Lab Results 12/07/16 12/07/16 12/07/16 Range/Units 16:20 16:20 20:49 WBC 5.0 (4.3-11.1) K/mcL RBC 4.62 (4.19-5.50) M/mcL Hgb 14.7 (12.9-16.9) g/dL Hct 44.3 (37.5-50.1) % MCV 95.9 (83.0-100.0) fL MCH 31.8 (28.0-33.3) pg MCHC 33.2 (31.6-35.5) g/dL RDW 14.6 H (11.5-14.5) % Plt Count 138 L (140-400) K/mcL MPV 10.1 (9.4-12.4) fL Immature Gran % 0.2 (0-4) % Seg Neutrophils % 66.1 % Lymphocytes % 22.2 % Monocytes % 10.9 % Eosinophils % 0.4 % Basophils % 0.2 % Neutrophils # 3.3 (1.6-8.9) K/mcL Lymphocytes # 1.1 (0.6-4.6) K/mcL Monocytes # 0.6 (0.0-1.3) K/mcL Eosinophils # 0.0 (0.0-0.6) K/mcL Basophils # 0.0 (0.0-0.2) K/mcL Immature Plt Fraction 3.7 (1.1-6.1) % Sodium 142 (136-145) mEq/L Potassium 4.1 (3.5-4.5) mEq/L Chloride 109 (98-109) mEq/L Carbon Dioxide 24 (19-29) mEq/L BUN 16 (8-26) mg/dL Creatinine 1.00 (0.72-1.25) mg/dL Est GFR ( Amer) > 60 (> 60) Est GFR (Non-Af Amer) > 60 (> 60) BUN/Creatinine Ratio 16 (6-26) Glucose 106 H (70-99) mg/dL Calculated Osmolality 296 (280-300) Calcium 9.7 (8.6-10.8) mg/dL Urine Color Yellow (Yellow) Urine Clarity Clear (Clear) Urine pH 6.5 (5.0-8.0) pH Units Ur Specific [place] > 1.030 H (1.010-1.025) Urine Protein Trace (Neg-Trace) mg/dL Urine Glucose (UA) Normal (Normal) mg/dL Urine Ketones Negative (Negative) mg/dL Urine Blood Negative (Negative) Urine Nitrite Negative (Negative) Urine Bilirubin Negative (Negative) Urine Urobilinogen Normal (Normal) mg/dL Ur Leukocyte Esterase Negative (Negative) Ur Culture Indicated? NO (NO) Salicylates < 5.0 L (15-30) mg/dL Urine Opiates Screen (Sutbdh=405) ng/mL Acetaminophen 30.0 (10-30) mcg/mL Ur Barbiturates Screen (Igegaf=715) ng/mL Ur Phencyclidine Scrn (Cutoff=25) ng/mL Ur Amphetamines Screen (Jqrhke=2410) ng/mL U Benzodiazepines Scrn (Vwtbpa=276) ng/mL Urine Cocaine Screen (Cutoff= 300) ng/mL U Marijuana (THC) Screen (Cutoff = 50) ng/mL Ethyl Alcohol < 10 (0-10) mg/dL 12/07/16 Range/Units 20:49 WBC (4.3-11.1) K/mcL RBC (4.19-5.50) M/mcL Hgb (12.9-16.9) g/dL Hct (37.5-50.1) % MCV (83.0-100.0) fL MCH (28.0-33.3) pg MCHC (31.6-35.5) g/dL RDW (11.5-14.5) % Plt Count (140-400) K/mcL MPV (9.4-12.4) fL Immature Gran % (0-4) % Seg Neutrophils % % Lymphocytes % % Monocytes % % Eosinophils % % Basophils % % Neutrophils # (1.6-8.9) K/mcL Lymphocytes # (0.6-4.6) K/mcL Monocytes # (0.0-1.3) K/mcL Eosinophils # (0.0-0.6) K/mcL Basophils # (0.0-0.2) K/mcL Immature Plt Fraction (1.1-6.1) % Sodium (136-145) mEq/L Potassium (3.5-4.5) mEq/L Chloride (98-109) mEq/L Carbon Dioxide (19-29) mEq/L BUN (8-26) mg/dL Creatinine (0.72-1.25) mg/dL Est GFR ( Amer) (> 60) Est GFR (Non-Af Amer) (> 60) BUN/Creatinine Ratio (6-26) Glucose (70-99) mg/dL Calculated Osmolality (280-300) Calcium (8.6-10.8) mg/dL Urine Color (Yellow) Urine Clarity (Clear) Urine pH (5.0-8.0) pH Units Ur Specific [place] (1.010-1.025) Urine Protein (Neg-Trace) mg/dL Urine Glucose (UA) (Normal) mg/dL Urine Ketones (Negative) mg/dL Urine Blood (Negative) Urine Nitrite (Negative) Urine Bilirubin (Negative) Urine Urobilinogen (Normal) mg/dL Ur Leukocyte Esterase (Negative) Ur Culture Indicated? (NO) Salicylates (15-30) mg/dL Urine Opiates Screen Negative (Tymbhr=647) ng/mL Acetaminophen (10-30) mcg/mL Ur Barbiturates Screen Negative (Yipezz=182) ng/mL Ur Phencyclidine Scrn Negative (Cutoff=25) ng/mL Ur Amphetamines Screen Negative (Vetcxr=3782) ng/mL U Benzodiazepines Scrn Positive H (Sgfecm=188) ng/mL Urine Cocaine Screen Negative (Cutoff= 300) ng/mL U Marijuana (THC) Screen Negative (Cutoff = 50) ng/mL Ethyl Alcohol (0-10) mg/dL Psychiatric Medical Clearance - Medical Clearance Checklist Medical History: Acute psychosis (Resolved) Mood disorder (Chronic) Alcohol intoxication (Resolved) Depression (Chronic) Anxiety disorder (Chronic) Cough with hemoptysis (Acute) Toxic metabolic encephalopathy (Resolved) Syphilis (Acute) Unresponsiveness (Acute) Pancreatitis (Suspected) Tuberculosis (Acute) Acute metabolic encephalopathy (Resolved) Hemoptysis (Acute) Required emergent intubation (Acute) Acute respiratory failure (Resolved) Encephalopathy (Acute) Suicide (Suspected) DVT prophylaxis (Acute) HIV disease (Chronic) Acetaminophen overdose (Acute) Suicide attempt by acetaminophen overdose (Acute) Drug overdose (Acute) Bipolar disease, chronic (Chronic) Pneumonia (Acute) Sepsis (Acute) Dyspnea (Acute) Anorexia (Acute) Pain syndrome, chronic (Chronic) Oral candidiasis (Acute) Seizure disorder (Chronic) Suicidal ideation (Resolved) Intractable nausea and vomiting (Acute) Tobacco dependence (Acute) GI bleed (Acute) Hepatitis B (Chronic) PTSD (post-traumatic stress disorder) (Acute) Alcohol abuse (Acute) HIV (human immunodeficiency virus infection) (Acute) Abdominal pain (Acute) Abdominal pain (Acute) Breakthrough seizure (Acute) Noncompliance with medication regimen (Acute) Chronic abdominal pain (Acute) Suicidal ideation (Acute) Drug-seeking behavior (Acute) AIDS (Inactive) Abdominal pain (Inactive) Abdominal pain (Inactive) Abdominal pain (Inactive) Accidental drug ingestion (Inactive) Acetaminophen overdose (Inactive) Acetaminophen overdose (Inactive) Agitation (Inactive) Alcohol intoxication (Inactive) Alcoholic intoxication (Inactive) Altered mental status (Inactive) Bacterial conjunctivitis (Inactive) Cannabis abuse (Inactive) Contusion of left hip (Inactive) Depression (Inactive) Diarrhea (Inactive) Evaluation of hearing impairment (Inactive) Gastroenteritis (Inactive) Gastroenteritis (Inactive) Generalized seizure (Inactive) HIV disease (Inactive) Hepatitis B (Inactive) Hepatitis B (Inactive) Hepatitis C (Inactive) Mood disorder (Inactive) Nausea & vomiting (Inactive) Nausea & vomiting (Inactive) Nausea and vomiting (Inactive) Nausea and vomiting (Inactive) Overdose (Inactive) Pneumonia (Inactive) Seizure (Inactive) Seizure (Inactive) Suicidal ideation (Inactive) Uncontrolled seizures (Inactive) Varicose vein of leg (Inactive) No Social History Section defined Current Vitals: Last Vital Signs Temp 98.2 F 12/07/16 16:06 Pulse 88 12/08/16 04:07 Resp 16 12/08/16 04:07 BP 124/80 12/08/16 04:07 Pulse Ox 99 12/08/16 04:07 Psychiatric Lab Panel: Drug Levels and Toxicity 12/07/16 20:49 Urine Opiates Screen Negative Ur Barbiturates Screen Negative Ur Phencyclidine Scrn Negative Ur Amphetamines Screen Negative U Benzodiazepines Scrn Positive H Urine Cocaine Screen Negative U Marijuana (THC) Screen Negative Abnormal Labs: Abnormal lab results RDW 14.6 % (11.5-14.5) H 12/07/16 16:20 Plt Count 138 K/mcL (140-400) L 12/07/16 16:20 Glucose 106 mg/dL (70-99) H 12/07/16 16:20 Ur Specific [place] > 1.030 (1.010-1.025) H 12/07/16 20:49 Salicylates < 5.0 mg/dL (15-30) L 12/07/16 16:20 U Benzodiazepines Scrn Positive ng/mL (Dlfdnn=882) H 12/07/16 20:49 Attestation Statement - Attestation Attestation: I examined this patient and my medical decision-making was reviewed with the Resident Physician, Dr. Pina. I agree with the documented findings, disposition and treatment plan as described except to the extent set forth below. Patient is a 36-year-old white male who presents to the emergency department with suicidal ideation. Patient was signed out to us by the dayshift team Dr. Garcia for results of 1 a psychiatric evaluation and final disposition. Patient has been initially evaluated, medically cleared, and a pink slip has been placed on the chart awaiting psychiatric evaluation. We did speak with the one a nurse who has decided that the patient requires inpatient treatment and will be admitted to 1 a day. Currently there is no available male bed so patient will be placed on an ED hold until a bed is available. He should remain seemed to be stable and cooperative at this time.
[2016-12-08] MEDS ORDERED: Mag Hydrox/Al Hydrox/Simeth 30 ML UDC PO PRN (12:17)
[2016-12-08] MEDS ORDERED: MOM Conc 10 ML UD.LIQ PO PRN (12:17)
[2016-12-08] MEDS ORDERED: traZODone 50 MG TABLET PO PRN (12:17)
[2016-12-08] MEDS ORDERED: Haloperidol Lactate 5 MG/ML VIAL IM PRN (12:17)
[2016-12-08] MEDS ORDERED: hydrOXYzine pamoate 25 MG CAPSULE PO PRN (12:17)
[2016-12-08] MEDS ORDERED: Acetaminophen 325 MG TABLET PO PRN (12:17)
--- NOTE | 2016-12-08 12:46 | Psychiatry History & Physical ---
Date of Encounter: 12/08/16 Time of Encounter: 12:00 History of Present Illness Patient Stated Chief Complaint: "I am in pain." Medicare Admission Attestation: For traditional Medicare patients the provided hospital inpatient services are reasonable and necessary and in the case of services not specified as inpatient -only under 42 CFR 419.22 (n), that they are appropriately provided as inpatient services in accordance 42 CFR 412.3. For Critical Access Hospital the patient may reasonably be expected to be discharged or transferred to a hospital within 96 hours after admission to the Critical Access Hospital. Admitted From: Emergency Dept Plans for Post Hospital Care: Home History of Present Illness: Mr. Dyer is a 36 year old male with a history of depression, anxiety, substance abuse, AIDS and chronic pain issues who presents to the hospital because of abdominal pain. Patient states that he wanted help with his pain and if he could get help with his pain and wanted to . He was evaluated and admitted to for psychiatric stabilization. Patient has previous admission to this hospital in July. During that admission he did request pain medications and was declined. He became agitated with the provider refused to give him pain medications. Today, patient reports continued pain. He is upset that we will not provide pain medications. We discussed that we only provide pain medications to those with active prescriptions for pain meds. I did review the patient's [facility] report with him as well as his outpatient record which indicated that his provider Agata had discharged him from the practice for modifying a prescription of pain pills to try to get it filled early. Patient denies that this occurred and states that he moved to [place] anyway and asked how he got a new doctor. He does claim to have an active prescription for Klonopin but has not filled this prescription over 6 weeks. He requests medication for anxiety. He also requests medication for depression. He reports depressed mood and "not wanting to leave my house." He denies issues with sleep. He denies suicidal ideations now but continues to make statements about what he will do if he does not get his pain pills. He also reports some sleep issues and states he takes both Ambien and Seroquel for this. Past Med Surg Social Fam HX - Past Medical History Medical history: hepatitis, HIV/AIDS, seizures, other - Past Psychiatric History Psychiatric history: Reports: anxiety, depression, prior suicide attempt, previous psychiatric hospitalization Past psychiatric history details: Patient has a long-standing history of depression and anxiety symptoms. He has exhibited drug-seeking behavior before on this unit and in the hospital. Very fixated on pain meds and anxiety medication. Family psychiatric history: No Family History of Suicide: None - Past Surgical History Surgical History: no surgical history - Social History Smoking Status: Current every day smoker Smokeless Tobacco Status: Yes Alcohol use: none Drug use: none - Family History Mother Family Member Ethnicity: Non- Living Status: Still Living Hx Family Cancer: Yes (Skin, breat, Bone) Hx Family Endocrine Disorder: Yes (diabetes) Father Family Member Ethnicity: Non- Living Status: Still Living Hx Family Cancer: Yes (Breast, Lung, skin) Medications & Allergies Emtricitabine/Tenofovir [Truvada] 1 each PO DAILY 11/18/14 [History] Raltegravir Potassium [Isentress] 400 mg PO BID 05/17/15 [History] Zolpidem [Ambien] 10 mg PO HS 10/02/15 [History] LevETIRAcetam [Keppra] 500 mg PO BID #60 tablet 11/29/16 [Rx] Quetiapine Fumarate [Seroquel] 50 mg PO HS #30 tablet 11/29/16 [Rx] 3 Allergy/AdvReac Type Severity Reaction Status Date / Time dicyclomine [From Bentyl] Allergy Hives Verified 12/07/16 19:33 ketorolac [From Toradol] Allergy Hives Verified 12/07/16 16:08 Review of Systems Constitutional: Denies: fever, chills, weakness, weight change Eyes: Denies: eye pain, vision change Ears, Nose, Throat: Denies: ear pain, throat pain, dental pain, hearing loss, congestion Cardiovascular: Denies: chest pain, palpitations, dyspnea on exertion Respiratory: Denies: cough, dyspnea, wheezes Gastrointestinal: Reports: abdominal pain Genitourinary male: Denies: urgency, dysuria, frequency, genital lesions Genitourinary female: Denies: urgency, dysuria, frequency, abnormal menses, dyspareunia Musculoskeletal: Reports: back pain Integumentary: Denies: rash, lesions, pruritus Neurological: Denies: headache, weakness, numbness, memory loss Psychiatric: Reports: depression, anxiety, abnormal sleep pattern, suicidal ideation, difficulty concentrating, hopelessness, irritability, mood swings, panic attacks Endocrine: Denies: fatigue, heat or cold intolerance Hematologic/Lymphatic: Denies: easy bruising, lymphadenopathy Allergic/Immunologic: Denies: urticaria, itchy eyes Mental Status Exam Patient orientation: Yes Person, Yes Time, Yes Place Level of alertness: Alert Patient appearance: Appropriate Behavior: agitated, uncooperative, dramatic Psychomotor activity: Normal Eye contact: Minimal Contact Mood description: Depressed Patient description of mood: "I am in so much pain." Affect description: full range, incongruent with mood Speech pattern: Normal rate, Normal rhythm, Normal tone Speech volume: Normal Thought process: Intact, Linear, Goal Oriented Thought content: Yes Suicidal ideation, No Homicidal ideation Perceptual disturbances: No Auditory hallucinations, No Visual hallucinations Attention span: Capable of Focused Attention Memory description: Grossly Intact Patient reliability: Questionable Historian Intelligence estimate: Average Judgment: Limited Insight: Minimal Exam - HEENT Head exam IM: Present: atraumatic Eye exam IM: Present: EOMI - Neurological Neurological exam IM: Present: CN II-XII intact - Extremities Extremities exam IM: Present: full ROM - Skin Skin exam IM: Present: dry, warm Results - Vital Signs Vital signs: Temp Pulse Resp BP Pulse Ox 98.2 F 88 16 124/80 99 12/07/16 16:06 12/08/16 04:07 12/08/16 04:07 12/08/16 04:07 12/08/16 04:07 - Labs Labs: Laboratory Last Values WBC 5.0 K/mcL (4.3-11.1) 12/07/16 16:20 RBC 4.62 M/mcL (4.19-5.50) 12/07/16 16:20 Hgb 14.7 g/dL (12.9-16.9) 12/07/16 16:20 Hct 44.3 % (37.5-50.1) 12/07/16 16:20 MCV 95.9 fL (83.0-100.0) 12/07/16 16:20 MCH 31.8 pg (28.0-33.3) 12/07/16 16:20 MCHC 33.2 g/dL (31.6-35.5) 12/07/16 16:20 RDW 14.6 % (11.5-14.5) H 12/07/16 16:20 Plt Count 138 K/mcL (140-400) L 12/07/16 16:20 MPV 10.1 fL (9.4-12.4) 12/07/16 16:20 Immature Gran % 0.2 % (0-4) 12/07/16 16:20 Seg Neutrophils % 66.1 % 12/07/16 16:20 Lymphocytes % 22.2 % 12/07/16 16:20 Monocytes % 10.9 % 12/07/16 16:20 Eosinophils % 0.4 % 12/07/16 16:20 Basophils % 0.2 % 12/07/16 16:20 Neutrophils # 3.3 K/mcL (1.6-8.9) 12/07/16 16:20 Lymphocytes # 1.1 K/mcL (0.6-4.6) 12/07/16 16:20 Monocytes # 0.6 K/mcL (0.0-1.3) 12/07/16 16:20 Eosinophils # 0.0 K/mcL (0.0-0.6) 12/07/16 16:20 Basophils # 0.0 K/mcL (0.0-0.2) 12/07/16 16:20 Immature Plt Fraction 3.7 % (1.1-6.1) 12/07/16 16:20 Sodium 142 mEq/L (136-145) 12/07/16 16:20 Potassium 4.1 mEq/L (3.5-4.5) 12/07/16 16:20 Chloride 109 mEq/L (98-109) 12/07/16 16:20 Carbon Dioxide 24 mEq/L (19-29) 12/07/16 16:20 BUN 16 mg/dL (8-26) 12/07/16 16:20 Creatinine 1.00 mg/dL (0.72-1.25) 12/07/16 16:20 Est GFR ( Amer) > 60 (> 60) 12/07/16 16:20 Est GFR (Non-Af Amer) > 60 (> 60) 12/07/16 16:20 BUN/Creatinine Ratio 16 (6-26) 12/07/16 16:20 Glucose 106 mg/dL (70-99) H 12/07/16 16:20 Calculated Osmolality 296 (280-300) 12/07/16 16:20 Calcium 9.7 mg/dL (8.6-10.8) 12/07/16 16:20 Urine Color Yellow (Yellow) 12/07/16 20:49 Urine Clarity Clear (Clear) 12/07/16 20:49 Urine pH 6.5 pH Units (5.0-8.0) 12/07/16 20:49 Ur Specific [place] > 1.030 (1.010-1.025) H 12/07/16 20:49 Urine Protein Trace mg/dL (Neg-Trace) 12/07/16 20:49 Urine Glucose (UA) Normal mg/dL (Normal) 12/07/16 20:49 Urine Ketones Negative mg/dL (Negative) 12/07/16 20:49 Urine Blood Negative (Negative) 12/07/16 20:49 Urine Nitrite Negative (Negative) 12/07/16 20:49 Urine Bilirubin Negative (Negative) 12/07/16 20:49 Urine Urobilinogen Normal mg/dL (Normal) 12/07/16 20:49 Ur Leukocyte Esterase Negative (Negative) 12/07/16 20:49 Ur Culture Indicated? NO (NO) 12/07/16 20:49 Salicylates < 5.0 mg/dL (15-30) L 12/07/16 16:20 Urine Opiates Screen Negative ng/mL (Fuplrf=722) 12/07/16 20:49 Acetaminophen 30.0 mcg/mL (10-30) 12/07/16 16:20 Ur Barbiturates Screen Negative ng/mL (Odliso=709) 12/07/16 20:49 Ur Phencyclidine Scrn Negative ng/mL (Cutoff=25) 12/07/16 20:49 Ur Amphetamines Screen Negative ng/mL (Zrzafc=9766) 12/07/16 20:49 U Benzodiazepines Scrn Positive ng/mL (Bnrxjl=224) H 12/07/16 20:49 Urine Cocaine Screen Negative ng/mL (Cutoff= 300) 12/07/16 20:49 U Marijuana (THC) Screen Negative ng/mL (Cutoff = 50) 12/07/16 20:49 Ethyl Alcohol < 10 mg/dL (0-10) 12/07/16 16:20 Assessment and Plan (1) Depression Current visit: No Status: Chronic Plan: Admit inpatient for safety and stabilization, Close observation, Suicide Precautions per unit protocol, Encourage participation in unit milieu, Group Therapy, Monitor sleep, Monitor appetite Additional Plan: Patient reports depression and conditional suicidal statements. We will admit to 1A for psychiatric stabilization. Start Lexapro for depressed mood. We will discontinue Ambien and start Seroquel 100 mg by mouth daily at bedtime for both mood and sleep. Encouraged patient to attend group and unit activities. Risks, benefits, side effects, alternatives discussed w/pt: Yes Patient agreeable to treatment: Yes Plans for Post Hospital Care: Home Estimated Length of Stay (Days): 3 Qualifiers: Depression Type: major depressive disorder Major depression recurrence: recurrent Active/Remission status: currently active Major depression episode severity: moderate Qualified Code(s): F33.1 - Major depressive disorder, recurrent, moderate (2) Anxiety disorder Current visit: No Status: Chronic Plan: Admit inpatient for safety and stabilization, Close observation, Suicide Precautions per unit protocol, Encourage participation in unit milieu, Group Therapy, Monitor sleep, Monitor appetite Additional Plan: Start Lexapro for anxiety. We will avoid habit-forming substances. Risks, benefits, side effects, alternatives discussed w/pt: Yes Patient agreeable to treatment: Yes Qualifiers: Anxiety disorder type: unspecified anxiety disorder Qualified Code(s): F41.9 - Anxiety disorder, unspecified (3) Drug-seeking behavior Current visit: Yes Status: Acute Plan: Close observation Additional Plan: Avoid habit-forming substances as patient returns the hospital frequently requesting pain and anxiety medications. Outpatient records were reviewed and patient did attempt to modify a prescription from an outpatient provider in order to get his pain pills early. [facility] shows no active pain or anxiety prescriptions at this time. We will encourage patient to use better coping strategies and avoiding the use of habit-forming medications.
[2016-12-08] MEDS: Nicotine 21 MG PATCH.TD24 TD SCH (13:02)
[2016-12-08] MEDS: levETIRAcetam 250 MG TABLET PO SCH ×2 (13:02→20:56)
[2016-12-08] MEDS: RALTEGRAVIR POTASSIUM 400 MG TABLET PO SCH ×2 (15:56→20:57)
[2016-12-08] MEDS: Benzocaine 20% 9 GM GEL..GRAM. TP PRN ×2 (16:54→21:37)
[2016-12-09] MEDS ORDERED: Vitamin B Complex/Vit C/Vit E 1 EACH TABLET PO SCH (09:00)
[2016-12-09] MEDS: Nicotine 21 MG PATCH.TD24 TD SCH (09:17)
[2016-12-09] MEDS: levETIRAcetam 250 MG TABLET PO SCH (09:18)
[2016-12-09] MEDS: RALTEGRAVIR POTASSIUM 400 MG TABLET PO SCH (09:18)
[2016-12-09 10:14] VITALS: BP 115/81
--- NOTE | 2016-12-09 10:28 | Discharge Summary ---
Date of Encounter: 12/09/16 Time of Encounter: 08:35 Diagnosis - Discharge Diagnosis (1) Depression Priority: Primary Status: Chronic Qualifiers: Depression Type: major depressive disorder Major depression recurrence: recurrent Active/Remission status: currently active Major depression episode severity: moderate Qualified Code(s): F33.1 - Major depressive disorder, recurrent, moderate (2) Anxiety disorder Priority: Secondary Status: Chronic Qualifiers: Anxiety disorder type: unspecified anxiety disorder Qualified Code(s): F41.9 - Anxiety disorder, unspecified (3) Drug-seeking behavior Priority: Secondary Status: Acute Medications - Discharge Medications Prescriptions: Escitalopram [Lexapro] 10 mg PO DAILY #30 tablet Quetiapine Fumarate [Seroquel] 200 mg PO HS #120 tablet Emtricitabine/Tenofovir [Truvada] 1 each PO DAILY 11/18/14 [History] Raltegravir Potassium [Isentress] 400 mg PO BID 05/17/15 [History] LevETIRAcetam [Keppra] 500 mg PO BID #60 tablet 11/29/16 [Rx] Escitalopram [Lexapro] 10 mg PO DAILY #30 tablet 12/09/16 [Rx] Quetiapine Fumarate [Seroquel] 200 mg PO HS #120 tablet 12/09/16 [Rx] Vitamin B Complex/Vit C/Vit E [Stresstab] 1 each PO DAILY tablet 12/09/16 [Rx] 3 Allergy/AdvReac Type Severity Reaction Status Date / Time dicyclomine [From Bentyl] Allergy Hives Verified 12/07/16 19:33 ketorolac [From Toradol] Allergy Hives Verified 12/07/16 16:08 Provider Date of admission: 12/08/16 07:44 Primary care physician: PCP NONE Discharging clinician: Shefali Bentley Assessment and Plan - Patient/Caregiver Discharge Instructions Activity: resume usual activities as tolerated Diet: regular diet - Follow up Plan Follow up with: Cooper Gamboa [facility] Wesly Reyes [Outside] - 12/28/16 10:00 am (The above appointment is with Kari Galaviz for primary health care and medication management services. You will see Dr. Stuart for outpatient psychiatric assessment and medication management services on 01/10/2017 at 8:30am in the same office. You will see Becca for mental health counseling on 01/12/2017 at 10:30am in the same office. Please arrive 15 minutes early to your first appointment to complete paperwork. Please bring your insurance card, photo ID and medications in their original bottles. If you do not have insurance, bring proof of income to apply for the sliding fee scale. If you are unable to keep this appointment , 24 hour business notice of cancellation is expected. These are the first available appointments. You may contact the office regularly to check for cancellations that may allow you to be seen sooner. ) Functional capacity at discharge: independent ambulation Overall status at discharge: Stable Disposition: Home, Self-Care Hospital Course Hospital course: Mr. Dyer is a 36 year old male with a long-standing history of depression, anxiety, AIDS, chronic pain issues. He presented to the hospital reporting pain and requesting pain medications. He made conditional suicidal statements stating that he would kill himself if no one helped him with his pain. He was admitted to for psychiatric stabilization. Patient was incorporated into the therapeutic milieu and offer group and individual as well as recreational therapy. He was also offered psychoeducational materials and supportive therapy. His outpatient records were reviewed and it was made clear to him that he would not be getting controlled substances from this hospital. Patient was willing to try noncontrolled medications for his anxiety and depression. He was willing to start Lexapro 10 mg by mouth daily. He was also given Seroquel but the dosage was increased to 200 mg by mouth daily at bedtime for sleep. Throughout the course of the hospital stay the patient's mood improved. He did report that he no longer felt suicidal. He still complained of pain but understood the reasoning behind not providing pain pills when we did not have an active prescription by his outpatient provider. He will follow-up with his outpatient doctor regarding pain medication. At the time of discharge she denied suicidal or homicidal ideation, intent or plan. He denied auditory or visual hallucinations. He is discharged in stable condition with outpatient follow-up appointments in place. - Time Spent with Patient Total time spent providing and/or coordinating discharge services: Greater than 30 minutes Quality - Multiple Antipsychotics Patient discharged on 2 or more antipsychotic medications: No Procedures - Procedures Procedures: Medication Management, Crisis Stabilization, Supportive Therapy, Group Therapy, Psychoeducational Therapy Mental Status Exam - Mental Status Exam Patient orientation: Yes Person, Yes Time, Yes Place Level of alertness: Alert Patient appearance: Appropriate, Well Groomed Behavior: calm, cooperative Psychomotor activity: Normal Eye contact: Maintains Eye Contact Mood description: Euthymic/stable Affect description: congruent with mood, full range Speech pattern: Normal rate, Normal rhythm, Normal tone Speech Volume: Normal Thought process: Linear, Goal Oriented Thought Content: No Suicidal ideation, No Homicidal ideation, No Overt delusions Perceptual Disturbances: No Auditory hallucinations, No Visual hallucinations Judgment: Limited Insight: Minimal
== END 2016-12-09 13:07 | disposition home or self-care (01) | DRG 751 ==
LOC: EMEROO 16:05 → 1ANU 12-08 07:44
PROVIDERS: ADMIT Student in an Organized Health Care Education/Training Program; ATTEND Student in an Organized Health Care Education/Training Program

== ENCOUNTER 2017-04-19 11:01 | Observation (INO) ==
[2017-04-19 11:41] LABS: Basophils % 0.3 %; Hematocrit 40.2 % (37.5-50.1); Hemoglobin 13.1 g/dL (12.9-16.9); Immature Granulocytes % 0.3 % (0-4); Lymphocytes # 1.4 K/mcL (0.6-4.6); Lymphocytes % 34.9 %; Mean Corpuscular HGB Conc 32.6 g/dL (31.6-35.5); Mean Corpuscular Hemoglobin 32.6 pg (28.0-33.3); Mean Platelet Volume 9.6 fL (9.4-12.4); Monocytes # 0.5 K/mcL (0.0-1.3); Monocytes % 11.8 %; Platelet Count 113 K/mcL (140-400); Red Blood Count 4.02 M/mcL (4.19-5.50); Red Cell Distribution Width 14.1 % (11.5-14.5); Segmented Neutrophils % 51.7 %
[2017-04-19 12:30] LABS: Alanine Aminotransferase 21 Units/L (7-52); Albumin 4.2 g/dL (3.5-5.7); Albumin/Globulin Ratio 1.6 (1.1-2.2); Alkaline Phosphatase 89 Units/L (34-104); Aspartate Amino Transferase 26 Units/L (13-39); BUN/Creatinine Ratio 12 (6-26); Bilirubin,Direct 0.1 mg/dL (0.0-0.2); Bilirubin,Indirect 0.3 mg/dL (0.0-1.2); Bilirubin,Total 0.4 mg/dL (0.3-1.0); Blood Urea Nitrogen 14 mg/dL (6-20); Carbon Dioxide 26 mEq/L (23-29); Chloride 108 mEq/L (98-107); Globulin 2.6 g/dL (2.4-3.5); Glucose 91 mg/dL (70-105); Lipase 120 Units/L (11-82); Osmolality,Calculated 288 (280-300); Potassium 3.7 mEq/L (3.5-5.1); Sodium 139 mEq/L (136-145); Total Protein 6.8 g/dL (6.4-8.9); eGFR For African Americans > 60 (> 60); eGFR For Non-African Americans > 60 (> 60)
--- NOTE | 2017-04-19 13:07 | Emergency Department Note ---
Disposition Clinical Impression: HIV (human immunodeficiency virus infection), Intractable nausea and vomiting, Pancreatitis Disposition: Admitted As Inpatient Condition: Good General Adult HPI - General Chief complaint: ED Abdominal Pain Stated complaint: N/V,abd pain Time Seen by Provider: 04/19/17 13:03 Source: patient Limitations: no limitations - History of Present Illness Pain Scale: 9 - Related Data Home Medications Medication Instructions Recorded Confirmed Emtricitabine/Tenofovir [Truvada] 1 each PO DAILY 11/18/14 04/19/17 Raltegravir Potassium [Isentress] 400 mg PO BID 05/17/15 04/19/17 clonazePAM [Klonopin] 1 mg PO BID PRN 01/04/17 04/19/17 Quetiapine Fumarate [Seroquel] 300 mg PO HS 02/11/17 04/19/17 Cholecalciferol (Vitamin D3) 10,000 unit PO DAILY 04/19/17 04/19/17 [Vitamin D3] Escitalopram [Lexapro] 15 mg PO DAILY 04/19/17 04/19/17 LevETIRAcetam [Keppra] 500 mg PO BID 04/19/17 04/19/17 Metoclopramide [Reglan] 10 mg PO TID 04/19/17 04/19/17 Quetiapine Fumarate [Seroquel] 200 mg PO DAILY 04/19/17 04/19/17 Allergies Allergy/AdvReac Type Severity Reaction Status Date / Time dicyclomine [From Bentyl] Allergy Hives Verified 03/18/17 13:20 ketorolac [From Toradol] Allergy Hives Verified 03/18/17 13:20 tramadol Allergy Hives Verified 03/18/17 13:20 Past Medical History - Past Medical History Medical history: Reports: hepatitis, HIV/AIDS, seizures, other Surgical history: Reports: no surgical history Psychiatric history: Reports: anxiety, depression, prior suicide attempt, previous psychiatric hospitalization - Social History Smoking Status: Current every day smoker Smokeless Tobacco Status: No Alcohol use: Reports: none Drug use: Reports: none Physical Exam - General Limitations: no limitations General appearance: alert, in no apparent distress Course Vital Signs Temperature 98.3 F 04/19/17 11:09 Pulse Rate 115 04/19/17 11:09 Respiratory Rate 16 04/19/17 11:09 Blood Pressure 110/68 04/19/17 11:09 O2 Sat by Pulse Oximetry 97 04/19/17 11:09 Temperature 98.3 F 04/19/17 11:09 Pulse Rate 89 04/19/17 17:09 Respiratory Rate 15 04/19/17 17:09 Blood Pressure 130/87 04/19/17 17:09 O2 Sat by Pulse Oximetry 94 04/19/17 17:09 Oxygen Delivery Oxygen Delivery Room Air Medical Decision Making - Lab Data Result diagrams: 04/19/17 11:28 04/19/17 11:28 Lab Results 04/19/17 04/19/17 04/19/17 Range/Units 11:28 11:28 14:53 WBC 3.9 L (4.3-11.1) K/mcL RBC 4.02 L (4.19-5.50) M/mcL Hgb 13.1 (12.9-16.9) g/dL Hct 40.2 (37.5-50.1) % MCV 100.0 (83.0-100.0) fL MCH 32.6 (28.0-33.3) pg MCHC 32.6 (31.6-35.5) g/dL RDW 14.1 (11.5-14.5) % Plt Count 113 L (140-400) K/mcL MPV 9.6 (9.4-12.4) fL Immature Gran % 0.3 (0-4) % Seg Neutrophils % 51.7 % Lymphocytes % 34.9 % Monocytes % 11.8 % Eosinophils % 1.0 % Basophils % 0.3 % Neutrophils # 2.0 (1.6-8.9) K/mcL Lymphocytes # 1.4 (0.6-4.6) K/mcL Monocytes # 0.5 (0.0-1.3) K/mcL Eosinophils # 0.0 (0.0-0.6) K/mcL Basophils # 0.0 (0.0-0.2) K/mcL Sodium 139 (136-145) mEq/L Potassium 3.7 (3.5-5.1) mEq/L Chloride 108 H (98-107) mEq/L Carbon Dioxide 26 (23-29) mEq/L BUN 14 (6-20) mg/dL Creatinine 1.16 (0.70-1.30) mg/dL Est GFR ( Amer) > 60 (> 60) Est GFR (Non-Af Amer) > 60 (> 60) BUN/Creatinine Ratio 12 (6-26) Glucose 91 (70-105) mg/dL Calculated Osmolality 288 (280-300) Calcium 9.0 (8.6-10.3) mg/dL Total Bilirubin 0.4 (0.3-1.0) mg/dL Direct Bilirubin 0.1 (0.0-0.2) mg/dL Indirect Bilirubin 0.3 (0.0-1.2) mg/dL AST 26 (13-39) Units/L ALT 21 (7-52) Units/L Alkaline Phosphatase 89 (34-104) Units/L Serum Total Protein 6.8 (6.4-8.9) g/dL Albumin 4.2 (3.5-5.7) g/dL Globulin 2.6 (2.4-3.5) g/dL Albumin/Globulin Ratio 1.6 (1.1-2.2) Lipase 120 H (11-82) Units/L Urine Color Yellow (Yellow) Urine Clarity Clear (Clear) Urine pH 6.5 (5.0-8.0) pH Units Ur Specific [place] 1.030 H (1.010-1.025) Urine Protein 30 H (Neg-Trace) mg/dL Urine Glucose (UA) Normal (Normal) mg/dL Urine Ketones Negative (Negative) mg/dL Urine Blood Negative (Negative) Urine Nitrite Negative (Negative) Urine Bilirubin Negative (Negative) Urine Urobilinogen Normal (Normal) mg/dL Ur Leukocyte Esterase Negative (Negative) Urine Microscopic RBC 0-3 (0-3) per hpf Urine Microscopic WBC 0-3 (0-3) per hpf Ur Squamous Epith Cells Moderate H (None-Few) per lpf Urine Bacteria None Seen (None-Few) per hpf Hyaline Casts None Seen (None-Few) per lpf Ur Culture Indicated? NO (NO) Attestation Statement - Attestation Attestation: I examined this patient and my medical decision-making was reviewed with the Resident Physician. I agree with the documented findings, disposition and treatment plan as described except to the extent set forth below. [id number] time provided Patient arrives complaining of nausea and vomiting over the past 2 weeks with an inability to keep his HIV medications down. He appears in no acute distress at the time of my exam. Labs drawn at triage reviewed by me indicating an elevated lipase. Patient seen in conjunction with resident physician Dr. Kelly
--- NOTE | 2017-04-19 13:40 | Emergency Department Note ---
Disposition Clinical Impression: HIV (human immunodeficiency virus infection) Intractable nausea and vomiting Qualifiers: Vomiting type: unspecified Qualified Code(s): R11.2 - Nausea with vomiting, unspecified Pancreatitis Qualifiers: Chronicity: acute Pancreatitis type: unspecified pancreatitis type Acute pancreatitis complication: unspecified Qualified Code(s): K85.90 - Acute pancreatitis without necrosis or infection, unspecified Disposition: Admitted As Inpatient Condition: Good Referrals: Belinda Stuart [Primary Care Provider] - Forms: ED Satisfaction Letter, Work/School Release General Adult HPI - General Chief complaint: ED Abdominal Pain Stated complaint: N/V,abd pain Time Seen by Provider: 04/19/17 13:03 Source: patient Limitations: no limitations Nursing Notes Reviewed: Yes Vital Signs Reviewed: Yes - History of Present Illness HPI Narrative: Patient presents today for intractable nausea and vomiting. Patient states symptoms started approximately a week and a half ago. Patient follows with one of the physicians at [facility] urgent care on a regular basis. He has made multiple visits there and has not had any relief with by mouth medications including Zofran and Reglan. At this time the patient is developed worsening epigastric and right-sided abdominal pain. The patient was seen yesterday and told if any worsening symptoms he would need to come to the ER for possible admission. The patient states that his nausea and vomiting has caused him to not be able to tolerate his medications. Patient states he has been without his HIV medications for 2 days. The patient has had multiple other symptoms which include hematuria, dysuria right-sided CVA tenderness. Initial labs were drawn by triage and are normal. On exam the patient does have significant tenderness to the right side of his abdomen. A CT with contrast will be performed of the abdomen and pelvis. CD4 count - 684 on 01/28/17 PMH: HIV Hep C Epilepsy - depakote Pain Scale: 10 - Related Data Home Medications Medication Instructions Recorded Confirmed Emtricitabine/Tenofovir [Truvada] 1 each PO DAILY 11/18/14 04/06/17 Raltegravir Potassium [Isentress] 400 mg PO BID 05/17/15 04/06/17 clonazePAM [Klonopin] 1 mg PO BID 01/04/17 04/06/17 Quetiapine Fumarate [Seroquel] 300 mg PO HS 02/11/17 04/06/17 Previous Rx's Medication Instructions Recorded Escitalopram [Lexapro] 10 mg PO DAILY #30 tablet 12/09/16 Vitamin B Complex/Vit C/Vit E 1 each PO DAILY tablet 12/09/16 [Stresstab] Ondansetron ODT [Zofran ODT] 4 mg SL Q6HR PRN #14 tab.rapdis 02/26/17 Promethazine [Phenergan] 12.5 mg PO Q6HR PRN #16 tablet 03/09/17 Allergies Allergy/AdvReac Type Severity Reaction Status Date / Time dicyclomine [From Bentyl] Allergy Hives Verified 03/18/17 13:20 ketorolac [From Toradol] Allergy Hives Verified 03/18/17 13:20 tramadol Allergy Hives Verified 03/18/17 13:20 All systems ED: reviewed and negative except as stated. Review of Systems: As Per HPI Constitutional: Reports: fever (Subjective), chills Cardiovascular: Denies: chest pain Gastrointestinal: Reports: abdominal pain, nausea, vomiting, diarrhea Genitourinary: Reports: dysuria, other (Dark urine) Musculoskeletal: Reports: back pain (Right flank) Integumentary: Denies: rash, abrasion Endocrine: Reports: fatigue Past Medical History - Past Medical History Medical history: Reports: hepatitis, HIV/AIDS, seizures, other Surgical history: Reports: no surgical history Psychiatric history: Reports: anxiety, depression, prior suicide attempt, previous psychiatric hospitalization - Social History Smoking Status: Current every day smoker Smokeless Tobacco Status: No Alcohol use: Reports: none Drug use: Reports: none Physical Exam General: No acute distress Head: Normocephalic Atraumatic Eyes: PERRL, EOMI ENT: Airway patent, no stridor Neck: supple, no meningismus Chest: Lungs clear to auscultation bilateral Cardiac: Regular rate and rhythm, no murmurs, rubs or gallops Abdomen: Right-sided upper and lower abdominal pain with CVA tenderness. Positive guarding. Negative rebound. Musculoskeletal: Calves symmetric, nontender, no palpable cord Skin: No rash, normal skin tone Neuro: Alert and Oriented to person, place, and time; No focal deficit, - General Limitations: no limitations General appearance: alert, in no apparent distress Course - Reevaluation(s) Reevaluation #1: CT is negative. The patient has a mildly elevated lipase. This is more elevated than some of his previous with episodes of pancreatitis. Patient is a high risk patient secondary to his HIV status. His being unable to tolerate these meds will require admission for intractable nausea and vomiting in association with pancreatitis. Vital Signs Temperature 98.3 F 04/19/17 11:09 Pulse Rate 115 04/19/17 11:09 Respiratory Rate 16 04/19/17 11:09 Blood Pressure 110/68 04/19/17 11:09 O2 Sat by Pulse Oximetry 97 04/19/17 11:09 Temperature 98.3 F 04/19/17 11:09 Pulse Rate 82 04/19/17 15:34 Respiratory Rate 14 04/19/17 15:34 Blood Pressure 134/33 04/19/17 15:34 O2 Sat by Pulse Oximetry 94 04/19/17 15:34 Oxygen Delivery Oxygen Delivery Room Air Medical Decision Making - Lab Data Result diagrams: 04/19/17 11:28 04/19/17 11:28 Lab Results 04/19/17 04/19/17 04/19/17 Range/Units 11:28 11:28 14:53 WBC 3.9 L (4.3-11.1) K/mcL RBC 4.02 L (4.19-5.50) M/mcL Hgb 13.1 (12.9-16.9) g/dL Hct 40.2 (37.5-50.1) % MCV 100.0 (83.0-100.0) fL MCH 32.6 (28.0-33.3) pg MCHC 32.6 (31.6-35.5) g/dL RDW 14.1 (11.5-14.5) % Plt Count 113 L (140-400) K/mcL MPV 9.6 (9.4-12.4) fL Immature Gran % 0.3 (0-4) % Seg Neutrophils % 51.7 % Lymphocytes % 34.9 % Monocytes % 11.8 % Eosinophils % 1.0 % Basophils % 0.3 % Neutrophils # 2.0 (1.6-8.9) K/mcL Lymphocytes # 1.4 (0.6-4.6) K/mcL Monocytes # 0.5 (0.0-1.3) K/mcL Eosinophils # 0.0 (0.0-0.6) K/mcL Basophils # 0.0 (0.0-0.2) K/mcL Sodium 139 (136-145) mEq/L Potassium 3.7 (3.5-5.1) mEq/L Chloride 108 H (98-107) mEq/L Carbon Dioxide 26 (23-29) mEq/L BUN 14 (6-20) mg/dL Creatinine 1.16 (0.70-1.30) mg/dL Est GFR ( Amer) > 60 (> 60) Est GFR (Non-Af Amer) > 60 (> 60) BUN/Creatinine Ratio 12 (6-26) Glucose 91 (70-105) mg/dL Calculated Osmolality 288 (280-300) Calcium 9.0 (8.6-10.3) mg/dL Total Bilirubin 0.4 (0.3-1.0) mg/dL Direct Bilirubin 0.1 (0.0-0.2) mg/dL Indirect Bilirubin 0.3 (0.0-1.2) mg/dL AST 26 (13-39) Units/L ALT 21 (7-52) Units/L Alkaline Phosphatase 89 (34-104) Units/L Serum Total Protein 6.8 (6.4-8.9) g/dL Albumin 4.2 (3.5-5.7) g/dL Globulin 2.6 (2.4-3.5) g/dL Albumin/Globulin Ratio 1.6 (1.1-2.2) Lipase 120 H (11-82) Units/L Urine Color Yellow (Yellow) Urine Clarity Clear (Clear) Urine pH 6.5 (5.0-8.0) pH Units Ur Specific [place] 1.030 H (1.010-1.025) Urine Protein 30 H (Neg-Trace) mg/dL Urine Glucose (UA) Normal (Normal) mg/dL Urine Ketones Negative (Negative) mg/dL Urine Blood Negative (Negative) Urine Nitrite Negative (Negative) Urine Bilirubin Negative (Negative) Urine Urobilinogen Normal (Normal) mg/dL Ur Leukocyte Esterase Negative (Negative) Urine Microscopic RBC 0-3 (0-3) per hpf Urine Microscopic WBC 0-3 (0-3) per hpf Ur Squamous Epith Cells Moderate H (None-Few) per lpf Urine Bacteria None Seen (None-Few) per hpf Hyaline Casts None Seen (None-Few) per lpf Ur Culture Indicated? NO (NO)
[2017-04-19] MEDS ORDERED: 0.9 % Sodium Chloride 1,000 ML IVC ONE ×2 (13:44→15:11)
[2017-04-19] MEDS ORDERED: Ondansetron 4 MG/2 ML VIAL IVP ONE (13:44)
[2017-04-19] MEDS ORDERED: *HR* HYDROmorphone (PF) 1 MG/ML SYRINGE IVP ONE ×2 (14:13→16:45)
[2017-04-19 15:15] LABS: Bilirubin,Urine Negative (Negative); Blood,Urine Negative (Negative); Clarity,Urine Clear (Clear); Color,Urine Yellow (Yellow); Glucose,Urine (UA) Normal (Normal); Ketones,Urine Negative (Negative); Leukocyte Esterase,Urine Negative (Negative); Nitrite,Urine Negative (Negative); PH,Urine 6.5 pH Units (5.0-8.0); Protein,Urine 30 mg/dL (Neg-Trace); Urobilinogen,Urine Normal (Normal)
[2017-04-19 15:19] LABS: Bacteria,Urine None Seen per hpf (None-Few); Hyaline Casts,Urine None Seen per lpf (None-Few); RBC,Urine 0-3 per hpf (0-3); Squamous Epithelial Cell,Urine Moderate per lpf (None-Few); WBC,Urine 0-3 per hpf (0-3)
[2017-04-19] MEDS ORDERED: Metoclopramide 10 MG/2 ML VIAL IVP STA (16:45)
[2017-04-19] MEDS ORDERED: Naloxone 0.4 MG/ML INJ IVP PRN (18:31)
[2017-04-19] MEDS ORDERED: OXYCODONE Oral CONC 10 MG/0.5 ML ORAL.SYG SL PRN (19:51)
[2017-04-19] MEDS: 0.9 % Sodium Chloride 1,000 ML IVC SCH (20:29)
[2017-04-19] MEDS: clonazePAM 1 MG TABLET PO PRN (21:57)
[2017-04-19] MEDS: RALTEGRAVIR POTASSIUM 400 MG TABLET PO SCH (21:58)
[2017-04-19] MEDS: *HR* HYDROmorphone 4 MG TABLET PO PRN (23:28)
--- NOTE | 2017-04-19 23:46 | Internal Med History&Physical ---
<Alverto Boyd - Last Filed: 04/20/17 00:55> Date of Encounter: 04/19/17 Time of Encounter: 18:00 Assessment and Plan (1) Intractable nausea and vomiting Current visit: Yes Status: Acute Acute and intractable nausea and vomiting. Pt. reports 10-11 days of N/V/D and states he has been unable to take PO medications. WBC 3.9 on admission. States Zofran and Reglan have not been effective. Phenergan 12.5 IVP Q4 PRN for N/V ordered. IVP Protonix 40 mg BID. Blood cultures x2 ordered. Stool culture and ova/parasite exam ordered. HIV viral load and lymphocyte subset ordered. Monitor I&O and daily weight. HIV viral load and lymphocyte subset ordered. Consider ID consult based on culture results. Pt. started on liquid diet to be advanced as tolerated. Pt. discussed w/Dr. Perez who is in agreement w/plan of care. Pt. is high risk for further morbidity and infection d/t current immunocompromised status from HIV; current sx of N/V/D for past 10-11 days, hx, and risk factors. Inpatient. Qualifiers: Vomiting type: unspecified Qualified Code(s): R11.2 - Nausea with vomiting , unspecified (2) Diarrhea Current visit: Yes Status: Acute Acute diarrhea for the past 10-11 days. Stool culture and ova/parasite exam ordered. Consider ID consult based on culture results d/t pts. immunocompromised status from HIV. Qualifiers: Diarrhea type: presumed infectious Qualified Code(s): R19.7 - Diarrhea, unspecified (3) Abdominal pain Current visit: Yes Status: Acute Acute RLQ pain on palpation. Pt. reports pain began several days ago. Currently reports diarrhea. Pt. reports pain extends into scrotum and right testicle. Denies being sexually active since the age of 21 and no discharge present from penis. CT of the abdomen/pelvis today shows no acute abnormalities seen in the abdomen or pelvis, unremarkable appearing gallbladder, normal appearing appendix , and no obstructive uropathy. Consider GI consult d/t intractable N/V for 10- 11 days and report of hematochezia if Protonix and Phenergan are ineffective. US of the scrotum ordered. Consider Urology consult based on US results. Qualifiers: Abdominal location: right lower quadrant Qualified Code(s): R10.31 - Right lower quadrant pain (4) HIV (human immunodeficiency virus infection) Current visit: Yes Status: Chronic Hx of chronic HIV. Pt. reports dx at age 21. States he takes two medications currently. Continue Isentress and Truvada. Denies being sexually active since the age of 21 at dx. States he and his partner have open relationship but do not have sex in any form d/t his HIV status. (5) Seizure disorder Current visit: Yes Status: Chronic Hx of chronic seizures. Pt. was unable to take PO meds d/t N/V so Keppra IVPB 500 mg BID ordered. Monitor pt. (6) DVT prophylaxis Current visit: Yes Status: Acute Bilateral SCDs on LEs d/t pts. reports of hematemesis and hematochezia. Monitor I&O and pt. for signs of bleeding. Internal Medicine - H&P: HPI Chief complaint: N/V/Diarrhea Admitted From: Emergency Dept Plans for Post Hospital Care: Home History of present illness: Mr. Dyer is a 36 year old male w/PMH of hepatitis, HIV/AIDS, seizures as well as psychiatric hx of anxiety, depression, prior suicide attempt, and previous psychiatric hospitalization presents from the ED with chief complaint of nausea , vomiting, and diarrhea for the past 10-11 days. Patient states he was seen at [facility] urgent [facility] and given Zofran and Reglan which did not help. Patient also reports right lower quadrant pain that he describes as intermittent sharp and stabbing with radiation to his right testicle. Patient also reports hematuria and hematochezia. Patient reports no alleviating factors for his nausea and vomiting. Patient reports fever, chills, abdominal pain, nausea, vomiting, diarrhea, dysuria, fatigue, and back pain but denies chest pain, palpitations, headache, changes in vision, constipation, numbness, tingling, dizziness, lightheadedness, pre-syncope, or syncope. Past Med Surg Social Fam HX - Past Medical History Source: patient, old records reviewed Medical history: hepatitis, HIV/AIDS, seizures, other Psychiatric history: anxiety, depression, prior suicide attempt, previous psychiatric hospitalization - Past Surgical History Surgical History: no surgical history - Social History Smoking Status: Current every day smoker Packs per day: 2 PPD Smokeless Tobacco Status: No Alcohol use: none Drug use: none Current living situation: Home Activity Level: Independent ambulation Recent Out of Country Travel Within the Last 8 Weeks: No Exposure or Possible Exposure to Illness During Travel: No - Family History Mother Race: Family Member Ethnicity: Non- Living Status: Still Living Hx Family Cancer: Yes (Breast, Lung, Lymphoma) Hx Family Endocrine Disorder: Yes (DM) Father Race: Family Member Ethnicity: Non- Living Status: Still Living Hx Family Cardiac Disorders: Yes (OH, HTN) Hx Family Endocrine Disorder: Yes (DM) Brother Race: Family Member Ethnicity: Non- Living Status: Still Living Hx Family Cardiac Disorders: Yes (HTN) Sister Race: Family Member Ethnicity: Non- Living Status: Still Living Hx Family Psychosocial Disorders: Yes (Drug addiction) Internal Medicine - H&P: Meds Emtricitabine/Tenofovir [Truvada] 1 each PO DAILY 11/18/14 [History] Raltegravir Potassium [Isentress] 400 mg PO BID 05/17/15 [History] clonazePAM [Klonopin] 1 mg PO BID PRN 01/04/17 [History] Quetiapine Fumarate [Seroquel] 300 mg PO HS 02/11/17 [History] Cholecalciferol (Vitamin D3) [Vitamin D3] 10,000 unit PO DAILY 04/19/17 [History ] Escitalopram [Lexapro] 15 mg PO DAILY 04/19/17 [History] LevETIRAcetam [Keppra] 500 mg PO BID 04/19/17 [History] Metoclopramide [Reglan] 10 mg PO TID 04/19/17 [History] Quetiapine Fumarate [Seroquel] 200 mg PO DAILY 04/19/17 [History] Zolpidem [Ambien] 10 mg PO HS 04/19/17 [History] 3 Allergy/AdvReac Type Severity Reaction Status Date / Time dicyclomine [From Bentyl] Allergy Hives Verified 03/18/17 13:20 ketorolac [From Toradol] Allergy Hives Verified 03/18/17 13:20 tramadol Allergy Hives Verified 03/18/17 13:20 All Systems PM: A 10-system review of systems was performed and is negative for pertinent findings except as documented above in the HPI. - Constitutional Constitutional: as per HPI, chills, fatigue, fever(s), weakness, weight loss, no night sweats - EENT Eyes: no change in vision, no discharge, no pain, no photophobia Ears: no ear discharge, no ear pain, no tinnitus Nose, mouth and throat: no dysphagia, no nasal discharge, no neck pain, no sore throat - Breasts Breasts: as per HPI - Cardiovascular Cardiovascular ROS IM: no chest pain, no diaphoresis, no dyspnea, no lightheadedness, no palpitations, no syncope - Respiratory Respiratory: no cough, no dyspnea, no wheezing, no excessive phlegm production - Gastrointestinal Gastrointestinal: as per HPI, abdominal pain, diarrhea, hematochezia, nausea, vomiting, no hematemesis, no melena - Genitourinary Genitourinary ROS male: as per HPI, flank pain (Right), genital pain, hematuria - Musculoskeletal Musculoskeletal ROS IM: no numbness, no tingling - Integumentary Integumentary IM: no rash, no unusual bruising - Neurological Neurological ROS: as per HPI, weakness, no confusion, no convulsions, no focal weakness, no numbness, no tingling, no tremor(s) - Psychiatric Psychiatric: as per HPI, anxiety, depression - Endocrine Endocrine IM: as per HPI - Hematologic/Lymphatic Hematologic/Lymphatic: no easy bruising - Allergic/Immunologic Allergic/Immunologic: as per HPI - Constitutional Vitals: Temp Pulse Resp BP Pulse Ox 99.0 F 87 18 114/79 94 04/19/17 18:54 04/19/17 18:54 04/19/17 18:54 04/19/17 18:54 04/19/17 18:54 General appearance: Present: cooperative, mild distress, A&O X 3, pleasant, underweight, answers questions appropriately - Head Head exam: Present: atraumatic, normocephalic - Eye Eye exam: Present: PERRL, conjuntiva pink, sclera anicteric Pupils: Present: PERRL - ENT ENT exam: Present: normal exam - Neck Neck exam general surgery: Present: normal inspection, supple, trachea midline. Absent: lymphadenopathy - Respiratory Respiratory exam: Present: decreased breath sounds, wheezes. Absent: accessory muscle use, rales, rhonchi - Cardiovascular Cardiovascular exam: Present: RRR, +S1, +S2. Absent: diastolic murmur, gallop, rubs, systolic murmur - GI/Abdominal GI/Abdominal exam: Present: normal bowel sounds, soft, no peritoneal signs. Absent: distended, tenderness - Rectal Rectal exam: Present: deferred - Additional comments: exam deferred. - Extremities Exam Extremities exam: Present: warm, radial pulses palpable and symmetrical. Absent : calf tenderness, cyanotic, pedal edema - Back Exam Back exam: Present: normal inspection - Neurological Exam Neurological exam: Present: CN II-XII intact, oriented X3, no focal deficits. Absent: pronater drift, facial droop, speech deficit - Psychiatric Psychiatric exam: Present: normal affect, normal mood - Skin Skin exam: Present: dry, intact Internal Med - H&P Results - Labs CBC & Chem 7: 04/19/17 11:28 04/19/17 11:28 - Diagnostic Studies CT scan - abdomen Additional comments: Impressions Abdomen/Pelvis CT 04/19/17 13:43 IMPRESSION: MIKE 1. No acute abnormalities seen in the abdomen or pelvis 2. Unremarkable appearing gallbladder 3. Normal appearing appendix 4. No obstructive uropathy D/ / Alfonso Kirkpatrick MD / Alfonso Kirkpatrick MD Interpreting Provider: Alfonso Kirkpatrick MD <Aden Perez - Last Filed: 04/20/17 11:34> Date of Encounter: 04/20/17 Internal Medicine - H&P: HPI History of present illness: Mr. Dyer is a 36 year old male All Systems PM: A 10-system review of systems was performed and is negative for pertinent findings except as documented above in the HPI. - Constitutional Vitals: Temp Pulse Resp BP Pulse Ox 97.7 F 76 13 107/74 95 04/20/17 11:21 04/20/17 11:21 04/20/17 11:21 04/20/17 11:21 04/20/17 11:21 Internal Med - H&P Results - Labs CBC & Chem 7: 04/20/17 04:21 04/20/17 04:21 Labs: Short CBC 04/20/17 Range/Units 04:21 WBC 3.6 L (4.3-11.1) K/mcL Hgb 11.9 L (12.9-16.9) g/dL Hct 36.1 L (37.5-50.1) % Plt Count 93 L (140-400) K/mcL Neutrophils # 1.8 (1.6-8.9) K/mcL BMP 04/20/17 04:21 Sodium 140 Potassium 3.9 Chloride 111 H Carbon Dioxide 29 BUN 10 Creatinine 0.98 Glucose 91 Calcium 8.7 Liver Function 04/20/17 Range/Units 04:21 Total Bilirubin 0.5 (0.3-1.0) mg/dL AST 26 (13-39) Units/L ALT 24 (7-52) Units/L Alkaline Phosphatase 62 (34-104) Units/L Albumin 3.7 (3.5-5.7) g/dL - Attending Attestation I examined this patient and my medical decision-making was reviewed with the Resident Physician. I agree with the documented findings, disposition and treatment plan as described except to the extent set forth below.
[2017-04-20 04:53] LABS: Alanine Aminotransferase 24 Units/L (7-52); Albumin 3.7 g/dL (3.5-5.7); Albumin/Globulin Ratio 1.5 (1.1-2.2); Alkaline Phosphatase 62 Units/L (34-104); Aspartate Amino Transferase 26 Units/L (13-39); BUN/Creatinine Ratio 10 (6-26); Bilirubin,Total 0.5 mg/dL (0.3-1.0); Blood Urea Nitrogen 10 mg/dL (6-20); Calcium 8.7 mg/dL (8.6-10.3); Carbon Dioxide 29 mEq/L (23-29); Chloride 111 mEq/L (98-107); Chol/HDL Ratio 2.8 (0-4.9); Cholesterol 124 mg/dL (< 200); Globulin 2.4 g/dL (2.4-3.5); Glucose 91 mg/dL (70-105); HDL Cholesterol 44 mg/dL (40-59); LDL Cholesterol,Calculated 68 mg/dL (0-99); Magnesium 2.2 mg/dL (1.6-2.6); Osmolality,Calculated 289 (280-300); Phosphorous 3.8 mg/dL (2.7-4.5); Potassium 3.9 mEq/L (3.5-5.1); Sodium 140 mEq/L (136-145); Total Protein 6.1 g/dL (6.4-8.9); Triglycerides 58 mg/dL (< 150); eGFR For African Americans > 60 (> 60); eGFR For Non-African Americans > 60 (> 60)
[2017-04-20 05:00] LABS: Basophils % 0.3 %; Eosinophils % 1.1 %; Hematocrit 36.1 % (37.5-50.1); Hemoglobin 11.9 g/dL (12.9-16.9); Immature Granulocytes % 0.3 % (0-4); Lymphocytes # 1.4 K/mcL (0.6-4.6); Lymphocytes % 37.6 %; Mean Corpuscular Hemoglobin 32.1 pg (28.0-33.3); Mean Corpuscular Volume 97.3 fL (83.0-100.0); Monocytes # 0.4 K/mcL (0.0-1.3); Monocytes % 10.6 %; Neutrophils # 1.8 K/mcL (1.6-8.9); Red Blood Count 3.71 M/mcL (4.19-5.50); Red Cell Distribution Width 14.1 % (11.5-14.5); Segmented Neutrophils % 50.1 %
[2017-04-20 05:02] LABS: Platelet Count 93 K/mcL (140-400)
[2017-04-20] MEDS: 0.9 % Sodium Chloride 1,000 ML IVC SCH ×3 (05:18→18:09)
[2017-04-20] MEDS: Pantoprazole 40 MG VIAL IVP SCH ×2 (05:19→18:09)
[2017-04-20] MEDS: *HR* HYDROmorphone 4 MG TABLET PO PRN ×2 (05:19→11:20)
[2017-04-20] MEDS ORDERED: *HR* Enoxaparin 40 MG/0.4 ML SYRINGE SQ SCH (06:00)
[2017-04-20] MEDS: RALTEGRAVIR POTASSIUM 400 MG TABLET PO SCH ×2 (08:34→21:46)
[2017-04-20] MEDS: Cholecalciferol (D-3) 1,000 UNIT TABLET PO SCH (08:35)
[2017-04-20] MEDS: clonazePAM 1 MG TABLET PO PRN ×2 (10:18→18:22)
[2017-04-20 10:51] LABS: Hemoglobin A1C 5.1 %
--- NOTE | 2017-04-20 15:40 | Internal Med Progress Note ---
Date of Encounter: 04/20/17 Time of Encounter: 15:40 - Assessment and plan (1) Epididymitis Current Visit: Yes Status: Acute Assessment and plan: 1 patient has been complaining of right lower abdominal pain radiating down to right scrotum. Significant nausea vomiting diarrhea for approximately one week. -Ultrasound of scrotum/testicles-some increased vascularity of the epididymal heads right greater than left questioning epididymitis. Patient has history of HIV- he states he is not sexually active-does have some dysuria denies any drainage 2 we will obtain urine culture as well as urine gonorrhea/chlamydia-awaiting culture results-if positive we will initiate on doxycycline 3 we will initiate on Levaquin (2) HIV (human immunodeficiency virus infection) Current Visit: Yes Status: Chronic Assessment and plan: Patient has history of HIV was diagnosed at age 21 he is unsure of his viral load-states that he takes his medications as prescribed and does not miss doses. Presently on Truvada and Isentress which we will continue (3) Seizure disorder Current Visit: Yes Status: Chronic (4) Abdominal pain Current Visit: No Status: Acute Assessment and plan: This is most likely related to the epididymitis-continue with supportive care- pain medication and antiemetics Qualifiers: Abdominal location: unspecified location Qualified Code(s): R10.9 - Unspecified abdominal pain (5) Diarrhea Current Visit: Yes Status: Acute Assessment and plan: 1 we will obtain GI panel as well as stool for ova and parasites Qualifiers: Diarrhea type: presumed infectious Qualified Code(s): R19.7 - Diarrhea, unspecified (6) Intractable nausea and vomiting Current Visit: Yes Status: Acute Assessment and plan: 1 this is improved continue with antiemetics as well as IV fluids Patient is taking full liquid diet advance as tolerated Qualifiers: Vomiting type: unspecified Qualified Code(s): R11.2 - Nausea with vomiting , unspecified - Subjective Interval history: I reviewed the records and examined the patient at bedside He complains of L sided abd pain radiating down into his R testical. Rates 8/10 Denies any N/V/D at this time, Tolerating full liquid diet. - Constitutional Vitals: Temp Pulse Resp BP Pulse Ox 97.6 F 85 18 106/72 96 04/20/17 15:00 04/20/17 15:00 04/20/17 15:00 04/20/17 15:00 04/20/17 15:00 General appearance: Present: cooperative, mild distress, A&O X 3, pleasant, underweight, answers questions appropriately - Head Head exam: Present: atraumatic, normocephalic - Eye Eye exam: Present: PERRL, conjuntiva pink, sclera anicteric Pupils: Present: PERRL - Neck Neck exam general surgery: Present: supple, trachea midline. Absent: lymphadenopathy - Respiratory Respiratory exam: Present: CTAB. Absent: accessory muscle use, rales, rhonchi, wheezes - Cardiovascular Cardiovascular exam: Present: RRR, +S1, +S2. Absent: diastolic murmur, gallop, rubs, systolic murmur - GI/Abdominal GI/Abdominal exam: Present: normal bowel sounds, soft, tenderness, no peritoneal signs. Absent: distended - exam: Present: testicular tenderness - Extremities Exam Extremities exam: Present: warm, radial pulses palpable and symmetrical. Absent : calf tenderness, cyanotic, pedal edema - Neurological Exam Neurological exam: Present: CN II-XII intact, oriented X3, no focal deficits. Absent: pronater drift, facial droop, speech deficit - Skin Skin exam: Present: dry, intact Internal Medicine: Result - Labs CBC & Chem 7: 04/20/17 04:21 04/20/17 04:21 Labs: Short CBC 04/20/17 Range/Units 04:21 WBC 3.6 L (4.3-11.1) K/mcL Hgb 11.9 L (12.9-16.9) g/dL Hct 36.1 L (37.5-50.1) % Plt Count 93 L (140-400) K/mcL Neutrophils # 1.8 (1.6-8.9) K/mcL BMP 04/20/17 04:21 Sodium 140 Potassium 3.9 Chloride 111 H Carbon Dioxide 29 BUN 10 Creatinine 0.98 Glucose 91 Calcium 8.7 Liver Function 04/20/17 Range/Units 04:21 Total Bilirubin 0.5 (0.3-1.0) mg/dL AST 26 (13-39) Units/L ALT 24 (7-52) Units/L Alkaline Phosphatase 62 (34-104) Units/L Albumin 3.7 (3.5-5.7) g/dL - Impressions Impressions Scrotum Ultrasound 04/20/17 07:30 IMPRESSION: No evidence of testicular torsion or mass. Some increased vascularity of the epididymal heads right greater than left questioning epididymitis. D/ / 04/20/2017 14:01:49 Adan Olvera MD / quentin Interpreting Provider: Adan Olvera MD Consult Discharge Plan - Plan Referrals: Belinda Stuart [Primary Care Provider] -
[2017-04-20] MEDS: *HR* Promethazine 25 MG/ML VIAL IVP PRN (18:08)
[2017-04-20] MEDS ORDERED: Acetaminophen 325 MG TABLET PO PRN (18:09)
[2017-04-20] MEDS: Levofloxacin 750 MG/150 ML 750 MG/150 ML BAG IVPB SCH (18:09)
[2017-04-20] MEDS: *HR* OxyCODONE Immed Rel 5 MG TABLET PO PRN (18:35)
[2017-04-21] MEDS: *HR* OxyCODONE Immed Rel 5 MG TABLET PO PRN ×4 (00:36→18:37)
[2017-04-21] MEDS: 0.9 % Sodium Chloride 1,000 ML IVC SCH ×3 (00:38→20:13)
[2017-04-21 06:21] LABS: Basophils % 0.3 %; Eosinophils # 0.1 K/mcL (0.0-0.6); Hematocrit 38.7 % (37.5-50.1); Hemoglobin 12.5 g/dL (12.9-16.9); Lymphocytes # 1.4 K/mcL (0.6-4.6); Lymphocytes % 45.9 %; Mean Corpuscular HGB Conc 32.3 g/dL (31.6-35.5); Mean Corpuscular Hemoglobin 32.1 pg (28.0-33.3); Mean Corpuscular Volume 99.5 fL (83.0-100.0); Mean Platelet Volume 10.4 fL (9.4-12.4); Monocytes # 0.4 K/mcL (0.0-1.3); Monocytes % 12.7 %; Neutrophils # 1.2 K/mcL (1.6-8.9); Platelet Count 101 K/mcL (140-400); Red Blood Count 3.89 M/mcL (4.19-5.50); Segmented Neutrophils % 39.1 %
[2017-04-21] MEDS: Pantoprazole 40 MG VIAL IVP SCH ×2 (06:33→18:37)
[2017-04-21 07:02] LABS: Alanine Aminotransferase 36 Units/L (7-52); Albumin/Globulin Ratio 1.5 (1.1-2.2); Alkaline Phosphatase 63 Units/L (34-104); Aspartate Amino Transferase 35 Units/L (13-39); BUN/Creatinine Ratio 11 (6-26); Bilirubin,Total 0.5 mg/dL (0.3-1.0); Blood Urea Nitrogen 13 mg/dL (6-20); Calcium 9.1 mg/dL (8.6-10.3); Chloride 106 mEq/L (98-107); Globulin 2.6 g/dL (2.4-3.5); Glucose 104 mg/dL (70-105); Osmolality,Calculated 294 (280-300); Potassium 3.8 mEq/L (3.5-5.1); Sodium 142 mEq/L (136-145); Total Protein 6.6 g/dL (6.4-8.9); eGFR For African Americans > 60 (> 60); eGFR For Non-African Americans > 60 (> 60)
[2017-04-21] MEDS: Levofloxacin 750 MG/150 ML 750 MG/150 ML BAG IVPB SCH (09:43)
[2017-04-21] MEDS: Cholecalciferol (D-3) 1,000 UNIT TABLET PO SCH (09:44)
[2017-04-21] MEDS: clonazePAM 1 MG TABLET PO PRN ×2 (09:44→20:10)
[2017-04-21] MEDS: RALTEGRAVIR POTASSIUM 400 MG TABLET PO SCH ×2 (09:45→20:06)
[2017-04-21 10:14] LABS: Carbon Dioxide 30 mEq/L (23-29)
--- NOTE | 2017-04-21 10:55 | Internal Med Progress Note ---
Date of Encounter: 04/24/17 Time of Encounter: 10:48 - Assessment and plan (1) Epididymitis Status: Acute Assessment and plan: 1 patient has been complaining of right lower abdominal pain radiating down to right scrotum. Significant nausea vomiting diarrhea for approximately one week. -Ultrasound of scrotum/testicles-some increased vascularity of the epididymal heads right greater than left questioning epididymitis. Patient has history of HIV- he states he is not sexually active-does have some dysuria denies any drainage 2 we will obtain urine culture as well as urine gonorrhea/chlamydia-awaiting culture results-if positive we will initiate on doxycycline 3 we will initiate on Levaquin (2) HIV (human immunodeficiency virus infection) Status: Chronic Assessment and plan: Patient has history of HIV was diagnosed at age 21 he is unsure of his viral load-states that he takes his medications as prescribed and does not miss doses , however since he has been experiencing nausea and vomiting had some difficulty taking medications Presently on Truvada and Isentress which we will continue (3) Seizure disorder Status: Chronic Assessment and plan: 1 No seizure activity noted continue with home antiepileptics Seizure precautions (4) Abdominal pain Status: Acute Assessment and plan: This is most likely related to the epididymitis as well as pancreatitis- continue to have right quadrant tenderness on palpation describing it radiating to his right testicle. Continue with pain medications Qualifiers: Abdominal location: unspecified location Qualified Code(s): R10.9 - Unspecified abdominal pain (5) Diarrhea Status: Acute Assessment and plan: 1 we will obtain GI panel as well as stool for ova and parasites- Patient has not had any stools since admission Qualifiers: Diarrhea type: presumed infectious Qualified Code(s): R19.7 - Diarrhea, unspecified (6) Intractable nausea and vomiting Status: Acute Assessment and plan: 1 this is improved continue with antiemetics as well as IV fluids Patient is taking full liquid diet advance as tolerated Qualifiers: Vomiting type: unspecified Qualified Code(s): R11.2 - Nausea with vomiting , unspecified (7) Pancreatitis Status: Acute Assessment and plan: lipase was 120 on admission, this is more elevated than previous visit. We will give IV fluids . Patient appears to be tolerating liquids with no N/V, cont to have some tenderness to R quadrant on palpation Qualifiers: Chronicity: acute Pancreatitis type: unspecified pancreatitis type Acute pancreatitis complication: unspecified Qualified Code(s): K85.90 - Acute pancreatitis without necrosis or infection, unspecified - Time Spent With Patient less than 15 minutes - Subjective Interval history: I examined the patient at bedside He continues to complain of pain radiating to testicle however feels it has improved with medications. Tolerating liquids- ambulating in room without difficulty. Has not had any loose stools nausea or vomiting - Constitutional Vitals: Temp Pulse Resp BP Pulse Ox 98.3 F 98 14 93/60 95 04/21/17 05:50 04/21/17 05:50 04/21/17 05:50 04/21/17 05:50 04/21/17 05:50 General appearance: Present: cooperative, mild distress, A&O X 3, pleasant, underweight, answers questions appropriately - Head Head exam: Present: atraumatic, normocephalic - Eye Eye exam: Present: PERRL, conjuntiva pink, sclera anicteric Pupils: Present: PERRL - Neck Neck exam general surgery: Present: supple, trachea midline. Absent: lymphadenopathy - Respiratory Respiratory exam: Present: CTAB. Absent: accessory muscle use, rales, rhonchi, wheezes - Cardiovascular Cardiovascular exam: Present: RRR, +S1, +S2. Absent: diastolic murmur, gallop, rubs, systolic murmur - GI/Abdominal GI/Abdominal exam: Present: normal bowel sounds, soft, tenderness, no peritoneal signs. Absent: distended - Extremities Exam Extremities exam: Present: warm, radial pulses palpable and symmetrical. Absent : calf tenderness, cyanotic, pedal edema - Neurological Exam Neurological exam: Present: CN II-XII intact, oriented X3, no focal deficits. Absent: pronater drift, facial droop, speech deficit - Skin Skin exam: Present: dry, intact Internal Medicine: Result - Labs CBC & Chem 7: 04/22/17 04:12 04/22/17 04:12 Labs: Short CBC 04/21/17 Range/Units 05:10 WBC 3.1 L (4.3-11.1) K/mcL Hgb 12.5 L (12.9-16.9) g/dL Hct 38.7 (37.5-50.1) % Plt Count 101 L (140-400) K/mcL Neutrophils # 1.2 L (1.6-8.9) K/mcL BMP 04/21/17 05:10 Sodium 142 Potassium 3.8 Chloride 106 Carbon Dioxide 30 H BUN 13 Creatinine 1.15 Glucose 104 Calcium 9.1 Liver Function 04/21/17 Range/Units 05:10 Total Bilirubin 0.5 (0.3-1.0) mg/dL AST 35 (13-39) Units/L ALT 36 (7-52) Units/L Alkaline Phosphatase 63 (34-104) Units/L Albumin 4.0 (3.5-5.7) g/dL - Impressions Impressions Scrotum Ultrasound 04/20/17 07:30 IMPRESSION: No evidence of testicular torsion or mass. Some increased vascularity of the epididymal heads right greater than left questioning epididymitis. D/ / 04/20/2017 14:01:49 Adan Olvera MD / quentin Interpreting Provider: Adan Olvera MD Consult Discharge Plan - Plan Instructions: Doxycycline (By mouth), Pancreatitis (DC), Epididymitis (DC), Acute Nausea and Vomiting (DC), Acute Diarrhea (GEN) Referrals: Belinda Stuart [Primary Care Provider] - 05/09/17 11:30 am Prescriptions: Doxycycline 100 mg PO BID #10 capsule
[2017-04-21] MEDS: *HR* Promethazine 25 MG/ML VIAL IVP PRN (13:27)
[2017-04-21] MEDS: *HR* HYDROcodone/Acet 5/325 mg TABLET PO PRN (20:10)
[2017-04-22] MEDS: *HR* OxyCODONE Immed Rel 5 MG TABLET PO PRN ×2 (01:59→09:31)
[2017-04-22 04:52] LABS: Basophils % 0.3 %; Eosinophils % 1.3 %; Hematocrit 39.3 % (37.5-50.1); Hemoglobin 12.9 g/dL (12.9-16.9); Immature Granulocytes % 0.3 % (0-4); Lymphocytes # 1.5 K/mcL (0.6-4.6); Lymphocytes % 48.2 %; Mean Corpuscular HGB Conc 32.8 g/dL (31.6-35.5); Mean Corpuscular Hemoglobin 32.1 pg (28.0-33.3); Mean Corpuscular Volume 97.8 fL (83.0-100.0); Mean Platelet Volume 10.2 fL (9.4-12.4); Monocytes # 0.4 K/mcL (0.0-1.3); Monocytes % 12.6 %; Neutrophils # 1.2 K/mcL (1.6-8.9); Platelet Count 105 K/mcL (140-400); Red Blood Count 4.02 M/mcL (4.19-5.50); Red Cell Distribution Width 13.8 % (11.5-14.5); Segmented Neutrophils % 37.3 %
[2017-04-22 05:09] LABS: Alanine Aminotransferase 42 Units/L (7-52); Albumin 4.2 g/dL (3.5-5.7); Albumin/Globulin Ratio 1.6 (1.1-2.2); Alkaline Phosphatase 74 Units/L (34-104); Aspartate Amino Transferase 35 Units/L (13-39); BUN/Creatinine Ratio 12 (6-26); Bilirubin,Total 0.4 mg/dL (0.3-1.0); Blood Urea Nitrogen 15 mg/dL (6-20); Calcium 9.3 mg/dL (8.6-10.3); Carbon Dioxide 33 mEq/L (23-29); Chloride 102 mEq/L (98-107); Globulin 2.7 g/dL (2.4-3.5); Glucose 107 mg/dL (70-105); Osmolality,Calculated 291 (280-300); Potassium 4.3 mEq/L (3.5-5.1); Sodium 140 mEq/L (136-145); Total Protein 6.9 g/dL (6.4-8.9); eGFR For African Americans > 60 (> 60); eGFR For Non-African Americans > 60 (> 60)
[2017-04-22] MEDS: Pantoprazole 40 MG VIAL IVP SCH (05:56)
[2017-04-22] MEDS: *HR* HYDROcodone/Acet 5/325 mg TABLET PO PRN (06:17)
[2017-04-22] MEDS: clonazePAM 1 MG TABLET PO PRN (06:17)
[2017-04-22] MEDS: Levofloxacin 750 MG/150 ML 750 MG/150 ML BAG IVPB SCH (09:29)
[2017-04-22] MEDS: RALTEGRAVIR POTASSIUM 400 MG TABLET PO SCH (09:29)
[2017-04-22] MEDS: Cholecalciferol (D-3) 1,000 UNIT TABLET PO SCH (09:30)
[2017-04-22] MEDS: 0.9 % Sodium Chloride 1,000 ML IVC SCH ×2 (10:44→11:00)
--- NOTE | 2017-04-22 11:08 | Discharge Summary ---
- NOTES TO OUTPATIENT PROVIDER Notes to Outpatient Provider: Patient was observed by nursing staff attempting to"pocket"oxycodone, he was not discharged with any narcotics and was advised to take OTC pain relief. Orders not resulted at time of discharge: Pending orders 04/19/17 19:33 HIV-1 Viral Load Routine 04/20/17 15:48 Culture,Urine [RM] Routine Date of Encounter: 04/22/17 Time of Encounter: 11:05 - Discharge Diagnosis (1) Drug-seeking behavior Priority: Secondary Status: Acute Comments: Nursing staff witnessed patient attempting to hide Oxycodone and wants clock this morning- upon review of records it appears the patient has past history of drug-seeking behavior. Due to this event I reviewed [facility] records it appears that the patient was discharged from Dr Thomson practice after attempting to alter a prescription that was presented to [facility] pharmacy. I advised the patient that he will not be going home with any narcotic prescriptions he is to take OTC pain medication. I also advised him that I would be sending notification to PCP. (2) Epididymitis Priority: Primary Status: Acute Comments: 1 patient will be sent home with Doxycycline for 10 days 2 urine gonorrhea/chlamydia-negative 3 follow-up with PCP (3) HIV (human immunodeficiency virus infection) Priority: Secondary Status: Chronic Comments: Patient will continue with home medications and follow-up with physician (4) Seizure disorder Priority: Primary Status: Chronic Comments: 1 continue with Keppra (5) Abdominal pain Priority: Secondary Status: Acute Comments: 1 this has improved continue to complain of some mild pain right abdominal quadrant radiating down to right groin Qualifiers: Abdominal location: unspecified location Qualified Code(s): R10.9 - Unspecified abdominal pain (6) Diarrhea Priority: Secondary Status: Acute Comments: 1 patient has not had a bowel movement since admission-resolved Qualifiers: Diarrhea type: presumed infectious Qualified Code(s): R19.7 - Diarrhea, unspecified (7) Intractable nausea and vomiting Priority: Secondary Status: Acute Comments: 1 patient has been tolerating meals actually requesting to order a pizza-no nausea or vomiting witnessed by nursing staff Qualifiers: Vomiting type: unspecified Qualified Code(s): R11.2 - Nausea with vomiting , unspecified (8) Pancreatitis Priority: Primary Status: Acute Comments: Lipase is trending down-92 today-he is tolerating regular diet pain is controlled Qualifiers: Chronicity: acute Pancreatitis type: unspecified pancreatitis type Acute pancreatitis complication: unspecified Qualified Code(s): K85.90 - Acute pancreatitis without necrosis or infection, unspecified Hospital course: Mr. Dyer is a 36 year old male past medical history of hepatitis HIV/AIDS seizures as well as psychiatric history of anxiety and bipolar prior suicide attempt in previous psychiatric hospitalization. Patient originally presented to the ER with complaints of nausea vomiting diarrhea for the past 10-11 days. He was seen at urgent care was given Zofran and Reglan which did not help any of his symptoms he was experiencing right lower quadrant pain which was sharp and intermittent and radiating to his right testicle. He had no aggravating or relieving factors. He underwent a CT of his abdomen which did not reveal no acute abnormalities-lab work did reveal elevated lipase at 120. Urine screen for gonorrhea and chlamydia are negative He had a scrotal ultrasound which did show some increased vascularity of the epididymal heads right greater than left questioning epididymitis. He was admitted and given IV fluids and antiemetics and Levaquin. His lipase has been trending down he has been tolerating a regular diet and ambulating in the hallways. Noted by nursing staff patient attempting to pocket oxycodone. Upon review of records it appears patient does have a history of drug-seeking behavior. His vital signs have been stable with no fever or tachycardia he did have a few episodes of some hypotension which did resolve. I reviewed medications and follow-up appointments with the patient. I did advise patient he will not be receiving any narcotic prescriptions and that his PCP will be notified.Patient is ready for discharge - Time Spent with Patient Total time spent providing and/or coordinating discharge services: - Discharge Medications Prescriptions: Doxycycline 100 mg PO BID #10 capsule Home Medications: Emtricitabine/Tenofovir [Truvada] 1 each PO DAILY 11/18/14 [History] Raltegravir Potassium [Isentress] 400 mg PO BID 05/17/15 [History] clonazePAM [Klonopin] 1 mg PO BID PRN 01/04/17 [History] Quetiapine Fumarate [Seroquel] 300 mg PO HS 02/11/17 [History] Cholecalciferol (Vitamin D3) [Vitamin D3] 10,000 unit PO DAILY 04/19/17 [History ] Escitalopram [Lexapro] 15 mg PO DAILY 04/19/17 [History] LevETIRAcetam [Keppra] 500 mg PO BID 04/19/17 [History] Metoclopramide [Reglan] 10 mg PO TID 04/19/17 [History] Quetiapine Fumarate [Seroquel] 200 mg PO DAILY 04/19/17 [History] Zolpidem [Ambien] 10 mg PO HS 04/19/17 [History] Doxycycline 100 mg PO BID #10 capsule 04/22/17 [Rx] Allergies/Adverse Reactions: 3 Allergy/AdvReac Type Severity Reaction Status Date / Time dicyclomine [From Bentyl] Allergy Hives Verified 03/18/17 13:20 ketorolac [From Toradol] Allergy Hives Verified 03/18/17 13:20 tramadol Allergy Hives Verified 03/18/17 13:20 Date of admission: 04/19/17 18:31 Primary care physician: Belinda Francisco Discharging clinician: Stacie Max Anticipated date of discharge: 04/22/17 - Constitutional Vitals: Temp Pulse Resp BP Pulse Ox 98.0 F 102 16 118/80 94 04/22/17 06:55 04/22/17 09:18 04/22/17 09:18 04/22/17 09:18 04/22/17 09:31 General appearance: Present: cooperative, mild distress, A&O X 3, pleasant, underweight, answers questions appropriately - Patient Status Disposition: Home, Self-Care Condition: Good Functional capacity at discharge: independent ambulation Overall status at discharge: patient is back to baseline - Discharge Instructions Instructions: Doxycycline (By mouth), Pancreatitis (DC), Epididymitis (DC), Acute Nausea and Vomiting (DC), Acute Diarrhea (GEN) Follow Up With: Belinda Stuart [Primary Care Provider] - 05/09/17 11:30 am
[2017-04-22 11:13] VITALS: BP 103/57
[2017-04-22 15:28] LABS: HIV-1 Viral Load Interp NOT DETECTED (Not Detected)
== END 2017-04-22 12:28 | disposition home or self-care (01) | DRG 282 ==
LOC: EMEROO 11:01 → 3NENU 11:01 → INTOOBSV 17:14 → OBSVTOIN 17:14 → 3NENU 18:16 → 1NENUPED 22:52 → 3ANU 04-20 14:25
PROVIDERS: ADMIT Internal Medicine; ATTEND Family Medicine

== ENCOUNTER 2017-05-29 15:34 | Observation (INO) ==
[2017-05-29] MEDS ORDERED: *HR* FentaNYL (PF) 100 MCG/2 ML VIAL IM ONE ×2 (16:23→17:29)
[2017-05-29] MEDS ORDERED: Ondansetron ODT 4 MG TAB.RAPDIS SL ONE (16:23)
[2017-05-29 16:45] LABS: Basophils % 0.5 %; Eosinophils # 0.1 K/mcL (0.0-0.6); Eosinophils % 0.8 %; Hematocrit 46.3 % (37.5-50.1); Hemoglobin 15.4 g/dL (12.9-16.9); Immature Granulocytes % 0.5 % (0-4); Lymphocytes # 1.7 K/mcL (0.6-4.6); Lymphocytes % 25.6 %; Mean Corpuscular HGB Conc 33.3 g/dL (31.6-35.5); Mean Corpuscular Hemoglobin 31.9 pg (28.0-33.3); Mean Corpuscular Volume 95.9 fL (83.0-100.0); Mean Platelet Volume 10.1 fL (9.4-12.4); Monocytes # 0.7 K/mcL (0.0-1.3); Monocytes % 10.7 %; Neutrophils # 4.1 K/mcL (1.6-8.9); Platelet Count 197 K/mcL (140-400); Red Blood Count 4.83 M/mcL (4.19-5.50); Red Cell Distribution Width 14.5 % (11.5-14.5); Segmented Neutrophils % 61.9 %
[2017-05-29 16:49] LABS: Bilirubin,Urine Negative (Negative); Blood,Urine Negative (Negative); Clarity,Urine Clear (Clear); Color,Urine Yellow (Yellow); Glucose,Urine (UA) Normal (Normal); Ketones,Urine Negative (Negative); Leukocyte Esterase,Urine Negative (Negative); Nitrite,Urine Negative (Negative); Protein,Urine Negative (Neg-Trace)
--- NOTE | 2017-05-29 17:27 | Emergency Department Note ---
Disposition Clinical Impression: Intractable abdominal pain Acute pancreatitis Qualifiers: Pancreatitis type: unspecified pancreatitis type Acute pancreatitis complication: no infection or necrosis Qualified Code(s): K85.90 - Acute pancreatitis without necrosis or infection, unspecified Disposition: Admitted As Inpatient Condition: Fair Time of Disposition: 19:03 Abdominal Pain HPI - General Chief Complaint: ED Abdominal Pain Stated Complaint: Abdominal pain Time Seen by Provider: 05/29/17 16:07 Source: patient Mode of arrival: ambulatory Limitations: no limitations Vital Signs Reviewed: Yes - History of Present Illness HPI Narrative: Kolby Dyer is a 36-year-old male who was discharged 2 days ago from [facility] following an episode of hepatic failure related to acetaminophen overdose who presents with returning right upper quadrant abdominal pain. Patient states that the pain is not out of 10 in intensity, "like a hot butter knife" in quality, and radiates to his back. He states that comes in waves. It is accompanied by nausea, vomiting, and chills. He denies fever and shortness of breath. He has been taking oxycodone without acetaminophen for pain and Zofran for nausea, which has helped. Pain Scale: 7 - Related Data Home Medications Medication Instructions Recorded Confirmed Emtricitabine/Tenofovir [Truvada] 1 tab PO DAILY 11/18/14 05/24/17 Raltegravir Potassium [Isentress] 400 mg PO BID 05/17/15 05/24/17 clonazePAM [Klonopin] 1 mg PO BID PRN 01/04/17 05/24/17 Quetiapine Fumarate [Seroquel] 300 mg PO HS 02/11/17 05/24/17 Cholecalciferol (Vitamin D3) 10,000 unit PO DAILY 04/19/17 05/24/17 [Vitamin D3] Escitalopram [Lexapro] 15 mg PO DAILY 04/19/17 05/24/17 LevETIRAcetam [Keppra] 500 mg PO BID 04/19/17 05/24/17 Metoclopramide [Reglan] 10 mg PO TID 04/19/17 05/24/17 Previous Rx's Medication Instructions Recorded OxyCODONE Immed Rel [Roxicodone 5 10 mg PO Q4HR PRN 4 Days #24 tablet 05/15/17 MG] levoFLOXacin [Levaquin] 750 mg PO DAILY #4 tablet 05/15/17 Allergies Allergy/AdvReac Type Severity Reaction Status Date / Time acetaminophen [From Tylenol] Allergy Hives Verified 05/29/17 16:00 dicyclomine [From Bentyl] Allergy Hives Verified 05/29/17 16:00 ketorolac [From Toradol] Allergy Hives Verified 05/29/17 16:00 tramadol Allergy Hives Verified 05/29/17 16:00 All systems ED: reviewed and negative except as stated. Constitutional: Reports: chills. Denies: fever Respiratory: Denies: dyspnea Gastrointestinal: Reports: abdominal pain, nausea, vomiting Neurological: Denies: headache Abdominal Pain PMH - Past Medical History Medical history: Reports: hepatitis, HIV/AIDS, seizures, other Male Surgical History: Reports: other Psychiatric history: Reports: anxiety, depression, prior suicide attempt, previous psychiatric hospitalization - Social History Smoking status: Current every day smoker Alcohol use: Reports: occasionally Drug use: Reports: none Physical Exam - General Limitations: no limitations General appearance: alert, in no apparent distress - Head Head exam: atraumatic, normocephalic - Respiratory Respiratory exam: Present: normal lung sounds bilaterally. Absent: respiratory distress, accessory muscle use - Cardiovascular Cardiovascular exam: Present: regular rate, normal rhythm, normal heart sounds, +S1, +S2 - Abdominal Exam Abdominal exam: Present: soft, tenderness, guarding. Absent: distention, rebound Abdominal tenderness: Present: RUQ, moderate, severe - Neurological Exam Neurological exam: Present: alert, oriented X3 - Psychiatric Psychiatric exam: Present: normal affect, normal mood - Skin Skin exam: Present: warm, dry Course Course Narrative: Patient presents with abdominal pain following recent discharge from [facility] with acute hepatic failure. On abdominal exam, he has some guarding of the RUQ. Ordered CT abd/pelv. Ordered BMP, CBC, hepatic panel, amylase, lipase, acetaminophen level, and urinalysis. CT without abnormal findings. Patient administered 2 separate doses of fentanyl 25 mcg without significant improvement. Zofran administered for nausea. Both amylase and lipase returned elevated, consistent with acute pancreatitis. Liver panel is trending down compared to results from 05/24/17, when he first presented with hepatic failure to [place]. Case discussed with admitting hospitalist, who accepted the patient. Patient administered another dose of fentanyl 50 mcg. Patient to be kept NPO. Vital Signs Temperature 98.1 F 05/29/17 16:00 Pulse Rate 103 05/29/17 16:00 Respiratory Rate 16 05/29/17 16:00 Blood Pressure 126/81 05/29/17 16:00 O2 Sat by Pulse Oximetry 97 05/29/17 16:00 Temperature 98.1 F 05/29/17 16:00 Pulse Rate 103 05/29/17 16:00 Respiratory Rate 16 05/29/17 16:00 Blood Pressure 126/81 05/29/17 16:00 O2 Sat by Pulse Oximetry 97 05/29/17 16:00 Oxygen Delivery Oxygen Delivery Room Air Abdominal Pain - Lab Data Lab results reviewed: Yes I reviewed the patient's lab results. Result diagrams: 05/29/17 16:23 05/29/17 16:23 Lab Results 05/29/17 05/29/17 05/29/17 Range/Units 16:23 16:23 16:36 WBC 6.6 (4.3-11.1) K/mcL RBC 4.83 (4.19-5.50) M/mcL Hgb 15.4 (12.9-16.9) g/dL Hct 46.3 (37.5-50.1) % MCV 95.9 (83.0-100.0) fL MCH 31.9 (28.0-33.3) pg MCHC 33.3 (31.6-35.5) g/dL RDW 14.5 (11.5-14.5) % Plt Count 197 (140-400) K/mcL MPV 10.1 (9.4-12.4) fL Immature Gran % 0.5 (0-4) % Seg Neutrophils % 61.9 % Lymphocytes % 25.6 % Monocytes % 10.7 % Eosinophils % 0.8 % Basophils % 0.5 % Neutrophils # 4.1 (1.6-8.9) K/mcL Lymphocytes # 1.7 (0.6-4.6) K/mcL Monocytes # 0.7 (0.0-1.3) K/mcL Eosinophils # 0.1 (0.0-0.6) K/mcL Basophils # 0.0 (0.0-0.2) K/mcL Sodium 137 (136-145) mEq/L Potassium 4.1 (3.5-5.1) mEq/L Chloride 102 (98-107) mEq/L Carbon Dioxide 28 (23-29) mEq/L BUN 6 (6-20) mg/dL Creatinine 0.98 (0.70-1.30) mg/dL Est GFR ( Amer) > 60 (> 60) Est GFR (Non-Af Amer) > 60 (> 60) BUN/Creatinine Ratio 6 (6-26) Glucose 93 (70-105) mg/dL Calculated Osmolality 281 (280-300) Calcium 10.4 H (8.6-10.3) mg/dL Total Bilirubin 0.9 (0.3-1.0) mg/dL Direct Bilirubin 0.3 H (0.0-0.2) mg/dL Indirect Bilirubin 0.6 (0.0-1.2) mg/dL AST 54 H (13-39) Units/L ALT > 500 H (7-52) Units/L Alkaline Phosphatase 64 (34-104) Units/L Serum Total Protein 8.3 (6.4-8.9) g/dL Albumin 5.1 (3.5-5.7) g/dL Globulin 3.2 (2.4-3.5) g/dL Albumin/Globulin Ratio 1.6 (1.1-2.2) Amylase 111 H (29-103) Units/L Lipase 208 H (11-82) Units/L Urine Color Yellow (Yellow) Urine Clarity Clear (Clear) Urine pH 7.0 (5.0-8.0) pH Units Ur Specific [place] 1.020 (1.010-1.025) Urine Protein Negative (Neg-Trace) mg/dL Urine Glucose (UA) Normal (Normal) mg/dL Urine Ketones Negative (Negative) mg/dL Urine Blood Negative (Negative) Urine Nitrite Negative (Negative) Urine Bilirubin Negative (Negative) Urine Urobilinogen 2.0 H (Normal) mg/dL Ur Leukocyte Esterase Negative (Negative) Ur Culture Indicated? NO (NO) Acetaminophen < 10 L (10-20) mcg/mL - Radiology Data Radiology results reviewed: Yes I reviewed the patient's radiology results. Abdomen/Pelvis CT 05/29/17 16:23 IMPRESSION: No acute intra-abdominal abnormality. No significant change D/ / Brendan Yin MD / Brendan Yin MD Interpreting Provider: Brendan Yin MD - EKG Data EKG attestation: Yes I reviewed and interpreted this EKG. Critical Care Time Critical Care Time: Yes Total Critical Care Time: 35 Attestation: Critical care time is 35 minutes managing patient's acute pancreatitis. Attestation Statement - Attestation Attestation: Patient was seen with resident physician. I reviewed the history, physical, assessment and plan, and agree with the findings. I also personally evaluated this patient and had [id number] time with this patient. 36-year-old male recently diagnosed with liver failure secondary to Tylenol overdose. Also the history of hepatitis and HIV presents today with intractable right upper quadrant and midepigastric abdominal pain. He was seen in the [place] transfer to [facility] and discharged several days ago. He does have pain medicine he says no longer working. Also having nausea and vomiting which ultimately prompted his return to the emergency department. No fevers or chills. Vital signs mild tachycardia blood pressure stable. Heart regular rhythm and rate. Lungs clear. Abdomen is tender in the midepigastric and right upper quadrant with some guarding no rigidity. Remainder the abdomen is soft. Extremities unremarkable. Neurologically intact with no focal deficits. Skin no rashes. Psych normal patient appears uncomfortable. ED course CT scan did not reveal any acute abnormalities. Labs however revealed acute pancreatitis. His LFTs seem to be trending in the proper direction when compared to old ones. Having said this of the patient's intractable pain despite multiple treatments with narcotic pain medication, and active pancreatitis, and recent liver disease and failure, we opted to admit the patient to the hospitalist service for pain management and IV therapy. Hemodynamically he remained stable while in the emergency department. Agree with the resident physician assessment and plan. The hospitalist service was notified as to the need for admission.
[2017-05-29 17:37] LABS: Alanine Aminotransferase > 500 Units/L (7-52); Albumin 5.1 g/dL (3.5-5.7); Albumin/Globulin Ratio 1.6 (1.1-2.2); Alkaline Phosphatase 64 Units/L (34-104); Amylase 111 Units/L (29-103); Aspartate Amino Transferase 54 Units/L (13-39); BUN/Creatinine Ratio 6 (6-26); Bilirubin,Direct 0.3 mg/dL (0.0-0.2); Bilirubin,Indirect 0.6 mg/dL (0.0-1.2); Bilirubin,Total 0.9 mg/dL (0.3-1.0); Blood Urea Nitrogen 6 mg/dL (6-20); Calcium 10.4 mg/dL (8.6-10.3); Carbon Dioxide 28 mEq/L (23-29); Chloride 102 mEq/L (98-107); Globulin 3.2 g/dL (2.4-3.5); Glucose 93 mg/dL (70-105); Lipase 208 Units/L (11-82); Osmolality,Calculated 281 (280-300); Potassium 4.1 mEq/L (3.5-5.1); Sodium 137 mEq/L (136-145); Total Protein 8.3 g/dL (6.4-8.9); eGFR For African Americans > 60 (> 60); eGFR For Non-African Americans > 60 (> 60)
[2017-05-29 17:53] LABS: Acetaminophen < 10 mcg/mL (10-20)
[2017-05-29] MEDS ORDERED: *HR* FentaNYL (PF) 100 MCG/2 ML VIAL IVP ONE (19:02)
[2017-05-29] MEDS ORDERED: *HR* Promethazine 25 MG/ML VIAL IVP PRN (19:37)
[2017-05-29] MEDS ORDERED: OXYCODONE Oral CONC 10 MG/0.5 ML ORAL.SYG SL PRN (19:37)
[2017-05-29] MEDS ORDERED: Naloxone 0.4 MG/ML INJ IVP PRN (19:37)
[2017-05-29] MEDS ORDERED: Ondansetron 4 MG/2 ML VIAL IVP PRN (19:37)
[2017-05-29] MEDS: 0.9 % Sodium Chloride 1,000 ML IVC SCH (20:39)
--- NOTE | 2017-05-29 20:51 | Internal Med History&Physical ---
Date of Encounter: 05/29/17 Time of Encounter: 19:45 Internal Medicine - H&P: HPI Chief complaint: Abdominal pain Admitted From: Emergency Dept Plans for Post Hospital Care: Home History of present illness: Mr. Dyer is a 36 year old male with known PMH of hepatitis C, HIV/AIDS, seizures and chronic pancreatitis pt who was discharged 2 days ago from [facility] following an episode of hepatic failure related to acetaminophen overdose, now presented to our ER with c/o abdominal pain since y/d. His pain is 7/10 in severity, non radiating, located Rt UQ and will umbelical region, associated with some nausea and denied any vomiting. He denies fever and shortness of breath. He has been taking oxycodone without acetaminophen for pain and Zofran for nausea, which has helped. Here in the ER his lipase elevated @ 208. Past Med Surg Social Fam HX - Past Medical History Medical history: hepatitis, HIV/AIDS, seizures, other Psychiatric history: anxiety, depression, prior suicide attempt, previous psychiatric hospitalization - Past Surgical History Surgical History: no surgical history - Social History Smoking Status: Current every day smoker Packs per day: 2 Smokeless Tobacco Status: No Alcohol use: occasionally Drug use: none - Family History Mother Family Member Ethnicity: Non- Living Status: Still Living Hx Family Cancer: Yes (Breast, Lung, Lymphoma) Hx Family Endocrine Disorder: Yes (DM) Father Family Member Ethnicity: Non- Living Status: Still Living Hx Family Cardiac Disorders: Yes (HI, HTN) Hx Family Cancer: No Hx Family Endocrine Disorder: Yes (DM) Brother Family Member Ethnicity: Non- Living Status: Still Living Hx Family Cardiac Disorders: Yes (HTN) Sister Adopted: No Family Member Ethnicity: Non- Living Status: Still Living Internal Medicine - H&P: Meds Emtricitabine/Tenofovir [Truvada] 1 tab PO DAILY 11/18/14 [History] Raltegravir Potassium [Isentress] 400 mg PO BID 05/17/15 [History] clonazePAM [Klonopin] 1 mg PO BID PRN 01/04/17 [History] Quetiapine Fumarate [Seroquel] 300 mg PO HS 02/11/17 [History] Cholecalciferol (Vitamin D3) [Vitamin D3] 10,000 unit PO DAILY 04/19/17 [History ] Escitalopram [Lexapro] 15 mg PO DAILY 04/19/17 [History] LevETIRAcetam [Keppra] 500 mg PO BID 04/19/17 [History] Metoclopramide [Reglan] 10 mg PO TID 04/19/17 [History] OxyCODONE Immed Rel [Roxicodone 5 MG] 10 mg PO Q4HR PRN 4 Days #24 tablet [Rx] levoFLOXacin [Levaquin] 750 mg PO DAILY #4 tablet 05/15/17 [Rx] 3 Allergy/AdvReac Type Severity Reaction Status Date / Time acetaminophen [From Tylenol] Allergy Hives Verified 05/29/17 16:00 dicyclomine [From Bentyl] Allergy Hives Verified 05/29/17 16:00 ketorolac [From Toradol] Allergy Hives Verified 05/29/17 16:00 tramadol Allergy Hives Verified 05/29/17 16:00 All Systems PM: A 10-system review of systems was performed and is negative for pertinent findings except as documented above in the HPI. Review of systems: All the systems are reviewed everything is benign except the systems and symptoms I mentioned in the history of present illness - Constitutional Vitals: Temp Pulse Resp BP Pulse Ox 98.7 F 74 15 124/85 97 05/29/17 20:23 05/29/17 20:23 05/29/17 20:23 05/29/17 20:23 05/29/17 20:26 General appearance: Present: A&O X 3, no acute distress, answers questions appropriately - Head Head exam: Present: atraumatic, normal inspection - Neck Neck exam general surgery: Present: supple - Respiratory Respiratory exam: Present: decreased breath sounds. Absent: rales, rhonchi, wheezes - Cardiovascular Cardiovascular exam: Present: RRR, +S1, +S2. Absent: tachycardia - GI/Abdominal GI/Abdominal exam: Present: normal bowel sounds, soft, tenderness (RUQ and will umbelical). Absent: rebound, rigid - Extremities Exam Extremities exam: Absent: calf tenderness, pedal edema, tenderness - Back Exam Back exam: Absent: CVA tenderness (L), CVA tenderness (R) - Neurological Exam Neurological exam: Present: alert, oriented X3 - Psychiatric Psychiatric exam: Present: normal affect, normal mood - Skin Skin exam: Absent: rash Internal Med - H&P Results - Labs CBC & Chem 7: 05/29/17 16:23 05/29/17 16:23 - Assessment and plan (1) Acute pancreatitis Current Visit: Yes Status: Acute Assessment and plan: Place the pt into Med Surg He does have acute on chronic pancreatitis Reviewed CT of abd - no cholelithiasis.. Normal pancreatic ducts His pancreatitis mostly due HIV anti viral medications NPO for now IV hydration Need to f/u with his ID doctor to switch his HIV meds Will continue them for now IV and PO analgesics PRN for pain Qualifiers: Pancreatitis type: unspecified pancreatitis type Acute pancreatitis complication: no infection or necrosis Qualified Code(s): K85.90 - Acute pancreatitis without necrosis or infection, unspecified (2) Acetaminophen toxicity Current Visit: No Status: Acute Assessment and plan: recent tylenol overdose / and toxciity LFT's are still elevated cont trending on LFT's avoid Tylenol supplements Qualifiers: Encounter type: initial encounter Injury intent: undetermined intent Qualified Code(s): T39.1X4A - Poisoning by 4-Aminophenol derivatives, undetermined, initial encounter (3) Elevated LFTs Current Visit: No Status: Acute (4) History of AIDS Current Visit: No Status: Acute Assessment and plan: counseled to f/u with PCP and ID (5) Tobacco dependence Current Visit: No Status: Acute Assessment and plan: counseled to quit smoking on nicotine patch - Time Spent With Patient Total time spent is greater than 50% in coordination of care (as documented) at patient's floor/unit and/or counseling patient:
[2017-05-29] MEDS: RALTEGRAVIR POTASSIUM 400 MG TABLET PO SCH (21:40)
[2017-05-29] MEDS: Nicotine 21 MG PATCH.TD24 TD SCH (21:41)
[2017-05-29] MEDS: levETIRAcetam 250 MG TABLET PO SCH (21:41)
[2017-05-29] MEDS: clonazePAM 1 MG TABLET PO PRN (21:43)
[2017-05-29] MEDS: OXYCODONE Oral CONC 10 MG/0.5 ML ORAL.SYG SL PRN (22:46)
[2017-05-30] MEDS: *HR* FentaNYL (PF) 100 MCG/2 ML VIAL IVP PRN ×5 (00:52→22:44)
[2017-05-30] MEDS: OXYCODONE Oral CONC 10 MG/0.5 ML ORAL.SYG SL PRN ×2 (04:14→09:07)
[2017-05-30] MEDS: 0.9 % Sodium Chloride 1,000 ML IVC SCH (04:14)
[2017-05-30 05:53] LABS: Basophils % 0.2 %; Eosinophils # 0.1 K/mcL (0.0-0.6); Eosinophils % 1.7 %; Immature Granulocytes % 0.4 % (0-4); Lymphocytes # 1.8 K/mcL (0.6-4.6); Lymphocytes % 36.5 %; Mean Corpuscular Hemoglobin 31.9 pg (28.0-33.3); Mean Corpuscular Volume 96.6 fL (83.0-100.0); Mean Platelet Volume 10.3 fL (9.4-12.4); Monocytes # 0.6 K/mcL (0.0-1.3); Monocytes % 12.1 %; Neutrophils # 2.4 K/mcL (1.6-8.9); Platelet Count 138 K/mcL (140-400); Red Blood Count 4.14 M/mcL (4.19-5.50); Red Cell Distribution Width 14.6 % (11.5-14.5); Segmented Neutrophils % 49.1 %
[2017-05-30 06:07] LABS: Hemoglobin 13.2 g/dL (12.9-16.9)
[2017-05-30 06:14] LABS: Alanine Aminotransferase 389 Units/L (7-52); Albumin 4.2 g/dL (3.5-5.7); Albumin/Globulin Ratio 1.4 (1.1-2.2); Alkaline Phosphatase 56 Units/L (34-104); Aspartate Amino Transferase 39 Units/L (13-39); BUN/Creatinine Ratio 8 (6-26); Bilirubin,Total 0.9 mg/dL (0.3-1.0); Blood Urea Nitrogen 7 mg/dL (6-20); Calcium 9.3 mg/dL (8.6-10.3); Carbon Dioxide 33 mEq/L (23-29); Chloride 105 mEq/L (98-107); Chol/HDL Ratio 4.4 (0-4.9); Cholesterol 128 mg/dL (< 200); Globulin 2.9 g/dL (2.4-3.5); Glucose 85 mg/dL (70-105); HDL Cholesterol 29 mg/dL (40-59); LDL Cholesterol,Calculated 81 mg/dL (0-99); Magnesium 2.1 mg/dL (1.6-2.6); Osmolality,Calculated 283 (280-300); Potassium 3.9 mEq/L (3.5-5.1); Sodium 138 mEq/L (136-145); Total Protein 7.1 g/dL (6.4-8.9); Triglycerides 90 mg/dL (< 150); eGFR For African Americans > 60 (> 60); eGFR For Non-African Americans > 60 (> 60)
[2017-05-30 06:16] LABS: Amylase 86 Units/L (29-103); Lipase 144 Units/L (11-82)
[2017-05-30] MEDS: levETIRAcetam 250 MG TABLET PO SCH ×2 (07:48→20:20)
[2017-05-30] MEDS: Nicotine 21 MG PATCH.TD24 TD SCH (07:49)
[2017-05-30] MEDS: RALTEGRAVIR POTASSIUM 400 MG TABLET PO SCH ×2 (07:49→20:20)
[2017-05-30] MEDS ORDERED: OXYCODONE Oral CONC 10 MG/0.5 ML ORAL.SYG PO PRN ×2 (09:14)
[2017-05-30] MEDS: clonazePAM 1 MG TABLET PO PRN ×2 (10:41→22:48)
[2017-05-30] MEDS ORDERED: *HR* OxyCODONE Immed Rel 5 MG TABLET PO PRN (13:57)
[2017-05-30] MEDS: *HR* OxyCODONE Immed Rel 5 MG TABLET PO PRN (14:05)
--- NOTE | 2017-05-30 17:16 | Internal Med Progress Note ---
Date of Encounter: 05/30/17 Time of Encounter: 14:30 - Assessment and plan (1) Acute pancreatitis Current Visit: Yes Status: Acute Assessment and plan: CT abdomen/pelvis shows no acute abnormality. Serum lipase is mildly elevated. Start clear liquid diet, advance as tolerated. Low-fat diet. Supportive care with IV hydration, pain control with when necessary IV fentanyl and oral oxycodone. When necessary antiemetics. Pancreatitis is likely thought to be related to patient's antiretroviral medications. Qualifiers: Pancreatitis type: unspecified pancreatitis type Acute pancreatitis complication: no infection or necrosis Qualified Code(s): K85.90 - Acute pancreatitis without necrosis or infection, unspecified (2) Tobacco dependence Current Visit: Yes Status: Chronic Assessment and plan: Continue nicotine transdermal patch as needed. (3) History of AIDS Current Visit: Yes Status: Chronic Assessment and plan: Follows with ID as outpatient. Continue home medications, encouraged to discuss with his physician regarding any changes to medication regimen to prevent pancreatitis. (4) Acetaminophen toxicity Current Visit: Yes Status: Acute Assessment and plan: Reports recent admission to [facility] for liver failure secondary to acetaminophen toxicity and Tylenol overdose. Liver enzymes elevated at admission, slowly improving. Avoid Tylenol for now. Qualifiers: Encounter type: initial encounter Injury intent: undetermined intent Qualified Code(s): T39.1X4A - Poisoning by 4-Aminophenol derivatives, undetermined, initial encounter (5) Hep C w/o coma, chronic Current Visit: Yes Status: Chronic (6) Anxiety and depression Current Visit: Yes Status: Chronic - Time Spent With Patient Total time spent is greater than 50% in coordination of care (as documented) at patient's floor/unit and/or counseling patient: - Subjective Interval history: Improving nausea and abdominal pain; he stated feeling hungry, tolerates clear liquids; however continues to request for increasing dose of IV pain meds. - Constitutional Vitals: Temp Pulse Resp BP Pulse Ox 97.9 F 68 18 99/59 95 05/30/17 15:32 05/30/17 15:32 05/30/17 15:32 05/30/17 15:32 05/30/17 15:32 General appearance: Present: A&O X 3, no acute distress, answers questions appropriately - Respiratory Respiratory exam: Present: CTAB. Absent: accessory muscle use, rales, rhonchi, wheezes - Cardiovascular Cardiovascular exam: Present: RRR, +S1, +S2. Absent: diastolic murmur, gallop, rubs, systolic murmur - GI/Abdominal GI/Abdominal exam: Present: normal bowel sounds, soft (tenderness to light palpation in RLQ and RUQ), no peritoneal signs. Absent: distended, tenderness - Extremities Exam Extremities exam: Present: full ROM, warm, radial pulses palpable and symmetrical. Absent: calf tenderness, cyanotic, pedal edema Internal Medicine: Result - Labs CBC & Chem 7: 05/30/17 04:57 05/30/17 04:57 Labs: Short CBC 05/30/17 Range/Units 04:57 WBC 4.8 (4.3-11.1) K/mcL Hgb 13.2 D (12.9-16.9) g/dL Hct 40.0 (37.5-50.1) % Plt Count 138 L (140-400) K/mcL Neutrophils # 2.4 (1.6-8.9) K/mcL BMP 05/30/17 04:57 Sodium 138 Potassium 3.9 Chloride 105 Carbon Dioxide 33 H BUN 7 Creatinine 0.92 Glucose 85 Calcium 9.3 Liver Function 05/30/17 Range/Units 04:57 Total Bilirubin 0.9 (0.3-1.0) mg/dL AST 39 (13-39) Units/L ALT 389 H (7-52) Units/L Alkaline Phosphatase 56 (34-104) Units/L Albumin 4.2 (3.5-5.7) g/dL Consult Discharge Plan - Plan Referrals: NONE,PCP [Primary Care Provider] -
[2017-05-31] MEDS: *HR* OxyCODONE Immed Rel 5 MG TABLET PO PRN ×4 (00:47→13:33)
[2017-05-31] MEDS: *HR* FentaNYL (PF) 100 MCG/2 ML VIAL IVP PRN ×2 (04:03→11:43)
[2017-05-31] MEDS: Nicotine 21 MG PATCH.TD24 TD SCH (08:50)
[2017-05-31] MEDS: levETIRAcetam 250 MG TABLET PO SCH (08:50)
[2017-05-31] MEDS: RALTEGRAVIR POTASSIUM 400 MG TABLET PO SCH (08:50)
[2017-05-31 10:41] VITALS: BP 118/81
--- NOTE | 2017-05-31 15:27 | Discharge Summary ---
- NOTES TO OUTPATIENT PROVIDER Notes to Outpatient Provider: Acute pancreatitis Date of Encounter: 05/31/17 Time of Encounter: 15:24 - Discharge Diagnosis (1) Acute pancreatitis Priority: Primary Status: Acute Qualifiers: Pancreatitis type: drug induced Acute pancreatitis complication: no infection or necrosis Qualified Code(s): K85.30 - Drug induced acute pancreatitis without necrosis or infection (2) Tobacco dependence Priority: Secondary Status: Chronic (3) History of AIDS Priority: Secondary Status: Chronic (4) Acetaminophen toxicity Priority: Secondary Status: Inactive Qualifiers: Encounter type: initial encounter Injury intent: undetermined intent Qualified Code(s): T39.1X4A - Poisoning by 4-Aminophenol derivatives, undetermined, initial encounter (5) Hep C w/o coma, chronic Priority: Secondary Status: Chronic (6) Anxiety and depression Priority: Secondary Status: Chronic Hospital course: Mr. Dyer is a 36 year old male with the above medical problems, admitted with acute on chronic abdominal pain, nausea and vomiting. he was noted to have mild elevation in serum lipase, and treated with medical management for acute pancreatitis with IV hydration, bowel rest, pain control and PRN IV antiemetics. He recovered quickly and tolerated oral diet, however he exhibited drug-seeking behaviors, requesting more and more pain meds, although he seemed comfortable and ambulatory and tolerating diet. He is now medically stable for discharge, encouraged to d/w his HIV physician, regarding modification in regimen and the potential of causing drug-induced pancreatitis. Discharge discussed with: patient Time spent discussing smoking cessation with patient: 3 to 10 minutes - Time Spent with Patient Total time spent providing and/or coordinating discharge services: Greater than 30 minutes (40 min) - Discharge Medications Home Medications: Emtricitabine/Tenofovir [Truvada] 1 tab PO DAILY 11/18/14 [History] Raltegravir Potassium [Isentress] 400 mg PO BID 05/17/15 [History] clonazePAM [Klonopin] 1 mg PO BID PRN 01/04/17 [History] Quetiapine Fumarate [Seroquel] 300 mg PO HS 02/11/17 [History] Cholecalciferol (Vitamin D3) [Vitamin D3] 10,000 unit PO DAILY 04/19/17 [History ] Escitalopram [Lexapro] 15 mg PO DAILY 04/19/17 [History] LevETIRAcetam [Keppra] 500 mg PO BID 04/19/17 [History] OxyCODONE Immed Rel [Roxicodone 5 MG] 10 mg PO Q4HR PRN 4 Days #24 tablet [Rx] levoFLOXacin [Levaquin] 750 mg PO DAILY #4 tablet 05/15/17 [Rx] Allergies/Adverse Reactions: 3 Allergy/AdvReac Type Severity Reaction Status Date / Time acetaminophen [From Tylenol] Allergy Hives Verified 05/29/17 16:00 dicyclomine [From Bentyl] Allergy Hives Verified 05/29/17 16:00 ketorolac [From Toradol] Allergy Hives Verified 05/29/17 16:00 tramadol Allergy Hives Verified 05/29/17 16:00 Date of admission: 05/29/17 18:43 Primary care physician: PCP NONE Discharging clinician: Ellie Soni Anticipated date of discharge: 05/31/17 - Constitutional Vitals: Temp Pulse Resp BP Pulse Ox 97.6 F 96 17 118/81 93 05/31/17 10:39 05/31/17 10:39 05/31/17 10:39 05/31/17 10:39 05/31/17 10:39 General appearance: Present: A&O X 3, no acute distress, answers questions appropriately - Cardiovascular Cardiovascular exam: Present: RRR, +S1, +S2. Absent: diastolic murmur, gallop, rubs, systolic murmur - GI/Abdominal GI/Abdominal exam: Present: normal bowel sounds, soft (tenderness in RLQ and RUQ ), no peritoneal signs. Absent: distended, tenderness - Patient Status Disposition: Home, Self-Care Condition: Fair Functional capacity at discharge: independent ambulation Overall status at discharge: patient is progressing back to baseline - Discharge Instructions Instructions: Pancreatitis (DC) Follow Up With: Dayton Sullivan MD [Non-Partnered Physician] - 06/20/17 10:15 am (Please bring photo ID and Insurance card. Thank you) Forms: Inpatient Work/School Release - Diet and Activity Activity: resume usual activities as tolerated Diet: advance to your usual diet (soft diet, gradually to solids), low fat, low cholesterol
== END 2017-05-31 17:08 | disposition home or self-care (01) ==
LOC: 3ANU 15:34 → EMEROO 15:34 → SUATTDRO 18:43 → 3ANU 19:56
PROVIDERS: ADMIT Internal Medicine; ATTEND Internal Medicine

== ENCOUNTER 2017-06-06 11:30 | Observation (INO) ==
[2017-06-06] MEDS ORDERED: *HR* FentaNYL (PF) 100 MCG/2 ML VIAL IVP ONE (11:48)
[2017-06-06] MEDS ORDERED: Ondansetron 4 MG/2 ML VIAL IVP ONE (11:48)
[2017-06-06] MEDS ORDERED: 0.9 % Sodium Chloride 1,000 ML IVC ONE (11:48)
--- NOTE | 2017-06-06 11:54 | Emergency Department Note ---
Disposition Clinical Impression: Abdominal pain Qualifiers: Abdominal location: generalized Qualified Code(s): R10.84 - Generalized abdominal pain Nausea & vomiting Qualifiers: Vomiting type: unspecified Vomiting Intractability: intractable Qualified Code( s): R11.2 - Nausea with vomiting, unspecified Chronic pancreatitis Qualifiers: Pancreatitis type: other Qualified Code(s): K86.1 - Other chronic pancreatitis Disposition: Admitted As Inpatient Forms: ED Satisfaction Letter Time of Disposition: 14:11 Nausea/Vomiting/Diarrhea HPI - General Chief complaint: ED Nausea/Vomiting/Diarrhea Stated complaint: N/V abd pain Time Seen by Provider: 06/06/17 11:37 Source: patient Limitations: no limitations Nursing Notes Reviewed: Yes Vital Signs Reviewed: Yes - History of Present Illness HPI Narrative: 36-year-old male with history of HIV and chronic pancreatitis who comes in with nausea vomiting and abdominal pain. Patient states he was admitted a few days back for same. Patient is pale on arrival. Pt Subjective Complaint: nausea, vomiting, abdominal pain Onset (ago): hour(s) Description of emesis: food contents Associated Abdominal Pain: Yes If pain, Location of pain: diffuse Radiation: other (Back) Severity: severe Quality: cramping, stabbing, aching Consistency: constant Improves with: nothing Worsens with: nonthing Context: other (History of chronic pancreatitis) - Related Data Home Medications Medication Instructions Recorded Confirmed Emtricitabine/Tenofovir [Truvada] 1 tab PO DAILY 11/18/14 05/30/17 Raltegravir Potassium [Isentress] 400 mg PO BID 05/17/15 05/30/17 clonazePAM [Klonopin] 1 mg PO BID PRN 01/04/17 05/30/17 Quetiapine Fumarate [Seroquel] 300 mg PO HS 02/11/17 05/30/17 Cholecalciferol (Vitamin D3) 10,000 unit PO DAILY 04/19/17 05/30/17 [Vitamin D3] Escitalopram [Lexapro] 15 mg PO DAILY 04/19/17 05/30/17 LevETIRAcetam [Keppra] 500 mg PO BID 04/19/17 05/30/17 Previous Rx's Medication Instructions Recorded OxyCODONE Immed Rel [Roxicodone 5 10 mg PO Q4HR PRN 4 Days #24 tablet 05/15/17 MG] levoFLOXacin [Levaquin] 750 mg PO DAILY #4 tablet 05/15/17 Allergies Allergy/AdvReac Type Severity Reaction Status Date / Time acetaminophen [From Tylenol] Allergy Hives Verified 06/06/17 11:35 dicyclomine [From Bentyl] Allergy Hives Verified 06/06/17 11:35 ketorolac [From Toradol] Allergy Hives Verified 06/06/17 11:35 tramadol Allergy Hives Verified 06/06/17 11:35 All systems ED: reviewed and negative except as stated. Constitutional: Denies: fever, chills, weakness, weight change Eyes: Denies: eye pain, eye discharge, vision change ENT ED: Denies: ear pain, throat pain, dental pain, hearing loss, epistaxis, congestion, dysphagia Cardiovascular: Denies: chest pain, palpitations, dyspnea on exertion, edema, syncope Respiratory: Denies: cough, dyspnea, wheezes, hemoptysis, stridor Gastrointestinal: Reports: abdominal pain, nausea, vomiting. Denies: diarrhea, constipation, hematemesis, melena, hematochezia Genitourinary: Denies: urgency, dysuria, frequency, hematuria Musculoskeletal: Denies: back pain, neck pain, arthralgia, myalgia Integumentary: Denies: rash, abrasion, lesions Neurological: Denies: headache, weakness, numbness, paresthesias, confusion, abnormal gait, vertigo Psychiatric: Denies: anxiety, depression, suicidal thoughts, homicidal thoughts , auditory hallucinations, visual hallucinations Endocrine: Denies: fatigue Hematological/Lymphatic: Denies: easy bleeding, easy bruising Allergic/Immunologic: Denies: facial swelling, urticaria Past Medical History - Past Medical History Medical history: Reports: hepatitis, HIV/AIDS, liver disease, seizures, other Surgical history: Reports: no surgical history Psychiatric history: Reports: anxiety, depression, prior suicide attempt, previous psychiatric hospitalization - Social History Smoking Status: Current every day smoker Smokeless Tobacco Status: No Alcohol use: Reports: none Drug use: Reports: marijuana Physical Exam - General Limitations: no limitations General appearance: alert, in no apparent distress - Head Head exam: atraumatic, normocephalic, normal inspection - Eye Eye exam: Present: normal appearance, PERRL, EOMI - ENT ENT exam: normal exam, normal oropharynx, mucous membranes moist - Neck Neck exam: Present: normal inspection, full ROM, trachea midline - Chest Chest inspection: Present: normal inspection, symmetric chest wall rise - Cardiovascular Cardiovascular exam: Present: regular rate, normal rhythm, normal heart sounds - Abdominal Exam Abdominal exam: Present: soft, tenderness. Absent: guarding, rebound - Back Exam Back exam: Present: normal inspection, full ROM. Absent: tenderness - Neurological Exam Neurological exam: Present: alert, oriented X3 - Psychiatric Psychiatric exam: Present: normal affect, normal mood - Skin Skin exam: Present: warm, dry, intact, normal color Course - Reevaluation(s) Reevaluation #1: 36-year-old with history chronic pancreatitis who comes in with increasing abdominal pain and nausea vomiting. Lipase is elevated at 94 although this is improved from his previous level. Said persistent vomiting. Time: 14:09 - Consultations Consultation #1: Discussed with Dr. Cox, admit. Time: 14:10 Vital Signs Temperature 97.7 F 06/06/17 11:32 Pulse Rate 102 06/06/17 11:32 Respiratory Rate 18 06/06/17 11:32 Blood Pressure 121/82 06/06/17 11:32 O2 Sat by Pulse Oximetry 97 06/06/17 11:32 Temperature 97.7 F 06/06/17 11:32 Pulse Rate 85 06/06/17 13:03 Respiratory Rate 16 06/06/17 13:03 Blood Pressure 120/78 06/06/17 13:03 O2 Sat by Pulse Oximetry 95 06/06/17 13:03 Oxygen Delivery Oxygen Delivery Room Air Nausea/Vomiting/Diarrhea - Lab Data Result diagrams: 06/06/17 12:04 06/06/17 12:04 Lab Results 06/06/17 06/06/17 06/06/17 Range/Units 12:04 12:04 12:04 WBC 4.5 (4.3-11.1) K/mcL RBC 4.03 L (4.19-5.50) M/mcL Hgb 12.7 L (12.9-16.9) g/dL Hct 39.0 (37.5-50.1) % MCV 96.8 (83.0-100.0) fL MCH 31.5 (28.0-33.3) pg MCHC 32.6 (31.6-35.5) g/dL RDW 14.8 H (11.5-14.5) % Plt Count 102 L (140-400) K/mcL MPV 10.0 (9.4-12.4) fL Immature Gran % 0.4 (0-4) % Seg Neutrophils % 43.5 % Lymphocytes % 43.5 % Monocytes % 11.7 % Eosinophils % 0.7 % Basophils % 0.2 % Neutrophils # 1.9 (1.6-8.9) K/mcL Lymphocytes # 1.9 (0.6-4.6) K/mcL Monocytes # 0.5 (0.0-1.3) K/mcL Eosinophils # 0.0 (0.0-0.6) K/mcL Basophils # 0.0 (0.0-0.2) K/mcL Sodium 140 (136-145) mEq/L Potassium 4.0 (3.5-5.1) mEq/L Chloride 106 (98-107) mEq/L Carbon Dioxide 30 H (23-29) mEq/L BUN 11 (6-20) mg/dL Creatinine 0.97 (0.70-1.30) mg/dL Est GFR ( Amer) > 60 (> 60) Est GFR (Non-Af Amer) > 60 (> 60) BUN/Creatinine Ratio 11 (6-26) Glucose 97 (70-105) mg/dL Calculated Osmolality 289 (280-300) Calcium 9.4 (8.6-10.3) mg/dL Total Bilirubin 0.5 (0.3-1.0) mg/dL Direct Bilirubin 0.2 (0.0-0.2) mg/dL Indirect Bilirubin 0.3 (0.0-1.2) mg/dL AST 26 (13-39) Units/L ALT 71 H (7-52) Units/L Alkaline Phosphatase 75 (34-104) Units/L Serum Total Protein 6.7 (6.4-8.9) g/dL Albumin 4.3 (3.5-5.7) g/dL Globulin 2.4 (2.4-3.5) g/dL Albumin/Globulin Ratio 1.8 (1.1-2.2) Amylase 39 (29-103) Units/L Lipase 94 H (11-82) Units/L Urine Color (Yellow) Urine Clarity (Clear) Urine pH (5.0-8.0) pH Units Ur Specific [place] (1.010-1.025) Urine Protein (Neg-Trace) mg/dL Urine Glucose (UA) (Normal) mg/dL Urine Ketones (Negative) mg/dL Urine Blood (Negative) Urine Nitrite (Negative) Urine Bilirubin (Negative) Urine Urobilinogen (Normal) mg/dL Ur Leukocyte Esterase (Negative) Urine Microscopic RBC (0-3) per hpf Urine Microscopic WBC (0-3) per hpf Ur Squamous Epith Cells (None-Few) per lpf Ur Renal Epithelial Cell (None-Few) per hpf Urine Bacteria (None-Few) per hpf Hyaline Casts (None-Few) per lpf Urine Mucus (Few) Ur Culture Indicated? (NO) 06/06/17 Range/Units 13:08 WBC (4.3-11.1) K/mcL RBC (4.19-5.50) M/mcL Hgb (12.9-16.9) g/dL Hct (37.5-50.1) % MCV (83.0-100.0) fL MCH (28.0-33.3) pg MCHC (31.6-35.5) g/dL RDW (11.5-14.5) % Plt Count (140-400) K/mcL MPV (9.4-12.4) fL Immature Gran % (0-4) % Seg Neutrophils % % Lymphocytes % % Monocytes % % Eosinophils % % Basophils % % Neutrophils # (1.6-8.9) K/mcL Lymphocytes # (0.6-4.6) K/mcL Monocytes # (0.0-1.3) K/mcL Eosinophils # (0.0-0.6) K/mcL Basophils # (0.0-0.2) K/mcL Sodium (136-145) mEq/L Potassium (3.5-5.1) mEq/L Chloride (98-107) mEq/L Carbon Dioxide (23-29) mEq/L BUN (6-20) mg/dL Creatinine (0.70-1.30) mg/dL Est GFR ( Amer) (> 60) Est GFR (Non-Af Amer) (> 60) BUN/Creatinine Ratio (6-26) Glucose (70-105) mg/dL Calculated Osmolality (280-300) Calcium (8.6-10.3) mg/dL Total Bilirubin (0.3-1.0) mg/dL Direct Bilirubin (0.0-0.2) mg/dL Indirect Bilirubin (0.0-1.2) mg/dL AST (13-39) Units/L ALT (7-52) Units/L Alkaline Phosphatase (34-104) Units/L Serum Total Protein (6.4-8.9) g/dL Albumin (3.5-5.7) g/dL Globulin (2.4-3.5) g/dL Albumin/Globulin Ratio (1.1-2.2) Amylase (29-103) Units/L Lipase (11-82) Units/L Urine Color Dark Yellow (Yellow) Urine Clarity Clear (Clear) Urine pH 6.5 (5.0-8.0) pH Units Ur Specific [place] 1.030 H (1.010-1.025) Urine Protein 30 H (Neg-Trace) mg/dL Urine Glucose (UA) Normal (Normal) mg/dL Urine Ketones Negative (Negative) mg/dL Urine Blood Negative (Negative) Urine Nitrite Negative (Negative) Urine Bilirubin Negative (Negative) Urine Urobilinogen 4.0 H (Normal) mg/dL Ur Leukocyte Esterase Negative (Negative) Urine Microscopic RBC 0-3 (0-3) per hpf Urine Microscopic WBC 5-15 H (0-3) per hpf Ur Squamous Epith Cells Many H (None-Few) per lpf Ur Renal Epithelial Cell Few (None-Few) per hpf Urine Bacteria None Seen (None-Few) per hpf Hyaline Casts None Seen (None-Few) per lpf Urine Mucus Moderate H (Few) Ur Culture Indicated? NO (NO)
[2017-06-06 12:25] LABS: Basophils % 0.2 %; Eosinophils % 0.7 %; Hemoglobin 12.7 g/dL (12.9-16.9); Immature Granulocytes % 0.4 % (0-4); Lymphocytes # 1.9 K/mcL (0.6-4.6); Lymphocytes % 43.5 %; Mean Corpuscular HGB Conc 32.6 g/dL (31.6-35.5); Mean Corpuscular Hemoglobin 31.5 pg (28.0-33.3); Mean Corpuscular Volume 96.8 fL (83.0-100.0); Monocytes # 0.5 K/mcL (0.0-1.3); Monocytes % 11.7 %; Neutrophils # 1.9 K/mcL (1.6-8.9); Platelet Count 102 K/mcL (140-400); Red Blood Count 4.03 M/mcL (4.19-5.50); Red Cell Distribution Width 14.8 % (11.5-14.5); Segmented Neutrophils % 43.5 %
[2017-06-06] MEDS ORDERED: *HR* HYDROmorphone (PF) 1 MG/ML SYRINGE IVP ONE (12:26)
[2017-06-06 12:44] LABS: BUN/Creatinine Ratio 11 (6-26); Blood Urea Nitrogen 11 mg/dL (6-20); Calcium 9.4 mg/dL (8.6-10.3); Carbon Dioxide 30 mEq/L (23-29); Chloride 106 mEq/L (98-107); Glucose 97 mg/dL (70-105); Lipase 94 Units/L (11-82); Osmolality,Calculated 289 (280-300); Sodium 140 mEq/L (136-145); eGFR For African Americans > 60 (> 60); eGFR For Non-African Americans > 60 (> 60)
[2017-06-06 12:47] LABS: Albumin 4.3 g/dL (3.5-5.7); Albumin/Globulin Ratio 1.8 (1.1-2.2); Bilirubin,Direct 0.2 mg/dL (0.0-0.2); Bilirubin,Indirect 0.3 mg/dL (0.0-1.2); Bilirubin,Total 0.5 mg/dL (0.3-1.0); Globulin 2.4 g/dL (2.4-3.5); Total Protein 6.7 g/dL (6.4-8.9)
[2017-06-06 13:18] LABS: Bilirubin,Urine Negative (Negative); Blood,Urine Negative (Negative); Color,Urine Dark Yellow (Yellow); Glucose,Urine (UA) Normal (Normal); Ketones,Urine Negative (Negative); Leukocyte Esterase,Urine Negative (Negative); Nitrite,Urine Negative (Negative); PH,Urine 6.5 pH Units (5.0-8.0); Protein,Urine 30 mg/dL (Neg-Trace)
[2017-06-06 13:19] LABS: Bacteria,Urine None Seen per hpf (None-Few); Hyaline Casts,Urine None Seen per lpf (None-Few); RBC,Urine 0-3 per hpf (0-3); Squamous Epithelial Cell,Urine Many per lpf (None-Few)
[2017-06-06 13:21] LABS: Clarity,Urine Clear (Clear)
[2017-06-06 13:42] LABS: Mucus,Urine Moderate (Few)
[2017-06-06 13:43] LABS: Renal Epithelial Cells,Urine Few per hpf (None-Few)
[2017-06-06] MEDS ORDERED: *HR* Promethazine 25 MG/ML VIAL IVP PRN (15:01)
[2017-06-06] MEDS: 0.9 % Sodium Chloride 1,000 ML IVC SCH (15:42)
[2017-06-06] MEDS ORDERED: Naloxone 0.4 MG/ML INJ IVP PRN (16:16)
--- NOTE | 2017-06-06 16:36 | Internal Med History&Physical ---
Date of Encounter: 06/06/17 Time of Encounter: 15:00 Internal Medicine - H&P: HPI Chief complaint: Abdominal Pain/N/V Admitted From: Emergency Dept Plans for Post Hospital Care: Home History of present illness: Mr. Dyer is a 36 year old male w/PMH of hepatitis, HIV/AIDS, liver disease, seizures, anxiety, depression, and prior suicide attempt presents from the ED with chief complaint of abdominal pain and diarrhea. Pt denies nausea or vomiting and states he is hungry. Pt. discharged on 05/31/17 for same sx of abdominal pain and pancreatitis. Pt. reports difficulty w/PCP not filling prescriptions for pain medication. Pt. reports he was sent to [facility] several weeks ago d/t liver failure from drug toxicity. Pt. states his acetaminophen level was >40,000 at the time. Pt. states that [facility] treated it as a suicide attempt but he denies trying to commit suicide at the time. Pt. reports hx of prior suicide attempt and previous psychiatric hospitalization. Denies CP, SOB, changes in vision, headache, unusual bleeding, cough, chest congestion, fever, chills, constipation, numbness, tingling, dizziness, lightheadedness, pre- syncope, or syncope. Pt. reports he has no nausea or vomiting at time of exam. Past Med Surg Social Fam HX - Past Medical History Source: patient, old records reviewed Medical history: hepatitis, HIV/AIDS, liver disease, seizures, other Psychiatric history: anxiety, depression, prior suicide attempt, previous psychiatric hospitalization - Past Surgical History Surgical History: no surgical history - Social History Smoking Status: Current every day smoker Packs per day: 2 PPD Smokeless Tobacco Status: No Alcohol use: none Drug use: marijuana Current living situation: Home Activity Level: Independent ambulation Recent Out of Country Travel Within the Last 8 Weeks: No Exposure or Possible Exposure to Illness During Travel: No - Family History Mother Family Member Ethnicity: Non- Living Status: Still Living Hx Family Cancer: Yes (Breast, Lung, Lymphoma) Hx Family Endocrine Disorder: Yes (DM) Father Family Member Ethnicity: Non- Living Status: Still Living Hx Family Cardiac Disorders: Yes (MD, HTN) Hx Family Cancer: No Hx Family Endocrine Disorder: Yes (DM) Brother Family Member Ethnicity: Non- Living Status: Still Living Hx Family Cardiac Disorders: Yes (HTN) Sister Adopted: No Family Member Ethnicity: Non- Living Status: Still Living Internal Medicine - H&P: Meds Emtricitabine/Tenofovir [Truvada] 1 tab PO DAILY 11/18/14 [History] Raltegravir Potassium [Isentress] 400 mg PO BID 05/17/15 [History] clonazePAM [Klonopin] 1 mg PO BID PRN 01/04/17 [History] Quetiapine Fumarate [Seroquel] 300 mg PO HS 02/11/17 [History] Cholecalciferol (Vitamin D3) [Vitamin D3] 10,000 unit PO DAILY 04/19/17 [History ] Escitalopram [Lexapro] 15 mg PO DAILY 04/19/17 [History] LevETIRAcetam [Keppra] 500 mg PO BID 04/19/17 [History] 3 Allergy/AdvReac Type Severity Reaction Status Date / Time acetaminophen [From Tylenol] Allergy Hives Verified 06/06/17 11:35 dicyclomine [From Bentyl] Allergy Hives Verified 06/06/17 11:35 ketorolac [From Toradol] Allergy Hives Verified 06/06/17 11:35 tramadol Allergy Hives Verified 06/06/17 11:35 All Systems PM: A 10-system review of systems was performed and is negative for pertinent findings except as documented above in the HPI. - Constitutional Constitutional: no chills, no fever(s), no night sweats - EENT Eyes: no change in vision, no discharge, no pain, no photophobia Ears: no ear discharge, no ear pain, no tinnitus Nose, mouth and throat: no dysphagia, no nasal discharge, no neck pain, no sore throat - Breasts Breasts: as per HPI - Cardiovascular Cardiovascular ROS IM: no chest pain, no diaphoresis, no dyspnea, no lightheadedness, no palpitations, no syncope - Respiratory Respiratory: no cough, no dyspnea, no wheezing, no excessive phlegm production - Gastrointestinal Gastrointestinal: as per HPI, abdominal pain, diarrhea (Pt. reports diarrhea is resolving) - Genitourinary Genitourinary ROS male: as per HPI - Musculoskeletal Musculoskeletal ROS IM: no numbness, no tingling - Integumentary Integumentary IM: no rash, no unusual bruising - Neurological Neurological ROS: no confusion, no convulsions, no focal weakness, no numbness, no tingling, no tremor(s) - Psychiatric Psychiatric: as per HPI, anxiety, depression, other (Prior suicide attempt and previous psychiatric hospitalization) - Endocrine Endocrine IM: as per HPI - Hematologic/Lymphatic Hematologic/Lymphatic: no easy bruising - Allergic/Immunologic Allergic/Immunologic: as per HPI - Constitutional Vitals: Temp Pulse Resp BP Pulse Ox 97.7 F 73 16 113/77 95 06/06/17 15:49 06/06/17 15:49 06/06/17 15:49 06/06/17 15:49 06/06/17 15:49 General appearance: Present: cooperative, A&O X 3, no acute distress, answers questions appropriately - Head Head exam: Present: atraumatic, normocephalic - Eye Eye exam: Present: PERRL, conjuntiva pink, sclera anicteric Pupils: Present: PERRL - ENT ENT exam: Present: normal exam - Neck Neck exam general surgery: Present: normal inspection, supple, trachea midline. Absent: lymphadenopathy - Respiratory Respiratory exam: Present: CTAB. Absent: accessory muscle use, rales, rhonchi, wheezes - Cardiovascular Cardiovascular exam: Present: RRR, +S1, +S2. Absent: diastolic murmur, gallop, rubs, systolic murmur - GI/Abdominal GI/Abdominal exam: Present: normal bowel sounds, soft, tenderness, no peritoneal signs. Absent: distended - Rectal Rectal exam: Present: deferred - Additional comments: exam deferred. - Extremities Exam Extremities exam: Present: warm, radial pulses palpable and symmetrical. Absent : calf tenderness, cyanotic, pedal edema - Back Exam Back exam: Present: normal inspection - Neurological Exam Neurological exam: Present: CN II-XII intact, oriented X3, no focal deficits. Absent: pronater drift, facial droop, speech deficit - Psychiatric Psychiatric exam: Present: normal affect, normal mood - Skin Skin exam: Present: dry, intact Internal Med - H&P Results - Labs CBC & Chem 7: 06/06/17 12:04 06/06/17 12:04 - Diagnostic Studies CT scan - abdomen Additional comments: Impressions Abdomen/Pelvis CT 06/06/17 11:49 IMPRESSION: 1. No acute intra-abdominal or intrapelvic process. 2. Normal appendix. 3. Stable simple right renal cyst. D/ / 06/06/2017 13:37:19 Ibrahima Veliz MD / edilberto Interpreting Provider: Ibrahima Veliz MD Other Images Additional comments: Impressions Gallbladder Ultrasound 06/06/17 12:41 IMPRESSION: Unremarkable right upper quadrant ultrasound. D/ / Brendan Lombardi MD / Brendan Lombardi MD Interpreting Provider: Brendan Lombardi MD - Assessment and plan (1) Abdominal pain Current Visit: Yes Status: Acute Assessment and plan: Acute abdominal pain. Hx of chronic pancreatitis most likely d/t HIV anti-viral medications. Will treat w/IV fluids and advance diet as tolerated. CT of the abdomen/pelvis today shows no acute intra-abdominal or intrapelvic process. Normal appendix. Stable simple right renal cyst. Ultrasound of the gallbladder today shows unremarkable right upper quadrant ultrasound. 0.9 NS IV fluids @ 100 mL/HR. Oxycodone 5 mg SL ordered d/t lack of acetaminophen component from pts. recent liver failure from drug toxicity/acetaminophen OD. Pt. discussed w/Dr. Cox who agrees w/plan of care. Pt. is moderate risk for further morbidity d/t recurrent pancreatitis, hx of recent liver failure from acetaminophen toxicity >40,000, hx of suicide attempt, and risk factors. Observation. Qualifiers: Abdominal location: generalized Qualified Code(s): R10.84 - Generalized abdominal pain (2) Diarrhea Current Visit: Yes Status: Acute Assessment and plan: Acute diarrhea that pt. reports as resolving. Monitor I&O. Qualifiers: Qualified Code(s): R19.7 - Diarrhea, unspecified (3) Chronic pancreatitis Current Visit: Yes Status: Chronic Assessment and plan: Hx of chronic pancreatitis most likely d/t HIV anti-viral medications. Will treat w/IV fluids and advance diet as tolerated. CT of the abdomen/pelvis today shows no acute intra-abdominal or intrapelvic process. Normal appendix. Stable simple right renal cyst. Ultrasound of the gallbladder today shows unremarkable right upper quadrant ultrasound. Lipase 94 on admission. Monitor pt. and f/u labs. Qualifiers: Pancreatitis type: other Qualified Code(s): K86.1 - Other chronic pancreatitis (4) History of liver failure Current Visit: Yes Status: Chronic Assessment and plan: Hx of liver failure. Pt. reports hospitalization at [facility] several weeks ago w/ liver failure from acetaminophen level >40,000. Will avoid hepatotoxic agents and pain medications d/t recent liver failure and hx of drug-seeking behavior. ALT 71 on admission. Monitor f/u labs. (5) History of HIV or AIDS Current Visit: Yes Status: Chronic Assessment and plan: Hx of HIV/AIDS. Pt. to f/u w/PCP next Tuesday for scheduled appointment. Continue patient's Isentress and Truvada. Monitor f/u labs. (6) History of seizures Current Visit: Yes Status: Chronic Assessment and plan: Hx of seizures. Monitor pt. and continue Keppra. (7) Tobacco abuse Current Visit: Yes Status: Chronic Assessment and plan: Hx of chronic tobacco abuse. Pt. reports smoking 2 PPD. No interest in quitting presently. 21 mg nicotine patch ordered. (8) Hx of suicide attempt Current Visit: Yes Status: Chronic Assessment and plan: Hx of previous suicide attempt and psychiatric hospitalization. Pt. reports acetaminophen overdose was not intentional and he has no current suicidal or homicidal ideations. (9) Drug-seeking behavior Current Visit: Yes Status: Chronic Assessment and plan: Hx of drug-seeking behavior, drug use, and liver failure d/t drug toxicity. Pt. reports he was hospitalized at [facility] several weeks ago d/t liver failure from acetaminophen level >40,000. On examination, pt. denies N/V and asked for IR pain medication. States that his PCP will no longer prescribe pain medications so he buys them OTC. Will use pain medications judiciously and avoid hepatotoxic agents. (10) Hepatitis Current Visit: Yes Status: Chronic Assessment and plan: Hx of chronic hepatitis. Avoid hepatotoxins. F/u w/PCP at scheduled appointment next Tuesday. (11) DVT prophylaxis Current Visit: Yes Status: Acute Assessment and plan: Lovenox 40 mg SQ 0600 for DVT prophylaxis. Monitor pt. for signs of bleeding. - Time Spent With Patient Total time spent is greater than 50% in coordination of care (as documented) at patient's floor/unit and/or counseling patient: 25 - 35 minutes
[2017-06-06] MEDS: Nicotine 21 MG PATCH.TD24 TD SCH (16:52)
[2017-06-06] MEDS: OXYCODONE Oral CONC 10 MG/0.5 ML ORAL.SYG SL PRN (16:52)
--- NOTE | 2017-06-06 17:22 | Event Note ---
Date of Encounter: 06/06/17 Time of Encounter: 17:21 Pt. refused cardiac telemetry. Will order EKG.
[2017-06-06 18:11] LABS: Amphetamine Screen,Urine Negative ng/mL (Cutoff=1000); Barbiturate Screen,Urine Negative ng/mL (Cutoff=200); Benzodiazepines Screen,Urine Negative ng/mL (Cutoff=200); Cannabinoid Screen,Urine Negative ng/mL (Cutoff = 50); Cocaine Screen,Urine Negative ng/mL (Cutoff= 300); Opiate Screen,Urine Positive ng/mL (Cutoff=300); Phencyclidine Screen,Urine Negative ng/mL (Cutoff=25)
[2017-06-06] MEDS: clonazePAM 1 MG TABLET PO PRN (19:24)
[2017-06-06] MEDS: levETIRAcetam 250 MG TABLET PO SCH (21:10)
[2017-06-06] MEDS: RALTEGRAVIR POTASSIUM 400 MG TABLET PO SCH (21:10)
[2017-06-06 22:05] LABS: Albumin 4.2 g/dL (3.5-5.7); Albumin/Globulin Ratio 1.5 (1.1-2.2); Bilirubin,Direct 0.2 mg/dL (0.0-0.2); Bilirubin,Indirect 0.4 mg/dL (0.0-1.2); Bilirubin,Total 0.6 mg/dL (0.3-1.0); Globulin 2.8 g/dL (2.4-3.5)
--- NOTE | 2017-06-06 22:39 | Event Note ---
Date of Encounter: 06/06/17 Time of Encounter: 21:15 Alerted by nurse that pt. is requesting [address] of the abdomen and gallbladder US are essentially unremarkable. No real etiology for abdominal pain at this time. Pt. has hx of drug seeking and was hospitalized several weeks ago at [facility] for liver failure d/t acetaminophen toxicity. Explained that d/ t his recent liver failure he will not be receiving acetaminophen. Pt. very drowsy d/t Seroquel administration. Will hold next dose of oxycodone until 06: 00.
[2017-06-07 01:30] LABS: Basophils % 0.3 %; Eosinophils % 0.6 %; Red Cell Distribution Width 14.6 % (11.5-14.5)
[2017-06-07 01:32] LABS: Hematocrit 36.3 % (37.5-50.1); Immature Granulocytes % 0.3 % (0-4); Immature Platelets 2.6 % (1.1-6.1); Lymphocytes # 1.5 K/mcL (0.6-4.6); Lymphocytes % 42.9 %; Mean Corpuscular HGB Conc 33.1 g/dL (31.6-35.5); Mean Corpuscular Hemoglobin 32.2 pg (28.0-33.3); Mean Corpuscular Volume 97.3 fL (83.0-100.0); Mean Platelet Volume 10.5 fL (9.4-12.4); Monocytes # 0.4 K/mcL (0.0-1.3); Neutrophils # 1.6 K/mcL (1.6-8.9); Red Blood Count 3.73 M/mcL (4.19-5.50); Segmented Neutrophils % 45.9 %
[2017-06-07 01:50] LABS: Platelet Count 90 K/mcL (140-400)
[2017-06-07 01:56] LABS: Alanine Aminotransferase 59 Units/L (7-52); Albumin 3.9 g/dL (3.5-5.7); Albumin/Globulin Ratio 1.6 (1.1-2.2); Alkaline Phosphatase 58 Units/L (34-104); Aspartate Amino Transferase 23 Units/L (13-39); BUN/Creatinine Ratio 9 (6-26); Bilirubin,Total 0.6 mg/dL (0.3-1.0); Blood Urea Nitrogen 8 mg/dL (6-20); Calcium 8.9 mg/dL (8.6-10.3); Carbon Dioxide 29 mEq/L (23-29); Chloride 107 mEq/L (98-107); Chol/HDL Ratio 3.3 (0-4.9); Cholesterol 112 mg/dL (< 200); Globulin 2.4 g/dL (2.4-3.5); Glucose 116 mg/dL (70-105); HDL Cholesterol 34 mg/dL (40-59); LDL Cholesterol,Calculated 60 mg/dL (0-99); Magnesium 1.9 mg/dL (1.6-2.6); Osmolality,Calculated 291 (280-300); Potassium 3.6 mEq/L (3.5-5.1); Sodium 141 mEq/L (136-145); Total Protein 6.3 g/dL (6.4-8.9); Triglycerides 89 mg/dL (< 150); eGFR For African Americans > 60 (> 60); eGFR For Non-African Americans > 60 (> 60)
[2017-06-07] MEDS: 0.9 % Sodium Chloride 1,000 ML IVC SCH ×2 (02:43→15:23)
[2017-06-07] MEDS ORDERED: *HR* Enoxaparin 40 MG/0.4 ML SYRINGE SQ SCH (06:00)
[2017-06-07] MEDS ORDERED: Cholecalciferol (D-3) 1,000 UNIT TABLET PO SCH (09:00)
--- NOTE | 2017-06-07 09:06 | Electrocardiograph Report ---
[address] [address] Test Date: 2017-06-06 Pat Name: Kolby Dyer Department: 115 Room: [facility] Gender: M Physician Practice Manager: : 1980 Requested By: [id number] Order Number: [id number] Reading MD: Andreea Fowler Measurements Intervals [place] Rate: 77 P: 45 [place]: 174 QRS: 40 QRSD: 87 T: 32 QT: 389 QTc: 421 Interpretive Statements SINUS RHYTHM Electronically Signed On 06-07-2017 9:05:13 EDT by Andreea Fowler
[2017-06-07] MEDS: levETIRAcetam 250 MG TABLET PO SCH (09:15)
[2017-06-07] MEDS: RALTEGRAVIR POTASSIUM 400 MG TABLET PO SCH (09:15)
[2017-06-07] MEDS: OXYCODONE Oral CONC 10 MG/0.5 ML ORAL.SYG SL PRN ×2 (09:16→15:32)
[2017-06-07] MEDS: Nicotine 21 MG PATCH.TD24 TD SCH (09:16)
[2017-06-07] MEDS: clonazePAM 1 MG TABLET PO PRN (09:16)
--- NOTE | 2017-06-07 10:56 | Internal Med Progress Note ---
<Ibrahima Bar - Last Filed: 06/07/17 11:25> Date of Encounter: 06/07/17 Time of Encounter: 10:45 - Assessment and plan (1) Abdominal pain Status: Acute Assessment and plan: - Likely secondary to known chronic pancreatitis which is suspected secondary to HIV medicaions. - Reports running out of pain meds which his PCP did not refill for unknown reason - CT of the abdomen/pelvis 06/06/17 shows no acute intra-abdominal or intrapelvic process. Normal appendix. Stable simple right renal cyst. - Ultrasound of the gallbladder today shows unremarkable right upper quadrant ultrasound. - Lipase of 102 Plan - 0.9 NS IV fluids @ 100 mL/HR. - Oxycodone 5 mg SL ordered d/t lack of acetaminophen component from pts. recent liver failure from drug toxicity/acetaminophen OD. - States that he is willing to try lunch. Will monitor and see how he tolerates a diet. Qualifiers: Abdominal location: generalized Qualified Code(s): R10.84 - Generalized abdominal pain (2) Drug-seeking behavior Status: Chronic Assessment and plan: - Hx of drug-seeking behavior, drug use, and liver failure d/t drug toxicity. - Pt. reports he was hospitalized at [facility] several weeks ago d/t liver failure from acetaminophen level >40,000. - States that his PCP will no longer prescribe pain medications so he buys them OTC. - Patient continues to describe 9/10 pain however he is very sleepy on exam. Plan - Will use pain medications judiciously and avoid hepatotoxic agents. (3) Hepatitis Status: Chronic Assessment and plan: Hx of chronic hepatitis. Avoid hepatotoxins. F/u w/PCP at scheduled appointment next Tuesday. (4) Chronic pancreatitis Status: Chronic Assessment and plan: - As above for abdominal pain Qualifiers: Pancreatitis type: other Qualified Code(s): K86.1 - Other chronic pancreatitis (5) History of liver failure Status: Chronic Assessment and plan: - Avoid hepatotoxic agents - Secondary to acetaminophen overdose at recent admission to [facility] - US negative for acute pathology as above (6) History of HIV or AIDS Status: Chronic Assessment and plan: Hx of HIV/AIDS. Pt. to f/u w/PCP next Tuesday for scheduled appointment. Continue patient's Isentress and Truvada. CD4 count of 494 n 01/06/17, most recently 562 on 04/19/17 (7) History of seizures Status: Chronic Assessment and plan: Hx of seizures. Monitor pt. and continue Keppra. (8) Tobacco abuse Status: Chronic Assessment and plan: Hx of chronic tobacco abuse. Pt. reports smoking 2 PPD. No interest in quitting presently. 21 mg nicotine patch ordered. (9) Hx of suicide attempt Status: Chronic Assessment and plan: Hx of previous suicide attempt and psychiatric hospitalization. Pt. reports acetaminophen overdose was not intentional and he has no current suicidal or homicidal ideations. (10) Diarrhea Status: Acute Assessment and plan: No complaints of diarrhea today. Bowel movement last night which was normal for him. Qualifiers: Diarrhea type: unspecified type Qualified Code(s): R19.7 - Diarrhea, unspecified (11) DVT prophylaxis Status: Acute Assessment and plan: Lovenox 40 mg SQ 0600 for DVT prophylaxis. Monitor pt. for signs of bleeding. - Time Spent With Patient Total time spent is greater than 50% in coordination of care (as documented) at patient's floor/unit and/or counseling patient: 25 - 35 minutes - Subjective Interval history: Patient seen and examined at bedside this morning. He is difficult to arrouse and states that it takes a while for him to wake up. He states his pain continues to be 9/10 in intensity and located diffusely across his abdomen. Mild nausea but no vomiting. He states that he feels up to trying a meal. No bowel movements. - Constitutional Vitals: Temp Pulse Resp BP Pulse Ox 97.7 F 80 14 123/86 94 06/07/17 07:03 06/07/17 07:03 06/07/17 07:03 06/07/17 07:03 06/07/17 07:03 General appearance: Present: cooperative, A&O X 3, no acute distress, answers questions appropriately Exam: Gen.: Vitals noted. No acute distress. AAOx3. Sleepy, resting comfortably. HEENT: PERRL/EOMI, oropharynx clear, Normocephalic, atraumatic, MMM. Bleeding coming from lip Cardiac: RRR, no murmur, +S1/S2 Pulmonary: CTA bilaterally, no wheezes, rales or rhonchi, equal chest expansion Abdomen: soft, tender diffusely, worse in epigastric, BS noted, positive involuntary guarding and rebound. Extremities: no BLE edema, nontender calf, no cyanosis or clubbing Neuro: A&Ox3, moves all extremities, no focal deficits Psych: Appropriate mood and behavior Internal Medicine: Result - Labs CBC & Chem 7: 06/07/17 01:06 06/07/17 01:06 Labs: Short CBC 06/07/17 Range/Units 01:06 WBC 3.5 L (4.3-11.1) K/mcL Hgb 12.0 L (12.9-16.9) g/dL Hct 36.3 L (37.5-50.1) % Plt Count 90 L (140-400) K/mcL Neutrophils # 1.6 (1.6-8.9) K/mcL BMP 06/07/17 01:06 Sodium 141 Potassium 3.6 Chloride 107 Carbon Dioxide 29 BUN 8 Creatinine 0.86 Glucose 116 H Calcium 8.9 Liver Function 06/06/17 06/07/17 Range/Units 21:29 01:06 Total Bilirubin 0.6 0.6 (0.3-1.0) mg/dL Direct Bilirubin 0.2 (0.0-0.2) mg/dL AST 26 23 (13-39) Units/L ALT 66 H 59 H (7-52) Units/L Alkaline Phosphatase 64 58 (34-104) Units/L Albumin 4.2 3.9 (3.5-5.7) g/dL Consult Discharge Plan - Plan Additional Instructions: Increase activity as tolerated. Advance diet as tolerated. Referrals: Akhil Walter MD [Primary Care Provider] - (Office closed. Patient instructed to call and make f/u for 5-7 days. Thank you) <Axel Mondragon - Last Filed: 06/07/17 19:28> Date of Encounter: 06/07/17 - Assessment and plan (1) Acute pancreatitis Status: Acute Qualifiers: Pancreatitis type: drug induced Acute pancreatitis complication: no infection or necrosis Qualified Code(s): K85.30 - Drug induced acute pancreatitis without necrosis or infection (2) Abdominal pain Status: Acute Qualifiers: Abdominal location: generalized Qualified Code(s): R10.84 - Generalized abdominal pain (3) Drug-seeking behavior Status: Chronic (4) Hepatitis Status: Chronic (5) Chronic pancreatitis Status: Chronic Qualifiers: Pancreatitis type: other Qualified Code(s): K86.1 - Other chronic pancreatitis (6) History of liver failure Status: Chronic (7) History of HIV or AIDS Status: Chronic (8) History of seizures Status: Chronic (9) Tobacco abuse Status: Chronic (10) Hx of suicide attempt Status: Chronic (11) Diarrhea Status: Acute Qualifiers: Diarrhea type: unspecified type Qualified Code(s): R19.7 - Diarrhea, unspecified (12) DVT prophylaxis Status: Acute - Time Spent With Patient Total time spent is greater than 50% in coordination of care (as documented) at patient's floor/unit and/or counseling patient: - Constitutional Vitals: Temp Pulse Resp BP Pulse Ox 97.7 F 94 14 128/84 96 06/07/17 12:25 06/07/17 12:25 06/07/17 12:25 06/07/17 12:25 06/07/17 12:25 Internal Medicine: Result - Labs CBC & Chem 7: 06/07/17 01:06 06/07/17 01:06 Labs: Short CBC 06/07/17 Range/Units 01:06 WBC 3.5 L (4.3-11.1) K/mcL Hgb 12.0 L (12.9-16.9) g/dL Hct 36.3 L (37.5-50.1) % Plt Count 90 L (140-400) K/mcL Neutrophils # 1.6 (1.6-8.9) K/mcL BMP 06/07/17 01:06 Sodium 141 Potassium 3.6 Chloride 107 Carbon Dioxide 29 BUN 8 Creatinine 0.86 Glucose 116 H Calcium 8.9 Liver Function 06/06/17 06/07/17 Range/Units 21:29 01:06 Total Bilirubin 0.6 0.6 (0.3-1.0) mg/dL Direct Bilirubin 0.2 (0.0-0.2) mg/dL AST 26 23 (13-39) Units/L ALT 66 H 59 H (7-52) Units/L Alkaline Phosphatase 64 58 (34-104) Units/L Albumin 4.2 3.9 (3.5-5.7) g/dL - Attending Attestation I examined this patient and my medical decision-making was reviewed with the Resident Physician Dr. Bar. I agree with the documented findings, disposition and treatment plan as described except to the extent set forth below.
[2017-06-07 12:33] VITALS: BP 128/84
--- NOTE | 2017-06-07 16:12 | Discharge Summary ---
- NOTES TO OUTPATIENT PROVIDER Notes to Outpatient Provider: Need to f/u with PCP in one week Orders not resulted at time of discharge: Pending orders 06/08/17 04:00 BMP [Basic Metabolic Panel] AM 0400 Complete Blood Count [HEME] AM 0400 Comprehensive Metabolic Panel AM 0400 06/09/17 04:00 Complete Blood Count [HEME] AM 0400 Comprehensive Metabolic Panel AM 0400 Date of Encounter: 06/07/17 Time of Encounter: 16:09 - Discharge Diagnosis (1) Acute pancreatitis Priority: Primary Status: Acute Qualifiers: Pancreatitis type: drug induced Acute pancreatitis complication: no infection or necrosis Qualified Code(s): K85.30 - Drug induced acute pancreatitis without necrosis or infection (2) Abdominal pain Priority: Primary Status: Acute Qualifiers: Abdominal location: generalized Qualified Code(s): R10.84 - Generalized abdominal pain (3) Drug-seeking behavior Priority: Secondary Status: Chronic (4) Hepatitis Priority: Secondary Status: Chronic (5) Chronic pancreatitis Priority: Secondary Status: Chronic Qualifiers: Pancreatitis type: other Qualified Code(s): K86.1 - Other chronic pancreatitis (6) History of liver failure Priority: Secondary Status: Chronic (7) History of HIV or AIDS Priority: Secondary Status: Chronic (8) History of seizures Priority: Secondary Status: Chronic (9) Tobacco abuse Priority: Secondary Status: Chronic (10) Hx of suicide attempt Priority: Secondary Status: Chronic (11) Diarrhea Priority: Secondary Status: Acute Qualifiers: Diarrhea type: unspecified type Qualified Code(s): R19.7 - Diarrhea, unspecified (12) DVT prophylaxis Priority: Secondary Status: Acute Hospital course: Mr. Dyer is a 36 year old male w/PMH of hepatitis, HIV/AIDS, liver disease, seizures, anxiety, depression, and prior suicide attempt presents from the ED with chief complaint of abdominal pain and diarrhea. Pt had further work up done in the ER, his lipase levels are slightly elevated at 102. His CT of abd did not show any acute pathology no pancreatitis noticed. His U/S of GB also came back as normal. Today he started tolerating PO intake ok, however pt is kept on asking for more frequent pain medication. Regarding his pancreatitis which migh be secondary to his HIV meds, recommend to f/u with PCP and review his medications. - Time Spent with Patient Total time spent providing and/or coordinating discharge services: - Discharge Medications Home Medications: Emtricitabine/Tenofovir [Truvada] 1 tab PO DAILY 11/18/14 [History] Raltegravir Potassium [Isentress] 400 mg PO BID 05/17/15 [History] clonazePAM [Klonopin] 1 mg PO BID PRN 01/04/17 [History] Quetiapine Fumarate [Seroquel] 300 mg PO HS 02/11/17 [History] Cholecalciferol (Vitamin D3) [Vitamin D3] 10,000 unit PO DAILY 04/19/17 [History ] Escitalopram [Lexapro] 15 mg PO DAILY 04/19/17 [History] LevETIRAcetam [Keppra] 500 mg PO BID 04/19/17 [History] Nicotine Patch [Nicoderm] 21 mg TD DAILY patch.td24 06/07/17 [Rx] Allergies/Adverse Reactions: 3 Allergy/AdvReac Type Severity Reaction Status Date / Time acetaminophen [From Tylenol] Allergy Hives Verified 06/06/17 11:35 dicyclomine [From Bentyl] Allergy Hives Verified 06/06/17 11:35 ketorolac [From Toradol] Allergy Hives Verified 06/06/17 11:35 tramadol Allergy Hives Verified 06/06/17 11:35 Date of admission: 06/06/17 14:34 Primary care physician: Akhil Walter, Consults: 06/06/17 15:25 Consult to Nutrition [CONS] Routine Comment: Consulting Provider: NUTRITION Reason for Dietary Consult: MST Score 06/06/17 16:18 Consult to Flight Coordinator [CONS] Routine Reason for SW Consult: Please assess pt. for home needs. - Constitutional Vitals: Temp Pulse Resp BP Pulse Ox 97.7 F 94 14 128/84 96 06/07/17 12:25 06/07/17 12:25 06/07/17 12:25 06/07/17 12:25 06/07/17 12:25 General appearance: Present: cooperative, A&O X 3, no acute distress, answers questions appropriately - Head Head exam: Present: atraumatic, normal inspection - Neck Neck exam general surgery: Present: supple - Respiratory Respiratory exam: Present: decreased breath sounds. Absent: rales, respiratory distress, rhonchi, wheezes - Cardiovascular Cardiovascular exam: Present: +S1, +S2. Absent: tachycardia - GI/Abdominal GI/Abdominal exam: Present: normal bowel sounds, soft, tenderness (mild discomfort in the will umbelical region). Absent: distended, guarding, rebound , rigid - Extremities Exam Extremities exam: Absent: calf tenderness, pedal edema, tenderness - Back Exam Back exam: Absent: CVA tenderness (L), CVA tenderness (R) - Neurological Exam Neurological exam: Present: alert, oriented X3 - Psychiatric Psychiatric exam: Present: normal affect, normal mood - Patient Status Disposition: Home, Self-Care Condition: Good Overall status at discharge: patient is back to baseline - Discharge Instructions Follow Up With: Akhil Walter MD [Primary Care Provider] - - Diet and Activity Activity: increase activity as tolerated Diet: low salt diet
--- NOTE | 2017-06-10 14:37 | Electrocardiograph Report ---
[place] [id number] Test Date: 2017-06-06 Pat Name: Kolby Dyer Department: 115 Room: [facility] Gender: M Batch Analyst: : 1980 Requested By: Armando Banda Order Number: [id number] Reading MD: Nixon Rawls Measurements Intervals [place] Rate: 76 P: 48 UT: 179 QRS: 32 QRSD: 88 T: 32 QT: 384 QTc: 415 Interpretive Statements SINUS RHYTHM Electronically Signed On 06-10-2017 14:36:21 EDT by Nixon Rawls
== END 2017-06-07 16:48 | disposition home or self-care (01) ==
LOC: EMEROO 11:30 → 3ANU 11:30
PROVIDERS: ADMIT Internal Medicine; ATTEND Internal Medicine

== ENCOUNTER 2017-10-20 12:15 | Observation (INO) ==
--- NOTE | 2017-10-20 13:49 | Emergency Department Note ---
Disposition Clinical Impression: RUQ pain Nausea and vomiting Qualifiers: Vomiting type: unspecified Vomiting Intractability: non-intractable Qualified Code(s): R11.2 - Nausea with vomiting, unspecified Disposition: Admitted As Inpatient Condition: Fair General Adult HPI - General Chief complaint: ED Abdominal Pain Stated complaint: ABD pain, bloody stool Time Seen by Provider: 10/20/17 13:03 Source: patient Limitations: no limitations - History of Present Illness Pain Scale: 10 - Related Data Home Medications Medication Instructions Recorded Confirmed Emtricitabine/Tenofovir [Truvada] 1 tab PO DAILY 11/18/14 10/20/17 Raltegravir Potassium [Isentress] 400 mg PO BID 05/17/15 10/20/17 Escitalopram [Lexapro] 10 mg PO DAILY 04/19/17 10/20/17 Quetiapine Fumarate [Seroquel] 400 mg PO HS 10/20/17 10/20/17 Previous Rx's Medication Instructions Recorded Promethazine [Phenergan] 25 mg RC Q6HR PRN #8 supp.rect 10/16/17 Allergies Allergy/AdvReac Type Severity Reaction Status Date / Time dicyclomine [From Bentyl] Allergy Hives Verified 10/20/17 12:30 ketorolac [From Toradol] Allergy Hives Verified 10/20/17 12:30 tramadol Allergy Hives Verified 10/20/17 12:30 Past Medical History - Past Medical History Medical history: Reports: hepatitis, HIV/AIDS, liver disease, seizures, other Surgical history: Reports: no surgical history Psychiatric history: Reports: anxiety, depression, prior suicide attempt, previous psychiatric hospitalization - Social History Smoking Status: Current every day smoker Smokeless Tobacco Status: No Alcohol use: Reports: none Drug use: Reports: none, marijuana Physical Exam - General Limitations: no limitations General appearance: alert, in no apparent distress Course Vital Signs Temperature 98.2 F 10/20/17 12:27 Pulse Rate 120 10/20/17 12:27 Respiratory Rate 16 10/20/17 12:27 Blood Pressure 129/85 10/20/17 12:27 O2 Sat by Pulse Oximetry 95 10/20/17 12:27 Temperature 98.2 F 10/20/17 12:27 Pulse Rate 95 10/20/17 17:05 Respiratory Rate 14 10/20/17 18:24 Blood Pressure 122/97 10/20/17 18:24 O2 Sat by Pulse Oximetry 98 10/20/17 17:05 Oxygen Delivery Oxygen Delivery Room Air Medical Decision Making - Lab Data Result diagrams: 10/20/17 14:00 10/20/17 14:00 Lab Results 10/20/17 10/20/17 10/20/17 Range/Units 13:12 14:00 14:00 WBC 4.9 (4.3-11.1) K/mcL RBC 4.24 (4.19-5.50) M/mcL Hgb 14.2 D (12.9-16.9) g/dL Hct 42.6 (37.5-50.1) % MCV 100.5 H (83.0-100.0) fL MCH 33.5 H (28.0-33.3) pg MCHC 33.3 (31.6-35.5) g/dL RDW 15.5 H (11.5-14.5) % Plt Count 120 L (140-400) K/mcL MPV 10.1 (9.4-12.4) fL Immature Gran % 0.2 (0-4) % Seg Neutrophils % 69.2 % Lymphocytes % 21.8 % Monocytes % 8.4 % Eosinophils % 0.2 % Basophils % 0.2 % Neutrophils # 3.4 (1.6-8.9) K/mcL Lymphocytes # 1.1 (0.6-4.6) K/mcL Monocytes # 0.4 (0.0-1.3) K/mcL Eosinophils # 0.0 (0.0-0.6) K/mcL Basophils # 0.0 (0.0-0.2) K/mcL Sodium 141 (136-145) mEq/L Potassium 3.8 (3.5-5.1) mEq/L Chloride 106 (98-107) mEq/L Carbon Dioxide 29 (23-29) mEq/L BUN 9 (6-20) mg/dL Creatinine 0.89 (0.70-1.30) mg/dL Est GFR ( Amer) > 60 (> 60) Est GFR (Non-Af Amer) > 60 (> 60) BUN/Creatinine Ratio 10 (6-26) Glucose 108 H (70-105) mg/dL Calculated Osmolality 291 (280-300) Calcium 9.4 (8.6-10.3) mg/dL Total Bilirubin 0.3 (0.3-1.0) mg/dL AST 57 H (13-39) Units/L ALT 50 (7-52) Units/L Alkaline Phosphatase 76 (34-104) Units/L Serum Total Protein 7.2 (6.4-8.9) g/dL Albumin 4.4 (3.5-5.7) g/dL Globulin 2.8 (2.4-3.5) g/dL Albumin/Globulin Ratio 1.6 (1.1-2.2) Lipase 61 (11-82) Units/L Urine Color Yellow (Yellow) Urine Clarity Clear (Clear) Urine pH 6.0 (5.0-8.0) pH Units Ur Specific [place] 1.022 (1.010-1.025) Urine Protein 30 H (Neg-Trace) mg/dL Urine Glucose (UA) Normal (Normal) mg/dL Urine Ketones Negative (Negative) mg/dL Urine Blood Negative (Negative) Urine Nitrite Negative (Negative) Urine Bilirubin Negative (Negative) Urine Urobilinogen Normal (Normal) mg/dL Ur Leukocyte Esterase Negative (Negative) Urine Microscopic WBC 0-3 (0-3) per hpf Ur Squamous Epith Cells Few (None-Few) per lpf Ur Transition Epith Cell Few (None-Few) per hpf Calcium Oxalate Crystal Present Urine Mucus Many H (Few) Attestation Statement - Attestation Attestation: I examined this patient and my medical decision-making was reviewed with the MACHINE SPRAYER/PA/Advanced Practice Nurse/Resident Physician. I agree with the documented findings, disposition and treatment plan as described except to the extent set forth below. I did see the patient is spoke with him and examined him and he does have pain mostly localized right upper quadrant and does have a recent ultrasound showing gallbladder wall thickening. The patient does have a history of HIV with a CD4 count above 500 earlier this year. Patient is bright and alert and well in appearance but also does have concerning amount of pain. Old records have been reviewed. Further evaluation pending. [id number]
[2017-10-20 14:29] LABS: Bilirubin,Urine Negative (Negative); Blood,Urine Negative (Negative); Clarity,Urine Clear (Clear); Color,Urine Yellow (Yellow); Glucose,Urine (UA) Normal (Normal); Ketones,Urine Negative (Negative); Leukocyte Esterase,Urine Negative (Negative); Nitrite,Urine Negative (Negative); Protein,Urine 30 mg/dL (Neg-Trace); Specific Gravity,Urine 1.022 (1.010-1.025); Urobilinogen,Urine Normal (Normal)
--- NOTE | 2017-10-20 14:56 | Emergency Department Note ---
Disposition Clinical Impression: RUQ pain Nausea and vomiting Qualifiers: Vomiting type: unspecified Vomiting Intractability: non-intractable Qualified Code(s): R11.2 - Nausea with vomiting, unspecified Disposition: Admitted As Inpatient Condition: Fair Time of Disposition: 17:58 General Adult HPI - General Chief complaint: ED Abdominal Pain Stated complaint: ABD pain, bloody stool Time Seen by Provider: 10/20/17 13:03 Source: patient Mode of arrival: ambulatory Limitations: no limitations Nursing Notes Reviewed: Yes Vital Signs Reviewed: Yes - History of Present Illness HPI Narrative: Patient is a 37-year-old male with a past medical history of HIV, hepatitis C and seizures presenting to the emergency department for right upper quadrant abdominal pain associated with nausea and vomiting has been going on for 6 days. The patient also states that he had 1 bloody bowel movement 2 days ago but that has resolved since then and is had a normal bowel movement after that incident. States she was recently seen for his right upper quadrant abdominal pain in this emergency department which she was given follow-up and told that his workup was unremarkable at that time. He denies any fevers, chills, chest pain, shortness of breath, flank pain or urinary symptoms. States has been approximately 2 months since he is less had his white blood cells checked for his current HIV status. The patient also stated that he did have a typical seizure for himself yesterday since she has been unable to keep his HIV medications and seizure medications down, however he reports no injury from the seizure and states that he had a typical postictal state and recovered. Pain Scale: 10 - Related Data Home Medications Medication Instructions Recorded Confirmed Emtricitabine/Tenofovir [Truvada] 1 tab PO DAILY 11/18/14 10/20/17 Raltegravir Potassium [Isentress] 400 mg PO BID 05/17/15 10/20/17 Escitalopram [Lexapro] 10 mg PO DAILY 04/19/17 10/20/17 Quetiapine Fumarate [Seroquel] 400 mg PO HS 10/20/17 10/20/17 Previous Rx's Medication Instructions Recorded Promethazine [Phenergan] 25 mg RC Q6HR PRN #8 supp.rect 10/16/17 Allergies Allergy/AdvReac Type Severity Reaction Status Date / Time dicyclomine [From Bentyl] Allergy Hives Verified 10/20/17 12:30 ketorolac [From Toradol] Allergy Hives Verified 10/20/17 12:30 tramadol Allergy Hives Verified 10/20/17 12:30 All systems ED: reviewed and negative except as stated. Review of Systems: As Per HPI Constitutional: Denies: fever, chills Cardiovascular: Denies: chest pain, palpitations, dyspnea on exertion Respiratory: Denies: cough, dyspnea Gastrointestinal: Reports: abdominal pain, nausea, vomiting Past Medical History - Past Medical History Attestation: Yes The following information was validated with the patient. Medical history: Reports: hepatitis, HIV/AIDS, liver disease, seizures, other Surgical history: Reports: no surgical history Psychiatric history: Reports: anxiety, depression, prior suicide attempt, previous psychiatric hospitalization - Social History Smoking Status: Current every day smoker Smokeless Tobacco Status: No Alcohol use: Reports: none Drug use: Reports: none, marijuana Physical Exam CONSTITUTIONAL: Alert and oriented X3, well-nourished, well appearing, in no apparent distress HEAD: Normocephalic; atraumatic. EYES: PERRL, no scleral icterus. NOSE: The nose is normal in appearance without rhinorrhea RESP: Normal chest excursion with respiration; breath sounds clear and equal bilaterally; no wheezes, rhonchi, or rales CARD: Regular rhythm, without murmurs, rub or gallop ABD: Mild right upper quadrant pain with palpation and positive Dennison sign. No signs of rigidity or rebound. Normal bowel sounds. RECTAL: Patient declined a rectal exam states he did one himself at home and noted no hemorrhoids. SKIN: Normal for age and race; warm and dry; no apparent lesions - General Limitations: no limitations General appearance: alert, in no apparent distress Course Course Narrative: Reviewing his prior labs from his visit on 10/16/[address] scan that was unremarkable as well as lab work including hepatic panel and lipase which were also normal. Discussed with the patient that given his recurring symptoms and his ultrasound today that showed chronic changes of his gallbladder as well as his laboratory shows normal plan is to admit him to the hospital since he is unable to tolerate his by mouth medications at home and this is his second visit to the emergency department for this concern. Discussed that he may be seen by surgery at Hospital for potential evaluation of his gallbladder for removal. Patient agrees with this plan. Vital Signs Temperature 98.2 F 10/20/17 12:27 Pulse Rate 120 10/20/17 12:27 Respiratory Rate 16 10/20/17 12:27 Blood Pressure 129/85 10/20/17 12:27 O2 Sat by Pulse Oximetry 95 10/20/17 12:27 Temperature 97.5 F L 10/20/17 23:31 Pulse Rate 89 10/20/17 23:31 Respiratory Rate 14 10/20/17 23:31 Blood Pressure 142/96 10/20/17 23:31 O2 Sat by Pulse Oximetry 97 10/20/17 23:31 Oxygen Delivery Oxygen Delivery Room Air Medical Decision Making - Medical Records Medical records reviewed: Yes I reviewed the patient's medical records. - Lab Data Lab results reviewed: Yes I reviewed the patient's lab results. Result diagrams: 10/20/17 14:00 10/20/17 14:00 Lab Results 10/20/17 10/20/17 10/20/17 Range/Units 13:12 14:00 14:00 WBC 4.9 (4.3-11.1) K/mcL RBC 4.24 (4.19-5.50) M/mcL Hgb 14.2 D (12.9-16.9) g/dL Hct 42.6 (37.5-50.1) % MCV 100.5 H (83.0-100.0) fL MCH 33.5 H (28.0-33.3) pg MCHC 33.3 (31.6-35.5) g/dL RDW 15.5 H (11.5-14.5) % Plt Count 120 L (140-400) K/mcL MPV 10.1 (9.4-12.4) fL Immature Gran % 0.2 (0-4) % Seg Neutrophils % 69.2 % Lymphocytes % 21.8 % Monocytes % 8.4 % Eosinophils % 0.2 % Basophils % 0.2 % Neutrophils # 3.4 (1.6-8.9) K/mcL Lymphocytes # 1.1 (0.6-4.6) K/mcL Monocytes # 0.4 (0.0-1.3) K/mcL Eosinophils # 0.0 (0.0-0.6) K/mcL Basophils # 0.0 (0.0-0.2) K/mcL Sodium 141 (136-145) mEq/L Potassium 3.8 (3.5-5.1) mEq/L Chloride 106 (98-107) mEq/L Carbon Dioxide 29 (23-29) mEq/L BUN 9 (6-20) mg/dL Creatinine 0.89 (0.70-1.30) mg/dL Est GFR ( Amer) > 60 (> 60) Est GFR (Non-Af Amer) > 60 (> 60) BUN/Creatinine Ratio 10 (6-26) Glucose 108 H (70-105) mg/dL Calculated Osmolality 291 (280-300) Calcium 9.4 (8.6-10.3) mg/dL Total Bilirubin 0.3 (0.3-1.0) mg/dL AST 57 H (13-39) Units/L ALT 50 (7-52) Units/L Alkaline Phosphatase 76 (34-104) Units/L Serum Total Protein 7.2 (6.4-8.9) g/dL Albumin 4.4 (3.5-5.7) g/dL Globulin 2.8 (2.4-3.5) g/dL Albumin/Globulin Ratio 1.6 (1.1-2.2) Lipase 61 (11-82) Units/L Urine Color Yellow (Yellow) Urine Clarity Clear (Clear) Urine pH 6.0 (5.0-8.0) pH Units Ur Specific [place] 1.022 (1.010-1.025) Urine Protein 30 H (Neg-Trace) mg/dL Urine Glucose (UA) Normal (Normal) mg/dL Urine Ketones Negative (Negative) mg/dL Urine Blood Negative (Negative) Urine Nitrite Negative (Negative) Urine Bilirubin Negative (Negative) Urine Urobilinogen Normal (Normal) mg/dL Ur Leukocyte Esterase Negative (Negative) Urine Microscopic WBC 0-3 (0-3) per hpf Ur Squamous Epith Cells Few (None-Few) per lpf Ur Transition Epith Cell Few (None-Few) per hpf Calcium Oxalate Crystal Present Urine Mucus Many H (Few) - Radiology Data Radiology results reviewed: Yes I reviewed the patient's radiology results. Gallbladder Ultrasound 10/20/17 15:53 IMPRESSION: 1. Thickened gallbladder wall is nonspecific. This may reflect changes related to chronic gallbladder disease. No gallstones are identified or pericholecystic fluid. 2. Imaging features suspicious of a diffuse hepatic steatosis with mildly increased hepatic size. D/ / Trevon Huerta / Trevon Huerta Interpreting Provider: Trevon Huerta
[2017-10-20 15:08] LABS: Mucus,Urine Many (Few); Squamous Epithelial Cell,Urine Few per lpf (None-Few); Transitional Epi Cells,Urine Few per hpf (None-Few)
[2017-10-20 15:09] LABS: Calcium Oxalate Crystals,Urine Present; WBC,Urine 0-3 per hpf (0-3)
[2017-10-20 15:32] LABS: Basophils % 0.2 %; Eosinophils % 0.2 %; Hematocrit 42.6 % (37.5-50.1); Hemoglobin 14.2 g/dL (12.9-16.9); Immature Granulocytes % 0.2 % (0-4); Lymphocytes # 1.1 K/mcL (0.6-4.6); Lymphocytes % 21.8 %; Mean Corpuscular HGB Conc 33.3 g/dL (31.6-35.5); Mean Corpuscular Hemoglobin 33.5 pg (28.0-33.3); Mean Corpuscular Volume 100.5 fL (83.0-100.0); Mean Platelet Volume 10.1 fL (9.4-12.4); Monocytes # 0.4 K/mcL (0.0-1.3); Monocytes % 8.4 %; Neutrophils # 3.4 K/mcL (1.6-8.9); Platelet Count 120 K/mcL (140-400); Red Blood Count 4.24 M/mcL (4.19-5.50); Red Cell Distribution Width 15.5 % (11.5-14.5); Segmented Neutrophils % 69.2 %
[2017-10-20 15:44] LABS: Alanine Aminotransferase 50 Units/L (7-52); Albumin 4.4 g/dL (3.5-5.7); Albumin/Globulin Ratio 1.6 (1.1-2.2); Alkaline Phosphatase 76 Units/L (34-104); Aspartate Amino Transferase 57 Units/L (13-39); BUN/Creatinine Ratio 10 (6-26); Bilirubin,Total 0.3 mg/dL (0.3-1.0); Blood Urea Nitrogen 9 mg/dL (6-20); Calcium 9.4 mg/dL (8.6-10.3); Carbon Dioxide 29 mEq/L (23-29); Chloride 106 mEq/L (98-107); Globulin 2.8 g/dL (2.4-3.5); Glucose 108 mg/dL (70-105); Lipase 61 Units/L (11-82); Osmolality,Calculated 291 (280-300); Potassium 3.8 mEq/L (3.5-5.1); Sodium 141 mEq/L (136-145); Total Protein 7.2 g/dL (6.4-8.9); eGFR For Non-African Americans > 60 (> 60)
[2017-10-20] MEDS ORDERED: Ondansetron 4 MG/2 ML VIAL IVP ONE (15:52)
[2017-10-20] MEDS ORDERED: *HR* FentaNYL (PF) 100 MCG/2 ML VIAL IVP ONE (15:52)
[2017-10-20] MEDS ORDERED: Ringers Solution, Lactated 1,000 ML IVC ONE (18:10)
[2017-10-20] MEDS ORDERED: Acetaminophen 325 MG TABLET PO PRN (18:11)
[2017-10-20] MEDS ORDERED: *HR* HYDROcodone/Acet 5/325 mg TABLET PO PRN (18:11)
[2017-10-20] MEDS ORDERED: Naloxone 0.4 MG/ML INJ IVP PRN (18:11)
[2017-10-20] MEDS ORDERED: *HR* OxyCODONE Immed Rel 5 MG TABLET PO PRN (18:11)
[2017-10-20] MEDS ORDERED: Ringers Solution, Lactated 1,000 ML IVC SCH (18:15)
[2017-10-20] MEDS ORDERED: Ondansetron 4 MG/2 ML VIAL IVP PRN (18:20)
--- NOTE | 2017-10-20 18:32 | Internal Med History&Physical ---
Date of Encounter: 10/20/17 Time of Encounter: 18:28 Internal Medicine - H&P: HPI History of present illness: Mr. Dyer is a 37 year old male with history of HIV, liver disease, hepatitis, seizures present for acute on chronic abdominal pain. He has had recurring pains in RUQ in past. Recently seen in hospital for abdominal pain. An ultrasound at that time showed GBW thickening and one was repeated today showed about same findings. No obstructed stone was found. His LFTs are relatively unremarkable outside borderline elevated AST/ALT. He denies fevers/chills. Admits to n/v. Staff has not seen him actively vomit, but he holds emesis bag nearby. He is concerned because he is unable to tolerate pills and he needs them for seizures and HIV. He will be admitted for IV fluids, Zofran, supportive care with close monitoring to see if he can tolerate his PO pills. Past Med Surg Social Fam HX - Past Medical History Medical history: hepatitis, HIV/AIDS, liver disease, seizures, other Additional medical history: SYPHILLIS. HAS SLUDGE/SAND IN GALL BLADDER Psychiatric history: anxiety, depression, prior suicide attempt, previous psychiatric hospitalization - Past Surgical History Surgical History: no surgical history Additional surgical history: CYST REMOVED FROM BACK - Social History Smoking Status: Current every day smoker Smokeless Tobacco Status: No Alcohol use: none Drug use: none, marijuana - Family History Mother Family Member Ethnicity: Non- Living Status: Still Living Hx Family Cancer: Yes (Breast, Lung, Lymphoma) Hx Family Endocrine Disorder: Yes (DM) Father Family Member Ethnicity: Non- Living Status: Still Living Hx Family Cardiac Disorders: Yes (NM, HTN) Hx Family Cancer: No Hx Family Endocrine Disorder: Yes (DM) Brother Family Member Ethnicity: Non- Living Status: Still Living Hx Family Cardiac Disorders: Yes (HTN) Sister Adopted: No Family Member Ethnicity: Non- Living Status: Still Living Internal Medicine - H&P: Meds Emtricitabine/Tenofovir [Truvada] 1 tab PO DAILY 11/18/14 [History] Raltegravir Potassium [Isentress] 400 mg PO BID 05/17/15 [History] Escitalopram [Lexapro] 10 mg PO DAILY 04/19/17 [History] Promethazine [Phenergan] 25 mg RC Q6HR PRN #8 supp.rect 08/26/18 [Rx] Quetiapine Fumarate [Seroquel] 400 mg PO HS 10/20/17 [History] 3 Allergy/AdvReac Type Severity Reaction Status Date / Time dicyclomine [From Bentyl] Allergy Hives Verified 10/20/17 12:30 ketorolac [From Toradol] Allergy Hives Verified 10/20/17 12:30 tramadol Allergy Hives Verified 10/20/17 12:30 All Systems PM: A 10-system review of systems was performed and is negative for pertinent findings except as documented above in the HPI. Review of systems: As per HPI - Constitutional Vitals: Temp Pulse Resp BP Pulse Ox 98.2 F 95 14 122/97 98 10/20/17 12:27 10/20/17 17:05 10/20/17 18:24 10/20/17 18:24 10/20/17 17:05 General appearance: Present: A&O X 3 Exam: Poor dentition, poorly groomed - Head Head exam: Present: atraumatic, normocephalic - Eye Eye exam: Present: PERRL, conjuntiva pink, sclera anicteric Pupils: Present: PERRL - Neck Neck exam general surgery: Present: supple, trachea midline. Absent: lymphadenopathy - Respiratory Respiratory exam: Present: CTAB. Absent: accessory muscle use, rales, rhonchi, wheezes - Cardiovascular Cardiovascular exam: Present: RRR, +S1, +S2. Absent: diastolic murmur, gallop, rubs, systolic murmur - GI/Abdominal GI/Abdominal exam: Present: normal bowel sounds, soft, tenderness, no peritoneal signs. Absent: distended, guarding, hepatomegaly, rebound, rigid - Extremities Exam Extremities exam: Present: warm, radial pulses palpable and symmetrical. Absent : calf tenderness, cyanotic, pedal edema - Neurological Exam Neurological exam: Present: CN II-XII intact, oriented X3, no focal deficits. Absent: pronater drift, facial droop, speech deficit - Skin Skin exam: Present: dry, intact Internal Med - H&P Results - Labs CBC & Chem 7: 10/20/17 14:00 10/20/17 14:00 - Assessment and plan (1) Intractable abdominal pain Current Visit: No Status: Acute Assessment and plan: Possible hepatobiliary related. Patient will need Surgery to evaluate patient because of frequent recurrence of symptoms. Should be consulted in the morning. Continue pain management and IV fluids. (2) Mood disorder Current Visit: No Status: Chronic Assessment and plan: Resume home medications. (3) Depression Current Visit: No Status: Chronic Assessment and plan: Restart homed medications. Qualifiers: Depression Type: major depressive disorder Major depression recurrence: recurrent Active/Remission status: currently active Major depression episode severity: moderate Qualified Code(s): F33.1 - Major depressive disorder, recurrent, moderate (4) HIV disease Current Visit: No Status: Chronic Assessment and plan: Continue home medications. (5) Intractable nausea and vomiting Current Visit: No Status: Acute Assessment and plan: IV fluids, Zofran. Monitor that patient able to tolerate PO pills to prevent seizures. Qualifiers: Vomiting type: unspecified Qualified Code(s): R11.2 - Nausea with vomiting , unspecified (6) Tobacco dependence Current Visit: No Status: Chronic (7) Hepatitis B Current Visit: No Status: Chronic Qualifiers: Viral hepatitis chronicity: unspecified Hepatic coma status: without hepatic coma Hepatitis delta agent presence: without delta-agent Qualified Code(s): B19.10 - Unspecified viral hepatitis B without hepatic coma (8) HIV (human immunodeficiency virus infection) Current Visit: No Status: Chronic (9) Abdominal pain Current Visit: No Status: Acute Qualifiers: Abdominal location: right lower quadrant Qualified Code(s): R10.31 - Right lower quadrant pain (10) DVT prophylaxis Current Visit: No Status: Acute Assessment and plan: Heparin SQ - Time Spent With Patient Total time spent is greater than 50% in coordination of care (as documented) at patient's floor/unit and/or counseling patient:
[2017-10-20] MEDS ORDERED: Nicotine 21 MG PATCH.TD24 TD SCH (20:15)
[2017-10-20] MEDS ORDERED: *HR* Promethazine 25 MG/ML VIAL IVP PRN (20:27)
[2017-10-20] MEDS ORDERED: OXYCODONE Oral CONC 10 MG/0.5 ML ORAL.SYG SL PRN (20:29)
[2017-10-20] MEDS ORDERED: RALTEGRAVIR POTASSIUM 400 MG TABLET PO SCH (21:00)
[2017-10-20] MEDS ORDERED: Isovue-370 500 ML INFUS..BTL IV ONE (21:55)
--- NOTE | 2017-10-20 23:26 | Event Note ---
Date of Encounter: 10/20/17 Time of Encounter: 19:39 Alerted by pts. nurse DENISE Oconnell that patient was complaining that he vomited up his oxycodone. Patient's vomiting was unwitnessed. I instructed the nurse to give patient emesis bags so we could monitor I&O. Zofran 4 mg IVP ordered every 6 hours when necessary for vomiting which was not working. Order changed to Phenergan IVP 12.5 mg every 6 hours when necessary for nausea and vomiting. Patient also requested a nicotine patch due to current tobacco use. 21 mg nicotine patch ordered. Alerted by patient's nurse at 20:26 that patient had received IV push Zofran at 19:50 and by mouth [place] at 20:15 and pt. vomited small amount of liquid which nurse witnessed. By mouth 5 mg oxycodone discontinued and changed to 10 mg sublingual oxycodone. According to pts. nurse , the patient held sublingual oxycodone in his mouth for approximately 1 minute and vomited small amount of clear fluid. Patient had received 50 MCG IVP of fentanyl in the ED and was now requesting something stronger. Went to see patient who was resting comfortably in bed. Remembered patient from previous encounter in 05/2017 when patient was hospitalized for similar symptoms of abdominal pain. 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 At the time, patient stated his PCP would no longer prescribe pain medications due to his drug-seeking behavior and so he would buy them [id number]. In May, CT of the patient's abdomen/pelvis showed no acute intra-abdominal or intrapelvic process. I explained to the patient that due to his liver disease and hepatitis history, I had to be very protective of his liver due to dysfunctional metabolization of pain medications that occurs in liver disease. I explained to the patient that I wanted to order another CT of the abdomen/pelvis in order to find out what the root cause of his abdominal pain was. I then stated that I needed to control the pts. vomiting. Patient stated he would stay to have a CT of the abdomen/pelvis done if he could receive pain medication. I explained again that I wanted to have the imaging of the abdomen/pelvis done first to rule out abnormalities. Patient stated if he was not going to get pain medication, he could go home and smoke weed to control his pain. I again stressed to the patient the importance of having the CT of the abdomen/pelvis done in order to identify the root cause of his abdominal pain as well as nausea control. Patient stated he was not going have the CT done and wished to leave AMA. The risks of leaving AMA were explained to the patient who expressed understanding to the risks and dangers he was told. Patient's nurse printed the AMA paperwork which the patient signed.
[2017-10-20 23:34] VITALS: BP 142/96
[2017-10-21] MEDS ORDERED: *HR* Heparin 5,000 UNIT/ML VIAL SQ SCH (06:00)
== END 2017-10-20 23:55 | disposition left against medical advice (07) ==
LOC: EMEROOARM 12:15 → 3BNU 12:15
PROVIDERS: ADMIT Student in an Organized Health Care Education/Training Program; ATTEND Student in an Organized Health Care Education/Training Program

== ENCOUNTER 2018-03-27 09:22 | Observation (INO) ==
--- NOTE | 2018-03-27 09:45 | Emergency Department Note ---
Disposition Clinical Impression: Acute pancreatitis Qualifiers: Pancreatitis type: other Acute pancreatitis complication: unspecified Qualified Code(s): K85.80 - Other acute pancreatitis without necrosis or infection Disposition: Admitted As Inpatient Condition: Fair Time of Disposition: 21:24 General Adult HPI - General Chief complaint: ED Abdominal Pain Stated complaint: ABD Pain,Vomiting Time Seen by Provider: 03/27/18 09:43 Source: patient Limitations: no limitations Nursing Notes Reviewed: Yes Vital Signs Reviewed: Yes - History of Present Illness Pain Scale: 9 - Related Data Home Medications Medication Instructions Recorded Confirmed RX: Emtricitabine/Tenofovir 1 tab PO DAILY 11/18/14 01/30/18 [Truvada] RX: Raltegravir Potassium 400 mg PO BID 05/17/15 01/30/18 [Isentress] RX: Escitalopram [Lexapro] 10 mg PO DAILY 04/19/17 01/30/18 Quetiapine Fumarate [Seroquel] 400 mg PO HS 10/20/17 01/30/18 Previous Rx's Medication Instructions Recorded Ondansetron HCl [Zofran] 4 mg PO PRN PRN 5 Days #10 tab 11/19/17 Promethazine [Phenergan] 25 mg RC Q6HR PRN #8 supp.rect 01/30/18 Ondansetron ODT [Zofran ODT] 4 mg SL Q6HR #12 tab.rapdis 03/25/18 Allergies Allergy/AdvReac Type Severity Reaction Status Date / Time dicyclomine [From Bentyl] Allergy Hives Verified 03/27/18 09:59 ketorolac [From Toradol] Allergy Hives Verified 03/27/18 09:59 tramadol Allergy Hives Verified 03/27/18 09:59 Past Medical History - Past Medical History Medical history: Reports: hepatitis, HIV/AIDS, liver disease, seizures Surgical history: Reports: no surgical history Psychiatric history: Reports: anxiety, depression, prior suicide attempt, previous psychiatric hospitalization - Social History Smoking Status: Current every day smoker Smokeless Tobacco Status: No Alcohol use: Reports: none Drug use: Reports: marijuana Physical Exam - General Limitations: no limitations General appearance: alert, in no apparent distress Course Vital Signs Temperature 98.1 F 03/27/18 09:34 Pulse Rate 123 03/27/18 09:34 Respiratory Rate 22 03/27/18 09:34 Blood Pressure 124/73 03/27/18 09:34 O2 Sat by Pulse Oximetry 99 03/27/18 09:34 Temperature 98.2 F 03/27/18 15:40 Pulse Rate 94 03/27/18 15:40 Respiratory Rate 16 03/27/18 15:40 Blood Pressure 138/90 03/27/18 15:40 O2 Sat by Pulse Oximetry 98 03/27/18 15:43 Oxygen Delivery Oxygen Delivery Room Air Medical Decision Making - Lab Data Result diagrams: 03/27/18 10:14 03/27/18 10:14 Lab Results 03/27/18 03/27/18 03/27/18 Range/Units 10:14 10:14 10:14 WBC 10.1 D (4.3-11.1) K/mcL RBC 5.13 (4.19-5.50) M/mcL Hgb 16.6 D (12.9-16.9) g/dL Hct 48.5 (37.5-50.1) % MCV 94.5 (83.0-100.0) fL MCH 32.4 (28.0-33.3) pg MCHC 34.2 (31.6-35.5) g/dL RDW 13.7 (11.5-14.5) % Plt Count 179 (140-400) K/mcL MPV 10.2 (9.4-12.4) fL Immature Gran % 0.3 (0-4) % Seg Neutrophils % 76.7 % Lymphocytes % 16.3 % Monocytes % 6.5 % Eosinophils % 0.1 % Basophils % 0.1 % Neutrophils # 7.8 (1.6-8.9) K/mcL Lymphocytes # 1.7 (0.6-4.6) K/mcL Monocytes # 0.7 (0.0-1.3) K/mcL Eosinophils # 0.0 (0.0-0.6) K/mcL Basophils # 0.0 (0.0-0.2) K/mcL Sodium 132 L (136-145) mEq/L Potassium 4.0 (3.5-5.1) mEq/L Chloride 104 (98-107) mEq/L Carbon Dioxide 25 (23-29) mEq/L BUN 12 (6-20) mg/dL Creatinine 1.05 (0.70-1.30) mg/dL Est GFR ( Amer) > 60 (> 60) Est GFR (Non-Af Amer) > 60 (> 60) BUN/Creatinine Ratio 11 (6-26) Glucose 124 H (70-105) mg/dL Calculated Osmolality 275 L (280-300) Lactic Acid 1.5 (0.5-2.2) mmol/L Calcium 9.9 (8.6-10.3) mg/dL Total Bilirubin 0.7 (0.3-1.0) mg/dL AST 26 (13-39) Units/L ALT 43 (7-52) Units/L Alkaline Phosphatase 62 (34-104) Units/L Serum Total Protein 8.2 (6.4-8.9) g/dL Albumin 5.1 (3.5-5.7) g/dL Globulin 3.1 (2.4-3.5) g/dL Albumin/Globulin Ratio 1.6 (1.1-2.2) Lipase 62 (11-82) Units/L Urine Color (Yellow) Urine Clarity (Clear) Urine pH (5.0-8.0) pH Units Ur Specific [place] (1.010-1.025) Urine Protein (Neg-Trace) mg/dL Urine Glucose (UA) (Normal) mg/dL Urine Ketones (Negative) mg/dL Urine Blood (Negative) Urine Nitrite (Negative) Urine Bilirubin (Negative) Urine Urobilinogen (Normal) mg/dL Ur Leukocyte Esterase (Negative) Urine Microscopic RBC (0-3) per hpf Urine Microscopic WBC (0-3) per hpf Ur Squamous Epith Cells (None-Few) per lpf Urine Bacteria (None-Few) per hpf Hyaline Casts (None-Few) per lpf 03/27/18 Range/Units 11:56 WBC (4.3-11.1) K/mcL RBC (4.19-5.50) M/mcL Hgb (12.9-16.9) g/dL Hct (37.5-50.1) % MCV (83.0-100.0) fL MCH (28.0-33.3) pg MCHC (31.6-35.5) g/dL RDW (11.5-14.5) % Plt Count (140-400) K/mcL MPV (9.4-12.4) fL Immature Gran % (0-4) % Seg Neutrophils % % Lymphocytes % % Monocytes % % Eosinophils % % Basophils % % Neutrophils # (1.6-8.9) K/mcL Lymphocytes # (0.6-4.6) K/mcL Monocytes # (0.0-1.3) K/mcL Eosinophils # (0.0-0.6) K/mcL Basophils # (0.0-0.2) K/mcL Sodium (136-145) mEq/L Potassium (3.5-5.1) mEq/L Chloride (98-107) mEq/L Carbon Dioxide (23-29) mEq/L BUN (6-20) mg/dL Creatinine (0.70-1.30) mg/dL Est GFR ( Amer) (> 60) Est GFR (Non-Af Amer) (> 60) BUN/Creatinine Ratio (6-26) Glucose (70-105) mg/dL Calculated Osmolality (280-300) Lactic Acid (0.5-2.2) mmol/L Calcium (8.6-10.3) mg/dL Total Bilirubin (0.3-1.0) mg/dL AST (13-39) Units/L ALT (7-52) Units/L Alkaline Phosphatase (34-104) Units/L Serum Total Protein (6.4-8.9) g/dL Albumin (3.5-5.7) g/dL Globulin (2.4-3.5) g/dL Albumin/Globulin Ratio (1.1-2.2) Lipase (11-82) Units/L Urine Color Yellow (Yellow) Urine Clarity Clear (Clear) Urine pH 7.5 (5.0-8.0) pH Units Ur Specific [place] > 1.030 H (1.010-1.025) Urine Protein 30 H (Neg-Trace) mg/dL Urine Glucose (UA) Normal (Normal) mg/dL Urine Ketones Negative (Negative) mg/dL Urine Blood Negative (Negative) Urine Nitrite Negative (Negative) Urine Bilirubin Negative (Negative) Urine Urobilinogen Normal (Normal) mg/dL Ur Leukocyte Esterase Negative (Negative) Urine Microscopic RBC 5-15 H (0-3) per hpf Urine Microscopic WBC 0-3 (0-3) per hpf Ur Squamous Epith Cells Many H (None-Few) per lpf Urine Bacteria None Seen (None-Few) per hpf Hyaline Casts None Seen (None-Few) per lpf
[2018-03-27] MEDS ORDERED: *HR* FentaNYL (PF) 100 MCG/2 ML VIAL IVP ONE (09:46)
[2018-03-27] MEDS ORDERED: 0.9 % Sodium Chloride 1,000 ML IVC ONE ×2 (09:46→12:58)
--- NOTE | 2018-03-27 09:56 | Emergency Department Note ---
Disposition Clinical Impression: Acute pancreatitis Qualifiers: Pancreatitis type: other Acute pancreatitis complication: unspecified Qualified Code(s): K85.80 - Other acute pancreatitis without necrosis or infection Disposition: Admitted As Inpatient Condition: Fair Referrals: NONE,PCP [Primary Care Provider] - Forms: ED Satisfaction Letter, Work/School Release Abdominal Pain HPI - General Chief Complaint: ED Abdominal Pain Stated Complaint: ABD Pain,Vomiting Time Seen by Provider: 03/27/18 09:43 Source: patient Mode of arrival: ambulatory Limitations: no limitations Nursing Notes Reviewed: Yes Vital Signs Reviewed: Yes - History of Present Illness HPI Narrative: 37 yo M with past medical history including HIV on antiviral medications, hepatitis C, presenting with chief complaint of abdominal pain for 5 days. Pain worsened two days ago. He complains of right lower quadrant abdominal pain that is sharp and constant. He presented to the ER for evaluation on March 25 secondary to the abdominal pain. CT abdomen and pelvis showed no acute intra- abdominal process. There is no fat straining of the pancreas however lipase was elevated in the 400s. He received IV fluids and pain medication. He was offered admission however the patient declined secondary to a recent in his family and he had to make arrangements. He states since last night, he complains of worsening pain. He is also having nausea and nonbilious vomiting. He is unable to keep anything down. His last bowel movement was 2 days ago when he took an enema. He states it was a normal bowel movement, nonbloody. He is presenting today for further management. Pain Scale: 9 - Related Data Home Medications Medication Instructions Recorded Confirmed Emtricitabine/Tenofovir [Truvada] 1 tab PO DAILY 11/18/14 01/30/18 Raltegravir Potassium [Isentress] 400 mg PO BID 05/17/15 01/30/18 Escitalopram [Lexapro] 10 mg PO DAILY 04/19/17 01/30/18 Quetiapine Fumarate [Seroquel] 400 mg PO HS 10/20/17 01/30/18 Previous Rx's Medication Instructions Recorded Ondansetron HCl [Zofran] 4 mg PO PRN PRN 5 Days #10 tab 11/19/17 Promethazine [Phenergan] 25 mg RC Q6HR PRN #8 supp.rect 01/30/18 Ondansetron ODT [Zofran ODT] 4 mg SL Q6HR #12 tab.rapdis 03/25/18 Allergies Allergy/AdvReac Type Severity Reaction Status Date / Time dicyclomine [From Bentyl] Allergy Hives Verified 03/27/18 09:59 ketorolac [From Toradol] Allergy Hives Verified 03/27/18 09:59 tramadol Allergy Hives Verified 03/27/18 09:59 All systems ED: reviewed and negative except as stated. Review of Systems: As Per HPI Constitutional: Denies: fever, chills Cardiovascular: Denies: chest pain, palpitations Respiratory: Denies: cough, dyspnea Gastrointestinal: Reports: abdominal pain, nausea, vomiting. Denies: diarrhea Genitourinary: Denies: dysuria Integumentary: Denies: rash Neurological: Denies: headache, weakness, paresthesias Abdominal Pain PMH - Past Medical History Medical history: Reports: hepatitis, HIV/AIDS, liver disease, seizures Male Surgical History: Reports: no surgical history Psychiatric history: Reports: anxiety, depression, prior suicide attempt, previous psychiatric hospitalization - Social History Smoking status: Current every day smoker Alcohol use: Reports: none Drug use: Reports: marijuana Physical Exam - General Limitations: no limitations General appearance: alert, in no apparent distress - Head Head exam: atraumatic, normocephalic - Eye Eye exam: Present: normal appearance, EOMI. Absent: scleral icterus - ENT ENT exam: mucous membranes dry - Neck Neck exam: Present: normal inspection, trachea midline - Chest Chest inspection: Present: normal inspection, symmetric chest wall rise - Respiratory Respiratory exam: Present: normal lung sounds bilaterally. Absent: respiratory distress, wheezes - Cardiovascular Cardiovascular exam: Present: regular rate, normal rhythm, normal heart sounds - Abdominal Exam Abdominal exam: Present: soft, tenderness (right lower quadrant). Absent: distention, guarding, rebound, rigidity - Extremities Exam Extremities exam: Present: normal inspection, full ROM, normal capillary refill - Neurological Exam Neurological exam: Present: alert, oriented X3 - Psychiatric Psychiatric exam: Present: normal affect, normal mood - Skin Skin exam: Present: warm, dry, intact, normal color Course Vital Signs Temperature 98.1 F 03/27/18 09:34 Pulse Rate 123 03/27/18 09:34 Respiratory Rate 22 03/27/18 09:34 Blood Pressure 124/73 02/04/19 09:34 O2 Sat by Pulse Oximetry 99 03/27/18 09:34 Temperature 98.1 F 03/27/18 09:34 Pulse Rate 100 03/27/18 10:21 Respiratory Rate 20 03/27/18 10:21 Blood Pressure 137/87 03/27/18 10:21 O2 Sat by Pulse Oximetry 98 03/27/18 10:21 Oxygen Delivery Oxygen Delivery Room Air Abdominal Pain - MDM Narrative Medical decision making narrative: Patient was diagnosed 2 days ago with acute pancreatitis. He is having worseni ng pain. He describes the pain in the right lower quadrant radiating into his right groin. 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 He elected not to have surgery. He states his testicular pain is chronic. He denies any new pain. CT 2 days ago did not show any fat stranding of the pancreas. No other acute intra-abdominal or pelvic abnormality. We will give him IV fluids and fentanyl for pain control. He is nothing by mouth and will admit for further management of acute pancreatitis. Repeat labs have been ordered including lipase, hepatic panel, CBC, BMP. 10:50 Normal lipase. Labs otherwise unremarkable. Patient has significant right lower quadrant abdominal tenderness. We will repeat the CT abdomen and pelvis with IV contrast to further evaluate. May have early appendicitis. He does have history of testicular torsion. Patient's pain is uncontrolled despite 100 g of fentanyl. We will give him morphine IV. 13:00 Urinalysis shows no urinary tract infection. We will give a second liter bolus of IV fluids. We will give Dilaudid as his pain has returned. He has not vomited while here. He denies nausea at this time. Discussed with hospitalist, Dr. Stone, who accepts admission. - Medical Records Medical records reviewed: Yes I reviewed the patient's medical records. - Lab Data Lab results reviewed: Yes I reviewed the patient's lab results. Result diagrams: 03/27/18 10:14 03/27/18 10:14 Lab Results 03/27/18 03/27/18 03/27/18 Range/Units 10:14 10:14 10:14 WBC 10.1 D (4.3-11.1) K/mcL RBC 5.13 (4.19-5.50) M/mcL Hgb 16.6 D (12.9-16.9) g/dL Hct 48.5 (37.5-50.1) % MCV 94.5 (83.0-100.0) fL MCH 32.4 (28.0-33.3) pg MCHC 34.2 (31.6-35.5) g/dL RDW 13.7 (11.5-14.5) % Plt Count 179 (140-400) K/mcL MPV 10.2 (9.4-12.4) fL Immature Gran % 0.3 (0-4) % Seg Neutrophils % 76.7 % Lymphocytes % 16.3 % Monocytes % 6.5 % Eosinophils % 0.1 % Basophils % 0.1 % Neutrophils # 7.8 (1.6-8.9) K/mcL Lymphocytes # 1.7 (0.6-4.6) K/mcL Monocytes # 0.7 (0.0-1.3) K/mcL Eosinophils # 0.0 (0.0-0.6) K/mcL Basophils # 0.0 (0.0-0.2) K/mcL Sodium 132 L (136-145) mEq/L Potassium 4.0 (3.5-5.1) mEq/L Chloride 104 (98-107) mEq/L Carbon Dioxide 25 (23-29) mEq/L BUN 12 (6-20) mg/dL Creatinine 1.05 (0.70-1.30) mg/dL Est GFR ( Amer) > 60 (> 60) Est GFR (Non-Af Amer) > 60 (> 60) BUN/Creatinine Ratio 11 (6-26) Glucose 124 H (70-105) mg/dL Calculated Osmolality 275 L (280-300) Lactic Acid 1.5 (0.5-2.2) mmol/L Calcium 9.9 (8.6-10.3) mg/dL Total Bilirubin 0.7 (0.3-1.0) mg/dL AST 26 (13-39) Units/L ALT 43 (7-52) Units/L Alkaline Phosphatase 62 (34-104) Units/L Serum Total Protein 8.2 (6.4-8.9) g/dL Albumin 5.1 (3.5-5.7) g/dL Globulin 3.1 (2.4-3.5) g/dL Albumin/Globulin Ratio 1.6 (1.1-2.2) Lipase 62 (11-82) Units/L - EKG Data EKG attestation: Yes I reviewed and interpreted this EKG. EKG results narrative: EKG obtained today at 957 shows sinus rhythm with heart rate 99. QRS duration 80. QTc 455. No ST elevation or depression. No old EKG to compare to.
[2018-03-27 10:29] LABS: Basophils % 0.1 %; Eosinophils % 0.1 %; Hematocrit 48.5 % (37.5-50.1); Hemoglobin 16.6 g/dL (12.9-16.9); Immature Granulocytes % 0.3 % (0-4); Lymphocytes # 1.7 K/mcL (0.6-4.6); Lymphocytes % 16.3 %; Mean Corpuscular HGB Conc 34.2 g/dL (31.6-35.5); Mean Corpuscular Hemoglobin 32.4 pg (28.0-33.3); Mean Corpuscular Volume 94.5 fL (83.0-100.0); Mean Platelet Volume 10.2 fL (9.4-12.4); Monocytes # 0.7 K/mcL (0.0-1.3); Monocytes % 6.5 %; Neutrophils # 7.8 K/mcL (1.6-8.9); Platelet Count 179 K/mcL (140-400); Red Blood Count 5.13 M/mcL (4.19-5.50); Red Cell Distribution Width 13.7 % (11.5-14.5); Segmented Neutrophils % 76.7 %
[2018-03-27] MEDS ORDERED: Ondansetron 4 MG/2 ML VIAL IVP ONE (10:32)
[2018-03-27 10:49] LABS: Alanine Aminotransferase 43 Units/L (7-52); Albumin 5.1 g/dL (3.5-5.7); Albumin/Globulin Ratio 1.6 (1.1-2.2); Alkaline Phosphatase 62 Units/L (34-104); Aspartate Amino Transferase 26 Units/L (13-39); BUN/Creatinine Ratio 11 (6-26); Bilirubin,Total 0.7 mg/dL (0.3-1.0); Blood Urea Nitrogen 12 mg/dL (6-20); Calcium 9.9 mg/dL (8.6-10.3); Carbon Dioxide 25 mEq/L (23-29); Chloride 104 mEq/L (98-107); Globulin 3.1 g/dL (2.4-3.5); Glucose 124 mg/dL (70-105); Lipase 62 Units/L (11-82); Osmolality,Calculated 275 (280-300); Sodium 132 mEq/L (136-145); Total Protein 8.2 g/dL (6.4-8.9); eGFR For Non-African Americans > 60 (> 60)
[2018-03-27] MEDS ORDERED: Isovue-370 500 ML BOTTLE IVP ONE (10:51)
[2018-03-27] MEDS ORDERED: *HR* Morphine 2 MG/ML SYRINGE IVP ONE (10:57)
[2018-03-27 12:35] LABS: Bilirubin,Urine Negative (Negative); Blood,Urine Negative (Negative); Clarity,Urine Clear (Clear); Color,Urine Yellow (Yellow); Glucose,Urine (UA) Normal (Normal); Ketones,Urine Negative (Negative); Leukocyte Esterase,Urine Negative (Negative); Nitrite,Urine Negative (Negative); PH,Urine 7.5 pH Units (5.0-8.0); Protein,Urine 30 mg/dL (Neg-Trace); Specific Gravity,Urine > 1.030 (1.010-1.025); Urobilinogen,Urine Normal (Normal)
[2018-03-27 12:37] LABS: Bacteria,Urine None Seen per hpf (None-Few); Hyaline Casts,Urine None Seen per lpf (None-Few); Squamous Epithelial Cell,Urine Many per lpf (None-Few); WBC,Urine 0-3 per hpf (0-3)
[2018-03-27] MEDS ORDERED: *HR* HYDROmorphone (PF) 1 MG/ML SYRINGE IVP ONE (12:58)
[2018-03-27 15:52] VITALS: BP 138/90
[2018-03-27] MEDS ORDERED: Acetaminophen 325 MG TABLET PO PRN (16:06)
[2018-03-27] MEDS ORDERED: Naloxone 0.4 MG/ML INJ IVP PRN (16:06)
[2018-03-27] MEDS ORDERED: 0.9 % Sodium Chloride 1,000 ML IVC SCH (16:15)
[2018-03-27] MEDS ORDERED: Ondansetron 4 MG/2 ML VIAL IVP PRN (16:16)
--- NOTE | 2018-03-27 16:31 | Internal Med History&Physical ---
Date of Encounter: 03/27/18 Time of Encounter: 16:20 Internal Medicine - H&P: HPI Chief complaint: ABd pain N/V Admitted From: Emergency Dept Plans for Post Hospital Care: Home History of present illness: Mr. Dyer is a 37 year old male past medical history of hepatitis C and HIVseizures disorder as well as psychiatric history including bipolar prior suicide attempts previous psychiatric hospitalizations chronic panc reatitistesticular torsion-patient has been experiencing right lower quadrant dull pain as sharp and constant has been present for approximately 5 days and has worsened over the past 2 days. He has been under an immense amount stress recently experienced the of his partner and has had poor oral intake. He presented to the ER for evaluation on March 25 CT abdomen and pelvis showed no acute intra-abdominal process there is no fast stranding of the pancreas have her lipase was elevated into the 400s he received IV fluids and pain medication however he did declined admission at that time due to the recent of his partner and he had to make arrangements. Last night the pain worsened and he was unable to keep anything down. He states that he has not been able take his HIV medicine for the past few days. repeat labsunremarkable with no elevation in lipase at this timerepeat CT abdomen pelvis with no acute process within the abdomen or pelvis normal appendix. Patient is afebrile vital signs are stable. Patient has been admitted for further work up and evaluation. Upon assessment patient is sitting up in bed watching a video on his computer, this patient is well-known to me He denies any current pain medication use or any recent hospitalizations. He continues to complain of abdominal pain he does have diffuse tenderness to palpation. Currently he is hemodynamically stable Past Med Surg Social Fam HX - Past Medical History Medical history: hepatitis, HIV/AIDS, liver disease, seizures Additional medical history: pancreatitis Psychiatric history: anxiety, depression, prior suicide attempt, previous psychiatric hospitalization - Past Surgical History Surgical History: no surgical history Additional surgical history: CYST REMOVED FROM BACK - Social History Smoking Status: Current every day smoker Packs per day: 2 Smokeless Tobacco Status: No Alcohol use: none Drug use: marijuana - Family History Mother Family Member Ethnicity: Non- Living Status: Still Living Hx Family Cancer: Yes (Breast, Lung, Lymphoma) Hx Family Endocrine Disorder: Yes (DM) Father Family Member Ethnicity: Non- Living Status: Still Living Hx Family Cardiac Disorders: Yes (VT, HTN) Hx Family Cancer: No Hx Family Endocrine Disorder: Yes (DM) Brother Family Member Ethnicity: Non- Living Status: Still Living Hx Family Cardiac Disorders: Yes (HTN) Sister Adopted: No Family Member Ethnicity: Non- Living Status: Still Living Internal Medicine - H&P: Meds Emtricitabine/Tenofovir [Truvada] 1 tab PO DAILY 11/18/14 [History] Raltegravir Potassium [Isentress] 400 mg PO BID 05/17/15 [History] Escitalopram [Lexapro] 10 mg PO DAILY 04/19/17 [History] Quetiapine Fumarate [Seroquel] 400 mg PO HS 10/20/17 [History] Ondansetron HCl [Zofran] 4 mg PO PRN PRN 5 Days #10 tab 11/19/17 [Rx] Promethazine [Phenergan] 25 mg RC Q6HR PRN #8 supp.rect 01/30/18 [Rx] Ondansetron ODT [Zofran ODT] 4 mg SL Q6HR #12 tab.rapdis 03/25/18 [Rx] Allergy/AdvReac Type Severity Reaction Status Date / Time dicyclomine [From Bentyl] Allergy Hives Verified 03/27/18 09:59 ketorolac [From Toradol] Allergy Hives Verified 03/27/18 09:59 tramadol Allergy Hives Verified 03/27/18 09:59 All Systems PM: A 10-system review of systems was performed and is negative for pertinent findings except as documented above in the HPI. - Constitutional Constitutional: no chills, no fever(s), no night sweats - EENT Eyes: no change in vision, no discharge, no pain, no photophobia Nose, mouth and throat: no dysphagia, no nasal discharge, no neck pain, no sore throat - Cardiovascular Cardiovascular ROS IM: no chest pain, no diaphoresis, no dyspnea, no lightheadedness, no palpitations, no syncope - Respiratory Respiratory: no cough, no dyspnea, no wheezing, no excessive phlegm production - Gastrointestinal Gastrointestinal: abdominal pain, nausea, vomiting, no diarrhea, no hematemesis, no hematochezia, no melena - Musculoskeletal Musculoskeletal ROS IM: no numbness, no tingling - Integumentary Integumentary IM: no rash, no unusual bruising - Neurological Neurological ROS: no confusion, no convulsions, no focal weakness, no numbness, no tingling, no tremor(s) - Hematologic/Lymphatic Hematologic/Lymphatic: no easy bruising - Constitutional Vitals: Temp Pulse Resp BP Pulse Ox 98.2 F 94 16 138/90 98 03/27/18 15:40 03/27/18 15:40 03/27/18 15:40 03/27/18 15:40 03/27/18 15:43 General appearance: Present: disheveled, A&O X 3, underweight Exam: . - Head Head exam: Present: atraumatic, normocephalic - Eye Eye exam: Present: PERRL, conjuntiva pink, sclera anicteric Pupils: Present: PERRL - Neck Neck exam general surgery: Present: supple, trachea midline. Absent: lymphadenopathy - Respiratory Respiratory exam: Present: CTAB. Absent: accessory muscle use, rales, rhonchi, wheezes - Cardiovascular Cardiovascular exam: Present: RRR, +S1, +S2. Absent: diastolic murmur, gallop, rubs, systolic murmur - GI/Abdominal GI/Abdominal exam: Present: normal bowel sounds, soft, tenderness, no peritoneal signs. Absent: distended - Extremities Exam Extremities exam: Present: warm, radial pulses palpable and symmetrical. Absent: calf tenderness, cyanotic, pedal edema - Neurological Exam Neurological exam: Present: CN II-XII intact, oriented X3, no focal deficits. Absent: pronater drift, facial droop, speech deficit - Skin Skin exam: Present: dry, intact Internal Med - H&P Results - Labs CBC & Chem 7: 03/27/18 10:14 03/27/18 10:14 Labs: Short CBC 03/27/18 Range/Units 10:14 WBC 10.1 D (4.3-11.1) K/mcL Hgb 16.6 D (12.9-16.9) g/dL Hct 48.5 (37.5-50.1) % Plt Count 179 (140-400) K/mcL Neutrophils # 7.8 (1.6-8.9) K/mcL BMP 03/27/18 10:14 Sodium 132 L Potassium 4.0 Chloride 104 Carbon Dioxide 25 BUN 12 Creatinine 1.05 Glucose 124 H Calcium 9.9 Liver Function 03/27/18 Range/Units 10:14 Total Bilirubin 0.7 (0.3-1.0) mg/dL AST 26 (13-39) Units/L ALT 43 (7-52) Units/L Alkaline Phosphatase 62 (34-104) Units/L Albumin 5.1 (3.5-5.7) g/dL Urine 03/27/18 Range/Units 11:56 Urine Color Yellow (Yellow) Urine Clarity Clear (Clear) Urine pH 7.5 (5.0-8.0) pH Units Ur Specific Lee > 1.030 H (1.010-1.025) Urine Protein 30 H (Neg-Trace) mg/dL Urine Glucose (UA) Normal (Normal) mg/dL - Impressions ITS Impressions Abdomen/Pelvis CT 03/27/18 10:51 IMPRESSION: 1. No acute process within the abdomen or pelvis. 2. Normal appendix. D/ / 03/27/2018 12:15:01 Ibrahima Veliz MD / rad Interpreting Provider: Irbahima Veliz MD - Diagnostic Studies CT scan - abdomen Additional comments: Abdomen/Pelvis CT 03/27/18 10:51 IMPRESSION: 1. No acute process within the abdomen or pelvis. 2. Normal appendix. D/ / 03/27/2018 12:15:01 Ibrahima Veliz MD / rad Interpreting Provider: Ibrahima Veliz MD - Assessment and plan (1) Acute pancreatitis Current Visit: Yes Status: Acute Assessment and plan: 1history of pancreatitis presented to days ago with a lipase of 400 currently it is 62 hepatic panel is normal nothing by mouth IV fluids Antiemetics IV Tylenol Qualifiers: Pancreatitis type: other Acute pancreatitis complication: unspecified Qualified Code(s): K85.80 - Other acute pancreatitis without necrosis or infection (2) DVT prophylaxis Current Visit: No Status: Acute Assessment and plan: Lovenox subcutaneous (3) Bipolar disease, chronic Current Visit: No Status: Chronic Assessment and plan: history of bipolar disease continue with home medications once verified (4) Drug-seeking behavior Current Visit: No Status: Chronic Assessment and plan: 1 patient has a past history of drug-seeking behavior he has been known to attempt a divert narcotics during admission-he has been witnessed attempting to hide medication as well as pocket medications. We will attempt to avoid narcotics continue with IV Tylenol this time-also watch hepatic panel (5) HIV (human immunodeficiency virus infection) Current Visit: No Status: Chronic Assessment and plan: 1patient does have a history of HIV currently on HIV Aart combo-he sees treatment for HIV at [facility] patient states he has not taken his medications for approximately 4 days due to nausea and vomiting Qualifiers: HIV symptom status: asymptomatic Qualified Code(s): Z21 - Asymptomatic human immunodeficiency virus [HIV] infection status (6) Seizure disorder Current Visit: No Status: Chronic Assessment and plan: history of seizure disorder we will continue with home medications Continue with seizure precautions - Time Spent With Patient Total time spent is greater than 50% in coordination of care (as documented) at patient's floor/unit and/or counseling patient:
--- NOTE | 2018-03-27 17:24 | Discharge Summary ---
Date of Encounter: 03/27/18 Time of Encounter: 17:24 - Discharge Diagnosis (1) Acute pancreatitis Priority: Primary Status: Acute Qualifiers: Pancreatitis type: other Acute pancreatitis complication: unspecified Qualified Code(s): K85.80 - Other acute pancreatitis without necrosis or infection (2) Bipolar disease, chronic Priority: Secondary Status: Chronic (3) Drug-seeking behavior Priority: Secondary Status: Chronic (4) HIV (human immunodeficiency virus infection) Priority: Secondary Status: Chronic Qualifiers: HIV symptom status: asymptomatic Qualified Code(s): Z21 - Asymptomatic human immunodeficiency virus [HIV] infection status (5) Seizure disorder Priority: Secondary Status: Chronic Hospital course: Mr. Dyer is a 37 year old male -I was notified per nursing staff the patient was very agitated and was verbally abusive and cursing at staff. Upon arrival to the patient's room he immediately began to curse at me, he expressed that he was upset that he was not receiving narcotics. I did explain to the patient that he does have a history of drug-seeking behavior as well as diverging drugs. At that point the patient became very agitated and extremely verbally abusive. I asked the patient to be would refrain from using profanity -patient asked what diverting drugs meant I explained to him that I had admitted the patient prior and at that time he was witnessed per nursing staff and myself placing oral Dilaudid into a box under his sheets again the patient became very agitated and stated "it was not Dilaudid it was Percocet if you are going to call someone now get your shit straight" patient threatened to leave AGAINST MEDICAL ADVICE I advised patient concerning risk of leaving AMA he requested narcotics advised him that we treat his pain however I would not use narcotics again patient became very agitated and cursed. He began to throw belongings around at that time-security had been notified however patient began to leave before security arrived to the floor. Patient left AGAINST MEDICAL ADVICE - Time Spent with Patient Total time spent providing and/or coordinating discharge services: - Discharge Medications Home Medications: Emtricitabine/Tenofovir [Truvada] 1 tab PO DAILY 11/18/14 [History] Raltegravir Potassium [Isentress] 400 mg PO BID 05/17/15 [History] Escitalopram [Lexapro] 10 mg PO DAILY 04/19/17 [History] Quetiapine Fumarate [Seroquel] 400 mg PO HS 10/20/17 [History] Ondansetron HCl [Zofran] 4 mg PO PRN PRN 5 Days #10 tab 11/19/17 [Rx] Promethazine [Phenergan] 25 mg RC Q6HR PRN #8 supp.rect 01/30/18 [Rx] Ondansetron ODT [Zofran ODT] 4 mg SL Q6HR #12 tab.rapdis 03/25/18 [Rx] Allergies/Adverse Reactions: Allergy/AdvReac Type Severity Reaction Status Date / Time dicyclomine [From Bentyl] Allergy Hives Verified 03/27/18 09:59 ketorolac [From Toradol] Allergy Hives Verified 03/27/18 09:59 tramadol Allergy Hives Verified 03/27/18 09:59 Date of admission: 03/27/18 14:36 Primary care physician: PCP NONE Consults: 03/27/18 15:56 Consult to Nutrition [CONS] Routine Comment: HIV aids- wasting syndrome- decreased appetite Consulting Provider: NUTRITION Reason for Dietary Consult: MST Score - Constitutional Vitals: Temp Pulse Resp BP Pulse Ox 98.2 F 94 16 138/90 98 03/27/18 15:40 03/27/18 15:40 03/27/18 15:40 03/27/18 15:40 03/27/18 15:43 General appearance: Present: disheveled, A&O X 3, underweight Exam: . - Patient Status Disposition: Left Against Medical Advice Condition: Fair - Discharge Instructions Follow Up With: NONE,PCP [Primary Care Provider] -
[2018-03-27] MEDS ORDERED: Acetaminophen IV 1,000 MG/100 ML INFUS..BTL IVPB PRN (18:00)
[2018-03-28] MEDS ORDERED: *HR* Enoxaparin 40 MG/0.4 ML SYRINGE SQ SCH (07:00)
--- NOTE | 2018-03-29 21:25 | Electrocardiograph Report ---
[address] [address] Test Date: 2018-03-27 Pat Name: Kolby Dyer Department: EXAM6 Room: 3A12 Gender: M [employer]: : 1980 Requested By: Pineda Villavicencio Order Number: [id number] Reading MD: Arelis Griffiths Measurements Intervals [place] Rate: 99 P: 56 AR: 144 QRS: 56 QRSD: 80 T: 53 QT: 354 QTc: 455 Interpretive Statements Sinus rhythm Electronically Signed On 03-29-2018 21:24:06 EST by Arelis Griffiths
== END 2018-03-27 17:22 | disposition left against medical advice (07) ==
LOC: 3ANU 09:22 → EMEROOARM 09:22 → 3ANU 15:28
PROVIDERS: ADMIT Student in an Organized Health Care Education/Training Program; ATTEND Student in an Organized Health Care Education/Training Program